=== PATIENT | female | born 1940 | race Caucasian/White ===

== ENCOUNTER 2016-12-10 15:25 | Inpatient (IN) | payer MEDICARE, OTHER ==
[~2016-12-10] VITALS: Ht 167.6 cm; Wt 68.0 kg
[2016-12-10] MEDS: IV NORMAL SALINE 1000ML BAG 1,000 ML IV SCH ×4 (15:40→23:15)
--- NOTE | 2016-12-10 15:48 | PHYS DOC ---
Adult General Chief Complaint Chief Complaint: FEVER HPI HPI Patient is a 76 year old female who presents to the emergency department for evaluation of altered mental status. The patient is currently unable to provide any history. Patient is reported to be alert and fully oriented at baseline. Patient recently had a fall and injured her right shoulder. During her hospital course she had developed aspiration pneumonia which resulted in prolonged intubation. Patient received a tracheostomy and PEG tube during that hospital stay and was discharged to postacute care for a significant period of time. Daughter states that the patient was released to home 2 weeks ago. The patient' s daughter has been caring for the patient at home. She states that suddenly today the patient developed a fever and has had increasing lethargy. The patient responds to painful stimulus at this time. Patient has also had noted abdominal distention and has not had a bowel movement over the past 48 hours. The patient's daughter called EMS and the patient was brought to the emergency department for further evaluation. EMS administered a total of 800 mL of lactated Ringer's and the patient prior to arrival. They noted that the patient was both febrile and hypotensive. Review of Systems Review of Systems Patient profoundly lethargic and unable to provide review of systems Current Medications Current Medications Current Medications Medications (Trade) Dose Ordered Sig/Mercedes Start Time Stop Time Status Last Admin Dose Admin Sodium Chloride 1,000 ml @ 1,120 mls/hr Q54M 12/10/16 16:00 12/10/16 17:00 DC 12/10/16 15:40 1,120 MLS/HR Allergies Allergies Allergies Coded Allergies Type Severity Reaction Last Updated Verified No Known Drug Allergies 12/10/16 No Physical Exam Physical Exam Constitutional: Lethargic, febrile, appears toxic. [] HENT: Normocephalic, atraumatic, bilateral external ears normal, oropharynx dry , no oral exudates, nose normal. [] Eyes: PERRLA, EOMI, conjunctiva normal, no discharge. [] Neck: Normal range of motion, tracheostomy site healing, mild thick secretions present, no tenderness, supple, no stridor. [] Cardiovascular: Tachycardia, regular rhythm, no murmur [] Lungs & Thorax: Bilateral breath sounds clear to auscultation , chest nontender to palpation [] Abdomen: Abdomen is distended, PEG tube in place, active bowel sounds, patient withdraws when abdomen is palpated, no pulsatile masses. [] Skin: Warm, dry, no erythema, no rash. [] Back: No tenderness, no CVA tenderness. [] Extremities: Right upper extremity contracted, no cyanosis, no clubbing, no edema. [] Neurologic: Lethargic, withdraws to painful stimulus, attempts to follow commands. [] Current Patient Data Vital Signs Vital Signs Date Time Temp Pulse Resp B/P (MAP) Pulse Ox O2 Delivery O2 Flow Rate FiO2 12/10/16 16:00 94 21 96/54 (68) 99 Nasal Cannula 6.0 12/10/16 15:25 99.7 99.7 Lab Values Laboratory Tests Test 12/10/16 15:35 12/10/16 15:40 12/10/16 16:00 White Blood Count 29.2 x10^3/uL (4.0-11.0) H Red Blood Count 3.01 x10^6/uL (3.50-5.40) L Hemoglobin 8.8 g/dL (12.0-15.5) L Hematocrit 27.5 % (36.0-47.0) L Mean Corpuscular Volume 91 fL (79-100) Mean Corpuscular Hemoglobin 29 pg (25-35) Mean Corpuscular Hemoglobin Concent 32 g/dL (31-37) Red Cell Distribution Width 16.4 % (11.5-14.5) H Platelet Count 304 x10^3/uL (140-400) Neutrophils (%) (Auto) 93 % (31-73) H Lymphocytes (%) (Auto) 1 % (24-48) L Monocytes (%) (Auto) 6 % (0-9) Eosinophils (%) (Auto) 0 % (0-3) Basophils (%) (Auto) 0 % (0-3) Neutrophils # (Auto) 27.1 x10^3uL (1.8-7.7) H Lymphocytes # (Auto) 0.4 x10^3/uL (1.0-4.8) L Monocytes # (Auto) 1.6 x10^3/uL (0.0-1.1) H Eosinophils # (Auto) 0.0 x10^3/uL (0.0-0.7) Basophils # (Auto) 0.0 x10^3/uL (0.0-0.2) Segmented Neutrophils % 78 % (35-66) H Band Neutrophils % 13 % (0-9) H Lymphocytes % 2 % (24-48) L Monocytes % 5 % (0-10) Metamyelocytes % 2 % (0-0) H Platelet Estimate Adequate (ADEQUATE) Anisocytosis Slight Sodium Level 132 mmol/L (136-145) L Potassium Level 5.6 mmol/L (3.5-5.1) H Chloride Level 99 mmol/L (98-107) Carbon Dioxide Level 29 mmol/L (21-32) Anion Gap 4 (6-14) L Blood Urea Nitrogen 68 mg/dL (7-20) H Creatinine 1.5 mg/dL (0.6-1.0) H Estimated GFR (Cockcroft-Gault) 33.7 BUN/Creatinine Ratio 45 (6-20) H Glucose Level 118 mg/dL (70-99) H Lactic Acid Level 2.7 mmol/L (0.4-2.0) H Calcium Level 8.8 mg/dL (8.5-10.1) Total Bilirubin 0.2 mg/dL (0.2-1.0) Aspartate Amino Transferase (AST) 54 U/L (15-37) H Alanine Aminotransferase (ALT) 52 U/L (14-59) Alkaline Phosphatase 141 U/L (46-116) H Total Protein 7.1 g/dL (6.4-8.2) Albumin 2.1 g/dL (3.4-5.0) L Albumin/Globulin Ratio 0.4 (1.0-1.7) L Urine Collection Type Unknown Urine Color Yellow Urine Clarity Clear Urine pH 7.0 Urine Specific [place] 1.015 Urine Protein Negative mg/dL (NEG-TRACE) Urine Glucose (UA) Negative mg/dL (NEG) Urine Ketones (Stick) Negative mg/dL (NEG) Urine Blood Trace (NEG) Urine Nitrite Negative (NEG) Urine Bilirubin Negative (NEG) Urine Urobilinogen Dipstick 0.2 mg/dL (0.2 mg/dL) Urine Leukocyte Esterase Moderate (NEG) Urine RBC 3-5 /HPF (0-2) Urine WBC 5-10 /HPF (0-4) Urine Bacteria Many /HPF (0-FEW) Urine Hyaline Casts Moderate /HPF Urine Mucus Slight /LPF O2 Saturation 96 % (92-99) Arterial Blood pH 7.50 (7.35-7.45) H Arterial Blood pCO2 at Patient Temp 34 mmHg (35-46) L Arterial Blood pO2 at Patient Temp 92 mmHg (65-108) Arterial Blood HCO3 26 mmol/L (21-28) Arterial Blood Base Excess 3 mmol/L (-3-3) FiO2 5 lpm nc Laboratory Tests 12/10/16 15:35 Laboratory Tests 12/10/16 15:35 EKG EKG Interpreted by me: Heart rate 98, sinus rhythm, left axis deviation, no acute ST /T-wave abnormalities present [] Radiology/Procedures Radiology/Procedures [address] [id number] IMAGING REPORT Signed PATIENT: RHETT BENNETT ACCOUNT: [id number] : 1940 LOCATION: ER AGE: 76 SEX: F EXAM STATUS: PRE ER ORD. PHYSICIAN: ANAND MARSHALL MD REASON: altered mental status, fever, abdominal distention, cough PROCEDURE: ACUTE ABDOMEN SERIES Indication: Fever and shortness of breath as well as abdominal distention. Time of exam 1600 hours. The heart is enlarged. Right hemidiaphragm is mildly elevated. There is some infiltrate or atelectasis in the right base. Minimal atelectasis left base is also seen. No free air is identified. There is moderate nonspecific gaseous distention to the right colon. Small bowel does not appear to be appreciably dilated. No wall thickening or pneumatosis is identified. No pathologic calcifications are seen. There is left convexity lumbar scoliotic curvature. Impression: 1. Bibasilar infiltrates or atelectasis, right greater. 2. Nonspecific moderate gaseous distention to the right colon. No wall thickening or free air is detected. DICTATED and SIGNED BY: ALLIE DAVIS MD DATE: 12/10/16 1605 CC: ANAND MARSHALL MD ~ [id number] [place], [place] [id number] IMAGING REPORT Signed PATIENT: RHETT BENNETT ACCOUNT: [id number] : 1940 LOCATION: ER AGE: 76 SEX: F EXAM STATUS: REG ER ORD. PHYSICIAN: ANAND MARSHALL MD REASON: sepsis, abdominal distention PROCEDURE: CT ABDOMEN PELVIS WO CONTRAST History: Possible sepsis. Pain and distention. Comparison: None. Technique: CT of the abdomen and pelvis was performed without intravenous contrast. Exposure: One or more of the following individualized dose reduction techniques were utilized for this examination: 1. Automated exposure control 2. Adjustment of the mA and/or kV according to patient size 3. Use of iterative reconstruction technique Findings: Evaluation of solid organs of the abdomen and pelvis is limited by lack of intravenous contrast. Motion artifact is seen at multiple levels which could obscure subtle abnormalities. There is significant streak artifact from patient's right total hip arthroplasty limiting evaluation of the pelvis. Groundglass opacity and consolidation can be seen involving right lower lobe and right middle lobe with lesser airspace disease involving the left lower lobe. Liver, spleen, pancreas, and bilateral adrenal glands are unremarkable. Cholelithiasis is suspected. No renal collecting system stones are identified. There is a calcification in the right aspect of the pelvis (axial image 60) which may be phlebolith or 2 mm distal right ureteral stone. L1 vertebral body demonstrates severe compression fracture, age-indeterminate. The T9 vertebral level demonstrates mild compression fracture, age-indeterminate. A few loops of small bowel are dilated up to 3.5 cm, but there is no evidence of bowel obstruction as oral contrast makes it to the rectum. There is evidence of rectal prolapse. Francisco catheter is present in the urinary bladder. Gastrostomy tube is present. Right hemipelvis demonstrates 5.5 cm cystic lesion, presumably ovarian in origin. Sacral decubitus ulcer is seen. Impression: 1. Lung bases demonstrate right greater than left airspace disease. Findings could represent pneumonia. Recommend clinical correlation. 2. Calcification in the right hemipelvis, could be phlebolith versus 2 mm distal right ureteral stone. 3. No evidence of bowel obstruction. 4. Rectal prolapse. 5. 5.5 cm cystic lesion in the right hemipelvis, presumably ovarian in origin. 6. T9 and L1 vertebral fractures, age-indeterminate. 7. Sacral decubitus ulcer. Electronically signed by: Toni Bah MD (12/10/2016 5:25 PM) DICTATED and SIGNED BY: TONI BAH MD DATE: 12/10/16 1717 CC: ANAND MARSHALL MD; DANILO GARCIA MD ~ [] Course & Med Decision Making Course & Med Decision Making Pertinent Labs and Imaging studies reviewed. (See chart for details) The patient was started on IV fluids prior to arrival in the emergency department and was given a total of 800 mL of lactated ringer. Based off of the patient's weight calculation, the patient is to receive 1920 mL of fluid. The patient was thus given 1120 mL to complete her 30 mL per kilo bolus as per sepsis protocol protocol. The patient's blood pressure is improved over 90 systolic with initial treatment. Patient found to have radiographic evidence of both pneumonia as well as intestinal distention. Patient's PEG tube was placed to low intermittent suction. Patient's UA positive for urinary tract infection. The patient was started on IV vancomycin, Levaquin, and Zosyn in the emergency department. This patient is critically ill and has multiple comorbidities. The patient will be appropriately dispositioned to the ICU for further care. I spoke to Dr. Ramírez who accepted care patient. Consults were also placed to Dr. Guadalupe of pulmonology and Dr. Lilly of nephrology to follow with patient in hospital. Critical care time excluding procedures: 50 minutes Dragon Disclaimer Dragon Disclaimer This electronic medical record was generated, in whole or in part, using a voice recognition dictation system. Departure Departure Impression: Primary Impression: Severe sepsis Additional Impressions: Healthcare-associated pneumonia Urinary tract infection Microcytic anemia Acute renal failure Severe protein-calorie malnutrition Disposition: ADMITTED INPATIENT Admitting Physician: Moiz Ramírez Condition: GUARDED Problem Qualifiers Additional Impressions: Urinary tract infection Urinary tract infection type: catheter-associated UTI Indwelling urinary catheter type: indwelling urethral catheter Encounter type: initial encounter Qualified Codes: T83.511A - Infection and inflammatory reaction due to indwelling urethral catheter, initial encounter; N39.0 - Urinary tract infection, site not specified Acute renal failure Acute renal failure type: unspecified Qualified Codes: N17.9 - Acute kidney failure, unspecified ANAND MARSHALL MD Dec 10, 2016 15:48
[2016-12-10 15:56] LABS: BASO % 0 % (0-3); EOS % 0 % (0-3); HEMATOCRIT 27.5 % (36.0-47.0); HEMOGLOBIN 8.8 g/dL (12.0-15.5); LYMPH # 0.4 x10^3/uL (1.0-4.8); LYMPH % 1 % (24-48); MEAN CORPUSCULAR HEMOGLOBIN 29 pg (25-35); MEAN CORPUSCULAR HGB CONC 32 g/dL (31-37); MEAN CORPUSCULAR VOLUME 91 fL (79-100); MONO % 6 % (0-9); NEUT % 93 % (31-73); PLATELET COUNT 304 x10^3/uL (140-400); RED BLOOD COUNT 3.01 x10^6/uL (3.50-5.40); RED CELL DISTRIBUTION WIDTH 16.4 % (11.5-14.5); WHITE BLOOD COUNT 29.2 x10^3/uL (4.0-11.0)
[2016-12-10 15:59] LABS: BILIRUBIN,URINE NEGATIVE (NEG); GLUCOSE,URINE NEGATIVE (NEG); NITRITE,URINE NEGATIVE (NEG); PROTEIN,URINE NEGATIVE (NEG-TRACE); UROBILINOGEN,URINE 0.2 mg/dL (0.2 mg/dL)
--- NOTE | 2016-12-10 16:09 | RAD ---
Indication: Fever and shortness of breath as well as abdominal distention. Time of exam 1600 hours. The heart is enlarged. Right hemidiaphragm is mildly elevated. There is some infiltrate or atelectasis in the right base. Minimal atelectasis left base is also seen. No free air is identified. There is moderate nonspecific gaseous distention to the right colon. Small bowel does not appear to be appreciably dilated. No wall thickening or pneumatosis is identified. No pathologic calcifications are seen. There is left convexity lumbar scoliotic curvature. Impression: 1. Bibasilar infiltrates or atelectasis, right greater. 2. Nonspecific moderate gaseous distention to the right colon. No wall thickening or free air is detected.
[2016-12-10 16:10] LABS: CALCIUM 8.8 mg/dL (8.5-10.1); CREATININE 1.5 mg/dL (0.6-1.0); GFR 33.7; POTASSIUM 5.6 mmol/L (3.5-5.1)
[2016-12-10 16:11] LABS: HCO3 ABG 26 mmol/L (21-28); PCO2 ABG 34 mmHg (35-46); PO2 ABG 92 mmHg (65-108); SAT O2 ABG 96 % (92-99)
[2016-12-10 16:12] LABS: BACTERIA,URINE MANY /HPF (0-FEW)
[2016-12-10] MEDS ORDERED: IV NORMAL SALINE 1000ML BAG 1,000 ML IV ONE ×2 (16:15→19:30)
[2016-12-10] MEDS ORDERED: levOFLOXacin PER PHARMACY. MC PRN (16:15)
[2016-12-10] MEDS ORDERED: PIP/TAZO PER PHARMACY MC PRN (16:15)
[2016-12-10] MEDS ORDERED: VANCOMYCIN 1.5 GM in IV NORMAL SALINE 500ML BAG 500 ML IV ONE (16:15)
[2016-12-10 16:16] LABS: ALBUMIN 2.1 g/dL (3.4-5.0); ALBUMIN/GLOBULIN RATIO 0.4 (1.0-1.7); TOTAL BILIRUBIN 0.2 mg/dL (0.2-1.0); TOTAL PROTEIN 7.1 g/dL (6.4-8.2)
[2016-12-10 16:28] LABS: ANISOCYTOSIS SLIGHT; PLT ESTIMATE ADEQUATE (ADEQUATE)
[2016-12-10] MEDS ORDERED: PIPERACILLIN/TAZOBACTAM 4.5 GM in IV NORMAL SALINE 100ML 100 ML IV ONE (16:30)
[2016-12-10] MEDS ORDERED: ACETAMINOPHEN 325 MG TABLET. PO PRN ×2 (16:45→17:15)
[2016-12-10] MEDS ORDERED: ONDANSETRON PF 4 MG/2 ML VIAL. IV PRN ×2 (16:45→17:15)
--- NOTE | 2016-12-10 17:10 | PDOC1 ---
History and Physical Date of Admission Date of Admission 12/10/16 Identification/Chief Complaint Chief Complaint AMS Problems: Source Source: Caregiver, Chart review History of Present Illness History of Present Illness Patient is a 76 year old female who presents to the emergency department for evaluation of altered mental status today. Pt is lethargic now, all history contributed from her , daughter at bedside and ERP. Pt fell in 01/2016, with right clavical fx, hip fx post sx, then transferred to different hosp and rehab, complicated with PNA, resp failure, aspiration, ended up with a prolonged intubated, trach and PEG. Pt was just dced back home 2 weeks ago, trach was removed. cont PEG feeding. Her baseline mental status was confused sometime, but most of time able to talk ,expresses herself. Daughter noticed pt had cloudy urine and PCP prescribed bactrium 2 days ago. Pt also was noticed to have distended abd with less BM, T 100.8. Today, pt became lethargic, daughter called EMS and the patient was brought to the emergency department for further evaluation. EMS administered a total of 800 mL of lactated Ringer's and the patient prior to arrival. They noted that the patient was both febrile 101 and hypotensive. Past Medical History Past Medical History HTN, PNA, RESP Failure with trach, PAFIB Past Surgical History Past Surgical History: Total hip replacement Family History Family History: Hypertension Social History Smoke: No ALCOHOL: none Drugs: None Current Problem List Problem List Problems Medical Problems: (1) Acute renal failure Status: Acute (2) Healthcare-associated pneumonia Status: Acute (3) Microcytic anemia Status: Acute (4) Severe protein-calorie malnutrition Status: Acute (5) Severe sepsis Status: Acute (6) Urinary tract infection Status: Acute Current Medications Current Medications Current Medications Medications (Trade) Dose Ordered Sig/Mercedes Start Time Stop Time Status Last Admin Dose Admin Acetaminophen (Tylenol) 650 mg PRN Q4HRS PRN 12/10/16 16:45 12/11/16 16:44 Albuterol/ Ipratropium (Duoneb) 3 ml RTQID 12/10/16 20:00 12/11/16 19:59 Levofloxacin/ Dextrose 150 ml @ 150 mls/hr ONCE ONCE 12/10/16 16:15 12/10/16 17:14 12/10/16 16:16 150 MLS/HR Levofloxacin/ Dextrose (Levaquin Per Pharmacy) 1 each PRN DAILY PRN 12/10/16 16:15 UNV Ondansetron HCl (Zofran) 4 mg PRN Q8HRS PRN 12/10/16 16:45 12/11/16 16:44 Piperacillin Sod/ Tazobactam Sod (Zosyn Per Pharmacy) 1 each PRN DAILY PRN 12/10/16 16:15 UNV Piperacillin Sod/ Tazobactam Sod 4.5 gm/Sodium Chloride 100 ml @ 200 mls/hr ONCE ONCE 12/10/16 16:30 12/10/16 16:59 Sodium Chloride 1,000 ml @ 150 mls/hr Q6H40M 12/10/16 16:35 12/11/16 16:34 Vancomycin HCl (Vanco Per Pharmacy) 1 each PRN DAILY PRN 12/10/16 16:15 UNV Vancomycin HCl 1.5 gm/Sodium Chloride 500 ml @ 250 mls/hr 1X ONCE 12/10/16 16:15 12/10/16 18:14 Allergies Allergies Allergies Coded Allergies Type Severity Reaction Last Updated Verified No Known Drug Allergies 12/10/16 No ROS Review of System CONSTITUTIONAL: No fever or chills EYES: No recent changes SKIN: No rash or itching CARDIOVASCULAR: No chest pain, syncope, palpitations, or edema RESPIRATORY: No SOB or cough GASTROINTESTINAL: No nausea, vomiting or abdominal pain NEUROLOGICAL: No headaches or weakness ENDOCRINE: No cold or heat intolerance GENITOURINARY: No urgency or frequency of urination MUSCULOSKELETAL: No back pain or joint pain LYMPHATICS: No enlarged lymph nodes PSYCHIATRIC: No anxiety or depression Physical Exam Physical Exam GEN.: No apparent distress. lethargic, not arousable or answer questions. HEENT: Head is normocephalic, atraumatic NECK: Supple. LUNGS: Clear to auscultation. HEART: RRR, S1, S2 present. Peripheral pulses intact ABDOMEN: Soft, nontender. Positive bowel sounds. distended abd. EXTREMITIES: Without any cyanosis. NEUROLOGIC: Normal speech, normal tone PSYCHIATRIC: Normal affect, normal mood. SKIN: sacral ulcer with wound vac Vitals Vitals Vital Signs Date Time Temp Pulse Resp B/P (MAP) Pulse Ox O2 Delivery O2 Flow Rate FiO2 12/10/16 16:19 99.1 96 20 93/46 (62) 100 Room Air 99.1 12/10/16 16:13 5.0 Labs Labs Laboratory Tests Test 12/10/16 15:35 12/10/16 15:40 12/10/16 16:00 White Blood Count 29.2 x10^3/uL (4.0-11.0) Red Blood Count 3.01 x10^6/uL (3.50-5.40) Hemoglobin 8.8 g/dL (12.0-15.5) Hematocrit 27.5 % (36.0-47.0) Mean Corpuscular Volume 91 fL (79-100) Mean Corpuscular Hemoglobin 29 pg (25-35) Mean Corpuscular Hemoglobin Concent 32 g/dL (31-37) Red Cell Distribution Width 16.4 % (11.5-14.5) Platelet Count 304 x10^3/uL (140-400) Neutrophils (%) (Auto) 93 % (31-73) Lymphocytes (%) (Auto) 1 % (24-48) Monocytes (%) (Auto) 6 % (0-9) Eosinophils (%) (Auto) 0 % (0-3) Basophils (%) (Auto) 0 % (0-3) Neutrophils # (Auto) 27.1 x10^3uL (1.8-7.7) Lymphocytes # (Auto) 0.4 x10^3/uL (1.0-4.8) Monocytes # (Auto) 1.6 x10^3/uL (0.0-1.1) Eosinophils # (Auto) 0.0 x10^3/uL (0.0-0.7) Basophils # (Auto) 0.0 x10^3/uL (0.0-0.2) Segmented Neutrophils % 78 % (35-66) Band Neutrophils % 13 % (0-9) Lymphocytes % 2 % (24-48) Monocytes % 5 % (0-10) Metamyelocytes % 2 % (0-0) Platelet Estimate Adequate (ADEQUATE) Anisocytosis Slight Sodium Level 132 mmol/L (136-145) Potassium Level 5.6 mmol/L (3.5-5.1) Chloride Level 99 mmol/L (98-107) Carbon Dioxide Level 29 mmol/L (21-32) Anion Gap 4 (6-14) Blood Urea Nitrogen 68 mg/dL (7-20) Creatinine 1.5 mg/dL (0.6-1.0) Estimated GFR (Cockcroft-Gault) 33.7 BUN/Creatinine Ratio 45 (6-20) Glucose Level 118 mg/dL (70-99) Lactic Acid Level 2.7 mmol/L (0.4-2.0) Calcium Level 8.8 mg/dL (8.5-10.1) Total Bilirubin 0.2 mg/dL (0.2-1.0) Aspartate Amino Transf (AST/SGOT) 54 U/L (15-37) Alanine Aminotransferase (ALT/SGPT) 52 U/L (14-59) Alkaline Phosphatase 141 U/L (46-116) Total Protein 7.1 g/dL (6.4-8.2) Albumin 2.1 g/dL (3.4-5.0) Albumin/Globulin Ratio 0.4 (1.0-1.7) Urine Collection Type Unknown Urine Color Yellow Urine Clarity Clear Urine pH 7.0 Urine Specific [place] 1.015 Urine Protein Negative mg/dL (NEG-TRACE) Urine Glucose (UA) Negative mg/dL (NEG) Urine Ketones (Stick) Negative mg/dL (NEG) Urine Blood Trace (NEG) Urine Nitrite Negative (NEG) Urine Bilirubin Negative (NEG) Urine Urobilinogen Dipstick 0.2 mg/dL (0.2 mg/dL) Urine Leukocyte Esterase Moderate (NEG) Urine RBC 3-5 /HPF (0-2) Urine WBC 5-10 /HPF (0-4) Urine Bacteria Many /HPF (0-FEW) Urine Hyaline Casts Moderate /HPF Urine Mucus Slight /LPF O2 Saturation 96 % (92-99) Arterial Blood pH 7.50 (7.35-7.45) Arterial Blood pCO2 at Patient Temp 34 mmHg (35-46) Arterial Blood pO2 at Patient Temp 92 mmHg (65-108) Arterial Blood HCO3 26 mmol/L (21-28) Arterial Blood Base Excess 3 mmol/L (-3-3) FiO2 5 lpm nc Laboratory Tests Test 12/10/16 15:35 12/10/16 15:40 12/10/16 16:00 White Blood Count 29.2 x10^3/uL (4.0-11.0) Red Blood Count 3.01 x10^6/uL (3.50-5.40) Hemoglobin 8.8 g/dL (12.0-15.5) Hematocrit 27.5 % (36.0-47.0) Mean Corpuscular Volume 91 fL (79-100) Mean Corpuscular Hemoglobin 29 pg (25-35) Mean Corpuscular Hemoglobin Concent 32 g/dL (31-37) Red Cell Distribution Width 16.4 % (11.5-14.5) Platelet Count 304 x10^3/uL (140-400) Neutrophils (%) (Auto) 93 % (31-73) Lymphocytes (%) (Auto) 1 % (24-48) Monocytes (%) (Auto) 6 % (0-9) Eosinophils (%) (Auto) 0 % (0-3) Basophils (%) (Auto) 0 % (0-3) Neutrophils # (Auto) 27.1 x10^3uL (1.8-7.7) Lymphocytes # (Auto) 0.4 x10^3/uL (1.0-4.8) Monocytes # (Auto) 1.6 x10^3/uL (0.0-1.1) Eosinophils # (Auto) 0.0 x10^3/uL (0.0-0.7) Basophils # (Auto) 0.0 x10^3/uL (0.0-0.2) Segmented Neutrophils % 78 % (35-66) Band Neutrophils % 13 % (0-9) Lymphocytes % 2 % (24-48) Monocytes % 5 % (0-10) Metamyelocytes % 2 % (0-0) Platelet Estimate Adequate (ADEQUATE) Anisocytosis Slight Sodium Level 132 mmol/L (136-145) Potassium Level 5.6 mmol/L (3.5-5.1) Chloride Level 99 mmol/L (98-107) Carbon Dioxide Level 29 mmol/L (21-32) Anion Gap 4 (6-14) Blood Urea Nitrogen 68 mg/dL (7-20) Creatinine 1.5 mg/dL (0.6-1.0) Estimated GFR (Cockcroft-Gault) 33.7 BUN/Creatinine Ratio 45 (6-20) Glucose Level 118 mg/dL (70-99) Lactic Acid Level 2.7 mmol/L (0.4-2.0) Calcium Level 8.8 mg/dL (8.5-10.1) Total Bilirubin 0.2 mg/dL (0.2-1.0) Aspartate Amino Transf (AST/SGOT) 54 U/L (15-37) Alanine Aminotransferase (ALT/SGPT) 52 U/L (14-59) Alkaline Phosphatase 141 U/L (46-116) Total Protein 7.1 g/dL (6.4-8.2) Albumin 2.1 g/dL (3.4-5.0) Albumin/Globulin Ratio 0.4 (1.0-1.7) Urine Collection Type Unknown Urine Color Yellow Urine Clarity Clear Urine pH 7.0 Urine Specific [place] 1.015 Urine Protein Negative mg/dL (NEG-TRACE) Urine Glucose (UA) Negative mg/dL (NEG) Urine Ketones (Stick) Negative mg/dL (NEG) Urine Blood Trace (NEG) Urine Nitrite Negative (NEG) Urine Bilirubin Negative (NEG) Urine Urobilinogen Dipstick 0.2 mg/dL (0.2 mg/dL) Urine Leukocyte Esterase Moderate (NEG) Urine RBC 3-5 /HPF (0-2) Urine WBC 5-10 /HPF (0-4) Urine Bacteria Many /HPF (0-FEW) Urine Hyaline Casts Moderate /HPF Urine Mucus Slight /LPF O2 Saturation 96 % (92-99) Arterial Blood pH 7.50 (7.35-7.45) Arterial Blood pCO2 at Patient Temp 34 mmHg (35-46) Arterial Blood pO2 at Patient Temp 92 mmHg (65-108) Arterial Blood HCO3 26 mmol/L (21-28) Arterial Blood Base Excess 3 mmol/L (-3-3) FiO2 5 lpm nc VTE Prophylaxis Ordered VTE Prophylaxis Devices: Yes VTE Pharmacological Prophylaxi: Yes Assessment/Plan Assessment/Plan AMS, metabolic encephalopathy likely with baseline mild dementia sepsis with asp PNA, HAP, UTI septic shock lili, vasomotor, dehydration lactate acidosis hyperkalemia moderate malnutrition recent acute resp failure with trach, removed dysphagia with PEG Distended abd pafib sacral decubitus ulcer plan: abd CT pending broad spectrum abx icu care, keep map> 65 ivf npo, HOLD PEG till abd CT result is back neuro, pulm, renal consult, ID consult labs daily dvt ppx fu ucx, bcx wound care HANNY Vogt MD Dec 10, 2016 17:10
[2016-12-10] MEDS ORDERED: ALBUTEROL SULFATE 2.5 MG/3 ML NEBU. NEB PRN (17:15)
[2016-12-10] MEDS ORDERED: DOCUSATE SODIUM 100 MG CAPSULE. PO PRN (17:15)
[2016-12-10] MEDS ORDERED: MORPHINE SULFATE 2 MG/ML DISP.SYRIN. IV PRN (17:15)
[2016-12-10] MEDS ORDERED: traMADol 50 MG TABLET PO PRN (17:15)
[2016-12-10] MEDS ORDERED: hydrALAZINE 20 MG/ML VIAL. IVP PRN (17:15)
--- NOTE | 2016-12-10 17:29 | RAD ---
History: Possible sepsis. Pain and distention. Comparison: None. Technique: CT of the abdomen and pelvis was performed without intravenous contrast. Exposure: One or more of the following individualized dose reduction techniques were utilized for this examination: 1. Automated exposure control 2. Adjustment of the mA and/or kV according to patient size 3. Use of iterative reconstruction technique Findings: Evaluation of solid organs of the abdomen and pelvis is limited by lack of intravenous contrast. Motion artifact is seen at multiple levels which could obscure subtle abnormalities. There is significant streak artifact from patient's right total hip arthroplasty limiting evaluation of the pelvis. Groundglass opacity and consolidation can be seen involving right lower lobe and right middle lobe with lesser airspace disease involving the left lower lobe. Liver, spleen, pancreas, and bilateral adrenal glands are unremarkable. Cholelithiasis is suspected. No renal collecting system stones are identified. There is a calcification in the right aspect of the pelvis (axial image 60) which may be phlebolith or 2 mm distal right ureteral stone. L1 vertebral body demonstrates severe compression fracture, age-indeterminate. The T9 vertebral level demonstrates mild compression fracture, age-indeterminate. A few loops of small bowel are dilated up to 3.5 cm, but there is no evidence of bowel obstruction as oral contrast makes it to the rectum. There is evidence of rectal prolapse. Francisco catheter is present in the urinary bladder. Gastrostomy tube is present. Right hemipelvis demonstrates 5.5 cm cystic lesion, presumably ovarian in origin. Sacral decubitus ulcer is seen. Impression: 1. Lung bases demonstrate right greater than left airspace disease. Findings could represent pneumonia. Recommend clinical correlation. 2. Calcification in the right hemipelvis, could be phlebolith versus 2 mm distal right ureteral stone. 3. No evidence of bowel obstruction. 4. Rectal prolapse. 5. 5.5 cm cystic lesion in the right hemipelvis, presumably ovarian in origin. 6. T9 and L1 vertebral fractures, age-indeterminate. 7. Sacral decubitus ulcer. Electronically signed by: Toni Sharma MD (12/10/2016 5:25 PM)
--- NOTE | 2016-12-10 17:34 | ACF ---
Admission Forms Criteria SEVERE SEPSIS Clinical Indications for Admission to Inpatient Care (Place 'X' for any and all applicable criteria): Hospital admission is needed for appropriate care of the patient because of ANY ONE of the following: [X]I. Hemodynamic instability indicated by ANY ONE of the following(1)(2)(3)( 4)(5): []a. Vital sign abnormality not readily corrected by appropriate treatment within 12 to 24 hours indicated by ANY ONE of the following: []i) Tachycardia that persists despite appropriate treatment []ii) Hypotension that persists despite appropriate treatment []iii) Orthostatic vital sign changes that persist despite appropriate treatment [X]b. Vital sign abnormality that is severe indicated by ANY ONE of the following: [X]i. Inadequate perfusion indicated by ANY ONE of the following: [X]1) Lactic acidosis (greater than 2 mmol/L) []2) New abnormal capillary refill (greater than 3 seconds) []3) Reduced urine output []4) New altered mental status []5) Myocardial Ischemia []ii. Mean arterial pressure [A] less than 60 mm Hg []iii. Mean arterial pressure[A] less than 70 mm Hg after 30 minutes of appropriate treatment (eg, fluid resuscitation) []iv. Sustained heart rate greater than 120 beats per minute in adult []v. IV inotropic or vasopressor medication required to maintain adequate blood pressure or perfusion []II. Systemic or infectious condition causing severe symptoms or findings not responsive to emergency or observation care treatment (as appropriate) indicated by ANY ONE of the following: []a. Cardiac arrhythmias of immediate concern(1)(2)(3) []b. Severe endocrine disorder (eg, thyrotoxicosis, adrenal insufficiency)(4)(5) []c. Seizures (eg, new or recurrent)(6) []d. New-onset end organ failure or dysfunction as indicated by ANY ONE of the following: []i. Acute unexplained hypoxemia (eg, not from lung infection or chronic disease)(7)(8)(9) []ii. Acute renal failure as indicated by new onset of ANY ONE of the following(10)(11)(12)(13)(14): []1) 3-fold rise in serum creatinine from baseline []2) Serum creatinine greater than 4 mg/dL (354 micromoles/L) with acute rise greater than 0.5 mg/dL (44.2 micromoles/L) []3) Reduction of more than 75% in estimated glomerular filtration rate from baseline. []4) Estimated glomerular filtration rate less than 35 mL/min/1.73m2 ( 0.59 mL/sec/1.73m2) in child younger than 18 years. []5) Cessation of urine output indicated by ALL of the following: []A. Adequate volume status []B. Inadequate urine output as indicated by ANY ONE of the following: []a. Urine output less than 0.3 mL/kg/hr for 24 hours []b. Anuria (urine output less than 0.1 mL/kg/hr) for 12 hours []iii. Acute mental status changes(15) []iv. Acute hepatic failure (eg, plasma bilirubin greater than 4 mg/ dL (68 micromoles/L), new INR greater than 2.0)(16)(17) []e. Unmanageable nausea and vomiting(18) []f. New-onset or uncontrolled central diabetes insipidus(19)(20) []g. Clinically significant dehydration(18)(21) []h. Hypoglycemia(22) []i. Acidosis (pH less than 7.35) or alkalosis (pH greater than 7.45)( 22)(23) []j. Toxic drug level that indicates need for specific monitoring or treatment(24)(25) []k. Severe electrolyte abnormalities indicated by ALL of the following( 1)(2)(3): []i. Electrolytes and associated findings are not as expected for patient baseline or acceptable treatment effects. []ii. Severe abnormalities indicated by ANY ONE of the following: []1) Sodium less than 130 mEq/L (mmol/L) (new) []2) Sodium less than 135 mEq/L (mmol/L) with ANY ONE of the following: []A. Uncorrectable (to near normal or chronic baseline) after trial of outpatient and emergency treatment []B. Altered mental status []C. Seizures []D. Severe medical etiology requiring inpatient management (eg , heart failure, hypovolemia) []3) Sodium greater than 155 mEq/L (mmol/L) []4) Sodium greater than 150 mEq/L (mmol/L) with ANY ONE of the following: []A. Uncorrectable (to near normal or chronic baseline) with outpatient and emergency treatment []B. Altered mental status []C. Seizures []D. Severe medical etiology (eg, hypovolemia, diabetes insipidus) []5) Potassium less than 2.5 mEq/L (mmol/L) despite outpatient and emergency treatment []6) Potassium less than 3 mEq/L (mmol/L) with ANY ONE of the following : []A. Weakness []B. Cardiac abnormality (eg, arrhythmia, conduction disturbance ) []C. Cardiac ischemia []D. Ileus []E. Ongoing medical cause requiring inpatient management (eg, acute renal wasting or SIADH) []F. Other severe symptoms []7) Potassium greater than 6.5 mEq/L (mmol/L) []8) Potassium greater than 5 mEq/L (mmol/L) with ANY ONE of the following: []A. Uncorrectable (to near normal or chronic baseline) with outpatient and emergency treatment []B. Severe ECG findings[A] []C. Acute worsening of renal failure (creatinine greater than 2.5 mg/dL (221 micromoles/L) or significant elevation for age and size) []D. Severe weakness []E. Severe medical etiology (eg, hemolysis, infection, drug overdose) []9) Calcium less than 7 mg/dL (1.75 mmol/L) despite outpatient and emergency treatment(5) []10) Calcium less than 8 mg/dL (2 mmol/L) with significant symptoms or findings (eg, altered mental status, muscle spasms, seizures, breathing difficulty, cardiac abnormality (eg, arrhythmia or conduction disturbance))(5) []11) Calcium greater than 14 mg/dL (3.5 mmol/L)(5) []12) Calcium greater than 12 mg/dL (3 mmol/L) with ANY ONE of the following(5): []A. Uncorrectable (to near normal or chronic baseline) with outpatient and emergency treatment []B. Significant dehydration or hypovolemia as indicated by ALL of the following(3)(6)(7): []a. Not resolved with initial treatments []b. Clinically significant dehydration as indicated by ANY ONE of the following: [](1) Vomiting refractory to outpatient treatment (ie, precluding oral rehydration) [](2) Inability to drink [](3) Hypernatremia or other electrolyte abnormality unable to be corrected with outpatient and emergency treatment [](4) Failure to remain hydrated with outpatient therapy [](5) Reduced urine output [](6) Hypotension [](7) Serious cause for dehydration requiring acute hospitalization ( eg, bowel obstruction, increased intracranial pressure, infectious cause) [](8) Child with ANY ONE of the following(8): [](i) Severe abdominal tenderness [](ii) Adequate care not available at home [](iii) Severe dehydration (greater than 9% loss of body weight) []C. Significant symptoms or findings (eg, altered mental status , cardiac abnormality (eg, arrhythmia, conduction disturbance), malignant etiology requiring inpatient treatment) []13) Phosphorus less than 1 mg/dL (0.32 mmol/L) []14) Phosphorus less than 1.5 mg/dL (0.48 mmol/L) with ANY ONE of the following: []A. Patient unresponsive to outpatient and emergency treatment []B. Significant symptoms or findings (eg, weakness, altered mental status, breathing difficulty, seizures, rhabdomyolysis) []15) Phosphorus greater than 10 mg/dL (3.2 mmol/L) []16) Phosphorus greater than 4.5 mg/dL (1.45 mmol/L) (new) with ANY ONE of the following: []A. Severe medical etiology (eg, crush injury, acute renal failure) []B. Associated hypocalcemia with significant findings (eg, neurologic symptoms, altered mental status, muscle spasms, seizures, breathing difficulty, cardiac abnormality (eg, arrhythmia, conduction disturbance)) []16) Magnesium less than 1 mg/dL (0.41 mmol/L) []17) Magnesium less than 1.5 mg/dL (0.62 mmol/L) with ANY ONE of the following: []A. Patient unresponsive to outpatient and emergency treatment []B. Associated hypocalcemia with significant findings (eg, altered mental status, muscle spasms, seizures, breathing difficulty, cardiac abnormality (eg, arrhythmia, conduction disturbance)) []C. Associated hypokalemia (potassium less than 3 mEq/L (mmol/L )) with risk of arrhythmia []18) Magnesium greater than 4 mEq/L (2 mmol/L) []19) Magnesium greater than 2.5 mEq/L (1.25 mmol/L) with significant symptoms or findings (eg, weakness, altered mental status, cardiac abnormality (eg, arrhythmia, conduction disturbance), breathing difficulty, severe medical etiology (eg, renal failure, hypovolemia)) []20) Uric acid greater than 20 mg/dL (1190 micromoles/L)(9) []21) Uric acid greater than 8 mg/dL (476 micromoles/L) with significant symptoms or findings of tumor lysis syndrome (eg, creatinine greater than 1.5 times upper limit of normal, cardiac abnormality (eg , arrhythmia, conduction disturbance), seizure)(9) []III. High fever or other high-risk infection situation as indicated by ANY ONE of the following(26)(27)(28): []a. Outpatient and observation care antimicrobial treatment unavailable, not effective, or not appropriate []b. Documented bacteremia []c. Temperature greater than 104.9 degrees F (40.5 degrees C) (oral) []d. Temperature greater than 103.1 degrees F (39.5 degrees C) (oral) or less than 96.8 degrees F (36 degrees C) (rectal) that does not respond to emergency treatment and observation care []IV. High-risk febrile neutropenia[A] as indicated by ANY ONE of the following(29)(30)(31)(32): []a. Profound neutropenia[B] anticipated to extend for more than 7 days []b. Hemodynamic instability []c. Hypoxemia []d. Tachypnea []e. Altered mental status []f. New-onset abdominal pain []g. New-onset vomiting or diarrhea []h. Oral or gastrointestinal mucositis that interferes with swallowing or causes severe diarrhea []i. Focal infection (eg, cellulitis, pneumonia, central line or catheter infection, perirectal abscess) []j. Renal insufficiency (eg, GFR of less than 30 mL/min/1.73m2 (0.5 mL/sec /1.73m2)). []k. Severe liver dysfunction (transaminase levels greater than 5 times normal) []l. Platelet count less than 50,000/mm3 (50 x109/L)(33) []m. Leukemia or lymphoma induction therapy []n. Leukemia not in complete remission or with evidence of disease progression []o. Bone marrow transplant patient []p. Alemtuzumab being used for therapy []q. [employer] Association for Supportive Care in Cancer (MASCC) Risk Index score of less than 21[C](33)(35). []V. Isolation required (eg, tuberculosis that requires isolation, Ebola infection)[D](36)(37)(38)(39)(40) []. Gangrene that requires treatment beyond emergency or observation level care(41)(42) []VII. Antitoxin administration and ongoing observation required (eg, tetanus, botulism)(43)(44) []. Suspected infection with rapid progression or severe symptoms as indicated by ANY ONE of the following(45): []a. Streptococcal or staphylococcal toxic shock(46) []b. Diphtheria(47) []c. Hantavirus(48) []d. Severe acute respiratory syndrome(8)(49) []e. Anthrax(50) []f. Ebola[D](36)(37)(38) []g. Necrotizing soft tissue infection(41)(42) []h. Plague(50) []i. Other suspected infection that requires care beyond emergency or observation level care []VII. Severe adverse drug or systemic toxin reaction as indicated by ANY ONE of the following(24): []a. Serotonin syndrome(51)(52) []b. Neuroleptic malignant syndrome(51)(52) []c. Cholinergic syndrome with severe symptoms (eg, bronchorrhea, weakness , mental status changes, seizures)(53) []d. Anticholinergic syndrome []e. Sympathetic syndrome with severe symptoms (eg, seizures, mental status changes, cardiac dysrhythmias) []f. Other severe adverse drug or systemic toxin reaction that remains after emergency or observation level care (as appropriate) []VIII. Allergic reaction with severe symptoms (not responsive to emergency or observation care treatment as appropriate), including ANY ONE of the following(54): []a. Airway edema (pharyngeal, epiglottic, or laryngeal edema) []b. Stridor []c. Respiratory failure []d. Bronchospasm []e. Hypotension []IX. Environmental emergency (not responsive to emergency or observation care treatment as appropriate) as indicated by ANY ONE of the following(55)(56): []a. Hyperthermia []b. Heat stroke []c. Heat exhaustion []d. Hypothermia (temperature less than 95 degrees F (35 degrees C) rectal) (57) []e. Electrocution(58) []X. Complications of transplanted organ (ie, not covered elsewhere)[E] indicated by ANY ONE of the following(59): []a. Acute graft rejection (or graft vs. host disease)[F] requiring inpatient management (eg, intravenous immunosuppression)(60)(61)(62)( 63) []b. Acute failure of transplanted organ necessitating inpatient care (eg, cannot be managed in other setting) []c. Infection requiring inpatient management (eg, Hemodynamic instability, need for intravenous antimicrobial treatment)(64)(65) []d. Other complication of transplanted organ requiring inpatient management []XI. Systemic or Infectious Condition condition, symptom, or finding for which emergency and observation care have failed or are not considered appropriate. See General Criteria: Observation Care, General Admission Criteria or Pediatric General Admission Criteria guideline as appropriate. (Contents from SEVERE SEPSIS and SYSTEMIC OR INFECTIOUS CONDITION clinical indications for admission to inpatient care have been integrated in this form) The original [facility] content created by [email or web address] has been revised. The portions of the content which have been revised are identified through the use of italic text or in bold and [facility] has neither reviewed nor approved the modified material. All other unmodified content is copyright [facility]. Please see references footnoted in the original [facility] edition 2016 Admission Criteria Met?: Yes SON CH Dec 10, 2016 17:34
[2016-12-10 18:15] VITALS: BP 90/45
[2016-12-10] MEDS: VANCOMYCIN PER PHARMACY MC PRN ×2 (18:43→18:46)
[2016-12-10] MEDS: NOREPINEPHRIN PREMIX 250 ML IV PRN (18:45)
[2016-12-10] MEDS: IV DEXTROSE 5% - 0.9 % NACL 1,000 ML IV SCH (18:45)
[2016-12-10 19:00] VITALS: BP 110/51
[2016-12-10 20:00] VITALS: BP 90/49
[2016-12-10] MEDS ORDERED: IPRATRPIUM/ALBUTEROL 0.5/2.5MG 3 ML NEBU. NEB SCH (20:00)
[2016-12-10] MEDS: IPRATRPIUM/ALBUTEROL 0.5/2.5MG 3 ML NEBU. NEB SCH (20:30)
--- NOTE | 2016-12-10 20:45 | RAD ---
Exam: AP portable chest History: Central line placement. Comparison: August 06, 2010. Findings: Cardiac silhouette appears within normal limits for size. There has been interval placement of left subclavian central venous catheter with tip of the catheter projecting at the atriocaval junction. No pneumothorax or pleural effusion is identified. Infiltrate is seen in the right middle lobe adjacent to the minor fissure. Impression: 1. Left subclavian central venous catheter tip projects at the atriocaval junction. 2. Right middle lobe pneumonia. Electronically signed by: Toni Sharma MD (12/10/2016 8:41 PM)
[2016-12-10 21:00] VITALS: BP 96/56
[2016-12-10 22:00] VITALS: BP 92/40
[2016-12-10] MEDS: HEPARIN PF for SUB-Q USE 5,000 UNIT/0.5 ML VIAL. SQ SCH (22:06)
[2016-12-10 23:00] VITALS: BP 96/40
[2016-12-11] VITALS (26 sets, daily range): BP systolic 70–140; BP diastolic 37–75
[2016-12-11] MEDS: PIPERACILLIN/TAZOBACTAM 3.375 GM in IV NORMAL SALINE 50ML 50 ML IV SCH ×4 (00:29→19:02)
[2016-12-11] MEDS: IV NORMAL SALINE 1000ML BAG 1,000 ML IV SCH (05:55)
[2016-12-11] MEDS: HEPARIN PF for SUB-Q USE 5,000 UNIT/0.5 ML VIAL. SQ SCH ×2 (06:17→14:00)
[2016-12-11 06:36] LABS: BASO % 0 % (0-3); EOS % 0 % (0-3); HEMOGLOBIN 8.5 g/dL (12.0-15.5); LYMPH # 1.3 x10^3/uL (1.0-4.8); LYMPH % 5 % (24-48); MEAN CORPUSCULAR HEMOGLOBIN 29 pg (25-35); MEAN CORPUSCULAR HGB CONC 32 g/dL (31-37); MEAN CORPUSCULAR VOLUME 92 fL (79-100); MONO % 6 % (0-9); NEUT % 89 % (31-73); PLATELET COUNT 250 x10^3/uL (140-400); RED BLOOD COUNT 2.94 x10^6/uL (3.50-5.40); RED CELL DISTRIBUTION WIDTH 16.6 % (11.5-14.5); WHITE BLOOD COUNT 26.1 x10^3/uL (4.0-11.0)
[2016-12-11 06:45] LABS: CREATININE 1.4 mg/dL (0.6-1.0); GFR 36.5; POTASSIUM 4.5 mmol/L (3.5-5.1)
[2016-12-11 06:46] LABS: CALCIUM 7.9 mg/dL (8.5-10.1)
[2016-12-11] MEDS: IPRATRPIUM/ALBUTEROL 0.5/2.5MG 3 ML NEBU. NEB SCH ×4 (07:14→19:24)
--- NOTE | 2016-12-11 08:41 | EKG ---
[facility] [address] [place] [address] Test Date: 2016-12-10 Test Time: 15:29:59 Pat Name: RHETT BENNETT Department: Room: 114 1 Gender: F Mopper: : 1940 Requested By: ANAND MARSHALL Order Number: [id number] Reading MD: Kasey Oscar Measurements Intervals [place] Rate: 98 P: -156 WY: 156 QRS: -45 QRSD: 96 T: 51 QT: 368 QTc: 472 Interpretive Statements SINUS RHYTHM LEFT ANTERIOR FASCICULAR BLOCK INCOMPLETE RIGHT BUNDLE BRANCH BLOCK Electronically Signed On 12-11-2016 14:26:19 CDT by Kasey Oscar
[2016-12-11] MEDS: IV DEXTROSE 5% - 0.9 % NACL 1,000 ML IV SCH ×3 (08:53→23:05)
[2016-12-11] MEDS: NOREPINEPHRIN PREMIX 250 ML IV PRN (08:53)
[2016-12-11] MEDS ORDERED: IV NORMAL SALINE 1000ML BAG 1,000 ML IV ONE ×2 (10:00)
--- NOTE | 2016-12-11 10:03 | PDOC ---
PROGRESS NOTES Chief Complaint Chief Complaint AMS ASSESSMENT AND PLAN: 1. metabolic encephalopathy: 2/2 sepsis. suspect baseline mild dementia as well 2. Septic shock: fever, lactic acidosis and hypotension, latter requiring IVF and pressors. 3. HAP/aspiration PNA: on empiric Zosyn, vanco. recent acute resp failure with trach, removed 4. UTI: on empiric Abx; awaiting cultures 5. JULIETA, prob on CKD: 2/2 dehydration. monitor creat with IVF. 6. Hyperkalemia: resolved 7. Hyponatremia: resolved 8. HT: on lisinopril, lasix at home. hold for now 8. Hypothyroidism: on Synthroid (IV for now) 8. PAfib: rate controlled 9. Dysphagia: PEG in place. restart feeds when mental status and constipation cleared 10. Hypoaalbuminemia: multifactorial, incl inflammation and malnutrition. see 8. 11. Decubitus ulcers: wound care consult 12. Constipation: abd CT w/o other significant findings. MO enema, oral laxatives 13. Schizophrenia: on Zyprexa qHS. continue 13. Prophylaxis: heparin SQ, H2B History of Present Illness History of Present Illness sl confused, echolalia. per family, not quite at baseline mentally yet, but not far off Vitals Vitals Vital Signs Date Time Temp Pulse Resp B/P (MAP) Pulse Ox O2 Delivery O2 Flow Rate FiO2 12/11/16 07:18 96 Room Air 12/11/16 06:00 73 21 94/59 (71) 6.0 12/11/16 04:00 98.1 98.1 Physical Exam General: Cooperative, No acute distress, Other (confused) Heart: Regular rate Lungs: Crackles Abdomen: Normal bowel sounds, Soft, No tenderness Extremities: No clubbing, No edema Skin: No rashes Labs LABS Laboratory Tests Test 12/10/16 15:35 12/10/16 15:40 12/10/16 16:00 12/10/16 19:00 White Blood Count 29.2 x10^3/uL (4.0-11.0) Red Blood Count 3.01 x10^6/uL (3.50-5.40) Hemoglobin 8.8 g/dL (12.0-15.5) Hematocrit 27.5 % (36.0-47.0) Mean Corpuscular Volume 91 fL (79-100) Mean Corpuscular Hemoglobin 29 pg (25-35) Mean Corpuscular Hemoglobin Concent 32 g/dL (31-37) Red Cell Distribution Width 16.4 % (11.5-14.5) Platelet Count 304 x10^3/uL (140-400) Neutrophils (%) (Auto) 93 % (31-73) Lymphocytes (%) (Auto) 1 % (24-48) Monocytes (%) (Auto) 6 % (0-9) Eosinophils (%) (Auto) 0 % (0-3) Basophils (%) (Auto) 0 % (0-3) Neutrophils # (Auto) 27.1 x10^3uL (1.8-7.7) Lymphocytes # (Auto) 0.4 x10^3/uL (1.0-4.8) Monocytes # (Auto) 1.6 x10^3/uL (0.0-1.1) Eosinophils # (Auto) 0.0 x10^3/uL (0.0-0.7) Basophils # (Auto) 0.0 x10^3/uL (0.0-0.2) Segmented Neutrophils % 78 % (35-66) Band Neutrophils % 13 % (0-9) Lymphocytes % 2 % (24-48) Monocytes % 5 % (0-10) Metamyelocytes % 2 % (0-0) Platelet Estimate Adequate (ADEQUATE) Anisocytosis Slight Sodium Level 132 mmol/L (136-145) Potassium Level 5.6 mmol/L (3.5-5.1) Chloride Level 99 mmol/L (98-107) Carbon Dioxide Level 29 mmol/L (21-32) Anion Gap 4 (6-14) Blood Urea Nitrogen 68 mg/dL (7-20) Creatinine 1.5 mg/dL (0.6-1.0) Estimated GFR (Cockcroft-Gault) 33.7 BUN/Creatinine Ratio 45 (6-20) Glucose Level 118 mg/dL (70-99) Lactic Acid Level 2.7 mmol/L (0.4-2.0) 2.4 mmol/L (0.4-2.0) Calcium Level 8.8 mg/dL (8.5-10.1) Total Bilirubin 0.2 mg/dL (0.2-1.0) Aspartate Amino Transf (AST/SGOT) 54 U/L (15-37) Alanine Aminotransferase (ALT/SGPT) 52 U/L (14-59) Alkaline Phosphatase 141 U/L (46-116) Total Protein 7.1 g/dL (6.4-8.2) Albumin 2.1 g/dL (3.4-5.0) Albumin/Globulin Ratio 0.4 (1.0-1.7) Urine Collection Type Unknown Urine Color Yellow Urine Clarity Clear Urine pH 7.0 Urine Specific [place] 1.015 Urine Protein Negative mg/dL (NEG-TRACE) Urine Glucose (UA) Negative mg/dL (NEG) Urine Ketones (Stick) Negative mg/dL (NEG) Urine Blood Trace (NEG) Urine Nitrite Negative (NEG) Urine Bilirubin Negative (NEG) Urine Urobilinogen Dipstick 0.2 mg/dL (0.2 mg/dL) Urine Leukocyte Esterase Moderate (NEG) Urine RBC 3-5 /HPF (0-2) Urine WBC 5-10 /HPF (0-4) Urine Bacteria Many /HPF (0-FEW) Urine Hyaline Casts Moderate /HPF Urine Mucus Slight /LPF O2 Saturation 96 % (92-99) Arterial Blood pH 7.50 (7.35-7.45) Arterial Blood pCO2 at Patient Temp 34 mmHg (35-46) Arterial Blood pO2 at Patient Temp 92 mmHg (65-108) Arterial Blood HCO3 26 mmol/L (21-28) Arterial Blood Base Excess 3 mmol/L (-3-3) FiO2 5 lpm nc Test 12/10/16 21:00 12/11/16 06:20 Lactic Acid Level 1.0 mmol/L (0.4-2.0) White Blood Count 26.1 x10^3/uL (4.0-11.0) Red Blood Count 2.94 x10^6/uL (3.50-5.40) Hemoglobin 8.5 g/dL (12.0-15.5) Hematocrit 27.0 % (36.0-47.0) Mean Corpuscular Volume 92 fL (79-100) Mean Corpuscular Hemoglobin 29 pg (25-35) Mean Corpuscular Hemoglobin Concent 32 g/dL (31-37) Red Cell Distribution Width 16.6 % (11.5-14.5) Platelet Count 250 x10^3/uL (140-400) Neutrophils (%) (Auto) 89 % (31-73) Lymphocytes (%) (Auto) 5 % (24-48) Monocytes (%) (Auto) 6 % (0-9) Eosinophils (%) (Auto) 0 % (0-3) Basophils (%) (Auto) 0 % (0-3) Neutrophils # (Auto) 23.1 x10^3uL (1.8-7.7) Lymphocytes # (Auto) 1.3 x10^3/uL (1.0-4.8) Monocytes # (Auto) 1.6 x10^3/uL (0.0-1.1) Eosinophils # (Auto) 0.0 x10^3/uL (0.0-0.7) Basophils # (Auto) 0.0 x10^3/uL (0.0-0.2) Sodium Level 140 mmol/L (136-145) Potassium Level 4.5 mmol/L (3.5-5.1) Chloride Level 108 mmol/L (98-107) Carbon Dioxide Level 26 mmol/L (21-32) Anion Gap 6 (6-14) Blood Urea Nitrogen 51 mg/dL (7-20) Creatinine 1.4 mg/dL (0.6-1.0) Estimated GFR (Cockcroft-Gault) 36.5 Glucose Level 103 mg/dL (70-99) Calcium Level 7.9 mg/dL (8.5-10.1) JORGE A BOLES MD Dec 11, 2016 10:03
--- NOTE | 2016-12-11 10:06 | PDOC2 ---
CONSULT Date of Consult Date of Consult DATE: 12/11/16 TIME: 09:57 Reason for Consult Reason for Consult: septic shock Referring Physician Referring Physician: Dr Ramírez History of Present Illness Reason for Visit: Patient is a 76 year old female who presents to the emergency department for evaluation of altered mental status .. Pt lethargic on admit, much of history obtained from her , daughter at bedside Pt fell in 01/2016, with right clavical fx, hip fx post sx, then transferred to different hosp and rehab, complicated with PNA, resp failure, aspiration, ended up with a prolonged intubated, trach and PEG. Pt was just dced back home 2 weeks ago, trach was removed. cont PEG feeding. Her baseline mental status was confused sometime, but most of time able to talk ,expresses herself. Daughter noticed pt had cloudy urine and PCP prescribed bactrium 2 days ago. Pt also was noticed to have distended abd with less BM, T 100.8. , pt became lethargic, daughter called EMS and the patient was brought to the emergency department for further evaluation. EMS administered a total of 800 mL of lactated Ringer's and the patient prior to arrival. They noted that the patient was both febrile 101 and hypotensive. on 6 emmanuel of levophed, JULIETA , cxr with RML pneumonia, Has chronic grace Past Medical History Cardiovascular: AFIB Pulmonary: No pertinent hx GI: Constipation Psych: No pertinent hx Musculoskeletal: low back pain Past Surgical History Past Surgical History: Total hip replacement, Other (tracheostomy) Family History Family History: Hypertension Social History No ALCOHOL: none Drugs: None Current Problem List Problem List Problems Medical Problems: (1) Acute renal failure Status: Acute (2) Healthcare-associated pneumonia Status: Acute (3) Microcytic anemia Status: Acute (4) Severe protein-calorie malnutrition Status: Acute (5) Severe sepsis Status: Acute (6) Urinary tract infection Status: Acute Current Medications Current Medications Current Medications Sodium Chloride 1,000 ml @ 1,120 mls/hr Q54M IV Last administered on 16:54; Start 12/10/16 at 16:00; Stop 12/10/16 at 17:00; Status DC Vancomycin HCl (Vanco Per Pharmacy) 1 each PRN DAILY PRN MC SEE COMMENTS Last administered on 12/10/16 18:46; Start 12/10/16 at 16:15 Piperacillin Sod/ Tazobactam Sod (Zosyn Per Pharmacy) 1 each PRN DAILY PRN MC SEE COMMENTS; Start 12/10/16 at 16:15 Levofloxacin/ Dextrose (Levaquin Per Pharmacy) 1 each PRN DAILY PRN MC SEE COMMENTS; Start 12/10/16 at 16:15 Levofloxacin/ Dextrose 150 ml @ 150 mls/hr ONCE ONCE IV Last administered on 12/10/16 16:16; Start 12/10/16 at 16:15; Stop 12/10/16 at 17:14; Status DC Vancomycin HCl 1.5 gm/Sodium Chloride 500 ml @ 250 mls/hr 1X ONCE IV Last administered on 12/10/16 18:38; Start 12/10/16 at 16:15; Stop 12/10/16 at 18:14 ; Status DC Piperacillin Sod/ Tazobactam Sod 4.5 gm/Sodium Chloride 100 ml @ 200 mls/hr ONCE ONCE IV Last administered on 12/10/16 17:37; Start 12/10/16 at 16:30; Stop 12/10/16 at 16:59; Status DC Sodium Chloride 1,000 ml @ 150 mls/hr 1X ONCE IV Last administered on 17:15; Start 12/10/16 at 16:15; Stop 12/10/16 at 22:54; Status DC Ondansetron HCl (Zofran) 4 mg PRN Q8HRS PRN IV NAUSEA/VOMITING; Start 12/10/16 at 16:45; Stop 12/11/16 at 16:44 Sodium Chloride 1,000 ml @ 150 mls/hr Q6H40M IV Last administered on 16:35; Start 12/10/16 at 16:35; Stop 12/11/16 at 16:34 Acetaminophen (Tylenol) 650 mg PRN Q4HRS PRN PO FEVER; Start 12/10/16 at 16:45 ; Stop 12/11/16 at 16:44 Albuterol/ Ipratropium (Duoneb) 3 ml RTQID NEB ; Start 12/10/16 at 20:00; Stop 12/10/16 at 20:00; Status DC Acetaminophen (Tylenol) 650 mg PRN Q6HRS PRN PO FEVER; Start 12/10/16 at 17:15 Ondansetron HCl (Zofran) 4 mg PRN Q6HRS PRN IV NAUSEA/VOMITING; Start 12/10/16 at 17:15 Morphine Sulfate 2 mg PRN Q2HR PRN IV PAIN; Start 12/10/16 at 17:15 Tramadol HCl (Ultram) 50 mg PRN Q6HRS PRN PO PAIN; Start 12/10/16 at 17:15 Hydralazine HCl (Apresoline) 10 mg PRN Q4HRS PRN IVP ELEVATED BP, SEE COMMENTS ; Start 12/10/16 at 17:15 Docusate Sodium (Colace) 100 mg PRN DAILY PRN PO CONSTIPATION; Start 12/10/16 at 17:15 Dextrose/Sodium Chloride 1,000 ml @ 75 mls/hr [id number] IV Last administered on 12/11/16 08:53; Start 12/10/16 at 17:15 Heparin Sodium (Porcine) (Heparin Sq) 5,000 unit Q8HRS SQ Last administered on 12/11/16 06:17; Start 12/10/16 at 22:00 Albuterol/ Ipratropium (Duoneb) 3 ml RTQID NEB Last administered on 12/11/16 07 :14; Start 12/10/16 at 20:00 Albuterol Sulfate (Ventolin Neb Soln) 2.5 mg PRN Q2HR PRN NEB SHORTNESS OF BREATH; Start 12/10/16 at 17:15 Levofloxacin/ Dextrose 150 ml @ 100 mls/hr Q48H IV ; Start 12/11/16 at 16:00 Piperacillin Sod/ Tazobactam Sod 3.375 gm/Sodium Chloride 50 ml @ 100 mls/hr Q6HRS IV Last administered on 12/11/16 06:18; Start 12/11/16 at 00:00 Vancomycin HCl 1 gm/Sodium Chloride 250 ml @ 250 mls/hr Q24H IV ; Start at 18:30 Vancomycin HCl 1 each 1X ONCE MC ; Start 12/12/16 at 18:00; Stop 12/12/16 at 18: 01 Norepinephrine Bitartrate 250 ml @ 0 mls/hr CONT PRN IV SEE I/O RECORD Last administered on 12/11/16 08:53; Start 12/10/16 at 18:45 Sodium Chloride 1,000 ml @ 1,000 mls/hr 1X ONCE IV Last administered on t 20:41; Start 12/10/16 at 19:30; Stop 12/10/16 at 20:29; Status DC Allergies Allergies: Coded Allergies: No Known Drug Allergies (Unverified , 12/10/16) ROS Review of System as discussed in my ho present illness Physical Exam General: Alert, No acute distress Lungs: Other (rhonchi right) Abdomen: No tenderness, Other (distended) Extremities: Other (echymosis) MUSCULOSKELETAL: No joint tenderness Vitals VITALS Vital Signs Date Time Temp Pulse Resp B/P (MAP) Pulse Ox O2 Delivery O2 Flow Rate FiO2 12/11/16 07:18 96 Room Air 12/11/16 06:00 73 21 94/59 (71) 6.0 12/11/16 04:00 98.1 98.1 Labs Labs Laboratory Tests Test 12/10/16 15:35 12/10/16 15:40 12/10/16 16:00 12/10/16 19:00 White Blood Count 29.2 x10^3/uL (4.0-11.0) Red Blood Count 3.01 x10^6/uL (3.50-5.40) Hemoglobin 8.8 g/dL (12.0-15.5) Hematocrit 27.5 % (36.0-47.0) Mean Corpuscular Volume 91 fL (79-100) Mean Corpuscular Hemoglobin 29 pg (25-35) Mean Corpuscular Hemoglobin Concent 32 g/dL (31-37) Red Cell Distribution Width 16.4 % (11.5-14.5) Platelet Count 304 x10^3/uL (140-400) Neutrophils (%) (Auto) 93 % (31-73) Lymphocytes (%) (Auto) 1 % (24-48) Monocytes (%) (Auto) 6 % (0-9) Eosinophils (%) (Auto) 0 % (0-3) Basophils (%) (Auto) 0 % (0-3) Neutrophils # (Auto) 27.1 x10^3uL (1.8-7.7) Lymphocytes # (Auto) 0.4 x10^3/uL (1.0-4.8) Monocytes # (Auto) 1.6 x10^3/uL (0.0-1.1) Eosinophils # (Auto) 0.0 x10^3/uL (0.0-0.7) Basophils # (Auto) 0.0 x10^3/uL (0.0-0.2) Segmented Neutrophils % 78 % (35-66) Band Neutrophils % 13 % (0-9) Lymphocytes % 2 % (24-48) Monocytes % 5 % (0-10) Metamyelocytes % 2 % (0-0) Platelet Estimate Adequate (ADEQUATE) Anisocytosis Slight Sodium Level 132 mmol/L (136-145) Potassium Level 5.6 mmol/L (3.5-5.1) Chloride Level 99 mmol/L (98-107) Carbon Dioxide Level 29 mmol/L (21-32) Anion Gap 4 (6-14) Blood Urea Nitrogen 68 mg/dL (7-20) Creatinine 1.5 mg/dL (0.6-1.0) Estimated GFR (Cockcroft-Gault) 33.7 BUN/Creatinine Ratio 45 (6-20) Glucose Level 118 mg/dL (70-99) Lactic Acid Level 2.7 mmol/L (0.4-2.0) 2.4 mmol/L (0.4-2.0) Calcium Level 8.8 mg/dL (8.5-10.1) Total Bilirubin 0.2 mg/dL (0.2-1.0) Aspartate Amino Transf (AST/SGOT) 54 U/L (15-37) Alanine Aminotransferase (ALT/SGPT) 52 U/L (14-59) Alkaline Phosphatase 141 U/L (46-116) Total Protein 7.1 g/dL (6.4-8.2) Albumin 2.1 g/dL (3.4-5.0) Albumin/Globulin Ratio 0.4 (1.0-1.7) Urine Collection Type Unknown Urine Color Yellow Urine Clarity Clear Urine pH 7.0 Urine Specific Currie 1.015 Urine Protein Negative mg/dL (NEG-TRACE) Urine Glucose (UA) Negative mg/dL (NEG) Urine Ketones (Stick) Negative mg/dL (NEG) Urine Blood Trace (NEG) Urine Nitrite Negative (NEG) Urine Bilirubin Negative (NEG) Urine Urobilinogen Dipstick 0.2 mg/dL (0.2 mg/dL) Urine Leukocyte Esterase Moderate (NEG) Urine RBC 3-5 /HPF (0-2) Urine WBC 5-10 /HPF (0-4) Urine Bacteria Many /HPF (0-FEW) Urine Hyaline Casts Moderate /HPF Urine Mucus Slight /LPF O2 Saturation 96 % (92-99) Arterial Blood pH 7.50 (7.35-7.45) Arterial Blood pCO2 at Patient Temp 34 mmHg (35-46) Arterial Blood pO2 at Patient Temp 92 mmHg (65-108) Arterial Blood HCO3 26 mmol/L (21-28) Arterial Blood Base Excess 3 mmol/L (-3-3) FiO2 5 lpm nc Test 12/10/16 21:00 12/11/16 06:20 Lactic Acid Level 1.0 mmol/L (0.4-2.0) White Blood Count 26.1 x10^3/uL (4.0-11.0) Red Blood Count 2.94 x10^6/uL (3.50-5.40) Hemoglobin 8.5 g/dL (12.0-15.5) Hematocrit 27.0 % (36.0-47.0) Mean Corpuscular Volume 92 fL (79-100) Mean Corpuscular Hemoglobin 29 pg (25-35) Mean Corpuscular Hemoglobin Concent 32 g/dL (31-37) Red Cell Distribution Width 16.6 % (11.5-14.5) Platelet Count 250 x10^3/uL (140-400) Neutrophils (%) (Auto) 89 % (31-73) Lymphocytes (%) (Auto) 5 % (24-48) Monocytes (%) (Auto) 6 % (0-9) Eosinophils (%) (Auto) 0 % (0-3) Basophils (%) (Auto) 0 % (0-3) Neutrophils # (Auto) 23.1 x10^3uL (1.8-7.7) Lymphocytes # (Auto) 1.3 x10^3/uL (1.0-4.8) Monocytes # (Auto) 1.6 x10^3/uL (0.0-1.1) Eosinophils # (Auto) 0.0 x10^3/uL (0.0-0.7) Basophils # (Auto) 0.0 x10^3/uL (0.0-0.2) Sodium Level 140 mmol/L (136-145) Potassium Level 4.5 mmol/L (3.5-5.1) Chloride Level 108 mmol/L (98-107) Carbon Dioxide Level 26 mmol/L (21-32) Anion Gap 6 (6-14) Blood Urea Nitrogen 51 mg/dL (7-20) Creatinine 1.4 mg/dL (0.6-1.0) Estimated GFR (Cockcroft-Gault) 36.5 Glucose Level 103 mg/dL (70-99) Calcium Level 7.9 mg/dL (8.5-10.1) Laboratory Tests Test 12/10/16 15:35 12/10/16 15:40 12/10/16 16:00 12/10/16 19:00 White Blood Count 29.2 x10^3/uL (4.0-11.0) Red Blood Count 3.01 x10^6/uL (3.50-5.40) Hemoglobin 8.8 g/dL (12.0-15.5) Hematocrit 27.5 % (36.0-47.0) Mean Corpuscular Volume 91 fL (79-100) Mean Corpuscular Hemoglobin 29 pg (25-35) Mean Corpuscular Hemoglobin Concent 32 g/dL (31-37) Red Cell Distribution Width 16.4 % (11.5-14.5) Platelet Count 304 x10^3/uL (140-400) Neutrophils (%) (Auto) 93 % (31-73) Lymphocytes (%) (Auto) 1 % (24-48) Monocytes (%) (Auto) 6 % (0-9) Eosinophils (%) (Auto) 0 % (0-3) Basophils (%) (Auto) 0 % (0-3) Neutrophils # (Auto) 27.1 x10^3uL (1.8-7.7) Lymphocytes # (Auto) 0.4 x10^3/uL (1.0-4.8) Monocytes # (Auto) 1.6 x10^3/uL (0.0-1.1) Eosinophils # (Auto) 0.0 x10^3/uL (0.0-0.7) Basophils # (Auto) 0.0 x10^3/uL (0.0-0.2) Segmented Neutrophils % 78 % (35-66) Band Neutrophils % 13 % (0-9) Lymphocytes % 2 % (24-48) Monocytes % 5 % (0-10) Metamyelocytes % 2 % (0-0) Platelet Estimate Adequate (ADEQUATE) Anisocytosis Slight Sodium Level 132 mmol/L (136-145) Potassium Level 5.6 mmol/L (3.5-5.1) Chloride Level 99 mmol/L (98-107) Carbon Dioxide Level 29 mmol/L (21-32) Anion Gap 4 (6-14) Blood Urea Nitrogen 68 mg/dL (7-20) Creatinine 1.5 mg/dL (0.6-1.0) Estimated GFR (Cockcroft-Gault) 33.7 BUN/Creatinine Ratio 45 (6-20) Glucose Level 118 mg/dL (70-99) Lactic Acid Level 2.7 mmol/L (0.4-2.0) 2.4 mmol/L (0.4-2.0) Calcium Level 8.8 mg/dL (8.5-10.1) Total Bilirubin 0.2 mg/dL (0.2-1.0) Aspartate Amino Transf (AST/SGOT) 54 U/L (15-37) Alanine Aminotransferase (ALT/SGPT) 52 U/L (14-59) Alkaline Phosphatase 141 U/L (46-116) Total Protein 7.1 g/dL (6.4-8.2) Albumin 2.1 g/dL (3.4-5.0) Albumin/Globulin Ratio 0.4 (1.0-1.7) Urine Collection Type Unknown Urine Color Yellow Urine Clarity Clear Urine pH 7.0 Urine Specific Currie 1.015 Urine Protein Negative mg/dL (NEG-TRACE) Urine Glucose (UA) Negative mg/dL (NEG) Urine Ketones (Stick) Negative mg/dL (NEG) Urine Blood Trace (NEG) Urine Nitrite Negative (NEG) Urine Bilirubin Negative (NEG) Urine Urobilinogen Dipstick 0.2 mg/dL (0.2 mg/dL) Urine Leukocyte Esterase Moderate (NEG) Urine RBC 3-5 /HPF (0-2) Urine WBC 5-10 /HPF (0-4) Urine Bacteria Many /HPF (0-FEW) Urine Hyaline Casts Moderate /HPF Urine Mucus Slight /LPF O2 Saturation 96 % (92-99) Arterial Blood pH 7.50 (7.35-7.45) Arterial Blood pCO2 at Patient Temp 34 mmHg (35-46) Arterial Blood pO2 at Patient Temp 92 mmHg (65-108) Arterial Blood HCO3 26 mmol/L (21-28) Arterial Blood Base Excess 3 mmol/L (-3-3) FiO2 5 lpm nc Test 12/10/16 21:00 12/11/16 06:20 Lactic Acid Level 1.0 mmol/L (0.4-2.0) White Blood Count 26.1 x10^3/uL (4.0-11.0) Red Blood Count 2.94 x10^6/uL (3.50-5.40) Hemoglobin 8.5 g/dL (12.0-15.5) Hematocrit 27.0 % (36.0-47.0) Mean Corpuscular Volume 92 fL (79-100) Mean Corpuscular Hemoglobin 29 pg (25-35) Mean Corpuscular Hemoglobin Concent 32 g/dL (31-37) Red Cell Distribution Width 16.6 % (11.5-14.5) Platelet Count 250 x10^3/uL (140-400) Neutrophils (%) (Auto) 89 % (31-73) Lymphocytes (%) (Auto) 5 % (24-48) Monocytes (%) (Auto) 6 % (0-9) Eosinophils (%) (Auto) 0 % (0-3) Basophils (%) (Auto) 0 % (0-3) Neutrophils # (Auto) 23.1 x10^3uL (1.8-7.7) Lymphocytes # (Auto) 1.3 x10^3/uL (1.0-4.8) Monocytes # (Auto) 1.6 x10^3/uL (0.0-1.1) Eosinophils # (Auto) 0.0 x10^3/uL (0.0-0.7) Basophils # (Auto) 0.0 x10^3/uL (0.0-0.2) Sodium Level 140 mmol/L (136-145) Potassium Level 4.5 mmol/L (3.5-5.1) Chloride Level 108 mmol/L (98-107) Carbon Dioxide Level 26 mmol/L (21-32) Anion Gap 6 (6-14) Blood Urea Nitrogen 51 mg/dL (7-20) Creatinine 1.4 mg/dL (0.6-1.0) Estimated GFR (Cockcroft-Gault) 36.5 Glucose Level 103 mg/dL (70-99) Calcium Level 7.9 mg/dL (8.5-10.1) Assessment/Plan Assessment/Plan IMPRESSION 1. Septic shock due to suspected UTI and RML pneumonia 2. Acute metabolic encephalopathy 3. Abnormal CXR c/w RML pneumonia 4. Chronic Grace 5. No Tobacco hx 6. JULIETA 7. h/o A-Fib, on Amio 8. Recent decanulation RECOMMENDATIONS 1. Fluid challenge 2. BS antibiotic 3. Follow all cultures 4. wean vasopressor 5. prn oxygen 6. Monitor renal function 7. d/w family. full code 8. d/w RN cct 37 min MARKEL BENDER MD Dec 11, 2016 10:06
[2016-12-11] MEDS ORDERED: MINERAL OIL 133 ML ENEMA. PR ONE (11:00)
[2016-12-11] MEDS ORDERED: SULF1TAB24 PEG (11:04)
[2016-12-11] MEDS ORDERED: DIPH25CA58 PO (11:04)
[2016-12-11] MEDS ORDERED: LORA0.5T PO (11:04)
[2016-12-11] MEDS ORDERED: CHOL100013 PO (11:04)
[2016-12-11] MEDS ORDERED: ASPI-482 PO (11:04)
[2016-12-11] MEDS ORDERED: OLAN15TA3 PO (11:04)
[2016-12-11] MEDS ORDERED: FURO-68 PO (11:04)
[2016-12-11] MEDS ORDERED: ASCO500S2 PEG (11:04)
[2016-12-11] MEDS ORDERED: AMIO400T4 PO (11:04)
[2016-12-11] MEDS ORDERED: LISI10TA2 PO (11:04)
[2016-12-11] MEDS ORDERED: LEVO125T5 PO (11:04)
[2016-12-11] MEDS ORDERED: POTA20TA82 PO (11:04)
[2016-12-11] MEDS ORDERED: ACET160S PO (11:04)
[2016-12-11] MEDS ORDERED: FAMO-63 PO (11:04)
--- NOTE | 2016-12-11 11:36 | PDOC2 ---
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 Ramírez for sepsis HPI: This is a 76 year old female who presented to ER for evaluation of acute change in mental status, fever 101 and hypotension. She is currently awake and answers few questions, says she isn't feeling well. Her is at the bed side. [facility] In 01/2016, she fell and fractured her right clavicle and hip, status post surgery and while recovering at rehab, she developed aspiration, PNA, resp failure with prolonged intubation and subsequent trach and PEG placement. The trach was removed lttle over a week ago. She remains NPO on and on tube feeds. She also was treated for recurrent UTIs. She has a chronic Francisco that had not been changed in some time. After she returned home, her family was concern she was developing another UTI because the urine color was cloudy. In addition they noticed her abdomen was distended and she hadn't had a bowel movement. She was given Meet-a-Lax without relief. PMH: AFIB, constipation PSH: Total hip replacement, tracheostomy placement and removal, PEG placement) FH: Positive for hypertension SH: . ALL: NKDA MEDS: Reviewed on AUG. Include Vanc, Zosyn, Levaquin and Levophed. Home meds include amiodarone ROS: Limited. PE: GENERAL: Frail, weak appearing female, NAD VS: 99.1, 93/46, 96, 20, SpO2 100% on 6L NC HENT: PERRL. Oral cavity/pharynx dry NECK: Dressing over stoma. LUNGS: Clear anteriorly, nonlabored CV: Normal S1 and S2 ABD: Distended, hypoactive BS, soft, nontender ti light palpation : Francisco (POA) EXT: No edema or cyanosis SKIN: Without rash. Sacral wound Left subclavian cath. clean AP portable chest Findings: Cardiac silhouette appears within normal limits for size. There has been interval placement of left subclavian central venous catheter with tip of the catheter projecting at the atriocaval junction. No pneumothorax or pleural effusion is identified. Infiltrate is seen in the right middle lobe adjacent to the minor fissure. Impression: 1. Left subclavian central venous catheter tip projects at the atriocaval junction. 2. Right middle lobe pneumonia. CT abd/pelvis Impression: 1. Lung bases demonstrate right greater than left airspace disease. Findings could represent pneumonia. Recommend clinical correlation. 2. Calcification in the right hemipelvis, could be phlebolith versus 2 mm distal right ureteral stone. 3. No evidence of bowel obstruction. 4. Rectal prolapse. 5. 5.5 cm cystic lesion in the right hemipelvis, presumably ovarian in origin. 6. T9 and L1 vertebral fractures, age-indeterminate. 7. Sacral decubitus ulcer. Abd series Impression: 1. Bibasilar infiltrates or atelectasis, right greater. 2. Nonspecific moderate gaseous distention to the right colon. No wall thickening or free air is detected. LABS: Reviewed. WBC 26.1 from 29.2, segs 78%, bands 13%, Cr 1.4, BUN 54 AST 54 lactic acid 1.0 from 2.7 MRSA screen, blood and urine cultures pending. IMPRESSION Septic shock, POA, 12/10 CAUTI, POA 12/10 Lactic acidosis HCAP A-fib, on amiodarone Debility PLAN: Continue vancomycin and Zosyn for now. Discontinue Levaquin given potential interaction with amiodarone Change Francisco and repeat UA C & S. Monitor WBC count, Cr, and temp. Antibiotics may need to be modified further depending on cultures and clinical response Discussed with and RN Critically ill Thank you RYANN JOSHUA MD 12/11/16 1320: Attending Co-Sign The patient was seen and interviewed as well as examined at the bedside. The chart was reviewed. The case was discussed. Agree with the plan of care. d/w daughter in detail BONNIESAVIJACKIENENA Avial APRN Dec 11, 2016 11:36 RYANN JOSHUA MD Dec 11, 2016 13:20
[2016-12-11] MEDS: POLYETHYLENE GLYCOL 3350 17 GM PACKET. PO SCH (12:30)
--- NOTE | 2016-12-11 13:54 | PDOC2 ---
NEUROLOGY CONSULT Date of Admission Date of Admission DATE: 12/11/16 TIME: 13:48 Reason for Consult Reason for Consult: Altered mental status Referring Physician Referring Physician: Dr. Ramírez Source Source: Caregiver, Chart review, Patient History of Present Illness History of Present Illness The patient is a 76-year-old right-handed female brought in with altered mental status. According the daughter, the patient fractured her clavicle a year ago, and then her hip and had a series of medical complications including pneumonia, respiratory failure, requiring tracheostomy and prolonged rehabilitation stay. She just had a tracheostomy removed last week but still has the stoma. She was at home and had lethargy. In our hospital she has been found to have pneumonia and urinary tract infection. The patient has a history of severe depression requiring electroconvulsive therapy, and usually has memory problems after that. She also developed a seizure disorder after the electroconvulsive therapy. There is no history of stroke or head injury. Past Medical History Cardiovascular: AFIB, HTN Pulmonary: Pneumonia CENTRAL NERVOUS SYSTEM: Seizure Musculoskeletal: Other (clavicle fracture) Past Surgical History Past Surgical History: Total hip replacement Family History Family History: Cancer Social History Social History , no tobacco or alcohol Current Medications Current Medications Current Medications Sodium Chloride 1,000 ml @ 1,120 mls/hr Q54M IV Last administered on 16:54; Start 12/10/16 at 16:00; Stop 12/10/16 at 17:00; Status DC Vancomycin HCl (Vanco Per Pharmacy) 1 each PRN DAILY PRN MC SEE COMMENTS Last administered on 12/10/16 18:46; Start 12/10/16 at 16:15 Piperacillin Sod/ Tazobactam Sod (Zosyn Per Pharmacy) 1 each PRN DAILY PRN MC SEE COMMENTS; Start 12/10/16 at 16:15 Levofloxacin/ Dextrose (Levaquin Per Pharmacy) 1 each PRN DAILY PRN MC SEE COMMENTS; Start 12/10/16 at 16:15; Stop 12/11/16 at 11:34; Status DC Levofloxacin/ Dextrose 150 ml @ 150 mls/hr ONCE ONCE IV Last administered on 12/10/16 16:16; Start 12/10/16 at 16:15; Stop 12/10/16 at 17:14; Status DC Vancomycin HCl 1.5 gm/Sodium Chloride 500 ml @ 250 mls/hr 1X ONCE IV Last administered on 12/10/16 18:38; Start 12/10/16 at 16:15; Stop 12/10/16 at 18:14 ; Status DC Piperacillin Sod/ Tazobactam Sod 4.5 gm/Sodium Chloride 100 ml @ 200 mls/hr ONCE ONCE IV Last administered on 12/10/16 17:37; Start 12/10/16 at 16:30; Stop 12/10/16 at 16:59; Status DC Sodium Chloride 1,000 ml @ 150 mls/hr 1X ONCE IV Last administered on 17:15; Start 12/10/16 at 16:15; Stop 12/10/16 at 22:54; Status DC Ondansetron HCl (Zofran) 4 mg PRN Q8HRS PRN IV NAUSEA/VOMITING; Start 12/10/16 at 16:45; Stop 12/11/16 at 16:44 Sodium Chloride 1,000 ml @ 150 mls/hr Q6H40M IV Last administered on 16:35; Start 12/10/16 at 16:35; Stop 12/11/16 at 16:34 Acetaminophen (Tylenol) 650 mg PRN Q4HRS PRN PO FEVER; Start 12/10/16 at 16:45 ; Stop 12/11/16 at 16:44 Albuterol/ Ipratropium (Duoneb) 3 ml RTQID NEB ; Start 12/10/16 at 20:00; Stop 12/10/16 at 20:00; Status DC Acetaminophen (Tylenol) 650 mg PRN Q6HRS PRN PO FEVER; Start 12/10/16 at 17:15 Ondansetron HCl (Zofran) 4 mg PRN Q6HRS PRN IV NAUSEA/VOMITING; Start 12/10/16 at 17:15 Morphine Sulfate 2 mg PRN Q2HR PRN IV PAIN; Start 12/10/16 at 17:15; Stop at 12:18; Status DC Tramadol HCl (Ultram) 50 mg PRN Q6HRS PRN PO PAIN; Start 12/10/16 at 17:15 Hydralazine HCl (Apresoline) 10 mg PRN Q4HRS PRN IVP ELEVATED BP, SEE COMMENTS ; Start 12/10/16 at 17:15 Docusate Sodium (Colace) 100 mg PRN DAILY PRN PO CONSTIPATION; Start 12/10/16 at 17:15 Dextrose/Sodium Chloride 1,000 ml @ 75 mls/hr [id number] IV Last administered on 12/11/16 08:53; Start 12/10/16 at 17:15 Heparin Sodium (Porcine) (Heparin Sq) 5,000 unit Q8HRS SQ Last administered on 12/11/16 06:17; Start 12/10/16 at 22:00 Albuterol/ Ipratropium (Duoneb) 3 ml RTQID NEB Last administered on 12/11/16 12 :11; Start 12/10/16 at 20:00 Albuterol Sulfate (Ventolin Neb Soln) 2.5 mg PRN Q2HR PRN NEB SHORTNESS OF BREATH; Start 12/10/16 at 17:15 Levofloxacin/ Dextrose 150 ml @ 100 mls/hr Q48H IV ; Start 12/11/16 at 16:00; Stop 12/11/16 at 16:00; Status DC Piperacillin Sod/ Tazobactam Sod 3.375 gm/Sodium Chloride 50 ml @ 100 mls/hr Q6HRS IV Last administered on 12/11/16 12:05; Start 12/11/16 at 00:00 Vancomycin HCl 1 gm/Sodium Chloride 250 ml @ 250 mls/hr Q24H IV ; Start at 18:30 Vancomycin HCl 1 each 1X ONCE MC ; Start 12/12/16 at 18:00; Stop 12/12/16 at 18: 01 Norepinephrine Bitartrate 250 ml @ 0 mls/hr CONT PRN IV SEE I/O RECORD Last administered on 12/11/16 08:53; Start 12/10/16 at 18:45 Sodium Chloride 1,000 ml @ 1,000 mls/hr 1X ONCE IV Last administered on 20:41; Start 12/10/16 at 19:30; Stop 12/10/16 at 20:29; Status DC Sodium Chloride 1,000 ml @ 999 mls/hr 1X ONCE IV Last administered on 12:04; Start 12/11/16 at 10:00; Stop 12/11/16 at 11:00; Status DC Sodium Chloride 1,000 ml @ 999 mls/hr 1X ONCE IV Last administered on t 12:03; Start 12/11/16 at 10:00; Stop 12/11/16 at 11:00; Status DC Mineral Oil (Fleet Mineral Oil) 133 ml 1X ONCE OK Last administered on t 11:00; Start 12/11/16 at 11:00; Stop 12/11/16 at 11:02; Status DC Acetaminophen (Tylenol) 650 mg PRN Q6HRS PRN PEG MILD PAIN / TEMP; Start at 12:45 Olanzapine (ZyPREXA) 15 mg QHS PO ; Start 12/11/16 at 21:00 Polyethylene Glycol (miraLAX PACKET) 17 gm DAILY PO ; Start 12/11/16 at 12:30 Levothyroxine Sodium 100 mcg/ Sodium Chloride 5 ml @ 125 mls/hr DAILY IVP ; Start 12/12/16 at 09:00; Status UNV Famotidine (Pepcid) 20 mg QHS IVP ; Start 12/11/16 at 21:00 Active Scripts Active Reported Bactrim Ds Tablet (Sulfamethoxazole/Trimethoprim) 1 Each Tablet 1 Each PEG BID Vitamin C (Ascorbic Acid) 500 Mg/5 Ml Syrup 500 Mg PEG DAILY Vitamin D (Cholecalciferol (Vitamin D3)) 1,000 Unit Capsule 1 Cap PO DAILY Benadryl (Diphenhydramine Hcl) 25 Mg Capsule 25 Mg PO HS Lorazepam 0.5 Mg Tablet 0.5 Mg PO HS Acetaminophen 160 Mg/5 Ml Solution 5 Ml PO Q4HRS Aspir 81 (Aspirin) 81 Mg Tablet.dr 1 Tab PO DAILY Potassium Chloride 20 Meq Tablet.er 20 Meq PO DAILY Amiodarone Hcl 400 Mg Tablet 400 Mg PO BID Lasix (Furosemide) 40 Mg Tablet 40 Mg PO BID Pepcid (Famotidine) 20 Mg Tablet 20 Mg PO BID Levothyroxine Sodium 125 Mcg Tablet 1 Tab PO DAILY Zyprexa (Olanzapine) 15 Mg Tablet 1 Tab PO QHS Lisinopril 10 Mg Tablet 1 Tab PO DAILY Allergies Allergies: Coded Allergies: No Known Drug Allergies (Unverified , 12/10/16) ROS Review of System Patient denies fevers, chills, weight loss, dyspnea, angina, abdominal pain, change in bowels, or dysuria. 14 point review of systems is negative. Physical Exam Physical Examination PHYSICAL EXAMINATION: Vital signs: see above. General appearance is normal and in no acute distress. HEENT: Normocephalic and nontraumatic. Eyes, nose, ears, and throat are unremarkable. Neck is supple. No lymphadenopathy. No bruits are heard over the carotid artery. No crepitus. NEUROLOGICAL EXAMINATION: Mental Status Examination: Alert. Oriented only to person. Answers questions and follows commends. Pupils are equal round and reactive to light and accommodation. Extraocular movements are intact. Visual field exam shows no defect on the direct confrontation. No motor or sensory deficits on the facial exam. Uvula in the midline and the soft palate elevated symmetrically. No deviation of the tongue to any direction. Gross hearing is normal. Shoulder shrug normal. Muscle tone is normal. Muscle strength is 3/5. Deep tendon reflexes are 0+ all around. Plantar reflex is with flexion response bilaterally. [id number] test performance is accurate. Alternative movements are accurate. Gait not tested. Sensory exam shows no deficits. No cerebellar signs are elicited. Vitals VITALS Vital Signs Date Time Temp Pulse Resp B/P (MAP) Pulse Ox O2 Delivery O2 Flow Rate FiO2 12/11/16 12:17 Room Air 12/11/16 09:00 78 20 83/40 (54) 99 6.0 12/11/16 08:00 97.6 97.6 Labs Labs Laboratory Tests Test 12/10/16 15:35 12/10/16 15:40 12/10/16 16:00 12/10/16 19:00 White Blood Count 29.2 x10^3/uL (4.0-11.0) Red Blood Count 3.01 x10^6/uL (3.50-5.40) Hemoglobin 8.8 g/dL (12.0-15.5) Hematocrit 27.5 % (36.0-47.0) Mean Corpuscular Volume 91 fL (79-100) Mean Corpuscular Hemoglobin 29 pg (25-35) Mean Corpuscular Hemoglobin Concent 32 g/dL (31-37) Red Cell Distribution Width 16.4 % (11.5-14.5) Platelet Count 304 x10^3/uL (140-400) Neutrophils (%) (Auto) 93 % (31-73) Lymphocytes (%) (Auto) 1 % (24-48) Monocytes (%) (Auto) 6 % (0-9) Eosinophils (%) (Auto) 0 % (0-3) Basophils (%) (Auto) 0 % (0-3) Neutrophils # (Auto) 27.1 x10^3uL (1.8-7.7) Lymphocytes # (Auto) 0.4 x10^3/uL (1.0-4.8) Monocytes # (Auto) 1.6 x10^3/uL (0.0-1.1) Eosinophils # (Auto) 0.0 x10^3/uL (0.0-0.7) Basophils # (Auto) 0.0 x10^3/uL (0.0-0.2) Segmented Neutrophils % 78 % (35-66) Band Neutrophils % 13 % (0-9) Lymphocytes % 2 % (24-48) Monocytes % 5 % (0-10) Metamyelocytes % 2 % (0-0) Platelet Estimate Adequate (ADEQUATE) Anisocytosis Slight Sodium Level 132 mmol/L (136-145) Potassium Level 5.6 mmol/L (3.5-5.1) Chloride Level 99 mmol/L (98-107) Carbon Dioxide Level 29 mmol/L (21-32) Anion Gap 4 (6-14) Blood Urea Nitrogen 68 mg/dL (7-20) Creatinine 1.5 mg/dL (0.6-1.0) Estimated GFR (Cockcroft-Gault) 33.7 BUN/Creatinine Ratio 45 (6-20) Glucose Level 118 mg/dL (70-99) Lactic Acid Level 2.7 mmol/L (0.4-2.0) 2.4 mmol/L (0.4-2.0) Calcium Level 8.8 mg/dL (8.5-10.1) Total Bilirubin 0.2 mg/dL (0.2-1.0) Aspartate Amino Transf (AST/SGOT) 54 U/L (15-37) Alanine Aminotransferase (ALT/SGPT) 52 U/L (14-59) Alkaline Phosphatase 141 U/L (46-116) Total Protein 7.1 g/dL (6.4-8.2) Albumin 2.1 g/dL (3.4-5.0) Albumin/Globulin Ratio 0.4 (1.0-1.7) Urine Collection Type Unknown Urine Color Yellow Urine Clarity Clear Urine pH 7.0 Urine Specific [place] 1.015 Urine Protein Negative mg/dL (NEG-TRACE) Urine Glucose (UA) Negative mg/dL (NEG) Urine Ketones (Stick) Negative mg/dL (NEG) Urine Blood Trace (NEG) Urine Nitrite Negative (NEG) Urine Bilirubin Negative (NEG) Urine Urobilinogen Dipstick 0.2 mg/dL (0.2 mg/dL) Urine Leukocyte Esterase Moderate (NEG) Urine RBC 3-5 /HPF (0-2) Urine WBC 5-10 /HPF (0-4) Urine Bacteria Many /HPF (0-FEW) Urine Hyaline Casts Moderate /HPF Urine Mucus Slight /LPF O2 Saturation 96 % (92-99) Arterial Blood pH 7.50 (7.35-7.45) Arterial Blood pCO2 at Patient Temp 34 mmHg (35-46) Arterial Blood pO2 at Patient Temp 92 mmHg (65-108) Arterial Blood HCO3 26 mmol/L (21-28) Arterial Blood Base Excess 3 mmol/L (-3-3) FiO2 5 lpm nc Test 12/10/16 21:00 12/11/16 06:20 Lactic Acid Level 1.0 mmol/L (0.4-2.0) White Blood Count 26.1 x10^3/uL (4.0-11.0) Red Blood Count 2.94 x10^6/uL (3.50-5.40) Hemoglobin 8.5 g/dL (12.0-15.5) Hematocrit 27.0 % (36.0-47.0) Mean Corpuscular Volume 92 fL (79-100) Mean Corpuscular Hemoglobin 29 pg (25-35) Mean Corpuscular Hemoglobin Concent 32 g/dL (31-37) Red Cell Distribution Width 16.6 % (11.5-14.5) Platelet Count 250 x10^3/uL (140-400) Neutrophils (%) (Auto) 89 % (31-73) Lymphocytes (%) (Auto) 5 % (24-48) Monocytes (%) (Auto) 6 % (0-9) Eosinophils (%) (Auto) 0 % (0-3) Basophils (%) (Auto) 0 % (0-3) Neutrophils # (Auto) 23.1 x10^3uL (1.8-7.7) Lymphocytes # (Auto) 1.3 x10^3/uL (1.0-4.8) Monocytes # (Auto) 1.6 x10^3/uL (0.0-1.1) Eosinophils # (Auto) 0.0 x10^3/uL (0.0-0.7) Basophils # (Auto) 0.0 x10^3/uL (0.0-0.2) Sodium Level 140 mmol/L (136-145) Potassium Level 4.5 mmol/L (3.5-5.1) Chloride Level 108 mmol/L (98-107) Carbon Dioxide Level 26 mmol/L (21-32) Anion Gap 6 (6-14) Blood Urea Nitrogen 51 mg/dL (7-20) Creatinine 1.4 mg/dL (0.6-1.0) Estimated GFR (Cockcroft-Gault) 36.5 Glucose Level 103 mg/dL (70-99) Calcium Level 7.9 mg/dL (8.5-10.1) Laboratory Tests Test 12/10/16 15:35 12/10/16 15:40 12/10/16 16:00 12/10/16 19:00 White Blood Count 29.2 x10^3/uL (4.0-11.0) Red Blood Count 3.01 x10^6/uL (3.50-5.40) Hemoglobin 8.8 g/dL (12.0-15.5) Hematocrit 27.5 % (36.0-47.0) Mean Corpuscular Volume 91 fL (79-100) Mean Corpuscular Hemoglobin 29 pg (25-35) Mean Corpuscular Hemoglobin Concent 32 g/dL (31-37) Red Cell Distribution Width 16.4 % (11.5-14.5) Platelet Count 304 x10^3/uL (140-400) Neutrophils (%) (Auto) 93 % (31-73) Lymphocytes (%) (Auto) 1 % (24-48) Monocytes (%) (Auto) 6 % (0-9) Eosinophils (%) (Auto) 0 % (0-3) Basophils (%) (Auto) 0 % (0-3) Neutrophils # (Auto) 27.1 x10^3uL (1.8-7.7) Lymphocytes # (Auto) 0.4 x10^3/uL (1.0-4.8) Monocytes # (Auto) 1.6 x10^3/uL (0.0-1.1) Eosinophils # (Auto) 0.0 x10^3/uL (0.0-0.7) Basophils # (Auto) 0.0 x10^3/uL (0.0-0.2) Segmented Neutrophils % 78 % (35-66) Band Neutrophils % 13 % (0-9) Lymphocytes % 2 % (24-48) Monocytes % 5 % (0-10) Metamyelocytes % 2 % (0-0) Platelet Estimate Adequate (ADEQUATE) Anisocytosis Slight Sodium Level 132 mmol/L (136-145) Potassium Level 5.6 mmol/L (3.5-5.1) Chloride Level 99 mmol/L (98-107) Carbon Dioxide Level 29 mmol/L (21-32) Anion Gap 4 (6-14) Blood Urea Nitrogen 68 mg/dL (7-20) Creatinine 1.5 mg/dL (0.6-1.0) Estimated GFR (Cockcroft-Gault) 33.7 BUN/Creatinine Ratio 45 (6-20) Glucose Level 118 mg/dL (70-99) Lactic Acid Level 2.7 mmol/L (0.4-2.0) 2.4 mmol/L (0.4-2.0) Calcium Level 8.8 mg/dL (8.5-10.1) Total Bilirubin 0.2 mg/dL (0.2-1.0) Aspartate Amino Transf (AST/SGOT) 54 U/L (15-37) Alanine Aminotransferase (ALT/SGPT) 52 U/L (14-59) Alkaline Phosphatase 141 U/L (46-116) Total Protein 7.1 g/dL (6.4-8.2) Albumin 2.1 g/dL (3.4-5.0) Albumin/Globulin Ratio 0.4 (1.0-1.7) Urine Collection Type Unknown Urine Color Yellow Urine Clarity Clear Urine pH 7.0 Urine Specific [place] 1.015 Urine Protein Negative mg/dL (NEG-TRACE) Urine Glucose (UA) Negative mg/dL (NEG) Urine Ketones (Stick) Negative mg/dL (NEG) Urine Blood Trace (NEG) Urine Nitrite Negative (NEG) Urine Bilirubin Negative (NEG) Urine Urobilinogen Dipstick 0.2 mg/dL (0.2 mg/dL) Urine Leukocyte Esterase Moderate (NEG) Urine RBC 3-5 /HPF (0-2) Urine WBC 5-10 /HPF (0-4) Urine Bacteria Many /HPF (0-FEW) Urine Hyaline Casts Moderate /HPF Urine Mucus Slight /LPF O2 Saturation 96 % (92-99) Arterial Blood pH 7.50 (7.35-7.45) Arterial Blood pCO2 at Patient Temp 34 mmHg (35-46) Arterial Blood pO2 at Patient Temp 92 mmHg (65-108) Arterial Blood HCO3 26 mmol/L (21-28) Arterial Blood Base Excess 3 mmol/L (-3-3) FiO2 5 lpm nc Test 12/10/16 21:00 12/11/16 06:20 Lactic Acid Level 1.0 mmol/L (0.4-2.0) White Blood Count 26.1 x10^3/uL (4.0-11.0) Red Blood Count 2.94 x10^6/uL (3.50-5.40) Hemoglobin 8.5 g/dL (12.0-15.5) Hematocrit 27.0 % (36.0-47.0) Mean Corpuscular Volume 92 fL (79-100) Mean Corpuscular Hemoglobin 29 pg (25-35) Mean Corpuscular Hemoglobin Concent 32 g/dL (31-37) Red Cell Distribution Width 16.6 % (11.5-14.5) Platelet Count 250 x10^3/uL (140-400) Neutrophils (%) (Auto) 89 % (31-73) Lymphocytes (%) (Auto) 5 % (24-48) Monocytes (%) (Auto) 6 % (0-9) Eosinophils (%) (Auto) 0 % (0-3) Basophils (%) (Auto) 0 % (0-3) Neutrophils # (Auto) 23.1 x10^3uL (1.8-7.7) Lymphocytes # (Auto) 1.3 x10^3/uL (1.0-4.8) Monocytes # (Auto) 1.6 x10^3/uL (0.0-1.1) Eosinophils # (Auto) 0.0 x10^3/uL (0.0-0.7) Basophils # (Auto) 0.0 x10^3/uL (0.0-0.2) Sodium Level 140 mmol/L (136-145) Potassium Level 4.5 mmol/L (3.5-5.1) Chloride Level 108 mmol/L (98-107) Carbon Dioxide Level 26 mmol/L (21-32) Anion Gap 6 (6-14) Blood Urea Nitrogen 51 mg/dL (7-20) Creatinine 1.4 mg/dL (0.6-1.0) Estimated GFR (Cockcroft-Gault) 36.5 Glucose Level 103 mg/dL (70-99) Calcium Level 7.9 mg/dL (8.5-10.1) Assessment/Plan Assessment/Plan Impression: Metabolic encephalopathy due to sepsis, pneumonia, urinary tract infection, renal failure. Baseline general debility and apparently some cognitive impairment following electroconvulsive therapy treatment Recommendations: As the patient is doing much better according to the daughter, I will hold off on imaging of the brain which apparently was not considered upon admission to the emergency department for "altered mental status." No need for other neurological studies such as EEG or lumbar puncture Discussed my findings with the patient's daughter. Thank you for letting me help with the patient's care. JESUS CAMARENA MD Dec 11, 2016 13:54
[2016-12-11 17:24] LABS: BILIRUBIN,URINE NEGATIVE (NEG); GLUCOSE,URINE NEGATIVE (NEG); NITRITE,URINE NEGATIVE (NEG); PROTEIN,URINE 30 mg/dL (NEG-TRACE); UROBILINOGEN,URINE 0.2 mg/dL (0.2 mg/dL)
[2016-12-11 17:33] LABS: RBC,URINE >40 /HPF (0-2)
[2016-12-11 17:34] LABS: BACTERIA,URINE 0 /HPF (0-FEW)
[2016-12-11] MEDS: VANCOMYCIN 1 GM in IV NORMAL SALINE 250ML 250 ML IV SCH (19:01)
[2016-12-11] MEDS: FAMOTIDINE 20 MG/2 ML VIAL IVP SCH (21:09)
[2016-12-11] MEDS: OLANZapine 5 MG TABLET PO SCH (21:33)
[2016-12-12] VITALS (24 sets, daily range): BP systolic 100–140; BP diastolic 3–71
[2016-12-12] MEDS: PIPERACILLIN/TAZOBACTAM 3.375 GM in IV NORMAL SALINE 50ML 50 ML IV SCH ×4 (00:03→17:30)
[2016-12-12 06:19] LABS: BASO % 0 % (0-3); EOS % 1 % (0-3); HEMATOCRIT 23.8 % (36.0-47.0); HEMOGLOBIN 7.8 g/dL (12.0-15.5); LYMPH % 11 % (24-48); MEAN CORPUSCULAR HEMOGLOBIN 30 pg (25-35); MEAN CORPUSCULAR HGB CONC 33 g/dL (31-37); MEAN CORPUSCULAR VOLUME 92 fL (79-100); MONO % 8 % (0-9); NEUT % 79 % (31-73); PLATELET COUNT 211 x10^3/uL (140-400); RED CELL DISTRIBUTION WIDTH 16.5 % (11.5-14.5); WHITE BLOOD COUNT 9.3 x10^3/uL (4.0-11.0)
[2016-12-12 06:47] LABS: ALBUMIN 1.7 g/dL (3.4-5.0); ALBUMIN/GLOBULIN RATIO 0.4 (1.0-1.7); CALCIUM 7.5 mg/dL (8.5-10.1); CREATININE 1.1 mg/dL (0.6-1.0); GFR 48.2; TOTAL BILIRUBIN 0.3 mg/dL (0.2-1.0); TOTAL PROTEIN 5.9 g/dL (6.4-8.2)
[2016-12-12] MEDS: IPRATRPIUM/ALBUTEROL 0.5/2.5MG 3 ML NEBU. NEB SCH ×4 (08:22→20:19)
--- NOTE | 2016-12-12 08:22 | PDOC ---
PROGRESS NOTES Chief Complaint Chief Complaint AMS ASSESSMENT AND PLAN: 1. metabolic encephalopathy: 2/2 sepsis. suspect baseline mild dementia as well 2. Septic shock: fever, lactic acidosis and hypotension, latter requiring IVF and pressors. now improving 3. HAP/aspiration PNA: on empiric Zosyn, vanco. recent acute resp failure with trach, removed 4. UTI: on empiric Abx; culture with mult tract bacteria, i.e. "dirty" collection 5. JULIETA, prob on CKD: 2/2 dehydration. monitor creat with IVF. 6. Hyperkalemia: resolved 7. Hyponatremia: resolved 8. HT: on lisinopril, lasix at home. hold for now 8. Hypothyroidism: on Synthroid (IV for now) 8. PAfib: rate controlled 9. Dysphagia: PEG in place. restarted feeds; appreciate nutrition consult. increase free water with feeds 10. Hypoaalbuminemia: multifactorial, incl inflammation and malnutrition. see 9. 11. Decubitus ulcers: wound care consult 12. Constipation: abd CT w/o other significant findings. resolved with laxatives 13. Schizophrenia: on Zyprexa qHS. continue 13. Prophylaxis: heparin SQ, H2B History of Present Illness History of Present Illness sleeping currently, but per family at bedside, she is more verbal, looking the best in the past 2 weeks Vitals Vitals Vital Signs Date Time Temp Pulse Resp B/P (MAP) Pulse Ox O2 Delivery O2 Flow Rate FiO2 12/12/16 06:00 76 15 119/68 (85) 97 Room Air 12/12/16 04:00 97.6 97.6 12/11/16 14:00 Physical Exam General: No acute distress, Other (confused) Heart: Regular rate Lungs: Clear Abdomen: Normal bowel sounds, Soft, No tenderness Extremities: No clubbing, No edema Skin: No rashes Labs LABS Laboratory Tests Test 12/11/16 17:20 12/12/16 05:45 Urine Collection Type U cath Urine Color Yellow Urine Clarity Cloudy Urine pH 8.0 Urine Specific [place] 1.015 Urine Protein 30 mg/dL (NEG-TRACE) Urine Glucose (UA) Negative mg/dL (NEG) Urine Ketones (Stick) Negative mg/dL (NEG) Urine Blood Large (NEG) Urine Nitrite Negative (NEG) Urine Bilirubin Negative (NEG) Urine Urobilinogen Dipstick 0.2 mg/dL (0.2 mg/dL) Urine Leukocyte Esterase Small (NEG) Urine RBC >40 /HPF (0-2) Urine WBC 1-4 /HPF (0-4) Urine Renal Epithelial Cells Occ /LPF Urine Bacteria 0 /HPF (0-FEW) Urine Hyaline Casts Few /HPF Urine Mucus Marked /LPF White Blood Count 9.3 x10^3/uL (4.0-11.0) Red Blood Count 2.60 x10^6/uL (3.50-5.40) Hemoglobin 7.8 g/dL (12.0-15.5) Hematocrit 23.8 % (36.0-47.0) Mean Corpuscular Volume 92 fL (79-100) Mean Corpuscular Hemoglobin 30 pg (25-35) Mean Corpuscular Hemoglobin Concent 33 g/dL (31-37) Red Cell Distribution Width 16.5 % (11.5-14.5) Platelet Count 211 x10^3/uL (140-400) Neutrophils (%) (Auto) 79 % (31-73) Lymphocytes (%) (Auto) 11 % (24-48) Monocytes (%) (Auto) 8 % (0-9) Eosinophils (%) (Auto) 1 % (0-3) Basophils (%) (Auto) 0 % (0-3) Neutrophils # (Auto) 7.3 x10^3uL (1.8-7.7) Lymphocytes # (Auto) 1.0 x10^3/uL (1.0-4.8) Monocytes # (Auto) 0.8 x10^3/uL (0.0-1.1) Eosinophils # (Auto) 0.1 x10^3/uL (0.0-0.7) Basophils # (Auto) 0.0 x10^3/uL (0.0-0.2) Sodium Level 146 mmol/L (136-145) Potassium Level 4.0 mmol/L (3.5-5.1) Chloride Level 116 mmol/L (98-107) Carbon Dioxide Level 22 mmol/L (21-32) Anion Gap 8 (6-14) Blood Urea Nitrogen 27 mg/dL (7-20) Creatinine 1.1 mg/dL (0.6-1.0) Estimated GFR (Cockcroft-Gault) 48.2 BUN/Creatinine Ratio 25 (6-20) Glucose Level 82 mg/dL (70-99) Calcium Level 7.5 mg/dL (8.5-10.1) Total Bilirubin 0.3 mg/dL (0.2-1.0) Aspartate Amino Transf (AST/SGOT) 46 U/L (15-37) Alanine Aminotransferase (ALT/SGPT) 42 U/L (14-59) Alkaline Phosphatase 97 U/L (46-116) Total Protein 5.9 g/dL (6.4-8.2) Albumin 1.7 g/dL (3.4-5.0) Albumin/Globulin Ratio 0.4 (1.0-1.7) JORGE A BOLES MD Dec 12, 2016 08:22
[2016-12-12] MEDS: POLYETHYLENE GLYCOL 3350 17 GM PACKET. PO SCH (08:56)
[2016-12-12] MEDS: LEVOTHYROXINE SODIUM 100 MCG in IV NORMAL SALINE 50ML 5 ML IVP SCH (08:56)
--- NOTE | 2016-12-12 09:04 | PDOC ---
Infectious Disease Note Subjective Subjective Feeling better + BM after enema Productive cough Denies SOA or CP Denies N/V No fever last 24 hours Vital Sign Vital Signs Vital Signs Date Time Temp Pulse Resp B/P (MAP) Pulse Ox O2 Delivery O2 Flow Rate FiO2 12/12/16 08:23 96 Room Air 12/12/16 06:00 76 15 119/68 (85) 12/12/16 04:00 97.6 97.6 12/11/16 14:00 Physical Exam PHYSICAL EXAM GENERAL: More alert, NAD NECK: Dressing over stoma. LUNGS: Diminished aeration bases, nonlabored CV: Normal S1 and S2 ABD: Distended, hypoactive BS, soft, nontender, PEG : Francisco (chg 12/11) EXT: No edema or cyanosis SKIN: Without rash. Sacral wound Left subclavian cath. clean Labs Lab Laboratory Tests Test 12/11/16 17:20 12/12/16 05:45 Urine Collection Type U cath Urine Color Yellow Urine Clarity Cloudy Urine pH 8.0 Urine Specific [place] 1.015 Urine Protein 30 mg/dL (NEG-TRACE) Urine Glucose (UA) Negative mg/dL (NEG) Urine Ketones (Stick) Negative mg/dL (NEG) Urine Blood Large (NEG) Urine Nitrite Negative (NEG) Urine Bilirubin Negative (NEG) Urine Urobilinogen Dipstick 0.2 mg/dL (0.2 mg/dL) Urine Leukocyte Esterase Small (NEG) Urine RBC >40 /HPF (0-2) Urine WBC 1-4 /HPF (0-4) Urine Renal Epithelial Cells Occ /LPF Urine Bacteria 0 /HPF (0-FEW) Urine Hyaline Casts Few /HPF Urine Mucus Marked /LPF White Blood Count 9.3 x10^3/uL (4.0-11.0) Red Blood Count 2.60 x10^6/uL (3.50-5.40) Hemoglobin 7.8 g/dL (12.0-15.5) Hematocrit 23.8 % (36.0-47.0) Mean Corpuscular Volume 92 fL (79-100) Mean Corpuscular Hemoglobin 30 pg (25-35) Mean Corpuscular Hemoglobin Concent 33 g/dL (31-37) Red Cell Distribution Width 16.5 % (11.5-14.5) Platelet Count 211 x10^3/uL (140-400) Neutrophils (%) (Auto) 79 % (31-73) Lymphocytes (%) (Auto) 11 % (24-48) Monocytes (%) (Auto) 8 % (0-9) Eosinophils (%) (Auto) 1 % (0-3) Basophils (%) (Auto) 0 % (0-3) Neutrophils # (Auto) 7.3 x10^3uL (1.8-7.7) Lymphocytes # (Auto) 1.0 x10^3/uL (1.0-4.8) Monocytes # (Auto) 0.8 x10^3/uL (0.0-1.1) Eosinophils # (Auto) 0.1 x10^3/uL (0.0-0.7) Basophils # (Auto) 0.0 x10^3/uL (0.0-0.2) Sodium Level 146 mmol/L (136-145) Potassium Level 4.0 mmol/L (3.5-5.1) Chloride Level 116 mmol/L (98-107) Carbon Dioxide Level 22 mmol/L (21-32) Anion Gap 8 (6-14) Blood Urea Nitrogen 27 mg/dL (7-20) Creatinine 1.1 mg/dL (0.6-1.0) Estimated GFR (Cockcroft-Gault) 48.2 BUN/Creatinine Ratio 25 (6-20) Glucose Level 82 mg/dL (70-99) Calcium Level 7.5 mg/dL (8.5-10.1) Total Bilirubin 0.3 mg/dL (0.2-1.0) Aspartate Amino Transf (AST/SGOT) 46 U/L (15-37) Alanine Aminotransferase (ALT/SGPT) 42 U/L (14-59) Alkaline Phosphatase 97 U/L (46-116) Total Protein 5.9 g/dL (6.4-8.2) Albumin 1.7 g/dL (3.4-5.0) Albumin/Globulin Ratio 0.4 (1.0-1.7) Micro 12/10 BLOOD CULTURE Preliminary NO GROWTH AFTER 1 DAY 12/10 URINE CULTURE RES 1 Preliminary Comment Greater than 2 organisms recovered, none predominant. Objective Assessment Septic shock, POA, 12/10 off pressors. Reportedly GPC in 1 of 4 bottles, called to [facility], POA 12/10. 2 nondominant org. Repeat UC pending. - per daughter, had been on Bactrim for UTI couple days prior to admit. ? Acinetobacter Lactic acidosis HCAP A-fib, amiodarone, currently off Debility MRSA, nares positive Sacral pressure wound, POA Plan Plan of Care Continue vanc and Zosyn Monitor lab values f/u cultures Supportive care Discussed with daughter, plans to get copy of micro report from PCP Attending Co-Sign The patient was seen and interviewed as well as examined at the bedside. The chart was reviewed. The case was discussed. Agree with the plan of care. JACKIE NICOLE APRN Dec 12, 2016 09:04 RYANN JOSHUA MD Dec 12, 2016 13:07
[2016-12-12] MEDS: VANCOMYCIN PER PHARMACY MC PRN ×2 (09:58→21:51)
--- NOTE | 2016-12-12 10:45 | PDOC ---
PULMONARY PROGRESS NOTES Subjective off pressor Vitals Vital Signs Date Time Temp Pulse Resp B/P (MAP) Pulse Ox O2 Delivery O2 Flow Rate FiO2 12/12/16 09:00 78 23 111/66 (81) 96 Room Air 12/12/16 08:00 97.8 97.8 12/11/16 14:00 General: Alert Lungs: Clear Cardiovascular: S1 Abdomen: Soft Neuro Exam: Alert Extremities: Other (trace edema) Labs Laboratory Tests Test 12/10/16 15:35 12/10/16 15:40 12/10/16 16:00 12/10/16 19:00 White Blood Count 29.2 x10^3/uL (4.0-11.0) Red Blood Count 3.01 x10^6/uL (3.50-5.40) Hemoglobin 8.8 g/dL (12.0-15.5) Hematocrit 27.5 % (36.0-47.0) Mean Corpuscular Volume 91 fL (79-100) Mean Corpuscular Hemoglobin 29 pg (25-35) Mean Corpuscular Hemoglobin Concent 32 g/dL (31-37) Red Cell Distribution Width 16.4 % (11.5-14.5) Platelet Count 304 x10^3/uL (140-400) Neutrophils (%) (Auto) 93 % (31-73) Lymphocytes (%) (Auto) 1 % (24-48) Monocytes (%) (Auto) 6 % (0-9) Eosinophils (%) (Auto) 0 % (0-3) Basophils (%) (Auto) 0 % (0-3) Neutrophils # (Auto) 27.1 x10^3uL (1.8-7.7) Lymphocytes # (Auto) 0.4 x10^3/uL (1.0-4.8) Monocytes # (Auto) 1.6 x10^3/uL (0.0-1.1) Eosinophils # (Auto) 0.0 x10^3/uL (0.0-0.7) Basophils # (Auto) 0.0 x10^3/uL (0.0-0.2) Segmented Neutrophils % 78 % (35-66) Band Neutrophils % 13 % (0-9) Lymphocytes % 2 % (24-48) Monocytes % 5 % (0-10) Metamyelocytes % 2 % (0-0) Platelet Estimate Adequate (ADEQUATE) Anisocytosis Slight Sodium Level 132 mmol/L (136-145) Potassium Level 5.6 mmol/L (3.5-5.1) Chloride Level 99 mmol/L (98-107) Carbon Dioxide Level 29 mmol/L (21-32) Anion Gap 4 (6-14) Blood Urea Nitrogen 68 mg/dL (7-20) Creatinine 1.5 mg/dL (0.6-1.0) Estimated GFR (Cockcroft-Gault) 33.7 BUN/Creatinine Ratio 45 (6-20) Glucose Level 118 mg/dL (70-99) Lactic Acid Level 2.7 mmol/L (0.4-2.0) 2.4 mmol/L (0.4-2.0) Calcium Level 8.8 mg/dL (8.5-10.1) Total Bilirubin 0.2 mg/dL (0.2-1.0) Aspartate Amino Transf (AST/SGOT) 54 U/L (15-37) Alanine Aminotransferase (ALT/SGPT) 52 U/L (14-59) Alkaline Phosphatase 141 U/L (46-116) Total Protein 7.1 g/dL (6.4-8.2) Albumin 2.1 g/dL (3.4-5.0) Albumin/Globulin Ratio 0.4 (1.0-1.7) Urine Collection Type Unknown Urine Color Yellow Urine Clarity Clear Urine pH 7.0 Urine Specific [place] 1.015 Urine Protein Negative mg/dL (NEG-TRACE) Urine Glucose (UA) Negative mg/dL (NEG) Urine Ketones (Stick) Negative mg/dL (NEG) Urine Blood Trace (NEG) Urine Nitrite Negative (NEG) Urine Bilirubin Negative (NEG) Urine Urobilinogen Dipstick 0.2 mg/dL (0.2 mg/dL) Urine Leukocyte Esterase Moderate (NEG) Urine RBC 3-5 /HPF (0-2) Urine WBC 5-10 /HPF (0-4) Urine Bacteria Many /HPF (0-FEW) Urine Hyaline Casts Moderate /HPF Urine Mucus Slight /LPF O2 Saturation 96 % (92-99) Arterial Blood pH 7.50 (7.35-7.45) Arterial Blood pCO2 at Patient Temp 34 mmHg (35-46) Arterial Blood pO2 at Patient Temp 92 mmHg (65-108) Arterial Blood HCO3 26 mmol/L (21-28) Arterial Blood Base Excess 3 mmol/L (-3-3) FiO2 5 lpm nc Test 12/10/16 20:15 12/10/16 21:00 12/11/16 06:20 12/11/16 17:20 Nasal Screen MRSA (PCR) Positive (Negative) Lactic Acid Level 1.0 mmol/L (0.4-2.0) White Blood Count 26.1 x10^3/uL (4.0-11.0) Red Blood Count 2.94 x10^6/uL (3.50-5.40) Hemoglobin 8.5 g/dL (12.0-15.5) Hematocrit 27.0 % (36.0-47.0) Mean Corpuscular Volume 92 fL (79-100) Mean Corpuscular Hemoglobin 29 pg (25-35) Mean Corpuscular Hemoglobin Concent 32 g/dL (31-37) Red Cell Distribution Width 16.6 % (11.5-14.5) Platelet Count 250 x10^3/uL (140-400) Neutrophils (%) (Auto) 89 % (31-73) Lymphocytes (%) (Auto) 5 % (24-48) Monocytes (%) (Auto) 6 % (0-9) Eosinophils (%) (Auto) 0 % (0-3) Basophils (%) (Auto) 0 % (0-3) Neutrophils # (Auto) 23.1 x10^3uL (1.8-7.7) Lymphocytes # (Auto) 1.3 x10^3/uL (1.0-4.8) Monocytes # (Auto) 1.6 x10^3/uL (0.0-1.1) Eosinophils # (Auto) 0.0 x10^3/uL (0.0-0.7) Basophils # (Auto) 0.0 x10^3/uL (0.0-0.2) Sodium Level 140 mmol/L (136-145) Potassium Level 4.5 mmol/L (3.5-5.1) Chloride Level 108 mmol/L (98-107) Carbon Dioxide Level 26 mmol/L (21-32) Anion Gap 6 (6-14) Blood Urea Nitrogen 51 mg/dL (7-20) Creatinine 1.4 mg/dL (0.6-1.0) Estimated GFR (Cockcroft-Gault) 36.5 Glucose Level 103 mg/dL (70-99) Calcium Level 7.9 mg/dL (8.5-10.1) Urine Collection Type U cath Urine Color Yellow Urine Clarity Cloudy Urine pH 8.0 Urine Specific [place] 1.015 Urine Protein 30 mg/dL (NEG-TRACE) Urine Glucose (UA) Negative mg/dL (NEG) Urine Ketones (Stick) Negative mg/dL (NEG) Urine Blood Large (NEG) Urine Nitrite Negative (NEG) Urine Bilirubin Negative (NEG) Urine Urobilinogen Dipstick 0.2 mg/dL (0.2 mg/dL) Urine Leukocyte Esterase Small (NEG) Urine RBC >40 /HPF (0-2) Urine WBC 1-4 /HPF (0-4) Urine Renal Epithelial Cells Occ /LPF Urine Bacteria 0 /HPF (0-FEW) Urine Hyaline Casts Few /HPF Urine Mucus Marked /LPF Test 12/12/16 05:45 White Blood Count 9.3 x10^3/uL (4.0-11.0) Red Blood Count 2.60 x10^6/uL (3.50-5.40) Hemoglobin 7.8 g/dL (12.0-15.5) Hematocrit 23.8 % (36.0-47.0) Mean Corpuscular Volume 92 fL (79-100) Mean Corpuscular Hemoglobin 30 pg (25-35) Mean Corpuscular Hemoglobin Concent 33 g/dL (31-37) Red Cell Distribution Width 16.5 % (11.5-14.5) Platelet Count 211 x10^3/uL (140-400) Neutrophils (%) (Auto) 79 % (31-73) Lymphocytes (%) (Auto) 11 % (24-48) Monocytes (%) (Auto) 8 % (0-9) Eosinophils (%) (Auto) 1 % (0-3) Basophils (%) (Auto) 0 % (0-3) Neutrophils # (Auto) 7.3 x10^3uL (1.8-7.7) Lymphocytes # (Auto) 1.0 x10^3/uL (1.0-4.8) Monocytes # (Auto) 0.8 x10^3/uL (0.0-1.1) Eosinophils # (Auto) 0.1 x10^3/uL (0.0-0.7) Basophils # (Auto) 0.0 x10^3/uL (0.0-0.2) Sodium Level 146 mmol/L (136-145) Potassium Level 4.0 mmol/L (3.5-5.1) Chloride Level 116 mmol/L (98-107) Carbon Dioxide Level 22 mmol/L (21-32) Anion Gap 8 (6-14) Blood Urea Nitrogen 27 mg/dL (7-20) Creatinine 1.1 mg/dL (0.6-1.0) Estimated GFR (Cockcroft-Gault) 48.2 BUN/Creatinine Ratio 25 (6-20) Glucose Level 82 mg/dL (70-99) Calcium Level 7.5 mg/dL (8.5-10.1) Total Bilirubin 0.3 mg/dL (0.2-1.0) Aspartate Amino Transf (AST/SGOT) 46 U/L (15-37) Alanine Aminotransferase (ALT/SGPT) 42 U/L (14-59) Alkaline Phosphatase 97 U/L (46-116) Total Protein 5.9 g/dL (6.4-8.2) Albumin 1.7 g/dL (3.4-5.0) Albumin/Globulin Ratio 0.4 (1.0-1.7) Laboratory Tests Test 12/11/16 17:20 12/12/16 05:45 Urine Collection Type U cath Urine Color Yellow Urine Clarity Cloudy Urine pH 8.0 Urine Specific [place] 1.015 Urine Protein 30 mg/dL (NEG-TRACE) Urine Glucose (UA) Negative mg/dL (NEG) Urine Ketones (Stick) Negative mg/dL (NEG) Urine Blood Large (NEG) Urine Nitrite Negative (NEG) Urine Bilirubin Negative (NEG) Urine Urobilinogen Dipstick 0.2 mg/dL (0.2 mg/dL) Urine Leukocyte Esterase Small (NEG) Urine RBC >40 /HPF (0-2) Urine WBC 1-4 /HPF (0-4) Urine Renal Epithelial Cells Occ /LPF Urine Bacteria 0 /HPF (0-FEW) Urine Hyaline Casts Few /HPF Urine Mucus Marked /LPF White Blood Count 9.3 x10^3/uL (4.0-11.0) Red Blood Count 2.60 x10^6/uL (3.50-5.40) Hemoglobin 7.8 g/dL (12.0-15.5) Hematocrit 23.8 % (36.0-47.0) Mean Corpuscular Volume 92 fL (79-100) Mean Corpuscular Hemoglobin 30 pg (25-35) Mean Corpuscular Hemoglobin Concent 33 g/dL (31-37) Red Cell Distribution Width 16.5 % (11.5-14.5) Platelet Count 211 x10^3/uL (140-400) Neutrophils (%) (Auto) 79 % (31-73) Lymphocytes (%) (Auto) 11 % (24-48) Monocytes (%) (Auto) 8 % (0-9) Eosinophils (%) (Auto) 1 % (0-3) Basophils (%) (Auto) 0 % (0-3) Neutrophils # (Auto) 7.3 x10^3uL (1.8-7.7) Lymphocytes # (Auto) 1.0 x10^3/uL (1.0-4.8) Monocytes # (Auto) 0.8 x10^3/uL (0.0-1.1) Eosinophils # (Auto) 0.1 x10^3/uL (0.0-0.7) Basophils # (Auto) 0.0 x10^3/uL (0.0-0.2) Sodium Level 146 mmol/L (136-145) Potassium Level 4.0 mmol/L (3.5-5.1) Chloride Level 116 mmol/L (98-107) Carbon Dioxide Level 22 mmol/L (21-32) Anion Gap 8 (6-14) Blood Urea Nitrogen 27 mg/dL (7-20) Creatinine 1.1 mg/dL (0.6-1.0) Estimated GFR (Cockcroft-Gault) 48.2 BUN/Creatinine Ratio 25 (6-20) Glucose Level 82 mg/dL (70-99) Calcium Level 7.5 mg/dL (8.5-10.1) Total Bilirubin 0.3 mg/dL (0.2-1.0) Aspartate Amino Transf (AST/SGOT) 46 U/L (15-37) Alanine Aminotransferase (ALT/SGPT) 42 U/L (14-59) Alkaline Phosphatase 97 U/L (46-116) Total Protein 5.9 g/dL (6.4-8.2) Albumin 1.7 g/dL (3.4-5.0) Albumin/Globulin Ratio 0.4 (1.0-1.7) Medications Active Scripts Medications Dose Route/Sig Max Daily Dose Days Date Category Bactrim Ds Tablet (Sulfamethoxazole/Trimethoprim) 1 Each Tablet 1 Each PEG BID 12/11/16 Reported Vitamin C (Ascorbic Acid) 500 Mg/5 Ml Syrup 500 Mg PEG DAILY 12/11/16 Reported Vitamin D (Cholecalciferol (Vitamin D3)) 1,000 Unit Capsule 1 Cap PO DAILY 12/11/16 Reported Benadryl (Diphenhydramine Hcl) 25 Mg Capsule 25 Mg PO HS 12/11/16 Reported Lorazepam 0.5 Mg Tablet 0.5 Mg PO HS 12/11/16 Reported Acetaminophen 160 Mg/5 Ml Solution 5 Ml PO Q4HRS 12/11/16 Reported Aspir 81 (Aspirin) 81 Mg Tablet.dr 1 Tab PO DAILY 12/11/16 Reported Potassium Chloride 20 Meq Tablet.er 20 Meq PO DAILY 12/11/16 Reported Amiodarone Hcl 400 Mg Tablet 400 Mg PO BID 12/11/16 Reported Lasix (Furosemide) 40 Mg Tablet 40 Mg PO BID 12/11/16 Reported Pepcid (Famotidine) 20 Mg Tablet 20 Mg PO BID 12/11/16 Reported Levothyroxine Sodium 125 Mcg Tablet 1 Tab PO DAILY 12/11/16 Reported Zyprexa (Olanzapine) 15 Mg Tablet 1 Tab PO QHS 12/11/16 Reported Lisinopril 10 Mg Tablet 1 Tab PO DAILY 12/11/16 Reported Impression . 1. Septic shock due to suspected UTI and RML pneumonia 2. Acute metabolic encephalopathy, improving 3. Abnormal CXR c/w RML pneumonia 4. Chronic [place] 5. No Tobacco hx 6. JULIETA 7. h/o A-Fib, on Amio 8. Recent de-cannulation 9. Gram positive bacteremia Plan . 1. Fluid challenge prn 2. BS antibiotic 3. Follow all cultures, follow CXR 4. off vasopressor 5. prn oxygen 6. Monitor renal function 7. d/w family. full code 8. d/w RN 9. clinically improving MARKEL BENDER MD Dec 12, 2016 10:45
[2016-12-12] MEDS: NYSTATIN 100,000 UNIT/GM TOPICAL OINTMENT 15GM TUBE. TP SCH ×2 (11:31→21:42)
--- NOTE | 2016-12-12 13:43 | PDOC ---
PROGRESS NOTES Assessment Problems Medical Problems: (1) Acute renal failure Status: Acute (2) Healthcare-associated pneumonia Status: Acute (3) Microcytic anemia Status: Acute (4) Severe protein-calorie malnutrition Status: Acute (5) Severe sepsis Status: Acute (6) Urinary tract infection Status: Acute Metabolic encephalopathy due to sepsis, pneumonia, urinary tract infection, renal failure. Baseline general debility and apparently some cognitive impairment following electroconvulsive therapy treatment Plan Holding off on further neurology studies Discussed my findings with the patient's daughter and . Subjective Daughter reports patient is much more lucid Objective Vital Signs Date Time Temp Pulse Resp B/P (MAP) Pulse Ox O2 Delivery O2 Flow Rate FiO2 12/12/16 12:00 Room Air 12/12/16 11:30 97 12/12/16 11:00 76 21 118/51 (73) 12/12/16 08:00 97.8 97.8 12/11/16 14:00 Intake and Output 12/12/16 07:00 Intake Total 2846 ml Output Total 1798 ml Balance 1048 ml Intake Oral 0 ml IV Total 2631 ml Other 215 ml Output Urine Total 1785 ml Stool Total 13 ml # Bowel Movements 3 PHYSICAL EXAM Asleep PERRL. EOMI. CN: no focal findings. Muscle tone: normal. Muscle strength: moves spontaneously DTR: 0+ Plantar reflex: flexor Gait: not examined in bed. Sensory exam: not tested Cerebellar: not tested. Review of Relevant I have reviewed the following items adam (where applicable) has been applied. Labs Laboratory Tests Test 12/10/16 15:35 12/10/16 15:40 12/10/16 16:00 12/10/16 19:00 White Blood Count 29.2 x10^3/uL (4.0-11.0) Red Blood Count 3.01 x10^6/uL (3.50-5.40) Hemoglobin 8.8 g/dL (12.0-15.5) Hematocrit 27.5 % (36.0-47.0) Mean Corpuscular Volume 91 fL (79-100) Mean Corpuscular Hemoglobin 29 pg (25-35) Mean Corpuscular Hemoglobin Concent 32 g/dL (31-37) Red Cell Distribution Width 16.4 % (11.5-14.5) Platelet Count 304 x10^3/uL (140-400) Neutrophils (%) (Auto) 93 % (31-73) Lymphocytes (%) (Auto) 1 % (24-48) Monocytes (%) (Auto) 6 % (0-9) Eosinophils (%) (Auto) 0 % (0-3) Basophils (%) (Auto) 0 % (0-3) Neutrophils # (Auto) 27.1 x10^3uL (1.8-7.7) Lymphocytes # (Auto) 0.4 x10^3/uL (1.0-4.8) Monocytes # (Auto) 1.6 x10^3/uL (0.0-1.1) Eosinophils # (Auto) 0.0 x10^3/uL (0.0-0.7) Basophils # (Auto) 0.0 x10^3/uL (0.0-0.2) Segmented Neutrophils % 78 % (35-66) Band Neutrophils % 13 % (0-9) Lymphocytes % 2 % (24-48) Monocytes % 5 % (0-10) Metamyelocytes % 2 % (0-0) Platelet Estimate Adequate (ADEQUATE) Anisocytosis Slight Sodium Level 132 mmol/L (136-145) Potassium Level 5.6 mmol/L (3.5-5.1) Chloride Level 99 mmol/L (98-107) Carbon Dioxide Level 29 mmol/L (21-32) Anion Gap 4 (6-14) Blood Urea Nitrogen 68 mg/dL (7-20) Creatinine 1.5 mg/dL (0.6-1.0) Estimated GFR (Cockcroft-Gault) 33.7 BUN/Creatinine Ratio 45 (6-20) Glucose Level 118 mg/dL (70-99) Lactic Acid Level 2.7 mmol/L (0.4-2.0) 2.4 mmol/L (0.4-2.0) Calcium Level 8.8 mg/dL (8.5-10.1) Total Bilirubin 0.2 mg/dL (0.2-1.0) Aspartate Amino Transf (AST/SGOT) 54 U/L (15-37) Alanine Aminotransferase (ALT/SGPT) 52 U/L (14-59) Alkaline Phosphatase 141 U/L (46-116) Total Protein 7.1 g/dL (6.4-8.2) Albumin 2.1 g/dL (3.4-5.0) Albumin/Globulin Ratio 0.4 (1.0-1.7) Urine Collection Type Unknown Urine Color Yellow Urine Clarity Clear Urine pH 7.0 Urine Specific [place] 1.015 Urine Protein Negative mg/dL (NEG-TRACE) Urine Glucose (UA) Negative mg/dL (NEG) Urine Ketones (Stick) Negative mg/dL (NEG) Urine Blood Trace (NEG) Urine Nitrite Negative (NEG) Urine Bilirubin Negative (NEG) Urine Urobilinogen Dipstick 0.2 mg/dL (0.2 mg/dL) Urine Leukocyte Esterase Moderate (NEG) Urine RBC 3-5 /HPF (0-2) Urine WBC 5-10 /HPF (0-4) Urine Bacteria Many /HPF (0-FEW) Urine Hyaline Casts Moderate /HPF Urine Mucus Slight /LPF O2 Saturation 96 % (92-99) Arterial Blood pH 7.50 (7.35-7.45) Arterial Blood pCO2 at Patient Temp 34 mmHg (35-46) Arterial Blood pO2 at Patient Temp 92 mmHg (65-108) Arterial Blood HCO3 26 mmol/L (21-28) Arterial Blood Base Excess 3 mmol/L (-3-3) FiO2 5 lpm nc Test 12/10/16 20:15 12/10/16 21:00 12/11/16 06:20 12/11/16 17:20 Nasal Screen MRSA (PCR) Positive (Negative) Lactic Acid Level 1.0 mmol/L (0.4-2.0) White Blood Count 26.1 x10^3/uL (4.0-11.0) Red Blood Count 2.94 x10^6/uL (3.50-5.40) Hemoglobin 8.5 g/dL (12.0-15.5) Hematocrit 27.0 % (36.0-47.0) Mean Corpuscular Volume 92 fL (79-100) Mean Corpuscular Hemoglobin 29 pg (25-35) Mean Corpuscular Hemoglobin Concent 32 g/dL (31-37) Red Cell Distribution Width 16.6 % (11.5-14.5) Platelet Count 250 x10^3/uL (140-400) Neutrophils (%) (Auto) 89 % (31-73) Lymphocytes (%) (Auto) 5 % (24-48) Monocytes (%) (Auto) 6 % (0-9) Eosinophils (%) (Auto) 0 % (0-3) Basophils (%) (Auto) 0 % (0-3) Neutrophils # (Auto) 23.1 x10^3uL (1.8-7.7) Lymphocytes # (Auto) 1.3 x10^3/uL (1.0-4.8) Monocytes # (Auto) 1.6 x10^3/uL (0.0-1.1) Eosinophils # (Auto) 0.0 x10^3/uL (0.0-0.7) Basophils # (Auto) 0.0 x10^3/uL (0.0-0.2) Sodium Level 140 mmol/L (136-145) Potassium Level 4.5 mmol/L (3.5-5.1) Chloride Level 108 mmol/L (98-107) Carbon Dioxide Level 26 mmol/L (21-32) Anion Gap 6 (6-14) Blood Urea Nitrogen 51 mg/dL (7-20) Creatinine 1.4 mg/dL (0.6-1.0) Estimated GFR (Cockcroft-Gault) 36.5 Glucose Level 103 mg/dL (70-99) Calcium Level 7.9 mg/dL (8.5-10.1) Urine Collection Type U cath Urine Color Yellow Urine Clarity Cloudy Urine pH 8.0 Urine Specific [place] 1.015 Urine Protein 30 mg/dL (NEG-TRACE) Urine Glucose (UA) Negative mg/dL (NEG) Urine Ketones (Stick) Negative mg/dL (NEG) Urine Blood Large (NEG) Urine Nitrite Negative (NEG) Urine Bilirubin Negative (NEG) Urine Urobilinogen Dipstick 0.2 mg/dL (0.2 mg/dL) Urine Leukocyte Esterase Small (NEG) Urine RBC >40 /HPF (0-2) Urine WBC 1-4 /HPF (0-4) Urine Renal Epithelial Cells Occ /LPF Urine Bacteria 0 /HPF (0-FEW) Urine Hyaline Casts Few /HPF Urine Mucus Marked /LPF Test 12/12/16 05:45 White Blood Count 9.3 x10^3/uL (4.0-11.0) Red Blood Count 2.60 x10^6/uL (3.50-5.40) Hemoglobin 7.8 g/dL (12.0-15.5) Hematocrit 23.8 % (36.0-47.0) Mean Corpuscular Volume 92 fL (79-100) Mean Corpuscular Hemoglobin 30 pg (25-35) Mean Corpuscular Hemoglobin Concent 33 g/dL (31-37) Red Cell Distribution Width 16.5 % (11.5-14.5) Platelet Count 211 x10^3/uL (140-400) Neutrophils (%) (Auto) 79 % (31-73) Lymphocytes (%) (Auto) 11 % (24-48) Monocytes (%) (Auto) 8 % (0-9) Eosinophils (%) (Auto) 1 % (0-3) Basophils (%) (Auto) 0 % (0-3) Neutrophils # (Auto) 7.3 x10^3uL (1.8-7.7) Lymphocytes # (Auto) 1.0 x10^3/uL (1.0-4.8) Monocytes # (Auto) 0.8 x10^3/uL (0.0-1.1) Eosinophils # (Auto) 0.1 x10^3/uL (0.0-0.7) Basophils # (Auto) 0.0 x10^3/uL (0.0-0.2) Sodium Level 146 mmol/L (136-145) Potassium Level 4.0 mmol/L (3.5-5.1) Chloride Level 116 mmol/L (98-107) Carbon Dioxide Level 22 mmol/L (21-32) Anion Gap 8 (6-14) Blood Urea Nitrogen 27 mg/dL (7-20) Creatinine 1.1 mg/dL (0.6-1.0) Estimated GFR (Cockcroft-Gault) 48.2 BUN/Creatinine Ratio 25 (6-20) Glucose Level 82 mg/dL (70-99) Calcium Level 7.5 mg/dL (8.5-10.1) Total Bilirubin 0.3 mg/dL (0.2-1.0) Aspartate Amino Transf (AST/SGOT) 46 U/L (15-37) Alanine Aminotransferase (ALT/SGPT) 42 U/L (14-59) Alkaline Phosphatase 97 U/L (46-116) Total Protein 5.9 g/dL (6.4-8.2) Albumin 1.7 g/dL (3.4-5.0) Albumin/Globulin Ratio 0.4 (1.0-1.7) Laboratory Tests Test 12/11/16 17:20 12/12/16 05:45 Urine Collection Type U cath Urine Color Yellow Urine Clarity Cloudy Urine pH 8.0 Urine Specific [place] 1.015 Urine Protein 30 mg/dL (NEG-TRACE) Urine Glucose (UA) Negative mg/dL (NEG) Urine Ketones (Stick) Negative mg/dL (NEG) Urine Blood Large (NEG) Urine Nitrite Negative (NEG) Urine Bilirubin Negative (NEG) Urine Urobilinogen Dipstick 0.2 mg/dL (0.2 mg/dL) Urine Leukocyte Esterase Small (NEG) Urine RBC >40 /HPF (0-2) Urine WBC 1-4 /HPF (0-4) Urine Renal Epithelial Cells Occ /LPF Urine Bacteria 0 /HPF (0-FEW) Urine Hyaline Casts Few /HPF Urine Mucus Marked /LPF White Blood Count 9.3 x10^3/uL (4.0-11.0) Red Blood Count 2.60 x10^6/uL (3.50-5.40) Hemoglobin 7.8 g/dL (12.0-15.5) Hematocrit 23.8 % (36.0-47.0) Mean Corpuscular Volume 92 fL (79-100) Mean Corpuscular Hemoglobin 30 pg (25-35) Mean Corpuscular Hemoglobin Concent 33 g/dL (31-37) Red Cell Distribution Width 16.5 % (11.5-14.5) Platelet Count 211 x10^3/uL (140-400) Neutrophils (%) (Auto) 79 % (31-73) Lymphocytes (%) (Auto) 11 % (24-48) Monocytes (%) (Auto) 8 % (0-9) Eosinophils (%) (Auto) 1 % (0-3) Basophils (%) (Auto) 0 % (0-3) Neutrophils # (Auto) 7.3 x10^3uL (1.8-7.7) Lymphocytes # (Auto) 1.0 x10^3/uL (1.0-4.8) Monocytes # (Auto) 0.8 x10^3/uL (0.0-1.1) Eosinophils # (Auto) 0.1 x10^3/uL (0.0-0.7) Basophils # (Auto) 0.0 x10^3/uL (0.0-0.2) Sodium Level 146 mmol/L (136-145) Potassium Level 4.0 mmol/L (3.5-5.1) Chloride Level 116 mmol/L (98-107) Carbon Dioxide Level 22 mmol/L (21-32) Anion Gap 8 (6-14) Blood Urea Nitrogen 27 mg/dL (7-20) Creatinine 1.1 mg/dL (0.6-1.0) Estimated GFR (Cockcroft-Gault) 48.2 BUN/Creatinine Ratio 25 (6-20) Glucose Level 82 mg/dL (70-99) Calcium Level 7.5 mg/dL (8.5-10.1) Total Bilirubin 0.3 mg/dL (0.2-1.0) Aspartate Amino Transf (AST/SGOT) 46 U/L (15-37) Alanine Aminotransferase (ALT/SGPT) 42 U/L (14-59) Alkaline Phosphatase 97 U/L (46-116) Total Protein 5.9 g/dL (6.4-8.2) Albumin 1.7 g/dL (3.4-5.0) Albumin/Globulin Ratio 0.4 (1.0-1.7) Microbiology 12/10/16 Blood Culture - Preliminary, Resulted NO GROWTH AFTER 1 DAY 12/10/16 Urine Culture - Preliminary, Resulted 12/10/16 Urine Culture Result 1 (MISA) - Preliminary, Resulted Medications Current Medications Sodium Chloride 1,000 ml @ 1,120 mls/hr Q54M IV Last administered on 16:54; Start 12/10/16 at 16:00; Stop 12/10/16 at 17:00; Status DC Vancomycin HCl (Vanco Per Pharmacy) 1 each PRN DAILY PRN MC SEE COMMENTS Last administered on 12/12/16 09:58; Start 12/10/16 at 16:15 Piperacillin Sod/ Tazobactam Sod (Zosyn Per Pharmacy) 1 each PRN DAILY PRN MC SEE COMMENTS; Start 12/10/16 at 16:15 Levofloxacin/ Dextrose (Levaquin Per Pharmacy) 1 each PRN DAILY PRN MC SEE COMMENTS; Start 12/10/16 at 16:15; Stop 12/11/16 at 11:34; Status DC Levofloxacin/ Dextrose 150 ml @ 150 mls/hr ONCE ONCE IV Last administered on 12/10/16 16:16; Start 12/10/16 at 16:15; Stop 12/10/16 at 17:14; Status DC Vancomycin HCl 1.5 gm/Sodium Chloride 500 ml @ 250 mls/hr 1X ONCE IV Last administered on 12/10/16 18:38; Start 12/10/16 at 16:15; Stop 12/10/16 at 18:14 ; Status DC Piperacillin Sod/ Tazobactam Sod 4.5 gm/Sodium Chloride 100 ml @ 200 mls/hr ONCE ONCE IV Last administered on 12/10/16 17:37; Start 12/10/16 at 16:30; Stop 12/10/16 at 16:59; Status DC Sodium Chloride 1,000 ml @ 150 mls/hr 1X ONCE IV Last administered on 17:15; Start 12/10/16 at 16:15; Stop 12/10/16 at 22:54; Status DC Ondansetron HCl (Zofran) 4 mg PRN Q8HRS PRN IV NAUSEA/VOMITING; Start 12/10/16 at 16:45; Stop 12/11/16 at 16:44; Status DC Sodium Chloride 1,000 ml @ 150 mls/hr Q6H40M IV Last administered on 16:35; Start 12/10/16 at 16:35; Stop 12/11/16 at 16:34; Status DC Acetaminophen (Tylenol) 650 mg PRN Q4HRS PRN PO FEVER; Start 12/10/16 at 16:45 ; Stop 12/11/16 at 16:44; Status DC Albuterol/ Ipratropium (Duoneb) 3 ml RTQID NEB ; Start 12/10/16 at 20:00; Stop 12/10/16 at 20:00; Status DC Acetaminophen (Tylenol) 650 mg PRN Q6HRS PRN PO FEVER; Start 12/10/16 at 17:15 Ondansetron HCl (Zofran) 4 mg PRN Q6HRS PRN IV NAUSEA/VOMITING; Start 12/10/16 at 17:15 Morphine Sulfate 2 mg PRN Q2HR PRN IV PAIN; Start 12/10/16 at 17:15; Stop at 12:18; Status DC Tramadol HCl (Ultram) 50 mg PRN Q6HRS PRN PO PAIN; Start 12/10/16 at 17:15 Hydralazine HCl (Apresoline) 10 mg PRN Q4HRS PRN IVP ELEVATED BP, SEE COMMENTS ; Start 12/10/16 at 17:15 Docusate Sodium (Colace) 100 mg PRN DAILY PRN PO CONSTIPATION; Start 12/10/16 at 17:15 Dextrose/Sodium Chloride 1,000 ml @ 75 mls/hr [id number] IV Last administered on 12/11/16 23:05; Start 12/10/16 at 17:15 Heparin Sodium (Porcine) (Heparin Sq) 5,000 unit Q8HRS SQ Last administered on 12/11/16 06:17; Start 12/10/16 at 22:00; Stop 12/11/16 at 17:53; Status DC Albuterol/ Ipratropium (Duoneb) 3 ml RTQID NEB Last administered on 12/12/16 11 :28; Start 12/10/16 at 20:00 Albuterol Sulfate (Ventolin Neb Soln) 2.5 mg PRN Q2HR PRN NEB SHORTNESS OF BREATH; Start 12/10/16 at 17:15 Levofloxacin/ Dextrose 150 ml @ 100 mls/hr Q48H IV ; Start 12/11/16 at 16:00; Stop 12/11/16 at 16:00; Status DC Piperacillin Sod/ Tazobactam Sod 3.375 gm/Sodium Chloride 50 ml @ 100 mls/hr Q6HRS IV Last administered on 12/12/16 11:31; Start 12/11/16 at 00:00 Vancomycin HCl 1 gm/Sodium Chloride 250 ml @ 250 mls/hr Q24H IV Last administered on 12/11/16 19:01; Start 12/11/16 at 18:30 Vancomycin HCl 1 each 1X ONCE MC ; Start 12/12/16 at 18:00; Stop 12/12/16 at 18: 01 Norepinephrine Bitartrate 250 ml @ 0 mls/hr CONT PRN IV SEE I/O RECORD Last administered on 12/11/16 08:53; Start 12/10/16 at 18:45 Sodium Chloride 1,000 ml @ 1,000 mls/hr 1X ONCE IV Last administered on 20:41; Start 12/10/16 at 19:30; Stop 12/10/16 at 20:29; Status DC Sodium Chloride 1,000 ml @ 999 mls/hr 1X ONCE IV Last administered on 12:04; Start 12/11/16 at 10:00; Stop 12/11/16 at 11:00; Status DC Sodium Chloride 1,000 ml @ 999 mls/hr 1X ONCE IV Last administered on 12:03; Start 12/11/16 at 10:00; Stop 12/11/16 at 11:00; Status DC Mineral Oil (Fleet Mineral Oil) 133 ml 1X ONCE [place] Last administered on 11:00; Start 12/11/16 at 11:00; Stop 12/11/16 at 11:02; Status DC Acetaminophen (Tylenol) 650 mg PRN Q6HRS PRN PEG MILD PAIN / TEMP; Start at 12:45 Olanzapine (ZyPREXA) 15 mg QHS PO Last administered on 12/11/16 21:33; Start at 21:00 Polyethylene Glycol (miraLAX PACKET) 17 gm DAILY PO Last administered on 08:56; Start 12/11/16 at 12:30 Levothyroxine Sodium 100 mcg/ Sodium Chloride 5 ml @ 125 mls/hr DAILY IVP Last administered on 12/12/16 08:56; Start 12/12/16 at 09:00 Famotidine (Pepcid) 20 mg QHS IVP Last administered on 12/11/16 21:09; Start at 21:00 Nystatin (Mycostatin) 1 nhi BID TP Last administered on 12/12/16 11:31; Start 12/12/16 at 10:00 Active Scripts Active Reported Bactrim Ds Tablet (Sulfamethoxazole/Trimethoprim) 1 Each Tablet 1 Each PEG BID Vitamin C (Ascorbic Acid) 500 Mg/5 Ml Syrup 500 Mg PEG DAILY Vitamin D (Cholecalciferol (Vitamin D3)) 1,000 Unit Capsule 1 Cap PO DAILY Benadryl (Diphenhydramine Hcl) 25 Mg Capsule 25 Mg PO HS Lorazepam 0.5 Mg Tablet 0.5 Mg PO HS Acetaminophen 160 Mg/5 Ml Solution 5 Ml PO Q4HRS Aspir 81 (Aspirin) 81 Mg Tablet.dr 1 Tab PO DAILY Potassium Chloride 20 Meq Tablet.er 20 Meq PO DAILY Amiodarone Hcl 400 Mg Tablet 400 Mg PO BID Lasix (Furosemide) 40 Mg Tablet 40 Mg PO BID Pepcid (Famotidine) 20 Mg Tablet 20 Mg PO BID Levothyroxine Sodium 125 Mcg Tablet 1 Tab PO DAILY Zyprexa (Olanzapine) 15 Mg Tablet 1 Tab PO QHS Lisinopril 10 Mg Tablet 1 Tab PO DAILY Vitals/I & O Vital Sign - Last 24 Hours 12/11/16 12/11/16 12/11/16 12/11/16 14:00 15:00 15:48 16:00 Pulse 78 77 Resp 15 15 B/P (MAP) 104/41 (62) 112/55 (74) Pulse Ox 97 97 O2 Delivery Room Air Room Air Room Air Room Air O2 Flow Rate 12/11/16 12/11/16 12/11/16 12/11/16 16:00 17:00 18:00 19:00 Temp 97.6 97.6 Pulse 77 80 72 72 Resp 13 18 20 21 B/P (MAP) 118/62 (80) 108/48 (68) 100/61 (74) 100/61 (74) Pulse Ox 99 98 97 97 O2 Delivery Room Air Room Air Room Air Room Air 12/11/16 12/11/16 12/11/16 12/11/16 19:25 20:00 20:00 21:00 Temp 97.1 97.1 Pulse 81 75 Resp 19 10 B/P (MAP) 89/63 (72) 96/58 (71) Pulse Ox 98 97 100 O2 Delivery Room Air Room Air Room Air Room Air 12/11/16 12/11/16 12/12/16 12/12/16 22:00 23:00 00:00 00:00 Temp 97.3 97.3 Pulse 82 75 84 Resp 19 14 16 B/P (MAP) 122/49 (73) 121/52 (75) 113/61 (78) Pulse Ox 99 100 100 O2 Delivery Room Air Room Air Room Air Room Air 712/12/16 12/12/16 12/12/16 01:00 02:00 03:00 04:00 Pulse 82 74 84 Resp 22 22 22 B/P (MAP) 110/54 (72) 107/65 (79) 121/62 (81) Pulse Ox 98 98 97 O2 Delivery Room Air Room Air Room Air Room Air 12/12/16 12/12/16 12/12/16 12/12/16 04:00 05:00 06:00 07:00 Temp 97.6 97.6 Pulse 84 75 76 76 Resp 22 19 15 24 B/P (MAP) 121/62 (81) 125/54 (77) 119/68 (85) 120/53 (75) Pulse Ox 97 97 97 96 O2 Delivery Room Air Room Air Room Air Room Air 12/12/16 12/12/16 12/12/16 12/12/16 08:00 08:00 08:23 09:00 Temp 97.8 97.8 Pulse 74 78 Resp 20 23 B/P (MAP) 126/65 (85) 111/66 (81) Pulse Ox 98 96 96 O2 Delivery Room Air Room Air Room Air Room Air 12/12/16 12/12/16 12/12/16 12/12/16 10:00 11:00 11:30 12:00 Pulse 78 76 Resp 20 21 B/P (MAP) 100/41 (60) 118/51 (73) Pulse Ox 96 96 97 O2 Delivery Room Air Room Air Room Air Room Air Intake and Output 12/11/16 12/11/16 12/12/16 15:00 23:00 07:00 Intake Total 50 ml 1584 ml 1212 ml Output Total 606 ml 722 ml 470 ml Balance -556 ml 862 ml 742 ml JESUS CAMARENA MD Dec 12, 2016 13:43
[2016-12-12] MEDS: VANCOMYCIN 1 GM in IV NORMAL SALINE 250ML 250 ML IV SCH (19:32)
[2016-12-12] MEDS: FAMOTIDINE 20 MG/2 ML VIAL IVP SCH (21:42)
[2016-12-12] MEDS: LORazepam 0.5 MG TABLET PEG PRN (21:43)
[2016-12-12] MEDS: OLANZapine 5 MG TABLET PO SCH (23:01)
--- NOTE | 2016-12-12 23:52 | PDOC ---
Provider Note Provider Note RENAL F/U : JEAN S : More alert. No active CP, SOA or new c/o O : VSS BP better/stable Alert. Neck : Supple Lings : Decreased bases. Non labored. CVS : RRR Abd : Portly. No masses. No edema/trace. Neuro ; Alert. Labs reviewed. A/P : ARF/ATN HTN w CKD HYPOTENSION MENTAL STATUS CHANGES. Overall improved. Supportive care. Wean off pressors. Labs. Linda Pena M.D. LINDA PENA MD Dec 12, 2016 23:52
[2016-12-13] VITALS (14 sets, daily range): BP systolic 110–149; BP diastolic 49–71
[2016-12-13] MEDS: PIPERACILLIN/TAZOBACTAM 3.375 GM in IV NORMAL SALINE 50ML 50 ML IV SCH ×6 (06:02→23:35)
[2016-12-13 06:53] LABS: BASO % 1 % (0-3); EOS % 0 % (0-3); HEMATOCRIT 22.9 % (36.0-47.0); HEMOGLOBIN 7.3 g/dL (12.0-15.5); LYMPH % 17 % (24-48); MEAN CORPUSCULAR HEMOGLOBIN 30 pg (25-35); MEAN CORPUSCULAR HGB CONC 32 g/dL (31-37); MEAN CORPUSCULAR VOLUME 94 fL (79-100); MONO % 11 % (0-9); NEUT % 72 % (31-73); PLATELET COUNT 181 x10^3/uL (140-400); RED BLOOD COUNT 2.45 x10^6/uL (3.50-5.40); RED CELL DISTRIBUTION WIDTH 16.4 % (11.5-14.5); WHITE BLOOD COUNT 6.1 x10^3/uL (4.0-11.0)
[2016-12-13 07:17] LABS: ALBUMIN 1.7 g/dL (3.4-5.0); ALBUMIN/GLOBULIN RATIO 0.4 (1.0-1.7); CALCIUM 7.7 mg/dL (8.5-10.1); CREATININE 0.9 mg/dL (0.6-1.0); GFR 60.7; POTASSIUM 3.8 mmol/L (3.5-5.1); TOTAL BILIRUBIN 0.3 mg/dL (0.2-1.0); TOTAL PROTEIN 5.7 g/dL (6.4-8.2)
[2016-12-13] MEDS: POLYETHYLENE GLYCOL 3350 17 GM PACKET. PO SCH (07:28)
[2016-12-13] MEDS: IPRATRPIUM/ALBUTEROL 0.5/2.5MG 3 ML NEBU. NEB SCH ×4 (07:40→19:59)
[2016-12-13] MEDS: LEVOTHYROXINE SODIUM 100 MCG in IV NORMAL SALINE 50ML 5 ML IVP SCH (08:08)
--- NOTE | 2016-12-13 08:08 | PDOC ---
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 CHEMICAL: sleepy, SKIN: No rash,, large sacral decub, no bone exposed IV: ok Labs Lab Laboratory Tests Test 12/12/16 18:00 12/13/16 06:40 Vancomycin Level Trough 16.5 mcg/mL (10.0-20.0) Vancomycin Last Dose Date Vancomycin Last Dose Time White Blood Count 6.1 x10^3/uL (4.0-11.0) Red Blood Count 2.45 x10^6/uL (3.50-5.40) Hemoglobin 7.3 g/dL (12.0-15.5) Hematocrit 22.9 % (36.0-47.0) Mean Corpuscular Volume 94 fL (79-100) Mean Corpuscular Hemoglobin 30 pg (25-35) Mean Corpuscular Hemoglobin Concent 32 g/dL (31-37) Red Cell Distribution Width 16.4 % (11.5-14.5) Platelet Count 181 x10^3/uL (140-400) Neutrophils (%) (Auto) 72 % (31-73) Lymphocytes (%) (Auto) 17 % (24-48) Monocytes (%) (Auto) 11 % (0-9) Eosinophils (%) (Auto) 0 % (0-3) Basophils (%) (Auto) 1 % (0-3) Neutrophils # (Auto) 4.3 x10^3uL (1.8-7.7) Lymphocytes # (Auto) 1.0 x10^3/uL (1.0-4.8) Monocytes # (Auto) 0.7 x10^3/uL (0.0-1.1) Eosinophils # (Auto) 0.0 x10^3/uL (0.0-0.7) Basophils # (Auto) 0.0 x10^3/uL (0.0-0.2) Sodium Level 145 mmol/L (136-145) Potassium Level 3.8 mmol/L (3.5-5.1) Chloride Level 115 mmol/L (98-107) Carbon Dioxide Level 22 mmol/L (21-32) Anion Gap 8 (6-14) Blood Urea Nitrogen 21 mg/dL (7-20) Creatinine 0.9 mg/dL (0.6-1.0) Estimated GFR (Cockcroft-Gault) 60.7 BUN/Creatinine Ratio 23 (6-20) Glucose Level 79 mg/dL (70-99) Calcium Level 7.7 mg/dL (8.5-10.1) Total Bilirubin 0.3 mg/dL (0.2-1.0) Aspartate Amino Transf (AST/SGOT) 38 U/L (15-37) Alanine Aminotransferase (ALT/SGPT) 43 U/L (14-59) Alkaline Phosphatase 115 U/L (46-116) Total Protein 5.7 g/dL (6.4-8.2) Albumin 1.7 g/dL (3.4-5.0) Albumin/Globulin Ratio 0.4 (1.0-1.7) Objective Assessment Septic shock, POA, 12/10 off pressors. Reportedly GPC in 1 of 4 bottles, id pending CAUTI, POA 12/10. 2 nondominant org. Repeat UC pending. - per daughter, had been on Bactrim for UTI couple days prior to admit. ? Acinetobacter Lactic acidosis HCAP A-fib, amiodarone, currently off Debility MRSA, nares positive Sacral pressure wound, POA Plan Plan of Care Continue vanc and Zosyn Monitor lab values f/u cultures Supportive care RYANN JOSHUA MD Dec 13, 2016 08:08
[2016-12-13] MEDS: MULTIVITAMINS,THERAPEUTIC 5 ML ORAL LIQUID. PEG SCH (10:41)
[2016-12-13] MEDS: ASCORBIC ACID 500 MG TABLET PEG SCH (10:41)
[2016-12-13] MEDS: NYSTATIN 100,000 UNIT/GM TOPICAL OINTMENT 15GM TUBE. TP SCH ×2 (10:41→21:00)
[2016-12-13] MEDS: LORazepam 0.5 MG TABLET PEG PRN (10:56)
--- NOTE | 2016-12-13 12:08 | PDOC ---
PULMONARY PROGRESS NOTES Subjective pt with no increase soa Vitals Vital Signs Date Time Temp Pulse Resp B/P (MAP) Pulse Ox O2 Delivery O2 Flow Rate FiO2 12/13/16 11:27 Room Air 12/13/16 09:00 92 21 124/55 (78) 97 12/13/16 08:00 98.4 98.4 ROS: No Nausea, No Chest Pain, No Abdominal Pain, No Increase Cough General: Alert Lungs: Clear Cardiovascular: S1 Abdomen: Soft Neuro Exam: Alert Extremities: Other (trace edema) Labs Laboratory Tests Test 12/11/16 17:20 12/12/16 05:45 12/12/16 18:00 12/13/16 06:40 Urine Collection Type U cath Urine Color Yellow Urine Clarity Cloudy Urine pH 8.0 Urine Specific [place] 1.015 Urine Protein 30 mg/dL (NEG-TRACE) Urine Glucose (UA) Negative mg/dL (NEG) Urine Ketones (Stick) Negative mg/dL (NEG) Urine Blood Large (NEG) Urine Nitrite Negative (NEG) Urine Bilirubin Negative (NEG) Urine Urobilinogen Dipstick 0.2 mg/dL (0.2 mg/dL) Urine Leukocyte Esterase Small (NEG) Urine RBC >40 /HPF (0-2) Urine WBC 1-4 /HPF (0-4) Urine Renal Epithelial Cells Occ /LPF Urine Bacteria 0 /HPF (0-FEW) Urine Hyaline Casts Few /HPF Urine Mucus Marked /LPF White Blood Count 9.3 x10^3/uL (4.0-11.0) 6.1 x10^3/uL (4.0-11.0) Red Blood Count 2.60 x10^6/uL (3.50-5.40) 2.45 x10^6/uL (3.50-5.40) Hemoglobin 7.8 g/dL (12.0-15.5) 7.3 g/dL (12.0-15.5) Hematocrit 23.8 % (36.0-47.0) 22.9 % (36.0-47.0) Mean Corpuscular Volume 92 fL (79-100) 94 fL (79-100) Mean Corpuscular Hemoglobin 30 pg (25-35) 30 pg (25-35) Mean Corpuscular Hemoglobin Concent 33 g/dL (31-37) 32 g/dL (31-37) Red Cell Distribution Width 16.5 % (11.5-14.5) 16.4 % (11.5-14.5) Platelet Count 211 x10^3/uL (140-400) 181 x10^3/uL (140-400) Neutrophils (%) (Auto) 79 % (31-73) 72 % (31-73) Lymphocytes (%) (Auto) 11 % (24-48) 17 % (24-48) Monocytes (%) (Auto) 8 % (0-9) 11 % (0-9) Eosinophils (%) (Auto) 1 % (0-3) 0 % (0-3) Basophils (%) (Auto) 0 % (0-3) 1 % (0-3) Neutrophils # (Auto) 7.3 x10^3uL (1.8-7.7) 4.3 x10^3uL (1.8-7.7) Lymphocytes # (Auto) 1.0 x10^3/uL (1.0-4.8) 1.0 x10^3/uL (1.0-4.8) Monocytes # (Auto) 0.8 x10^3/uL (0.0-1.1) 0.7 x10^3/uL (0.0-1.1) Eosinophils # (Auto) 0.1 x10^3/uL (0.0-0.7) 0.0 x10^3/uL (0.0-0.7) Basophils # (Auto) 0.0 x10^3/uL (0.0-0.2) 0.0 x10^3/uL (0.0-0.2) Sodium Level 146 mmol/L (136-145) 145 mmol/L (136-145) Potassium Level 4.0 mmol/L (3.5-5.1) 3.8 mmol/L (3.5-5.1) Chloride Level 116 mmol/L (98-107) 115 mmol/L (98-107) Carbon Dioxide Level 22 mmol/L (21-32) 22 mmol/L (21-32) Anion Gap 8 (6-14) 8 (6-14) Blood Urea Nitrogen 27 mg/dL (7-20) 21 mg/dL (7-20) Creatinine 1.1 mg/dL (0.6-1.0) 0.9 mg/dL (0.6-1.0) Estimated GFR (Cockcroft-Gault) 48.2 60.7 BUN/Creatinine Ratio 25 (6-20) 23 (6-20) Glucose Level 82 mg/dL (70-99) 79 mg/dL (70-99) Calcium Level 7.5 mg/dL (8.5-10.1) 7.7 mg/dL (8.5-10.1) Total Bilirubin 0.3 mg/dL (0.2-1.0) 0.3 mg/dL (0.2-1.0) Aspartate Amino Transf (AST/SGOT) 46 U/L (15-37) 38 U/L (15-37) Alanine Aminotransferase (ALT/SGPT) 42 U/L (14-59) 43 U/L (14-59) Alkaline Phosphatase 97 U/L (46-116) 115 U/L (46-116) Total Protein 5.9 g/dL (6.4-8.2) 5.7 g/dL (6.4-8.2) Albumin 1.7 g/dL (3.4-5.0) 1.7 g/dL (3.4-5.0) Albumin/Globulin Ratio 0.4 (1.0-1.7) 0.4 (1.0-1.7) Vancomycin Level Trough 16.5 mcg/mL (10.0-20.0) Vancomycin Last Dose Date Vancomycin Last Dose Time Laboratory Tests Test 12/12/16 18:00 12/13/16 06:40 Vancomycin Level Trough 16.5 mcg/mL (10.0-20.0) Vancomycin Last Dose Date Vancomycin Last Dose Time White Blood Count 6.1 x10^3/uL (4.0-11.0) Red Blood Count 2.45 x10^6/uL (3.50-5.40) Hemoglobin 7.3 g/dL (12.0-15.5) Hematocrit 22.9 % (36.0-47.0) Mean Corpuscular Volume 94 fL (79-100) Mean Corpuscular Hemoglobin 30 pg (25-35) Mean Corpuscular Hemoglobin Concent 32 g/dL (31-37) Red Cell Distribution Width 16.4 % (11.5-14.5) Platelet Count 181 x10^3/uL (140-400) Neutrophils (%) (Auto) 72 % (31-73) Lymphocytes (%) (Auto) 17 % (24-48) Monocytes (%) (Auto) 11 % (0-9) Eosinophils (%) (Auto) 0 % (0-3) Basophils (%) (Auto) 1 % (0-3) Neutrophils # (Auto) 4.3 x10^3uL (1.8-7.7) Lymphocytes # (Auto) 1.0 x10^3/uL (1.0-4.8) Monocytes # (Auto) 0.7 x10^3/uL (0.0-1.1) Eosinophils # (Auto) 0.0 x10^3/uL (0.0-0.7) Basophils # (Auto) 0.0 x10^3/uL (0.0-0.2) Sodium Level 145 mmol/L (136-145) Potassium Level 3.8 mmol/L (3.5-5.1) Chloride Level 115 mmol/L (98-107) Carbon Dioxide Level 22 mmol/L (21-32) Anion Gap 8 (6-14) Blood Urea Nitrogen 21 mg/dL (7-20) Creatinine 0.9 mg/dL (0.6-1.0) Estimated GFR (Cockcroft-Gault) 60.7 BUN/Creatinine Ratio 23 (6-20) Glucose Level 79 mg/dL (70-99) Calcium Level 7.7 mg/dL (8.5-10.1) Total Bilirubin 0.3 mg/dL (0.2-1.0) Aspartate Amino Transf (AST/SGOT) 38 U/L (15-37) Alanine Aminotransferase (ALT/SGPT) 43 U/L (14-59) Alkaline Phosphatase 115 U/L (46-116) Total Protein 5.7 g/dL (6.4-8.2) Albumin 1.7 g/dL (3.4-5.0) Albumin/Globulin Ratio 0.4 (1.0-1.7) Medications Active Scripts Medications Dose Route/Sig Max Daily Dose Days Date Category Bactrim Ds Tablet (Sulfamethoxazole/Trimethoprim) 1 Each Tablet 1 Each PEG BID 12/11/16 Reported Vitamin C (Ascorbic Acid) 500 Mg/5 Ml Syrup 500 Mg PEG DAILY 12/11/16 Reported Vitamin D (Cholecalciferol (Vitamin D3)) 1,000 Unit Capsule 1 Cap PO DAILY 12/11/16 Reported Benadryl (Diphenhydramine Hcl) 25 Mg Capsule 25 Mg PO HS 12/11/16 Reported Lorazepam 0.5 Mg Tablet 0.5 Mg PO HS 12/11/16 Reported Acetaminophen 160 Mg/5 Ml Solution 5 Ml PO Q4HRS 12/11/16 Reported Aspir 81 (Aspirin) 81 Mg Tablet.dr 1 Tab PO DAILY 12/11/16 Reported Potassium Chloride 20 Meq Tablet.er 20 Meq PO DAILY 12/11/16 Reported Amiodarone Hcl 400 Mg Tablet 400 Mg PO BID 12/11/16 Reported Lasix (Furosemide) 40 Mg Tablet 40 Mg PO BID 12/11/16 Reported Pepcid (Famotidine) 20 Mg Tablet 20 Mg PO BID 12/11/16 Reported Levothyroxine Sodium 125 Mcg Tablet 1 Tab PO DAILY 12/11/16 Reported Zyprexa (Olanzapine) 15 Mg Tablet 1 Tab PO QHS 12/11/16 Reported Lisinopril 10 Mg Tablet 1 Tab PO DAILY 12/11/16 Reported Impression . 1. Septic shock due to suspected UTI and RML pneumonia 2. Acute metabolic encephalopathy, improving 3. Abnormal CXR c/w RML pneumonia 4. Chronic Francisco 5. No Tobacco hx 6. JULIETA 7. h/o A-Fib, on Amio 8. Recent de-cannulation 9. Gram positive bacteremia Plan . Pt transferred from ICU better now still weak and needs PT/OT 02 antibx per ID SANDOR KHANNA MD Dec 13, 2016 12:08
--- NOTE | 2016-12-13 14:15 | PDOC ---
PROGRESS NOTES Assessment Problems Medical Problems: (1) Acute renal failure Status: Acute (2) Healthcare-associated pneumonia Status: Acute (3) Microcytic anemia Status: Acute (4) Severe protein-calorie malnutrition Status: Acute (5) Severe sepsis Status: Acute (6) Urinary tract infection Status: Acute Metabolic encephalopathy due to sepsis, pneumonia, urinary tract infection, renal failure. 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 Daughter is an ICU nurse Objective Vital Signs Date Time Temp Pulse Resp B/P (MAP) Pulse Ox O2 Delivery O2 Flow Rate FiO2 12/13/16 12:00 82 20 134/67 (89) 96 Room Air 12/13/16 08:00 98.4 98.4 Intake and Output 12/13/16 06:59 Intake Total 2577 ml Output Total 1610 ml Balance 967 ml IV Total 1480 ml Tube Feeding 544 ml Other 553 ml Output Urine Total 1610 ml # Bowel Movements 4 PHYSICAL EXAM Asleep, arouses easily PERRL. EOMI. CN: no focal findings. Muscle tone: normal. Muscle strength: moves spontaneously DTR: 0+ Plantar reflex: flexor Gait: not examined in bed. Sensory exam: not tested Cerebellar: not tested. Review of Relevant I have reviewed the following items adam (where applicable) has been applied. Labs Laboratory Tests Test 12/11/16 17:20 12/12/16 05:45 12/12/16 18:00 12/13/16 06:40 Urine Collection Type U cath Urine Color Yellow Urine Clarity Cloudy Urine pH 8.0 Urine Specific [place] 1.015 Urine Protein 30 mg/dL (NEG-TRACE) Urine Glucose (UA) Negative mg/dL (NEG) Urine Ketones (Stick) Negative mg/dL (NEG) Urine Blood Large (NEG) Urine Nitrite Negative (NEG) Urine Bilirubin Negative (NEG) Urine Urobilinogen Dipstick 0.2 mg/dL (0.2 mg/dL) Urine Leukocyte Esterase Small (NEG) Urine RBC >40 /HPF (0-2) Urine WBC 1-4 /HPF (0-4) Urine Renal Epithelial Cells Occ /LPF Urine Bacteria 0 /HPF (0-FEW) Urine Hyaline Casts Few /HPF Urine Mucus Marked /LPF White Blood Count 9.3 x10^3/uL (4.0-11.0) 6.1 x10^3/uL (4.0-11.0) Red Blood Count 2.60 x10^6/uL (3.50-5.40) 2.45 x10^6/uL (3.50-5.40) Hemoglobin 7.8 g/dL (12.0-15.5) 7.3 g/dL (12.0-15.5) Hematocrit 23.8 % (36.0-47.0) 22.9 % (36.0-47.0) Mean Corpuscular Volume 92 fL (79-100) 94 fL (79-100) Mean Corpuscular Hemoglobin 30 pg (25-35) 30 pg (25-35) Mean Corpuscular Hemoglobin Concent 33 g/dL (31-37) 32 g/dL (31-37) Red Cell Distribution Width 16.5 % (11.5-14.5) 16.4 % (11.5-14.5) Platelet Count 211 x10^3/uL (140-400) 181 x10^3/uL (140-400) Neutrophils (%) (Auto) 79 % (31-73) 72 % (31-73) Lymphocytes (%) (Auto) 11 % (24-48) 17 % (24-48) Monocytes (%) (Auto) 8 % (0-9) 11 % (0-9) Eosinophils (%) (Auto) 1 % (0-3) 0 % (0-3) Basophils (%) (Auto) 0 % (0-3) 1 % (0-3) Neutrophils # (Auto) 7.3 x10^3uL (1.8-7.7) 4.3 x10^3uL (1.8-7.7) Lymphocytes # (Auto) 1.0 x10^3/uL (1.0-4.8) 1.0 x10^3/uL (1.0-4.8) Monocytes # (Auto) 0.8 x10^3/uL (0.0-1.1) 0.7 x10^3/uL (0.0-1.1) Eosinophils # (Auto) 0.1 x10^3/uL (0.0-0.7) 0.0 x10^3/uL (0.0-0.7) Basophils # (Auto) 0.0 x10^3/uL (0.0-0.2) 0.0 x10^3/uL (0.0-0.2) Sodium Level 146 mmol/L (136-145) 145 mmol/L (136-145) Potassium Level 4.0 mmol/L (3.5-5.1) 3.8 mmol/L (3.5-5.1) Chloride Level 116 mmol/L (98-107) 115 mmol/L (98-107) Carbon Dioxide Level 22 mmol/L (21-32) 22 mmol/L (21-32) Anion Gap 8 (6-14) 8 (6-14) Blood Urea Nitrogen 27 mg/dL (7-20) 21 mg/dL (7-20) Creatinine 1.1 mg/dL (0.6-1.0) 0.9 mg/dL (0.6-1.0) Estimated GFR (Cockcroft-Gault) 48.2 60.7 BUN/Creatinine Ratio 25 (6-20) 23 (6-20) Glucose Level 82 mg/dL (70-99) 79 mg/dL (70-99) Calcium Level 7.5 mg/dL (8.5-10.1) 7.7 mg/dL (8.5-10.1) Total Bilirubin 0.3 mg/dL (0.2-1.0) 0.3 mg/dL (0.2-1.0) Aspartate Amino Transf (AST/SGOT) 46 U/L (15-37) 38 U/L (15-37) Alanine Aminotransferase (ALT/SGPT) 42 U/L (14-59) 43 U/L (14-59) Alkaline Phosphatase 97 U/L (46-116) 115 U/L (46-116) Total Protein 5.9 g/dL (6.4-8.2) 5.7 g/dL (6.4-8.2) Albumin 1.7 g/dL (3.4-5.0) 1.7 g/dL (3.4-5.0) Albumin/Globulin Ratio 0.4 (1.0-1.7) 0.4 (1.0-1.7) Vancomycin Level Trough 16.5 mcg/mL (10.0-20.0) Vancomycin Last Dose Date Vancomycin Last Dose Time Laboratory Tests Test 12/12/16 18:00 12/13/16 06:40 Vancomycin Level Trough 16.5 mcg/mL (10.0-20.0) Vancomycin Last Dose Date Vancomycin Last Dose Time White Blood Count 6.1 x10^3/uL (4.0-11.0) Red Blood Count 2.45 x10^6/uL (3.50-5.40) Hemoglobin 7.3 g/dL (12.0-15.5) Hematocrit 22.9 % (36.0-47.0) Mean Corpuscular Volume 94 fL (79-100) Mean Corpuscular Hemoglobin 30 pg (25-35) Mean Corpuscular Hemoglobin Concent 32 g/dL (31-37) Red Cell Distribution Width 16.4 % (11.5-14.5) Platelet Count 181 x10^3/uL (140-400) Neutrophils (%) (Auto) 72 % (31-73) Lymphocytes (%) (Auto) 17 % (24-48) Monocytes (%) (Auto) 11 % (0-9) Eosinophils (%) (Auto) 0 % (0-3) Basophils (%) (Auto) 1 % (0-3) Neutrophils # (Auto) 4.3 x10^3uL (1.8-7.7) Lymphocytes # (Auto) 1.0 x10^3/uL (1.0-4.8) Monocytes # (Auto) 0.7 x10^3/uL (0.0-1.1) Eosinophils # (Auto) 0.0 x10^3/uL (0.0-0.7) Basophils # (Auto) 0.0 x10^3/uL (0.0-0.2) Sodium Level 145 mmol/L (136-145) Potassium Level 3.8 mmol/L (3.5-5.1) Chloride Level 115 mmol/L (98-107) Carbon Dioxide Level 22 mmol/L (21-32) Anion Gap 8 (6-14) Blood Urea Nitrogen 21 mg/dL (7-20) Creatinine 0.9 mg/dL (0.6-1.0) Estimated GFR (Cockcroft-Gault) 60.7 BUN/Creatinine Ratio 23 (6-20) Glucose Level 79 mg/dL (70-99) Calcium Level 7.7 mg/dL (8.5-10.1) Total Bilirubin 0.3 mg/dL (0.2-1.0) Aspartate Amino Transf (AST/SGOT) 38 U/L (15-37) Alanine Aminotransferase (ALT/SGPT) 43 U/L (14-59) Alkaline Phosphatase 115 U/L (46-116) Total Protein 5.7 g/dL (6.4-8.2) Albumin 1.7 g/dL (3.4-5.0) Albumin/Globulin Ratio 0.4 (1.0-1.7) Microbiology 12/10/16 Blood Culture - Preliminary, Resulted NO GROWTH AFTER 2 DAYS 12/11/16 Urine Culture - Preliminary, Resulted 12/11/16 Urine Culture Result 1 (MISA) - Preliminary, Resulted Medications Current Medications Sodium Chloride 1,000 ml @ 1,120 mls/hr Q54M IV Last administered on 16:54; Start 12/10/16 at 16:00; Stop 12/10/16 at 17:00; Status DC Vancomycin HCl (Vanco Per Pharmacy) 1 each PRN DAILY PRN MC SEE COMMENTS Last administered on 12/12/16 21:51; Start 12/10/16 at 16:15 Piperacillin Sod/ Tazobactam Sod (Zosyn Per Pharmacy) 1 each PRN DAILY PRN MC SEE COMMENTS; Start 12/10/16 at 16:15 Levofloxacin/ Dextrose (Levaquin Per Pharmacy) 1 each PRN DAILY PRN MC SEE COMMENTS; Start 12/10/16 at 16:15; Stop 12/11/16 at 11:34; Status DC Levofloxacin/ Dextrose 150 ml @ 150 mls/hr ONCE ONCE IV Last administered on 12/10/16 16:16; Start 12/10/16 at 16:15; Stop 12/10/16 at 17:14; Status DC Vancomycin HCl 1.5 gm/Sodium Chloride 500 ml @ 250 mls/hr 1X ONCE IV Last administered on 12/10/16 18:38; Start 12/10/16 at 16:15; Stop 12/10/16 at 18:14 ; Status DC Piperacillin Sod/ Tazobactam Sod 4.5 gm/Sodium Chloride 100 ml @ 200 mls/hr ONCE ONCE IV Last administered on 12/10/16 17:37; Start 12/10/16 at 16:30; Stop 12/10/16 at 16:59; Status DC Sodium Chloride 1,000 ml @ 150 mls/hr 1X ONCE IV Last administered on 17:15; Start 12/10/16 at 16:15; Stop 12/10/16 at 22:54; Status DC Ondansetron HCl (Zofran) 4 mg PRN Q8HRS PRN IV NAUSEA/VOMITING; Start 12/10/16 at 16:45; Stop 12/11/16 at 16:44; Status DC Sodium Chloride 1,000 ml @ 150 mls/hr Q6H40M IV Last administered on 16:35; Start 12/10/16 at 16:35; Stop 12/11/16 at 16:34; Status DC Acetaminophen (Tylenol) 650 mg PRN Q4HRS PRN PO FEVER; Start 12/10/16 at 16:45 ; Stop 12/11/16 at 16:44; Status DC Albuterol/ Ipratropium (Duoneb) 3 ml RTQID NEB ; Start 12/10/16 at 20:00; Stop 12/10/16 at 20:00; Status DC Acetaminophen (Tylenol) 650 mg PRN Q6HRS PRN PO FEVER; Start 12/10/16 at 17:15 Ondansetron HCl (Zofran) 4 mg PRN Q6HRS PRN IV NAUSEA/VOMITING; Start 12/10/16 at 17:15 Morphine Sulfate 2 mg PRN Q2HR PRN IV PAIN; Start 12/10/16 at 17:15; Stop at 12:18; Status DC Tramadol HCl (Ultram) 50 mg PRN Q6HRS PRN PO PAIN; Start 12/10/16 at 17:15 Hydralazine HCl (Apresoline) 10 mg PRN Q4HRS PRN IVP ELEVATED BP, SEE COMMENTS ; Start 12/10/16 at 17:15 Docusate Sodium (Colace) 100 mg PRN DAILY PRN PO CONSTIPATION; Start 12/10/16 at 17:15 Dextrose/Sodium Chloride 1,000 ml @ 75 mls/hr [id number] IV Last administered on 12/11/16 23:05; Start 12/10/16 at 17:15; Stop 12/12/16 at 13:46; Status DC Heparin Sodium (Porcine) (Heparin Sq) 5,000 unit Q8HRS SQ Last administered on 12/11/16 06:17; Start 12/10/16 at 22:00; Stop 12/11/16 at 17:53; Status DC Albuterol/ Ipratropium (Duoneb) 3 ml RTQID NEB Last administered on 12/13/16 11 :27; Start 12/10/16 at 20:00 Albuterol Sulfate (Ventolin Neb Soln) 2.5 mg PRN Q2HR PRN NEB SHORTNESS OF BREATH; Start 12/10/16 at 17:15 Levofloxacin/ Dextrose 150 ml @ 100 mls/hr Q48H IV ; Start 12/11/16 at 16:00; Stop 12/11/16 at 16:00; Status DC Piperacillin Sod/ Tazobactam Sod 3.375 gm/Sodium Chloride 50 ml @ 100 mls/hr Q6HRS IV Last administered on 12/13/16 13:15; Start 12/11/16 at 00:00 Vancomycin HCl 1 gm/Sodium Chloride 250 ml @ 250 mls/hr Q24H IV Last administered on 12/12/16 19:32; Start 12/11/16 at 18:30 Vancomycin HCl 1 each 1X ONCE MC Last administered on 12/12/16 18:00; Start at 18:00; Stop 12/12/16 at 18:01; Status DC Norepinephrine Bitartrate 250 ml @ 0 mls/hr CONT PRN IV SEE I/O RECORD Last administered on 12/11/16 08:53; Start 12/10/16 at 18:45 Sodium Chloride 1,000 ml @ 1,000 mls/hr 1X ONCE IV Last administered on 20:41; Start 12/10/16 at 19:30; Stop 12/10/16 at 20:29; Status DC Sodium Chloride 1,000 ml @ 999 mls/hr 1X ONCE IV Last administered on 12:04; Start 12/11/16 at 10:00; Stop 12/11/16 at 11:00; Status DC Sodium Chloride 1,000 ml @ 999 mls/hr 1X ONCE IV Last administered on 12:03; Start 12/11/16 at 10:00; Stop 12/11/16 at 11:00; Status DC Mineral Oil (Fleet Mineral Oil) 133 ml 1X ONCE IA Last administered on 11:00; Start 12/11/16 at 11:00; Stop 12/11/16 at 11:02; Status DC Acetaminophen (Tylenol) 650 mg PRN Q6HRS PRN PEG MILD PAIN / TEMP; Start at 12:45 Olanzapine (ZyPREXA) 15 mg QHS PO Last administered on 12/12/16 23:01; Start at 21:00 Polyethylene Glycol (miraLAX PACKET) 17 gm DAILY PO Last administered on 08:56; Start 12/11/16 at 12:30 Levothyroxine Sodium 100 mcg/ Sodium Chloride 5 ml @ 125 mls/hr DAILY IVP Last administered on 12/13/16 08:08; Start 12/12/16 at 09:00 Famotidine (Pepcid) 20 mg QHS IVP Last administered on 12/12/16 21:42; Start at 21:00 Nystatin (Mycostatin) 1 nhi BID TP Last administered on 12/13/16 10:41; Start 12/12/16 at 10:00 Lorazepam (Ativan) 0.5 mg PRN Q8HRS PRN PEG ANXIETY / AGITATION Last administered on 12/13/16 10:56; Start 12/12/16 at 13:45 Diphenhydramine HCl (Benadryl Oral Elixir) 25 mg PRN QHS PRN PO sleep; Start at 13:45 Multivitamins (Thera-Plus) 5 ml DAILY PEG Last administered on 12/13/16 10:41; Start 12/13/16 at 09:00 Ascorbic Acid (Vitamin C) 500 mg DAILY PEG Last administered on 12/13/16 10:41 ; Start 12/13/16 at 09:00 Active Scripts Active Reported Bactrim Ds Tablet (Sulfamethoxazole/Trimethoprim) 1 Each Tablet 1 Each PEG BID Vitamin C (Ascorbic Acid) 500 Mg/5 Ml Syrup 500 Mg PEG DAILY Vitamin D (Cholecalciferol (Vitamin D3)) 1,000 Unit Capsule 1 Cap PO DAILY Benadryl (Diphenhydramine Hcl) 25 Mg Capsule 25 Mg PO HS Lorazepam 0.5 Mg Tablet 0.5 Mg PO HS Acetaminophen 160 Mg/5 Ml Solution 5 Ml PO Q4HRS Aspir 81 (Aspirin) 81 Mg Tablet.dr 1 Tab PO DAILY Potassium Chloride 20 Meq Tablet.er 20 Meq PO DAILY Amiodarone Hcl 400 Mg Tablet 400 Mg PO BID Lasix (Furosemide) 40 Mg Tablet 40 Mg PO BID Pepcid (Famotidine) 20 Mg Tablet 20 Mg PO BID Levothyroxine Sodium 125 Mcg Tablet 1 Tab PO DAILY Zyprexa (Olanzapine) 15 Mg Tablet 1 Tab PO QHS Lisinopril 10 Mg Tablet 1 Tab PO DAILY Vitals/I & O Vital Sign - Last 24 Hours 12/12/16 12/12/16 12/12/16 12/12/16 15:00 16:00 16:00 16:21 Temp 97.7 97.7 Pulse 74 68 Resp 24 23 B/P (MAP) 121/60 (80) 124/58 (80) Pulse Ox 98 99 O2 Delivery Room Air Room Air Room Air Room Air 12/12/16 12/12/16 12/12/16 12/12/16 17:00 18:00 19:00 20:00 Temp 96.4 96.4 Pulse 86 79 82 76 Resp 14 16 18 19 B/P (MAP) 110/50 (70) 110/61 (77) 109/59 (76) 132/58 (82) Pulse Ox 98 96 99 99 O2 Delivery Room Air Room Air Room Air Room Air 12/12/16 12/12/16 12/12/16 12/12/16 20:00 20:21 21:00 22:00 Pulse 84 89 Resp 21 26 B/P (MAP) 118/64 (82) 139/63 (88) Pulse Ox 98 97 95 O2 Delivery Room Air Room Air Room Air Room Air 12/12/16 12/12/16 12/13/16 12/13/16 23:00 23:59 00:00 01:00 Temp 98.6 98.2 98.6 98.2 Pulse 81 84 81 Resp 26 25 18 B/P (MAP) 140/71 (94) 149/71 (97) 137/68 (91) Pulse Ox 97 96 96 O2 Delivery Room Air Room Air Room Air Room Air 12/13/16 12/13/16 12/13/16 12/13/16 02:05 03:06 04:13 04:23 Temp 97.9 97.6 97.5 97.9 97.6 97.5 Pulse 87 84 93 Resp 18 18 16 B/P (MAP) 135/67 (89) 110/61 (77) 131/69 (89) Pulse Ox 97 97 96 O2 Delivery Room Air Room Air Room Air Room Air 12/13/16 12/13/16 12/13/16 12/13/16 05:08 06:07 07:00 07:40 Temp 97.6 97.8 97.6 97.8 Pulse 77 66 75 Resp 16 18 18 B/P (MAP) 115/55 (75) 128/61 (83) 120/67 (84) Pulse Ox 97 96 95 96 O2 Delivery Room Air Room Air Room Air Room Air 12/13/16 12/13/16 12/13/16 12/13/16 08:00 08:00 09:00 11:27 Temp 98.4 98.4 Pulse 80 92 Resp 26 21 B/P (MAP) 125/63 (83) 124/55 (78) Pulse Ox 97 97 O2 Delivery Room Air Room Air Room Air Room Air 12/13/16 12:00 Pulse 82 Resp 20 B/P (MAP) 134/67 (89) Pulse Ox 96 O2 Delivery Room Air Intake and Output 12/12/16 12/12/16 12/13/16 14:59 22:59 06:59 Intake Total 1180 ml 200 ml 1197 ml Output Total 510 ml 370 ml 730 ml Balance 670 ml -170 ml 467 ml JESUS CAMARENA MD Dec 13, 2016 14:15
--- NOTE | 2016-12-13 14:34 | PDOC ---
PROGRESS NOTES Chief Complaint Chief Complaint AMS Metabolic encephalopathy Septic shock HAP/aspiration PNA UTI JULIETA, prob on CKD Hyperkalemia Hyponatremia HTN Hypothyroidism PAfib Dysphagia Hypoaalbuminemia Decubitus ulcers Constipation Schizophrenia History of Present Illness History of Present Illness Patient is currently sleeping comfortably and does not appear to be in acute distress. Discussed plan with nursing staff. Vitals Vitals Vital Signs Date Time Temp Pulse Resp B/P (MAP) Pulse Ox O2 Delivery O2 Flow Rate FiO2 12/13/16 12:00 82 20 134/67 (89) 96 Room Air 12/13/16 08:00 98.4 98.4 Physical Exam General: No acute distress, Other (confused) Heart: Regular rate Lungs: Clear Abdomen: Normal bowel sounds, Soft, No tenderness Extremities: No clubbing, No edema Skin: No rashes Labs LABS Laboratory Tests Test 12/12/16 18:00 12/13/16 06:40 Vancomycin Level Trough 16.5 mcg/mL (10.0-20.0) Vancomycin Last Dose Date Vancomycin Last Dose Time White Blood Count 6.1 x10^3/uL (4.0-11.0) Red Blood Count 2.45 x10^6/uL (3.50-5.40) Hemoglobin 7.3 g/dL (12.0-15.5) Hematocrit 22.9 % (36.0-47.0) Mean Corpuscular Volume 94 fL (79-100) Mean Corpuscular Hemoglobin 30 pg (25-35) Mean Corpuscular Hemoglobin Concent 32 g/dL (31-37) Red Cell Distribution Width 16.4 % (11.5-14.5) Platelet Count 181 x10^3/uL (140-400) Neutrophils (%) (Auto) 72 % (31-73) Lymphocytes (%) (Auto) 17 % (24-48) Monocytes (%) (Auto) 11 % (0-9) Eosinophils (%) (Auto) 0 % (0-3) Basophils (%) (Auto) 1 % (0-3) Neutrophils # (Auto) 4.3 x10^3uL (1.8-7.7) Lymphocytes # (Auto) 1.0 x10^3/uL (1.0-4.8) Monocytes # (Auto) 0.7 x10^3/uL (0.0-1.1) Eosinophils # (Auto) 0.0 x10^3/uL (0.0-0.7) Basophils # (Auto) 0.0 x10^3/uL (0.0-0.2) Sodium Level 145 mmol/L (136-145) Potassium Level 3.8 mmol/L (3.5-5.1) Chloride Level 115 mmol/L (98-107) Carbon Dioxide Level 22 mmol/L (21-32) Anion Gap 8 (6-14) Blood Urea Nitrogen 21 mg/dL (7-20) Creatinine 0.9 mg/dL (0.6-1.0) Estimated GFR (Cockcroft-Gault) 60.7 BUN/Creatinine Ratio 23 (6-20) Glucose Level 79 mg/dL (70-99) Calcium Level 7.7 mg/dL (8.5-10.1) Total Bilirubin 0.3 mg/dL (0.2-1.0) Aspartate Amino Transf (AST/SGOT) 38 U/L (15-37) Alanine Aminotransferase (ALT/SGPT) 43 U/L (14-59) Alkaline Phosphatase 115 U/L (46-116) Total Protein 5.7 g/dL (6.4-8.2) Albumin 1.7 g/dL (3.4-5.0) Albumin/Globulin Ratio 0.4 (1.0-1.7) Review of Systems Review of Systems Generally comfortable, no signs of nausea, vomiting or acute distress. Assessment and Plan Assessmemt and Plan 1 AMS 2 Metabolic encephalopathy 3 Septic shock 4 HAP/aspiration PNA 5 UTI 6 JULIETA, prob on CKD 7 Hyperkalemia 8 Hyponatremia 9 HTN 10 Hypothyroidism 11 PAfib 12 Dysphagia 13 Hypoaalbuminemia 14 Decubitus ulcers 15 Constipation 16 Schizophrenia Plan: 1. Cont to monitor for changes in creatinine/BUN; cont IVF 2. HTN and on lisinopril, lasix at home. hold for now 3. Hypothyroidism and on Synthroid (IV for now) 4. Dysphagia: PEG in place. restarted feeds; appreciate nutrition consult. increase free water with feeds 5. Decubitus ulcers: wound care consulted 6. Schizophrenia: on Zyprexa qHS. continue 7. Prophylaxis: heparin SQ, H2B Problems: Comment Review of Relevant I have reviewed the following items adam (where applicable) has been applied. Labs Laboratory Tests Test 12/11/16 17:20 12/12/16 05:45 12/12/16 18:00 12/13/16 06:40 Urine Collection Type U cath Urine Color Yellow Urine Clarity Cloudy Urine pH 8.0 Urine Specific Monon 1.015 Urine Protein 30 mg/dL (NEG-TRACE) Urine Glucose (UA) Negative mg/dL (NEG) Urine Ketones (Stick) Negative mg/dL (NEG) Urine Blood Large (NEG) Urine Nitrite Negative (NEG) Urine Bilirubin Negative (NEG) Urine Urobilinogen Dipstick 0.2 mg/dL (0.2 mg/dL) Urine Leukocyte Esterase Small (NEG) Urine RBC >40 /HPF (0-2) Urine WBC 1-4 /HPF (0-4) Urine Renal Epithelial Cells Occ /LPF Urine Bacteria 0 /HPF (0-FEW) Urine Hyaline Casts Few /HPF Urine Mucus Marked /LPF White Blood Count 9.3 x10^3/uL (4.0-11.0) 6.1 x10^3/uL (4.0-11.0) Red Blood Count 2.60 x10^6/uL (3.50-5.40) 2.45 x10^6/uL (3.50-5.40) Hemoglobin 7.8 g/dL (12.0-15.5) 7.3 g/dL (12.0-15.5) Hematocrit 23.8 % (36.0-47.0) 22.9 % (36.0-47.0) Mean Corpuscular Volume 92 fL (79-100) 94 fL (79-100) Mean Corpuscular Hemoglobin 30 pg (25-35) 30 pg (25-35) Mean Corpuscular Hemoglobin Concent 33 g/dL (31-37) 32 g/dL (31-37) Red Cell Distribution Width 16.5 % (11.5-14.5) 16.4 % (11.5-14.5) Platelet Count 211 x10^3/uL (140-400) 181 x10^3/uL (140-400) Neutrophils (%) (Auto) 79 % (31-73) 72 % (31-73) Lymphocytes (%) (Auto) 11 % (24-48) 17 % (24-48) Monocytes (%) (Auto) 8 % (0-9) 11 % (0-9) Eosinophils (%) (Auto) 1 % (0-3) 0 % (0-3) Basophils (%) (Auto) 0 % (0-3) 1 % (0-3) Neutrophils # (Auto) 7.3 x10^3uL (1.8-7.7) 4.3 x10^3uL (1.8-7.7) Lymphocytes # (Auto) 1.0 x10^3/uL (1.0-4.8) 1.0 x10^3/uL (1.0-4.8) Monocytes # (Auto) 0.8 x10^3/uL (0.0-1.1) 0.7 x10^3/uL (0.0-1.1) Eosinophils # (Auto) 0.1 x10^3/uL (0.0-0.7) 0.0 x10^3/uL (0.0-0.7) Basophils # (Auto) 0.0 x10^3/uL (0.0-0.2) 0.0 x10^3/uL (0.0-0.2) Sodium Level 146 mmol/L (136-145) 145 mmol/L (136-145) Potassium Level 4.0 mmol/L (3.5-5.1) 3.8 mmol/L (3.5-5.1) Chloride Level 116 mmol/L (98-107) 115 mmol/L (98-107) Carbon Dioxide Level 22 mmol/L (21-32) 22 mmol/L (21-32) Anion Gap 8 (6-14) 8 (6-14) Blood Urea Nitrogen 27 mg/dL (7-20) 21 mg/dL (7-20) Creatinine 1.1 mg/dL (0.6-1.0) 0.9 mg/dL (0.6-1.0) Estimated GFR (Cockcroft-Gault) 48.2 60.7 BUN/Creatinine Ratio 25 (6-20) 23 (6-20) Glucose Level 82 mg/dL (70-99) 79 mg/dL (70-99) Calcium Level 7.5 mg/dL (8.5-10.1) 7.7 mg/dL (8.5-10.1) Total Bilirubin 0.3 mg/dL (0.2-1.0) 0.3 mg/dL (0.2-1.0) Aspartate Amino Transf (AST/SGOT) 46 U/L (15-37) 38 U/L (15-37) Alanine Aminotransferase (ALT/SGPT) 42 U/L (14-59) 43 U/L (14-59) Alkaline Phosphatase 97 U/L (46-116) 115 U/L (46-116) Total Protein 5.9 g/dL (6.4-8.2) 5.7 g/dL (6.4-8.2) Albumin 1.7 g/dL (3.4-5.0) 1.7 g/dL (3.4-5.0) Albumin/Globulin Ratio 0.4 (1.0-1.7) 0.4 (1.0-1.7) Vancomycin Level Trough 16.5 mcg/mL (10.0-20.0) Vancomycin Last Dose Date Vancomycin Last Dose Time Laboratory Tests Test 12/12/16 18:00 12/13/16 06:40 Vancomycin Level Trough 16.5 mcg/mL (10.0-20.0) Vancomycin Last Dose Date Vancomycin Last Dose Time White Blood Count 6.1 x10^3/uL (4.0-11.0) Red Blood Count 2.45 x10^6/uL (3.50-5.40) Hemoglobin 7.3 g/dL (12.0-15.5) Hematocrit 22.9 % (36.0-47.0) Mean Corpuscular Volume 94 fL (79-100) Mean Corpuscular Hemoglobin 30 pg (25-35) Mean Corpuscular Hemoglobin Concent 32 g/dL (31-37) Red Cell Distribution Width 16.4 % (11.5-14.5) Platelet Count 181 x10^3/uL (140-400) Neutrophils (%) (Auto) 72 % (31-73) Lymphocytes (%) (Auto) 17 % (24-48) Monocytes (%) (Auto) 11 % (0-9) Eosinophils (%) (Auto) 0 % (0-3) Basophils (%) (Auto) 1 % (0-3) Neutrophils # (Auto) 4.3 x10^3uL (1.8-7.7) Lymphocytes # (Auto) 1.0 x10^3/uL (1.0-4.8) Monocytes # (Auto) 0.7 x10^3/uL (0.0-1.1) Eosinophils # (Auto) 0.0 x10^3/uL (0.0-0.7) Basophils # (Auto) 0.0 x10^3/uL (0.0-0.2) Sodium Level 145 mmol/L (136-145) Potassium Level 3.8 mmol/L (3.5-5.1) Chloride Level 115 mmol/L (98-107) Carbon Dioxide Level 22 mmol/L (21-32) Anion Gap 8 (6-14) Blood Urea Nitrogen 21 mg/dL (7-20) Creatinine 0.9 mg/dL (0.6-1.0) Estimated GFR (Cockcroft-Gault) 60.7 BUN/Creatinine Ratio 23 (6-20) Glucose Level 79 mg/dL (70-99) Calcium Level 7.7 mg/dL (8.5-10.1) Total Bilirubin 0.3 mg/dL (0.2-1.0) Aspartate Amino Transf (AST/SGOT) 38 U/L (15-37) Alanine Aminotransferase (ALT/SGPT) 43 U/L (14-59) Alkaline Phosphatase 115 U/L (46-116) Total Protein 5.7 g/dL (6.4-8.2) Albumin 1.7 g/dL (3.4-5.0) Albumin/Globulin Ratio 0.4 (1.0-1.7) Microbiology 12/10/16 Blood Culture - Preliminary, Resulted NO GROWTH AFTER 2 DAYS 12/11/16 Urine Culture - Final, Complete 12/11/16 Urine Culture Result 1 (MISA) - Final, Complete Medications Current Medications Sodium Chloride 1,000 ml @ 1,120 mls/hr Q54M IV Last administered on 16:54; Start 12/10/16 at 16:00; Stop 12/10/16 at 17:00; Status DC Vancomycin HCl (Vanco Per Pharmacy) 1 each PRN DAILY PRN MC SEE COMMENTS Last administered on 12/12/16 21:51; Start 12/10/16 at 16:15 Piperacillin Sod/ Tazobactam Sod (Zosyn Per Pharmacy) 1 each PRN DAILY PRN MC SEE COMMENTS; Start 12/10/16 at 16:15 Levofloxacin/ Dextrose (Levaquin Per Pharmacy) 1 each PRN DAILY PRN MC SEE COMMENTS; Start 12/10/16 at 16:15; Stop 12/11/16 at 11:34; Status DC Levofloxacin/ Dextrose 150 ml @ 150 mls/hr ONCE ONCE IV Last administered on 12/10/16 16:16; Start 12/10/16 at 16:15; Stop 12/10/16 at 17:14; Status DC Vancomycin HCl 1.5 gm/Sodium Chloride 500 ml @ 250 mls/hr 1X ONCE IV Last administered on 12/10/16 18:38; Start 12/10/16 at 16:15; Stop 12/10/16 at 18:14 ; Status DC Piperacillin Sod/ Tazobactam Sod 4.5 gm/Sodium Chloride 100 ml @ 200 mls/hr ONCE ONCE IV Last administered on 12/10/16 17:37; Start 12/10/16 at 16:30; Stop 12/10/16 at 16:59; Status DC Sodium Chloride 1,000 ml @ 150 mls/hr 1X ONCE IV Last administered on 17:15; Start 12/10/16 at 16:15; Stop 12/10/16 at 22:54; Status DC Ondansetron HCl (Zofran) 4 mg PRN Q8HRS PRN IV NAUSEA/VOMITING; Start 12/10/16 at 16:45; Stop 12/11/16 at 16:44; Status DC Sodium Chloride 1,000 ml @ 150 mls/hr Q6H40M IV Last administered on 16:35; Start 12/10/16 at 16:35; Stop 12/11/16 at 16:34; Status DC Acetaminophen (Tylenol) 650 mg PRN Q4HRS PRN PO FEVER; Start 12/10/16 at 16:45 ; Stop 12/11/16 at 16:44; Status DC Albuterol/ Ipratropium (Duoneb) 3 ml RTQID NEB ; Start 12/10/16 at 20:00; Stop 12/10/16 at 20:00; Status DC Acetaminophen (Tylenol) 650 mg PRN Q6HRS PRN PO FEVER; Start 12/10/16 at 17:15 Ondansetron HCl (Zofran) 4 mg PRN Q6HRS PRN IV NAUSEA/VOMITING; Start 12/10/16 at 17:15 Morphine Sulfate 2 mg PRN Q2HR PRN IV PAIN; Start 12/10/16 at 17:15; Stop at 12:18; Status DC Tramadol HCl (Ultram) 50 mg PRN Q6HRS PRN PO PAIN; Start 12/10/16 at 17:15 Hydralazine HCl (Apresoline) 10 mg PRN Q4HRS PRN IVP ELEVATED BP, SEE COMMENTS ; Start 12/10/16 at 17:15 Docusate Sodium (Colace) 100 mg PRN DAILY PRN PO CONSTIPATION; Start 12/10/16 at 17:15 Dextrose/Sodium Chloride 1,000 ml @ 75 mls/hr [id number] IV Last administered on 12/11/16 23:05; Start 12/10/16 at 17:15; Stop 12/12/16 at 13:46; Status DC Heparin Sodium (Porcine) (Heparin Sq) 5,000 unit Q8HRS SQ Last administered on 12/11/16 06:17; Start 12/10/16 at 22:00; Stop 12/11/16 at 17:53; Status DC Albuterol/ Ipratropium (Duoneb) 3 ml RTQID NEB Last administered on 12/13/16 11 :27; Start 12/10/16 at 20:00 Albuterol Sulfate (Ventolin Neb Soln) 2.5 mg PRN Q2HR PRN NEB SHORTNESS OF BREATH; Start 12/10/16 at 17:15 Levofloxacin/ Dextrose 150 ml @ 100 mls/hr Q48H IV ; Start 12/11/16 at 16:00; Stop 12/11/16 at 16:00; Status DC Piperacillin Sod/ Tazobactam Sod 3.375 gm/Sodium Chloride 50 ml @ 100 mls/hr Q6HRS IV Last administered on 12/13/16 13:15; Start 12/11/16 at 00:00 Vancomycin HCl 1 gm/Sodium Chloride 250 ml @ 250 mls/hr Q24H IV Last administered on 12/12/16 19:32; Start 12/11/16 at 18:30 Vancomycin HCl 1 each 1X ONCE MC Last administered on 12/12/16 18:00; Start at 18:00; Stop 12/12/16 at 18:01; Status DC Norepinephrine Bitartrate 250 ml @ 0 mls/hr CONT PRN IV SEE I/O RECORD Last administered on 12/11/16 08:53; Start 12/10/16 at 18:45 Sodium Chloride 1,000 ml @ 1,000 mls/hr 1X ONCE IV Last administered on 20:41; Start 12/10/16 at 19:30; Stop 12/10/16 at 20:29; Status DC Sodium Chloride 1,000 ml @ 999 mls/hr 1X ONCE IV Last administered on 12:04; Start 12/11/16 at 10:00; Stop 12/11/16 at 11:00; Status DC Sodium Chloride 1,000 ml @ 999 mls/hr 1X ONCE IV Last administered on 12:03; Start 12/11/16 at 10:00; Stop 12/11/16 at 11:00; Status DC Mineral Oil (Fleet Mineral Oil) 133 ml 1X ONCE SC Last administered on 11:00; Start 12/11/16 at 11:00; Stop 12/11/16 at 11:02; Status DC Acetaminophen (Tylenol) 650 mg PRN Q6HRS PRN PEG MILD PAIN / TEMP; Start at 12:45 Olanzapine (ZyPREXA) 15 mg QHS PO Last administered on 12/12/16 23:01; Start at 21:00 Polyethylene Glycol (miraLAX PACKET) 17 gm DAILY PO Last administered on 08:56; Start 12/11/16 at 12:30 Levothyroxine Sodium 100 mcg/ Sodium Chloride 5 ml @ 125 mls/hr DAILY IVP Last administered on 12/13/16 08:08; Start 12/12/16 at 09:00 Famotidine (Pepcid) 20 mg QHS IVP Last administered on 12/12/16 21:42; Start at 21:00 Nystatin (Mycostatin) 1 nhi BID TP Last administered on 12/13/16 10:41; Start 12/12/16 at 10:00 Lorazepam (Ativan) 0.5 mg PRN Q8HRS PRN PEG ANXIETY / AGITATION Last administered on 12/13/16 10:56; Start 12/12/16 at 13:45 Diphenhydramine HCl (Benadryl Oral Elixir) 25 mg PRN QHS PRN PO sleep; Start at 13:45 Multivitamins (Thera-Plus) 5 ml DAILY PEG Last administered on 12/13/16 10:41; Start 12/13/16 at 09:00 Ascorbic Acid (Vitamin C) 500 mg DAILY PEG Last administered on 12/13/16 10:41 ; Start 12/13/16 at 09:00 Active Scripts Active Reported Bactrim Ds Tablet (Sulfamethoxazole/Trimethoprim) 1 Each Tablet 1 Each PEG BID Vitamin C (Ascorbic Acid) 500 Mg/5 Ml Syrup 500 Mg PEG DAILY Vitamin D (Cholecalciferol (Vitamin D3)) 1,000 Unit Capsule 1 Cap PO DAILY Benadryl (Diphenhydramine Hcl) 25 Mg Capsule 25 Mg PO HS Lorazepam 0.5 Mg Tablet 0.5 Mg PO HS Acetaminophen 160 Mg/5 Ml Solution 5 Ml PO Q4HRS Aspir 81 (Aspirin) 81 Mg Tablet.dr 1 Tab PO DAILY Potassium Chloride 20 Meq Tablet.er 20 Meq PO DAILY Amiodarone Hcl 400 Mg Tablet 400 Mg PO BID Lasix (Furosemide) 40 Mg Tablet 40 Mg PO BID Pepcid (Famotidine) 20 Mg Tablet 20 Mg PO BID Levothyroxine Sodium 125 Mcg Tablet 1 Tab PO DAILY Zyprexa (Olanzapine) 15 Mg Tablet 1 Tab PO QHS Lisinopril 10 Mg Tablet 1 Tab PO DAILY Vitals/I & O Vital Sign - Last 24 Hours 12/12/16 12/12/16 12/12/16 12/12/16 15:00 16:00 16:00 16:21 Temp 97.7 97.7 Pulse 74 68 Resp 24 23 B/P (MAP) 121/60 (80) 124/58 (80) Pulse Ox 98 99 O2 Delivery Room Air Room Air Room Air Room Air 12/12/16 12/12/16 12/12/16 12/12/16 17:00 18:00 19:00 20:00 Temp 96.4 96.4 Pulse 86 79 82 76 Resp 14 16 18 19 B/P (MAP) 110/50 (70) 110/61 (77) 109/59 (76) 132/58 (82) Pulse Ox 98 96 99 99 O2 Delivery Room Air Room Air Room Air Room Air 12/12/16 12/12/16 12/12/16 12/12/16 20:00 20:21 21:00 22:00 Pulse 84 89 Resp 26 B/P (MAP) 118/64 (82) 139/63 (88) Pulse Ox 98 97 95 O2 Delivery Room Air Room Air Room Air Room Air 12/12/16 12/12/16 12/13/16 12/13/16 23:00 23:59 00:00 01:00 Temp 98.6 98.2 98.6 98.2 Pulse 81 84 81 Resp 25 18 B/P (MAP) 140/71 (94) 149/71 (97) 137/68 (91) Pulse Ox 97 96 96 O2 Delivery Room Air Room Air Room Air Room Air 12/13/16 12/13/16 12/13/16 12/13/16 02:05 03:06 04:13 04:23 Temp 97.9 97.6 97.5 97.9 97.6 97.5 Pulse 87 84 93 Resp 18 18 16 B/P (MAP) 135/67 (89) 110/61 (77) 131/69 (89) Pulse Ox 97 97 96 O2 Delivery Room Air Room Air Room Air Room Air 12/13/16 12/13/16 12/13/16 12/13/16 05:08 06:07 07:00 07:40 Temp 97.6 97.8 97.6 97.8 Pulse 77 66 75 Resp 16 18 18 B/P (MAP) 115/55 (75) 128/61 (83) 120/67 (84) Pulse Ox 97 96 95 96 O2 Delivery Room Air Room Air Room Air Room Air 12/13/16 12/13/16 12/13/16 12/13/16 08:00 08:00 09:00 11:27 Temp 98.4 98.4 Pulse 80 92 Resp 21 B/P (MAP) 125/63 (83) 124/55 (78) Pulse Ox 97 97 O2 Delivery Room Air Room Air Room Air Room Air 12/13/16 12:00 Pulse 82 Resp 20 B/P (MAP) 134/67 (89) Pulse Ox 96 O2 Delivery Room Air Intake and Output 12/12/16 12/12/16 12/13/16 15:00 23:00 07:00 Intake Total 1130 ml 200 ml 1197 ml Output Total 510 ml 370 ml 730 ml Balance 620 ml -170 ml 467 ml Nutrition Consultation Dietary Evaluation: Recommendations by RD: Increase Calorie Intake, Protein supplementation Comments: Rec. 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
[2016-12-13] MEDS: ACETAMINOPHEN 650 MG/20.3 ML SOLUTION. PEG PRN (17:19)
[2016-12-13] MEDS: VANCOMYCIN 1 GM in IV NORMAL SALINE 250ML 250 ML IV SCH (20:06)
[2016-12-13] MEDS: OLANZapine 5 MG TABLET PO SCH (21:16)
[2016-12-13] MEDS: FAMOTIDINE 20 MG/2 ML VIAL IVP SCH (21:16)
[2016-12-14] MEDS: diphenhydrAMINE ORAL ELIXIR 12.5 MG/5 ML ML PO PRN ×2 (02:48→21:26)
[2016-12-14] MEDS: LORazepam 0.5 MG TABLET PEG PRN (02:48)
[2016-12-14 03:00] VITALS: BP 155/89
[2016-12-14 04:51] LABS: ALBUMIN 1.8 g/dL (3.4-5.0); ALBUMIN/GLOBULIN RATIO 0.5 (1.0-1.7); BASO % 0 % (0-3); CALCIUM 7.4 mg/dL (8.5-10.1); CREATININE 0.8 mg/dL (0.6-1.0); EOS % 1 % (0-3); GFR 69.6; HEMATOCRIT 23.2 % (36.0-47.0); HEMOGLOBIN 7.4 g/dL (12.0-15.5); LYMPH # 1.1 x10^3/uL (1.0-4.8); LYMPH % 19 % (24-48); MEAN CORPUSCULAR HEMOGLOBIN 30 pg (25-35); MEAN CORPUSCULAR HGB CONC 32 g/dL (31-37); MEAN CORPUSCULAR VOLUME 93 fL (79-100); MONO % 10 % (0-9); NEUT % 70 % (31-73); PLATELET COUNT 166 x10^3/uL (140-400); POTASSIUM 4.1 mmol/L (3.5-5.1); RED CELL DISTRIBUTION WIDTH 15.9 % (11.5-14.5); TOTAL BILIRUBIN 0.2 mg/dL (0.2-1.0); TOTAL PROTEIN 5.7 g/dL (6.4-8.2); WHITE BLOOD COUNT 5.7 x10^3/uL (4.0-11.0)
[2016-12-14] MEDS: PIPERACILLIN/TAZOBACTAM 3.375 GM in IV NORMAL SALINE 50ML 50 ML IV SCH ×4 (06:20→23:59)
[2016-12-14 06:55] VITALS: BP 131/59
[2016-12-14] MEDS: IPRATRPIUM/ALBUTEROL 0.5/2.5MG 3 ML NEBU. NEB SCH ×4 (08:05→19:17)
--- NOTE | 2016-12-14 08:45 | PDOC ---
Infectious Disease Note Subjective Subjective awake, moans ROS ROS unable to do Vital Sign Vital Signs Vital Signs Date Time Temp Pulse Resp B/P (MAP) Pulse Ox O2 Delivery O2 Flow Rate FiO2 12/14/16 08:06 95 Room Air 12/14/16 06:55 98.4 87 22 131/59 (83) 98.4 Physical Exam PHYSICAL EXAM GENERAL: NAD, Awake HEENT: PERRL, OC/OP NECK: Supple, no JVD, no LN LUNGS: Clear HEART: S1S2, no gallop, no murmur ABD: Soft, NT, no organomegaly, no rebound EXT: No edema, no cyanosis [employer] PRACTITIONER: Awake, moans SKIN: No rash,, large sacral decub IV: ok Labs Lab Laboratory Tests Test 12/14/16 03:35 White Blood Count 5.7 x10^3/uL (4.0-11.0) Red Blood Count 2.50 x10^6/uL (3.50-5.40) Hemoglobin 7.4 g/dL (12.0-15.5) Hematocrit 23.2 % (36.0-47.0) Mean Corpuscular Volume 93 fL (79-100) Mean Corpuscular Hemoglobin 30 pg (25-35) Mean Corpuscular Hemoglobin Concent 32 g/dL (31-37) Red Cell Distribution Width 15.9 % (11.5-14.5) Platelet Count 166 x10^3/uL (140-400) Neutrophils (%) (Auto) 70 % (31-73) Lymphocytes (%) (Auto) 19 % (24-48) Monocytes (%) (Auto) 10 % (0-9) Eosinophils (%) (Auto) 1 % (0-3) Basophils (%) (Auto) 0 % (0-3) Neutrophils # (Auto) 4.0 x10^3uL (1.8-7.7) Lymphocytes # (Auto) 1.1 x10^3/uL (1.0-4.8) Monocytes # (Auto) 0.5 x10^3/uL (0.0-1.1) Eosinophils # (Auto) 0.0 x10^3/uL (0.0-0.7) Basophils # (Auto) 0.0 x10^3/uL (0.0-0.2) Sodium Level 146 mmol/L (136-145) Potassium Level 4.1 mmol/L (3.5-5.1) Chloride Level 116 mmol/L (98-107) Carbon Dioxide Level 22 mmol/L (21-32) Anion Gap 8 (6-14) Blood Urea Nitrogen 19 mg/dL (7-20) Creatinine 0.8 mg/dL (0.6-1.0) Estimated GFR (Cockcroft-Gault) 69.6 BUN/Creatinine Ratio 24 (6-20) Glucose Level 88 mg/dL (70-99) Calcium Level 7.4 mg/dL (8.5-10.1) Total Bilirubin 0.2 mg/dL (0.2-1.0) Aspartate Amino Transf (AST/SGOT) 30 U/L (15-37) Alanine Aminotransferase (ALT/SGPT) 38 U/L (14-59) Alkaline Phosphatase 127 U/L (46-116) Total Protein 5.7 g/dL (6.4-8.2) Albumin 1.8 g/dL (3.4-5.0) Albumin/Globulin Ratio 0.5 (1.0-1.7) Objective Assessment Septic shock, POA, 12/10 off pressors. Reportedly GPC in 1 of 4 bottles, id pending,,, strep viridans , contaminant CAUTI, POA 12/10. 2 nondominant org. Repeat UC pending. - per daughter, had been on Bactrim for UTI couple days prior to admit. ? Acinetobacter Lactic acidosis HCAP A-fib, amiodarone, currently off Debility MRSA, nares positive Sacral pressure wound, POA Plan Plan of Care d/c vanc, zosyn to change to po augmentin soon Monitor lab values f/u cultures Supportive care d/c to home or NH soon d/w RYANN JOSHUA MD Dec 14, 2016 08:45
[2016-12-14] MEDS: POLYETHYLENE GLYCOL 3350 17 GM PACKET. PO SCH (09:00)
[2016-12-14] MEDS: NYSTATIN 100,000 UNIT/GM TOPICAL OINTMENT 15GM TUBE. TP SCH ×2 (09:00→21:30)
[2016-12-14] MEDS: MULTIVITAMINS,THERAPEUTIC 5 ML ORAL LIQUID. PEG SCH (09:20)
[2016-12-14] MEDS: ASCORBIC ACID 500 MG TABLET PEG SCH (09:20)
[2016-12-14] MEDS: LEVOTHYROXINE SODIUM 100 MCG in IV NORMAL SALINE 50ML 5 ML IVP SCH (09:20)
[2016-12-14 10:41] VITALS: BP 128/58
--- NOTE | 2016-12-14 13:22 | PDOC ---
PROGRESS NOTES Chief Complaint Chief Complaint AMS with Metabolic encephalopathy with sepsis Septic shock HAP/aspiration PNA UTI JULIETA, prob on CKD, vasomotor Hyperkalemia Hyponatremia HTN Hypothyroidism PAfib Dysphagia with PEG Hypoaalbuminemia, severe Decubitus ulcers Constipation Schizophrenia plan: fu with neuro, id, on zosyn now cont PEG feeding cont supportive care dvt, gi ppx bedbound waiting for mental status improve. check Mag slightly high today History of Present Illness History of Present Illness Patient is currently sleeping comfortably and does not appear to be in acute distress. however, not arousable or follow commands to me at all 5 beats of vtach on tele today as per , in the past few days, she woke up sometime, not her baseline yet which is interact sometime with some dementia tho Vitals Vitals Vital Signs Date Time Temp Pulse Resp B/P (MAP) Pulse Ox O2 Delivery O2 Flow Rate FiO2 12/14/16 12:08 Room Air 12/14/16 11:38 96 12/14/16 10:41 97.9 67 22 128/58 (81) 97.9 Physical Exam Physical Exam not arousable or follow commands General: No acute distress, Other ( ) Heart: Regular rate Lungs: Other (bl coarse bs) Abdomen: Normal bowel sounds, Soft, No tenderness Extremities: No clubbing, No edema Skin: No rashes Labs LABS Laboratory Tests Test 12/14/16 03:35 White Blood Count 5.7 x10^3/uL (4.0-11.0) Red Blood Count 2.50 x10^6/uL (3.50-5.40) Hemoglobin 7.4 g/dL (12.0-15.5) Hematocrit 23.2 % (36.0-47.0) Mean Corpuscular Volume 93 fL (79-100) Mean Corpuscular Hemoglobin 30 pg (25-35) Mean Corpuscular Hemoglobin Concent 32 g/dL (31-37) Red Cell Distribution Width 15.9 % (11.5-14.5) Platelet Count 166 x10^3/uL (140-400) Neutrophils (%) (Auto) 70 % (31-73) Lymphocytes (%) (Auto) 19 % (24-48) Monocytes (%) (Auto) 10 % (0-9) Eosinophils (%) (Auto) 1 % (0-3) Basophils (%) (Auto) 0 % (0-3) Neutrophils # (Auto) 4.0 x10^3uL (1.8-7.7) Lymphocytes # (Auto) 1.1 x10^3/uL (1.0-4.8) Monocytes # (Auto) 0.5 x10^3/uL (0.0-1.1) Eosinophils # (Auto) 0.0 x10^3/uL (0.0-0.7) Basophils # (Auto) 0.0 x10^3/uL (0.0-0.2) Sodium Level 146 mmol/L (136-145) Potassium Level 4.1 mmol/L (3.5-5.1) Chloride Level 116 mmol/L (98-107) Carbon Dioxide Level 22 mmol/L (21-32) Anion Gap 8 (6-14) Blood Urea Nitrogen 19 mg/dL (7-20) Creatinine 0.8 mg/dL (0.6-1.0) Estimated GFR (Cockcroft-Gault) 69.6 BUN/Creatinine Ratio 24 (6-20) Glucose Level 88 mg/dL (70-99) Calcium Level 7.4 mg/dL (8.5-10.1) Magnesium Level 2.8 mg/dL (1.8-2.4) Total Bilirubin 0.2 mg/dL (0.2-1.0) Aspartate Amino Transf (AST/SGOT) 30 U/L (15-37) Alanine Aminotransferase (ALT/SGPT) 38 U/L (14-59) Alkaline Phosphatase 127 U/L (46-116) Total Protein 5.7 g/dL (6.4-8.2) Albumin 1.8 g/dL (3.4-5.0) Albumin/Globulin Ratio 0.5 (1.0-1.7) Review of Systems Review of Systems no fever, chills, sob or chest pain Assessment and Plan Assessmemt and Plan Problems Medical Problems: (1) Acute renal failure Status: Acute (2) Healthcare-associated pneumonia Status: Acute (3) Microcytic anemia Status: Acute (4) Severe protein-calorie malnutrition Status: Acute (5) Severe sepsis Status: Acute (6) Urinary tract infection Status: Acute Problems: Comment Review of Relevant I have reviewed the following items adam (where applicable) has been applied. Labs Laboratory Tests Test 12/12/16 18:00 12/13/16 06:40 12/14/16 03:35 Vancomycin Level Trough 16.5 mcg/mL (10.0-20.0) Vancomycin Last Dose Date Vancomycin Last Dose Time White Blood Count 6.1 x10^3/uL (4.0-11.0) 5.7 x10^3/uL (4.0-11.0) Red Blood Count 2.45 x10^6/uL (3.50-5.40) 2.50 x10^6/uL (3.50-5.40) Hemoglobin 7.3 g/dL (12.0-15.5) 7.4 g/dL (12.0-15.5) Hematocrit 22.9 % (36.0-47.0) 23.2 % (36.0-47.0) Mean Corpuscular Volume 94 fL (79-100) 93 fL (79-100) Mean Corpuscular Hemoglobin 30 pg (25-35) 30 pg (25-35) Mean Corpuscular Hemoglobin Concent 32 g/dL (31-37) 32 g/dL (31-37) Red Cell Distribution Width 16.4 % (11.5-14.5) 15.9 % (11.5-14.5) Platelet Count 181 x10^3/uL (140-400) 166 x10^3/uL (140-400) Neutrophils (%) (Auto) 72 % (31-73) 70 % (31-73) Lymphocytes (%) (Auto) 17 % (24-48) 19 % (24-48) Monocytes (%) (Auto) 11 % (0-9) 10 % (0-9) Eosinophils (%) (Auto) 0 % (0-3) 1 % (0-3) Basophils (%) (Auto) 1 % (0-3) 0 % (0-3) Neutrophils # (Auto) 4.3 x10^3uL (1.8-7.7) 4.0 x10^3uL (1.8-7.7) Lymphocytes # (Auto) 1.0 x10^3/uL (1.0-4.8) 1.1 x10^3/uL (1.0-4.8) Monocytes # (Auto) 0.7 x10^3/uL (0.0-1.1) 0.5 x10^3/uL (0.0-1.1) Eosinophils # (Auto) 0.0 x10^3/uL (0.0-0.7) 0.0 x10^3/uL (0.0-0.7) Basophils # (Auto) 0.0 x10^3/uL (0.0-0.2) 0.0 x10^3/uL (0.0-0.2) Sodium Level 145 mmol/L (136-145) 146 mmol/L (136-145) Potassium Level 3.8 mmol/L (3.5-5.1) 4.1 mmol/L (3.5-5.1) Chloride Level 115 mmol/L (98-107) 116 mmol/L (98-107) Carbon Dioxide Level 22 mmol/L (21-32) 22 mmol/L (21-32) Anion Gap 8 (6-14) 8 (6-14) Blood Urea Nitrogen 21 mg/dL (7-20) 19 mg/dL (7-20) Creatinine 0.9 mg/dL (0.6-1.0) 0.8 mg/dL (0.6-1.0) Estimated GFR (Cockcroft-Gault) 60.7 69.6 BUN/Creatinine Ratio 23 (6-20) 24 (6-20) Glucose Level 79 mg/dL (70-99) 88 mg/dL (70-99) Calcium Level 7.7 mg/dL (8.5-10.1) 7.4 mg/dL (8.5-10.1) Total Bilirubin 0.3 mg/dL (0.2-1.0) 0.2 mg/dL (0.2-1.0) Aspartate Amino Transf (AST/SGOT) 38 U/L (15-37) 30 U/L (15-37) Alanine Aminotransferase (ALT/SGPT) 43 U/L (14-59) 38 U/L (14-59) Alkaline Phosphatase 115 U/L (46-116) 127 U/L (46-116) Total Protein 5.7 g/dL (6.4-8.2) 5.7 g/dL (6.4-8.2) Albumin 1.7 g/dL (3.4-5.0) 1.8 g/dL (3.4-5.0) Albumin/Globulin Ratio 0.4 (1.0-1.7) 0.5 (1.0-1.7) Magnesium Level 2.8 mg/dL (1.8-2.4) Laboratory Tests Test 12/14/16 03:35 White Blood Count 5.7 x10^3/uL (4.0-11.0) Red Blood Count 2.50 x10^6/uL (3.50-5.40) Hemoglobin 7.4 g/dL (12.0-15.5) Hematocrit 23.2 % (36.0-47.0) Mean Corpuscular Volume 93 fL (79-100) Mean Corpuscular Hemoglobin 30 pg (25-35) Mean Corpuscular Hemoglobin Concent 32 g/dL (31-37) Red Cell Distribution Width 15.9 % (11.5-14.5) Platelet Count 166 x10^3/uL (140-400) Neutrophils (%) (Auto) 70 % (31-73) Lymphocytes (%) (Auto) 19 % (24-48) Monocytes (%) (Auto) 10 % (0-9) Eosinophils (%) (Auto) 1 % (0-3) Basophils (%) (Auto) 0 % (0-3) Neutrophils # (Auto) 4.0 x10^3uL (1.8-7.7) Lymphocytes # (Auto) 1.1 x10^3/uL (1.0-4.8) Monocytes # (Auto) 0.5 x10^3/uL (0.0-1.1) Eosinophils # (Auto) 0.0 x10^3/uL (0.0-0.7) Basophils # (Auto) 0.0 x10^3/uL (0.0-0.2) Sodium Level 146 mmol/L (136-145) Potassium Level 4.1 mmol/L (3.5-5.1) Chloride Level 116 mmol/L (98-107) Carbon Dioxide Level 22 mmol/L (21-32) Anion Gap 8 (6-14) Blood Urea Nitrogen 19 mg/dL (7-20) Creatinine 0.8 mg/dL (0.6-1.0) Estimated GFR (Cockcroft-Gault) 69.6 BUN/Creatinine Ratio 24 (6-20) Glucose Level 88 mg/dL (70-99) Calcium Level 7.4 mg/dL (8.5-10.1) Magnesium Level 2.8 mg/dL (1.8-2.4) Total Bilirubin 0.2 mg/dL (0.2-1.0) Aspartate Amino Transf (AST/SGOT) 30 U/L (15-37) Alanine Aminotransferase (ALT/SGPT) 38 U/L (14-59) Alkaline Phosphatase 127 U/L (46-116) Total Protein 5.7 g/dL (6.4-8.2) Albumin 1.8 g/dL (3.4-5.0) Albumin/Globulin Ratio 0.5 (1.0-1.7) Microbiology 12/10/16 Blood Culture - Preliminary, Resulted NO GROWTH AFTER 3 DAYS 12/11/16 Urine Culture - Final, Complete 12/11/16 Urine Culture Result 1 (MISA) - Final, Complete Medications Current Medications Sodium Chloride 1,000 ml @ 1,120 mls/hr Q54M IV Last administered on 16:54; Start 12/10/16 at 16:00; Stop 12/10/16 at 17:00; Status DC Vancomycin HCl (Vanco Per Pharmacy) 1 each PRN DAILY PRN MC SEE COMMENTS Last administered on 12/12/16 21:51; Start 12/10/16 at 16:15; Stop 12/14/16 at 09:10; Status DC Piperacillin Sod/ Tazobactam Sod (Zosyn Per Pharmacy) 1 each PRN DAILY PRN MC SEE COMMENTS; Start 12/10/16 at 16:15 Levofloxacin/ Dextrose (Levaquin Per Pharmacy) 1 each PRN DAILY PRN MC SEE COMMENTS; Start 12/10/16 at 16:15; Stop 12/11/16 at 11:34; Status DC Levofloxacin/ Dextrose 150 ml @ 150 mls/hr ONCE ONCE IV Last administered on 12/10/16 16:16; Start 12/10/16 at 16:15; Stop 12/10/16 at 17:14; Status DC Vancomycin HCl 1.5 gm/Sodium Chloride 500 ml @ 250 mls/hr 1X ONCE IV Last administered on 12/10/16 18:38; Start 12/10/16 at 16:15; Stop 12/10/16 at 18:14 ; Status DC Piperacillin Sod/ Tazobactam Sod 4.5 gm/Sodium Chloride 100 ml @ 200 mls/hr ONCE ONCE IV Last administered on 12/10/16 17:37; Start 12/10/16 at 16:30; Stop 12/10/16 at 16:59; Status DC Sodium Chloride 1,000 ml @ 150 mls/hr 1X ONCE IV Last administered on 17:15; Start 12/10/16 at 16:15; Stop 12/10/16 at 22:54; Status DC Ondansetron HCl (Zofran) 4 mg PRN Q8HRS PRN IV NAUSEA/VOMITING; Start 12/10/16 at 16:45; Stop 12/11/16 at 16:44; Status DC Sodium Chloride 1,000 ml @ 150 mls/hr Q6H40M IV Last administered on 16:35; Start 12/10/16 at 16:35; Stop 12/11/16 at 16:34; Status DC Acetaminophen (Tylenol) 650 mg PRN Q4HRS PRN PO FEVER; Start 12/10/16 at 16:45 ; Stop 12/11/16 at 16:44; Status DC Albuterol/ Ipratropium (Duoneb) 3 ml RTQID NEB ; Start 12/10/16 at 20:00; Stop 12/10/16 at 20:00; Status DC Acetaminophen (Tylenol) 650 mg PRN Q6HRS PRN PO FEVER; Start 12/10/16 at 17:15 Ondansetron HCl (Zofran) 4 mg PRN Q6HRS PRN IV NAUSEA/VOMITING; Start 12/10/16 at 17:15 Morphine Sulfate 2 mg PRN Q2HR PRN IV PAIN; Start 12/10/16 at 17:15; Stop at 12:18; Status DC Tramadol HCl (Ultram) 50 mg PRN Q6HRS PRN PO PAIN; Start 12/10/16 at 17:15 Hydralazine HCl (Apresoline) 10 mg PRN Q4HRS PRN IVP ELEVATED BP, SEE COMMENTS ; Start 12/10/16 at 17:15 Docusate Sodium (Colace) 100 mg PRN DAILY PRN PO CONSTIPATION; Start 12/10/16 at 17:15 Dextrose/Sodium Chloride 1,000 ml @ 75 mls/hr [id number] IV Last administered on 12/11/16 23:05; Start 12/10/16 at 17:15; Stop 12/12/16 at 13:46; Status DC Heparin Sodium (Porcine) (Heparin Sq) 5,000 unit Q8HRS SQ Last administered on 12/11/16 06:17; Start 12/10/16 at 22:00; Stop 12/11/16 at 17:53; Status DC Albuterol/ Ipratropium (Duoneb) 3 ml RTQID NEB Last administered on 12/14/16 11 :37; Start 12/10/16 at 20:00 Albuterol Sulfate (Ventolin Neb Soln) 2.5 mg PRN Q2HR PRN NEB SHORTNESS OF BREATH; Start 12/10/16 at 17:15 Levofloxacin/ Dextrose 150 ml @ 100 mls/hr Q48H IV ; Start 12/11/16 at 16:00; Stop 12/11/16 at 16:00; Status DC Piperacillin Sod/ Tazobactam Sod 3.375 gm/Sodium Chloride 50 ml @ 100 mls/hr Q6HRS IV Last administered on 12/14/16 13:02; Start 12/11/16 at 00:00 Vancomycin HCl 1 gm/Sodium Chloride 250 ml @ 250 mls/hr Q24H IV Last administered on 12/13/16 20:06; Start 12/11/16 at 18:30; Stop 12/14/16 at 09:06; Status DC Vancomycin HCl 1 each 1X ONCE MC Last administered on 12/12/16 18:00; Start at 18:00; Stop 12/12/16 at 18:01; Status DC Norepinephrine Bitartrate 250 ml @ 0 mls/hr CONT PRN IV SEE I/O RECORD Last administered on 12/11/16 08:53; Start 12/10/16 at 18:45 Sodium Chloride 1,000 ml @ 1,000 mls/hr 1X ONCE IV Last administered on 20:41; Start 12/10/16 at 19:30; Stop 12/10/16 at 20:29; Status DC Sodium Chloride 1,000 ml @ 999 mls/hr 1X ONCE IV Last administered on 12:04; Start 12/11/16 at 10:00; Stop 12/11/16 at 11:00; Status DC Sodium Chloride 1,000 ml @ 999 mls/hr 1X ONCE IV Last administered on 12:03; Start 12/11/16 at 10:00; Stop 12/11/16 at 11:00; Status DC Mineral Oil (Fleet Mineral Oil) 133 ml 1X ONCE PA Last administered on 11:00; Start 12/11/16 at 11:00; Stop 12/11/16 at 11:02; Status DC Acetaminophen (Tylenol) 650 mg PRN Q6HRS PRN PEG MILD PAIN / TEMP Last administered on 12/13/16 17:19; Start 12/11/16 at 12:45 Olanzapine (ZyPREXA) 15 mg QHS PO Last administered on 12/13/16 21:16; Start at 21:00 Polyethylene Glycol (miraLAX PACKET) 17 gm DAILY PO Last administered on 08:56; Start 12/11/16 at 12:30 Levothyroxine Sodium 100 mcg/ Sodium Chloride 5 ml @ 125 mls/hr DAILY IVP Last administered on 12/14/16 09:20; Start 12/12/16 at 09:00 Famotidine (Pepcid) 20 mg QHS IVP Last administered on 12/13/16 21:16; Start at 21:00 Nystatin (Mycostatin) 1 nhi BID TP Last administered on 12/13/16 21:00; Start 12/12/16 at 10:00 Lorazepam (Ativan) 0.5 mg PRN Q8HRS PRN PEG ANXIETY / AGITATION Last administered on 12/14/16 02:48; Start 12/12/16 at 13:45 Diphenhydramine HCl (Benadryl Oral Elixir) 25 mg PRN QHS PRN PO sleep; Start at 13:45 Multivitamins (Thera-Plus) 5 ml DAILY PEG Last administered on 12/14/16 09:20; Start 12/13/16 at 09:00 Ascorbic Acid (Vitamin C) 500 mg DAILY PEG Last administered on 12/14/16 09:20 ; Start 12/13/16 at 09:00 Active Scripts Active Reported Bactrim Ds Tablet (Sulfamethoxazole/Trimethoprim) 1 Each Tablet 1 Each PEG BID Vitamin C (Ascorbic Acid) 500 Mg/5 Ml Syrup 500 Mg PEG DAILY Vitamin D (Cholecalciferol (Vitamin D3)) 1,000 Unit Capsule 1 Cap PO DAILY Benadryl (Diphenhydramine Hcl) 25 Mg Capsule 25 Mg PO HS Lorazepam 0.5 Mg Tablet 0.5 Mg PO HS Acetaminophen 160 Mg/5 Ml Solution 5 Ml PO Q4HRS Aspir 81 (Aspirin) 81 Mg Tablet.dr 1 Tab PO DAILY Potassium Chloride 20 Meq Tablet.er 20 Meq PO DAILY Amiodarone Hcl 400 Mg Tablet 400 Mg PO BID Lasix (Furosemide) 40 Mg Tablet 40 Mg PO BID Pepcid (Famotidine) 20 Mg Tablet 20 Mg PO BID Levothyroxine Sodium 125 Mcg Tablet 1 Tab PO DAILY Zyprexa (Olanzapine) 15 Mg Tablet 1 Tab PO QHS Lisinopril 10 Mg Tablet 1 Tab PO DAILY Vitals/I & O Vital Sign - Last 24 Hours 12/13/16 12/13/16 12/13/16 12/13/16 15:55 16:00 19:00 20:00 Temp 99.2 97.7 99.2 97.7 Pulse 83 84 Resp 20 20 B/P (MAP) 112/49 (70) 140/68 (92) Pulse Ox 94 97 O2 Delivery Room Air Room Air Room Air Room Air 12/13/16 12/13/16 12/14/16 12/14/16 20:02 23:00 03:00 06:55 Temp 98.6 97.9 98.4 98.6 97.9 98.4 Pulse 80 83 87 Resp 20 20 22 B/P (MAP) 142/64 (90) 155/89 (111) 131/59 (83) Pulse Ox 96 97 99 93 O2 Delivery Room Air Tracheal Collar Room Air Room Air 12/14/16 12/14/16 12/14/16 12/14/16 07:51 08:06 10:41 11:38 Temp 97.9 97.9 Pulse 67 Resp 22 B/P (MAP) 128/58 (81) Pulse Ox 95 94 96 O2 Delivery Room Air Room Air Room Air Room Air 12/14/16 12:08 O2 Delivery Room Air Intake and Output 12/13/16 12/13/16 12/14/16 15:00 23:00 07:00 Intake Total 0 ml 1550 ml Output Total 350 ml 450 ml Balance -350 ml 0 ml 1100 ml Nutrition Consultation Dietary Evaluation: Recommendations by RD: Increase Calorie Intake, Protein supplementation Comments: Rec. TF's with Fibersource HN, goal rate 75 ml/hr start at 25 ml/hr, increase by 25 ml/hr q8h to goal flushes 150 cc q6h 2 packets of arginaid per day Expected Outcomes/Goals: TF initiation tolerate the TF's at goal rate Interpretation of weight loss: >10% in 6 months Malnutrition Findings: Body Fat Depletion (Non Severe: Mild Depletion Reduced Information Technology Analyst Strength: N/A Malnutrition related to morbid: No Weight Status: Appropriate Fluid Accumulation (N/A): N/A HANNY JEFFRIES MD Dec 14, 2016 13:22
--- NOTE | 2016-12-14 14:10 | PDOC ---
PROGRESS NOTES Assessment Problems Medical Problems: (1) Acute renal failure Status: Acute (2) Healthcare-associated pneumonia Status: Acute (3) Microcytic anemia Status: Acute (4) Severe protein-calorie malnutrition Status: Acute (5) Severe sepsis Status: Acute (6) Urinary tract infection Status: Acute Metabolic encephalopathy due to sepsis, pneumonia, urinary tract infection, renal failure. Baseline general debility and apparently some cognitive impairment following electroconvulsive therapy treatment Family wants to transfer her to [facility], wants repeat lutz-cultures, suctioning, and chest x-ray Plan Holding off on further neurology studies Defer above issues to pulmonary, ID, and internal medicine Discussed my findings with the patient's daughter and Subjective none Objective Vital Signs Date Time Temp Pulse Resp B/P (MAP) Pulse Ox O2 Delivery O2 Flow Rate FiO2 12/14/16 12:08 Room Air 12/14/16 11:38 96 12/14/16 10:41 97.9 67 22 128/58 (81) 97.9 Intake and Output 12/14/16 07:00 Intake Total 1550 ml Output Total 800 ml Balance 750 ml Intake Oral 0 ml IV Total 50 ml Tube Feeding 900 ml Other 600 ml Output Urine Total 800 ml # Bowel Movements 3 PHYSICAL EXAM Asleep, arouses minimally PERRL. EOMI. CN: no focal findings. Muscle tone: normal. Muscle strength: moves spontaneously DTR: 0+ Plantar reflex: flexor Gait: not examined in bed. Sensory exam: not tested Cerebellar: not tested. Review of Relevant I have reviewed the following items adam (where applicable) has been applied. Labs Laboratory Tests Test 12/12/16 18:00 12/13/16 06:40 12/14/16 03:35 Vancomycin Level Trough 16.5 mcg/mL (10.0-20.0) Vancomycin Last Dose Date Vancomycin Last Dose Time White Blood Count 6.1 x10^3/uL (4.0-11.0) 5.7 x10^3/uL (4.0-11.0) Red Blood Count 2.45 x10^6/uL (3.50-5.40) 2.50 x10^6/uL (3.50-5.40) Hemoglobin 7.3 g/dL (12.0-15.5) 7.4 g/dL (12.0-15.5) Hematocrit 22.9 % (36.0-47.0) 23.2 % (36.0-47.0) Mean Corpuscular Volume 94 fL (79-100) 93 fL (79-100) Mean Corpuscular Hemoglobin 30 pg (25-35) 30 pg (25-35) Mean Corpuscular Hemoglobin Concent 32 g/dL (31-37) 32 g/dL (31-37) Red Cell Distribution Width 16.4 % (11.5-14.5) 15.9 % (11.5-14.5) Platelet Count 181 x10^3/uL (140-400) 166 x10^3/uL (140-400) Neutrophils (%) (Auto) 72 % (31-73) 70 % (31-73) Lymphocytes (%) (Auto) 17 % (24-48) 19 % (24-48) Monocytes (%) (Auto) 11 % (0-9) 10 % (0-9) Eosinophils (%) (Auto) 0 % (0-3) 1 % (0-3) Basophils (%) (Auto) 1 % (0-3) 0 % (0-3) Neutrophils # (Auto) 4.3 x10^3uL (1.8-7.7) 4.0 x10^3uL (1.8-7.7) Lymphocytes # (Auto) 1.0 x10^3/uL (1.0-4.8) 1.1 x10^3/uL (1.0-4.8) Monocytes # (Auto) 0.7 x10^3/uL (0.0-1.1) 0.5 x10^3/uL (0.0-1.1) Eosinophils # (Auto) 0.0 x10^3/uL (0.0-0.7) 0.0 x10^3/uL (0.0-0.7) Basophils # (Auto) 0.0 x10^3/uL (0.0-0.2) 0.0 x10^3/uL (0.0-0.2) Sodium Level 145 mmol/L (136-145) 146 mmol/L (136-145) Potassium Level 3.8 mmol/L (3.5-5.1) 4.1 mmol/L (3.5-5.1) Chloride Level 115 mmol/L (98-107) 116 mmol/L (98-107) Carbon Dioxide Level 22 mmol/L (21-32) 22 mmol/L (21-32) Anion Gap 8 (6-14) 8 (6-14) Blood Urea Nitrogen 21 mg/dL (7-20) 19 mg/dL (7-20) Creatinine 0.9 mg/dL (0.6-1.0) 0.8 mg/dL (0.6-1.0) Estimated GFR (Cockcroft-Gault) 60.7 69.6 BUN/Creatinine Ratio 23 (6-20) 24 (6-20) Glucose Level 79 mg/dL (70-99) 88 mg/dL (70-99) Calcium Level 7.7 mg/dL (8.5-10.1) 7.4 mg/dL (8.5-10.1) Total Bilirubin 0.3 mg/dL (0.2-1.0) 0.2 mg/dL (0.2-1.0) Aspartate Amino Transf (AST/SGOT) 38 U/L (15-37) 30 U/L (15-37) Alanine Aminotransferase (ALT/SGPT) 43 U/L (14-59) 38 U/L (14-59) Alkaline Phosphatase 115 U/L (46-116) 127 U/L (46-116) Total Protein 5.7 g/dL (6.4-8.2) 5.7 g/dL (6.4-8.2) Albumin 1.7 g/dL (3.4-5.0) 1.8 g/dL (3.4-5.0) Albumin/Globulin Ratio 0.4 (1.0-1.7) 0.5 (1.0-1.7) Magnesium Level 2.8 mg/dL (1.8-2.4) Laboratory Tests Test 12/14/16 03:35 White Blood Count 5.7 x10^3/uL (4.0-11.0) Red Blood Count 2.50 x10^6/uL (3.50-5.40) Hemoglobin 7.4 g/dL (12.0-15.5) Hematocrit 23.2 % (36.0-47.0) Mean Corpuscular Volume 93 fL (79-100) Mean Corpuscular Hemoglobin 30 pg (25-35) Mean Corpuscular Hemoglobin Concent 32 g/dL (31-37) Red Cell Distribution Width 15.9 % (11.5-14.5) Platelet Count 166 x10^3/uL (140-400) Neutrophils (%) (Auto) 70 % (31-73) Lymphocytes (%) (Auto) 19 % (24-48) Monocytes (%) (Auto) 10 % (0-9) Eosinophils (%) (Auto) 1 % (0-3) Basophils (%) (Auto) 0 % (0-3) Neutrophils # (Auto) 4.0 x10^3uL (1.8-7.7) Lymphocytes # (Auto) 1.1 x10^3/uL (1.0-4.8) Monocytes # (Auto) 0.5 x10^3/uL (0.0-1.1) Eosinophils # (Auto) 0.0 x10^3/uL (0.0-0.7) Basophils # (Auto) 0.0 x10^3/uL (0.0-0.2) Sodium Level 146 mmol/L (136-145) Potassium Level 4.1 mmol/L (3.5-5.1) Chloride Level 116 mmol/L (98-107) Carbon Dioxide Level 22 mmol/L (21-32) Anion Gap 8 (6-14) Blood Urea Nitrogen 19 mg/dL (7-20) Creatinine 0.8 mg/dL (0.6-1.0) Estimated GFR (Cockcroft-Gault) 69.6 BUN/Creatinine Ratio 24 (6-20) Glucose Level 88 mg/dL (70-99) Calcium Level 7.4 mg/dL (8.5-10.1) Magnesium Level 2.8 mg/dL (1.8-2.4) Total Bilirubin 0.2 mg/dL (0.2-1.0) Aspartate Amino Transf (AST/SGOT) 30 U/L (15-37) Alanine Aminotransferase (ALT/SGPT) 38 U/L (14-59) Alkaline Phosphatase 127 U/L (46-116) Total Protein 5.7 g/dL (6.4-8.2) Albumin 1.8 g/dL (3.4-5.0) Albumin/Globulin Ratio 0.5 (1.0-1.7) Microbiology 12/10/16 Blood Culture - Preliminary, Resulted NO GROWTH AFTER 3 DAYS 12/11/16 Urine Culture - Final, Complete 12/11/16 Urine Culture Result 1 (MISA) - Final, Complete Medications Current Medications Sodium Chloride 1,000 ml @ 1,120 mls/hr Q54M IV Last administered on 16:54; Start 12/10/16 at 16:00; Stop 12/10/16 at 17:00; Status DC Vancomycin HCl (Vanco Per Pharmacy) 1 each PRN DAILY PRN MC SEE COMMENTS Last administered on 12/12/16 21:51; Start 12/10/16 at 16:15; Stop 12/14/16 at 09:10; Status DC Piperacillin Sod/ Tazobactam Sod (Zosyn Per Pharmacy) 1 each PRN DAILY PRN MC SEE COMMENTS; Start 12/10/16 at 16:15 Levofloxacin/ Dextrose (Levaquin Per Pharmacy) 1 each PRN DAILY PRN MC SEE COMMENTS; Start 12/10/16 at 16:15; Stop 12/11/16 at 11:34; Status DC Levofloxacin/ Dextrose 150 ml @ 150 mls/hr ONCE ONCE IV Last administered on 12/10/16 16:16; Start 12/10/16 at 16:15; Stop 12/10/16 at 17:14; Status DC Vancomycin HCl 1.5 gm/Sodium Chloride 500 ml @ 250 mls/hr 1X ONCE IV Last administered on 12/10/16 18:38; Start 12/10/16 at 16:15; Stop 12/10/16 at 18:14 ; Status DC Piperacillin Sod/ Tazobactam Sod 4.5 gm/Sodium Chloride 100 ml @ 200 mls/hr ONCE ONCE IV Last administered on 12/10/16 17:37; Start 12/10/16 at 16:30; Stop 12/10/16 at 16:59; Status DC Sodium Chloride 1,000 ml @ 150 mls/hr 1X ONCE IV Last administered on 17:15; Start 12/10/16 at 16:15; Stop 12/10/16 at 22:54; Status DC Ondansetron HCl (Zofran) 4 mg PRN Q8HRS PRN IV NAUSEA/VOMITING; Start 12/10/16 at 16:45; Stop 12/11/16 at 16:44; Status DC Sodium Chloride 1,000 ml @ 150 mls/hr Q6H40M IV Last administered on 16:35; Start 12/10/16 at 16:35; Stop 12/11/16 at 16:34; Status DC Acetaminophen (Tylenol) 650 mg PRN Q4HRS PRN PO FEVER; Start 12/10/16 at 16:45 ; Stop 12/11/16 at 16:44; Status DC Albuterol/ Ipratropium (Duoneb) 3 ml RTQID NEB ; Start 12/10/16 at 20:00; Stop 12/10/16 at 20:00; Status DC Acetaminophen (Tylenol) 650 mg PRN Q6HRS PRN PO FEVER; Start 12/10/16 at 17:15 Ondansetron HCl (Zofran) 4 mg PRN Q6HRS PRN IV NAUSEA/VOMITING; Start 12/10/16 at 17:15 Morphine Sulfate 2 mg PRN Q2HR PRN IV PAIN; Start 12/10/16 at 17:15; Stop at 12:18; Status DC Tramadol HCl (Ultram) 50 mg PRN Q6HRS PRN PO PAIN; Start 12/10/16 at 17:15 Hydralazine HCl (Apresoline) 10 mg PRN Q4HRS PRN IVP ELEVATED BP, SEE COMMENTS ; Start 12/10/16 at 17:15 Docusate Sodium (Colace) 100 mg PRN DAILY PRN PO CONSTIPATION; Start 12/10/16 at 17:15 Dextrose/Sodium Chloride 1,000 ml @ 75 mls/hr [id number] IV Last administered on 12/11/16 23:05; Start 12/10/16 at 17:15; Stop 12/12/16 at 13:46; Status DC Heparin Sodium (Porcine) (Heparin Sq) 5,000 unit Q8HRS SQ Last administered on 12/11/16 06:17; Start 12/10/16 at 22:00; Stop 12/11/16 at 17:53; Status DC Albuterol/ Ipratropium (Duoneb) 3 ml RTQID NEB Last administered on 12/14/16 11 :37; Start 12/10/16 at 20:00 Albuterol Sulfate (Ventolin Neb Soln) 2.5 mg PRN Q2HR PRN NEB SHORTNESS OF BREATH; Start 12/10/16 at 17:15 Levofloxacin/ Dextrose 150 ml @ 100 mls/hr Q48H IV ; Start 12/11/16 at 16:00; Stop 12/11/16 at 16:00; Status DC Piperacillin Sod/ Tazobactam Sod 3.375 gm/Sodium Chloride 50 ml @ 100 mls/hr Q6HRS IV Last administered on 12/14/16 13:02; Start 12/11/16 at 00:00 Vancomycin HCl 1 gm/Sodium Chloride 250 ml @ 250 mls/hr Q24H IV Last administered on 12/13/16 20:06; Start 12/11/16 at 18:30; Stop 12/14/16 at 09:06; Status DC Vancomycin HCl 1 each 1X ONCE MC Last administered on 12/12/16 18:00; Start at 18:00; Stop 12/12/16 at 18:01; Status DC Norepinephrine Bitartrate 250 ml @ 0 mls/hr CONT PRN IV SEE I/O RECORD Last administered on 12/11/16 08:53; Start 12/10/16 at 18:45; Stop 12/14/16 at 13:18; Status DC Sodium Chloride 1,000 ml @ 1,000 mls/hr 1X ONCE IV Last administered on 20:41; Start 12/10/16 at 19:30; Stop 12/10/16 at 20:29; Status DC Sodium Chloride 1,000 ml @ 999 mls/hr 1X ONCE IV Last administered on 12:04; Start 12/11/16 at 10:00; Stop 12/11/16 at 11:00; Status DC Sodium Chloride 1,000 ml @ 999 mls/hr 1X ONCE IV Last administered on 12:03; Start 12/11/16 at 10:00; Stop 12/11/16 at 11:00; Status DC Mineral Oil (Fleet Mineral Oil) 133 ml 1X ONCE MO Last administered on 11:00; Start 12/11/16 at 11:00; Stop 12/11/16 at 11:02; Status DC Acetaminophen (Tylenol) 650 mg PRN Q6HRS PRN PEG MILD PAIN / TEMP Last administered on 12/13/16 17:19; Start 12/11/16 at 12:45 Olanzapine (ZyPREXA) 15 mg QHS PO Last administered on 12/13/16 21:16; Start at 21:00 Polyethylene Glycol (miraLAX PACKET) 17 gm DAILY PO Last administered on 08:56; Start 12/11/16 at 12:30 Levothyroxine Sodium 100 mcg/ Sodium Chloride 5 ml @ 125 mls/hr DAILY IVP Last administered on 12/14/16 09:20; Start 12/12/16 at 09:00 Famotidine (Pepcid) 20 mg QHS IVP Last administered on 12/13/16 21:16; Start at 21:00 Nystatin (Mycostatin) 1 nhi BID TP Last administered on 12/13/16 21:00; Start 12/12/16 at 10:00 Lorazepam (Ativan) 0.5 mg PRN Q8HRS PRN PEG ANXIETY / AGITATION Last administered on 12/14/16 02:48; Start 12/12/16 at 13:45 Diphenhydramine HCl (Benadryl Oral Elixir) 25 mg PRN QHS PRN PO sleep; Start at 13:45 Multivitamins (Thera-Plus) 5 ml DAILY PEG Last administered on 12/14/16 09:20; Start 12/13/16 at 09:00 Ascorbic Acid (Vitamin C) 500 mg DAILY PEG Last administered on 12/14/16 09:20 ; Start 12/13/16 at 09:00 Active Scripts Active Reported Bactrim Ds Tablet (Sulfamethoxazole/Trimethoprim) 1 Each Tablet 1 Each PEG BID Vitamin C (Ascorbic Acid) 500 Mg/5 Ml Syrup 500 Mg PEG DAILY Vitamin D (Cholecalciferol (Vitamin D3)) 1,000 Unit Capsule 1 Cap PO DAILY Benadryl (Diphenhydramine Hcl) 25 Mg Capsule 25 Mg PO HS Lorazepam 0.5 Mg Tablet 0.5 Mg PO HS Acetaminophen 160 Mg/5 Ml Solution 5 Ml PO Q4HRS Aspir 81 (Aspirin) 81 Mg Tablet.dr 1 Tab PO DAILY Potassium Chloride 20 Meq Tablet.er 20 Meq PO DAILY Amiodarone Hcl 400 Mg Tablet 400 Mg PO BID Lasix (Furosemide) 40 Mg Tablet 40 Mg PO BID Pepcid (Famotidine) 20 Mg Tablet 20 Mg PO BID Levothyroxine Sodium 125 Mcg Tablet 1 Tab PO DAILY Zyprexa (Olanzapine) 15 Mg Tablet 1 Tab PO QHS Lisinopril 10 Mg Tablet 1 Tab PO DAILY Vitals/I & O Vital Sign - Last 24 Hours 12/13/16 12/13/16 12/13/16 12/13/16 15:55 16:00 19:00 20:00 Temp 99.2 97.7 99.2 97.7 Pulse 83 84 Resp 20 20 B/P (MAP) 112/49 (70) 140/68 (92) Pulse Ox 94 97 O2 Delivery Room Air Room Air Room Air Room Air 12/13/16 12/13/16 12/14/16 12/14/16 20:02 23:00 03:00 06:55 Temp 98.6 97.9 98.4 98.6 97.9 98.4 Pulse 80 83 87 Resp 20 20 22 B/P (MAP) 142/64 (90) 155/89 (111) 131/59 (83) Pulse Ox 96 97 99 93 O2 Delivery Room Air Tracheal Collar Room Air Room Air 12/14/16 12/14/16 12/14/16 12/14/16 07:51 08:06 10:41 11:38 Temp 97.9 97.9 Pulse 67 Resp 22 B/P (MAP) 128/58 (81) Pulse Ox 95 94 96 O2 Delivery Room Air Room Air Room Air Room Air 12/14/16 12:08 O2 Delivery Room Air Intake and Output 12/13/16 12/13/16 12/14/16 15:00 23:00 07:00 Intake Total 0 ml 1550 ml Output Total 350 ml 450 ml Balance -350 ml 0 ml 1100 ml JESUS CAMARENA MD Dec 14, 2016 14:10
[2016-12-14 15:46] VITALS: BP 136/68
--- NOTE | 2016-12-14 18:55 | PDOC ---
PULMONARY PROGRESS NOTES Subjective FAMILY CONCERN ABOUT INCREASE MUCUS THIS AM AND POSSIBLE NEW PNEUMONIA Vitals Vital Signs Date Time Temp Pulse Resp B/P (MAP) Pulse Ox O2 Delivery O2 Flow Rate FiO2 12/14/16 15:46 98.5 78 20 136/68 (90) 97 Room Air 98.5 ROS: No Nausea, No Chest Pain, No Abdominal Pain General: Alert Lungs: Other (bl coarse bs) Cardiovascular: S1 Abdomen: Soft Neuro Exam: Alert Extremities: Other (trace edema) Labs Laboratory Tests Test 12/13/16 06:40 12/14/16 03:35 White Blood Count 6.1 x10^3/uL (4.0-11.0) 5.7 x10^3/uL (4.0-11.0) Red Blood Count 2.45 x10^6/uL (3.50-5.40) 2.50 x10^6/uL (3.50-5.40) Hemoglobin 7.3 g/dL (12.0-15.5) 7.4 g/dL (12.0-15.5) Hematocrit 22.9 % (36.0-47.0) 23.2 % (36.0-47.0) Mean Corpuscular Volume 94 fL (79-100) 93 fL (79-100) Mean Corpuscular Hemoglobin 30 pg (25-35) 30 pg (25-35) Mean Corpuscular Hemoglobin Concent 32 g/dL (31-37) 32 g/dL (31-37) Red Cell Distribution Width 16.4 % (11.5-14.5) 15.9 % (11.5-14.5) Platelet Count 181 x10^3/uL (140-400) 166 x10^3/uL (140-400) Neutrophils (%) (Auto) 72 % (31-73) 70 % (31-73) Lymphocytes (%) (Auto) 17 % (24-48) 19 % (24-48) Monocytes (%) (Auto) 11 % (0-9) 10 % (0-9) Eosinophils (%) (Auto) 0 % (0-3) 1 % (0-3) Basophils (%) (Auto) 1 % (0-3) 0 % (0-3) Neutrophils # (Auto) 4.3 x10^3uL (1.8-7.7) 4.0 x10^3uL (1.8-7.7) Lymphocytes # (Auto) 1.0 x10^3/uL (1.0-4.8) 1.1 x10^3/uL (1.0-4.8) Monocytes # (Auto) 0.7 x10^3/uL (0.0-1.1) 0.5 x10^3/uL (0.0-1.1) Eosinophils # (Auto) 0.0 x10^3/uL (0.0-0.7) 0.0 x10^3/uL (0.0-0.7) Basophils # (Auto) 0.0 x10^3/uL (0.0-0.2) 0.0 x10^3/uL (0.0-0.2) Sodium Level 145 mmol/L (136-145) 146 mmol/L (136-145) Potassium Level 3.8 mmol/L (3.5-5.1) 4.1 mmol/L (3.5-5.1) Chloride Level 115 mmol/L (98-107) 116 mmol/L (98-107) Carbon Dioxide Level 22 mmol/L (21-32) 22 mmol/L (21-32) Anion Gap 8 (6-14) 8 (6-14) Blood Urea Nitrogen 21 mg/dL (7-20) 19 mg/dL (7-20) Creatinine 0.9 mg/dL (0.6-1.0) 0.8 mg/dL (0.6-1.0) Estimated GFR (Cockcroft-Gault) 60.7 69.6 BUN/Creatinine Ratio 23 (6-20) 24 (6-20) Glucose Level 79 mg/dL (70-99) 88 mg/dL (70-99) Calcium Level 7.7 mg/dL (8.5-10.1) 7.4 mg/dL (8.5-10.1) Total Bilirubin 0.3 mg/dL (0.2-1.0) 0.2 mg/dL (0.2-1.0) Aspartate Amino Transf (AST/SGOT) 38 U/L (15-37) 30 U/L (15-37) Alanine Aminotransferase (ALT/SGPT) 43 U/L (14-59) 38 U/L (14-59) Alkaline Phosphatase 115 U/L (46-116) 127 U/L (46-116) Total Protein 5.7 g/dL (6.4-8.2) 5.7 g/dL (6.4-8.2) Albumin 1.7 g/dL (3.4-5.0) 1.8 g/dL (3.4-5.0) Albumin/Globulin Ratio 0.4 (1.0-1.7) 0.5 (1.0-1.7) Magnesium Level 2.8 mg/dL (1.8-2.4) Laboratory Tests Test 12/14/16 03:35 White Blood Count 5.7 x10^3/uL (4.0-11.0) Red Blood Count 2.50 x10^6/uL (3.50-5.40) Hemoglobin 7.4 g/dL (12.0-15.5) Hematocrit 23.2 % (36.0-47.0) Mean Corpuscular Volume 93 fL (79-100) Mean Corpuscular Hemoglobin 30 pg (25-35) Mean Corpuscular Hemoglobin Concent 32 g/dL (31-37) Red Cell Distribution Width 15.9 % (11.5-14.5) Platelet Count 166 x10^3/uL (140-400) Neutrophils (%) (Auto) 70 % (31-73) Lymphocytes (%) (Auto) 19 % (24-48) Monocytes (%) (Auto) 10 % (0-9) Eosinophils (%) (Auto) 1 % (0-3) Basophils (%) (Auto) 0 % (0-3) Neutrophils # (Auto) 4.0 x10^3uL (1.8-7.7) Lymphocytes # (Auto) 1.1 x10^3/uL (1.0-4.8) Monocytes # (Auto) 0.5 x10^3/uL (0.0-1.1) Eosinophils # (Auto) 0.0 x10^3/uL (0.0-0.7) Basophils # (Auto) 0.0 x10^3/uL (0.0-0.2) Sodium Level 146 mmol/L (136-145) Potassium Level 4.1 mmol/L (3.5-5.1) Chloride Level 116 mmol/L (98-107) Carbon Dioxide Level 22 mmol/L (21-32) Anion Gap 8 (6-14) Blood Urea Nitrogen 19 mg/dL (7-20) Creatinine 0.8 mg/dL (0.6-1.0) Estimated GFR (Cockcroft-Gault) 69.6 BUN/Creatinine Ratio 24 (6-20) Glucose Level 88 mg/dL (70-99) Calcium Level 7.4 mg/dL (8.5-10.1) Magnesium Level 2.8 mg/dL (1.8-2.4) Total Bilirubin 0.2 mg/dL (0.2-1.0) Aspartate Amino Transf (AST/SGOT) 30 U/L (15-37) Alanine Aminotransferase (ALT/SGPT) 38 U/L (14-59) Alkaline Phosphatase 127 U/L (46-116) Total Protein 5.7 g/dL (6.4-8.2) Albumin 1.8 g/dL (3.4-5.0) Albumin/Globulin Ratio 0.5 (1.0-1.7) Medications Active Scripts Medications Dose Route/Sig Max Daily Dose Days Date Category Bactrim Ds Tablet (Sulfamethoxazole/Trimethoprim) 1 Each Tablet 1 Each PEG BID 12/11/16 Reported Vitamin C (Ascorbic Acid) 500 Mg/5 Ml Syrup 500 Mg PEG DAILY 12/11/16 Reported Vitamin D (Cholecalciferol (Vitamin D3)) 1,000 Unit Capsule 1 Cap PO DAILY 12/11/16 Reported Benadryl (Diphenhydramine Hcl) 25 Mg Capsule 25 Mg PO HS 12/11/16 Reported Lorazepam 0.5 Mg Tablet 0.5 Mg PO HS 12/11/16 Reported Acetaminophen 160 Mg/5 Ml Solution 5 Ml PO Q4HRS 12/11/16 Reported Aspir 81 (Aspirin) 81 Mg Tablet.dr 1 Tab PO DAILY 12/11/16 Reported Potassium Chloride 20 Meq Tablet.er 20 Meq PO DAILY 12/11/16 Reported Amiodarone Hcl 400 Mg Tablet 400 Mg PO BID 12/11/16 Reported Lasix (Furosemide) 40 Mg Tablet 40 Mg PO BID 12/11/16 Reported Pepcid (Famotidine) 20 Mg Tablet 20 Mg PO BID 12/11/16 Reported Levothyroxine Sodium 125 Mcg Tablet 1 Tab PO DAILY 12/11/16 Reported Zyprexa (Olanzapine) 15 Mg Tablet 1 Tab PO QHS 12/11/16 Reported Lisinopril 10 Mg Tablet 1 Tab PO DAILY 12/11/16 Reported Impression . 1. Septic shock due to suspected UTI and RML pneumonia 2. Acute metabolic encephalopathy, improving 3. Abnormal CXR c/w RML pneumonia 4. Chronic [place] 5. No Tobacco hx 6. JULIETA 7. h/o A-Fib, on Amio 8. Recent de-cannulation 9. Gram positive bacteremia,, per ID contamination 10. cxr today 12/14 improved no new infiltrates 11. acute/chronic bronchitis 12. nonhealing stoma Plan . prn suction thru stoma anitbx per id spoke with very malnutrition and weak doubt pt will do well in long run SANDOR KHANNA MD Dec 14, 2016 18:55
[2016-12-14 19:55] VITALS: BP 132/60
[2016-12-14] MEDS: FAMOTIDINE 20 MG TABLET. PEG SCH (21:26)
[2016-12-14] MEDS: OLANZapine 5 MG TABLET PO SCH (21:26)
[2016-12-14 23:55] VITALS: BP 135/65
--- NOTE | 2016-12-14 23:58 | PDOC2 ---
CONSULT Date of Consult Date of Consult DATE: 12/11/16 TIME: 13:00 Reason for Consult Reason for Consult: ARF History of Present Illness Reason for Visit: Patient is a 76 year old female who presents to the emergency department for evaluation of altered mental status .. Pt lethargic on admit, much of history obtained from her , daughter at bedside Pt fell in 01/2016, with right clavical fx, hip fx post sx, then transferred to different hosp and rehab, complicated with PNA, resp failure, aspiration, ended up with a prolonged intubated, trach and PEG. Pt was just dced back home 2 weeks ago, trach was removed. cont PEG feeding. Her baseline mental status was confused sometime, but most of time able to talk ,expresses herself. Daughter noticed pt had cloudy urine and PCP prescribed bactrium 2 days ago. Pt also was noticed to have distended abd with less BM, T 100.8. , pt became lethargic, daughter called EMS and the patient was brought to the emergency department for further evaluation. EMS administered a total of 800 mL of lactated Ringer's and the patient prior to arrival. They noted that the patient was both febrile 101 and hypotensive. on 6 emmanuel of levophed, JULIETA , cxr with RML pneumonia, Has chronic grace Past Medical History Cardiovascular: AFIB, HTN Pulmonary: Pneumonia CENTRAL NERVOUS SYSTEM: Seizure GI: Constipation Psych: No pertinent hx Musculoskeletal: Other (clavicle fracture) Past Surgical History Past Surgical History: Total hip replacement Family History Family History: Hypertension Social History No ALCOHOL: none Drugs: None Current Problem List Problem List Problems Medical Problems: (1) Acute renal failure Status: Acute (2) Healthcare-associated pneumonia Status: Acute (3) Microcytic anemia Status: Acute (4) Severe protein-calorie malnutrition Status: Acute (5) Severe sepsis Status: Acute (6) Urinary tract infection Status: Acute Current Medications Current Medications Current Medications Sodium Chloride 1,000 ml @ 1,120 mls/hr Q54M IV Last administered on 16:54; Start 12/10/16 at 16:00; Stop 12/10/16 at 17:00; Status DC Vancomycin HCl (Vanco Per Pharmacy) 1 each PRN DAILY PRN MC SEE COMMENTS Last administered on 12/12/16 21:51; Start 12/10/16 at 16:15; Stop 12/14/16 at 09:10; Status DC Piperacillin Sod/ Tazobactam Sod (Zosyn Per Pharmacy) 1 each PRN DAILY PRN MC SEE COMMENTS; Start 12/10/16 at 16:15 Levofloxacin/ Dextrose (Levaquin Per Pharmacy) 1 each PRN DAILY PRN MC SEE COMMENTS; Start 12/10/16 at 16:15; Stop 12/11/16 at 11:34; Status DC Levofloxacin/ Dextrose 150 ml @ 150 mls/hr ONCE ONCE IV Last administered on 12/10/16 16:16; Start 12/10/16 at 16:15; Stop 12/10/16 at 17:14; Status DC Vancomycin HCl 1.5 gm/Sodium Chloride 500 ml @ 250 mls/hr 1X ONCE IV Last administered on 12/10/16 18:38; Start 12/10/16 at 16:15; Stop 12/10/16 at 18:14 ; Status DC Piperacillin Sod/ Tazobactam Sod 4.5 gm/Sodium Chloride 100 ml @ 200 mls/hr ONCE ONCE IV Last administered on 12/10/16 17:37; Start 12/10/16 at 16:30; Stop 12/10/16 at 16:59; Status DC Sodium Chloride 1,000 ml @ 150 mls/hr 1X ONCE IV Last administered on 17:15; Start 12/10/16 at 16:15; Stop 12/10/16 at 22:54; Status DC Ondansetron HCl (Zofran) 4 mg PRN Q8HRS PRN IV NAUSEA/VOMITING; Start 12/10/16 at 16:45; Stop 12/11/16 at 16:44; Status DC Sodium Chloride 1,000 ml @ 150 mls/hr Q6H40M IV Last administered on 16:35; Start 12/10/16 at 16:35; Stop 12/11/16 at 16:34; Status DC Acetaminophen (Tylenol) 650 mg PRN Q4HRS PRN PO FEVER; Start 12/10/16 at 16:45 ; Stop 12/11/16 at 16:44; Status DC Albuterol/ Ipratropium (Duoneb) 3 ml RTQID NEB ; Start 12/10/16 at 20:00; Stop 12/10/16 at 20:00; Status DC Acetaminophen (Tylenol) 650 mg PRN Q6HRS PRN PO FEVER; Start 12/10/16 at 17:15 Ondansetron HCl (Zofran) 4 mg PRN Q6HRS PRN IV NAUSEA/VOMITING; Start 12/10/16 at 17:15 Morphine Sulfate 2 mg PRN Q2HR PRN IV PAIN; Start 12/10/16 at 17:15; Stop at 12:18; Status DC Tramadol HCl (Ultram) 50 mg PRN Q6HRS PRN PO PAIN; Start 12/10/16 at 17:15 Hydralazine HCl (Apresoline) 10 mg PRN Q4HRS PRN IVP ELEVATED BP, SEE COMMENTS ; Start 12/10/16 at 17:15 Docusate Sodium (Colace) 100 mg PRN DAILY PRN PO CONSTIPATION; Start 12/10/16 at 17:15 Dextrose/Sodium Chloride 1,000 ml @ 75 mls/hr [id number] IV Last administered on 12/11/16 23:05; Start 12/10/16 at 17:15; Stop 12/12/16 at 13:46; Status DC Heparin Sodium (Porcine) (Heparin Sq) 5,000 unit Q8HRS SQ Last administered on 12/11/16 06:17; Start 12/10/16 at 22:00; Stop 12/11/16 at 17:53; Status DC Albuterol/ Ipratropium (Duoneb) 3 ml RTQID NEB Last administered on 12/14/16 19 :17; Start 12/10/16 at 20:00 Albuterol Sulfate (Ventolin Neb Soln) 2.5 mg PRN Q2HR PRN NEB SHORTNESS OF BREATH; Start 12/10/16 at 17:15 Levofloxacin/ Dextrose 150 ml @ 100 mls/hr Q48H IV ; Start 12/11/16 at 16:00; Stop 12/11/16 at 16:00; Status DC Piperacillin Sod/ Tazobactam Sod 3.375 gm/Sodium Chloride 50 ml @ 100 mls/hr Q6HRS IV Last administered on 12/14/16 18:16; Start 12/11/16 at 00:00 Vancomycin HCl 1 gm/Sodium Chloride 250 ml @ 250 mls/hr Q24H IV Last administered on 12/13/16 20:06; Start 12/11/16 at 18:30; Stop 12/14/16 at 09:06; Status DC Vancomycin HCl 1 each 1X ONCE MC Last administered on 12/12/16 18:00; Start at 18:00; Stop 12/12/16 at 18:01; Status DC Norepinephrine Bitartrate 250 ml @ 0 mls/hr CONT PRN IV SEE I/O RECORD Last administered on 12/11/16 08:53; Start 12/10/16 at 18:45; Stop 12/14/16 at 13:18; Status DC Sodium Chloride 1,000 ml @ 1,000 mls/hr 1X ONCE IV Last administered on 20:41; Start 12/10/16 at 19:30; Stop 12/10/16 at 20:29; Status DC Sodium Chloride 1,000 ml @ 999 mls/hr 1X ONCE IV Last administered on 12:04; Start 12/11/16 at 10:00; Stop 12/11/16 at 11:00; Status DC Sodium Chloride 1,000 ml @ 999 mls/hr 1X ONCE IV Last administered on 12:03; Start 12/11/16 at 10:00; Stop 12/11/16 at 11:00; Status DC Mineral Oil (Fleet Mineral Oil) 133 ml 1X ONCE SD Last administered on 11:00; Start 12/11/16 at 11:00; Stop 12/11/16 at 11:02; Status DC Acetaminophen (Tylenol) 650 mg PRN Q6HRS PRN PEG MILD PAIN / TEMP Last administered on 12/13/16 17:19; Start 12/11/16 at 12:45 Olanzapine (ZyPREXA) 15 mg QHS PO Last administered on 12/14/16 21:26; Start at 21:00 Polyethylene Glycol (miraLAX PACKET) 17 gm DAILY PO Last administered on 08:56; Start 12/11/16 at 12:30 Levothyroxine Sodium 100 mcg/ Sodium Chloride 5 ml @ 125 mls/hr DAILY IVP Last administered on 12/14/16 09:20; Start 12/12/16 at 09:00; Stop 12/14/16 at 14:11; Status DC Famotidine (Pepcid) 20 mg QHS IVP Last administered on 12/13/16 21:16; Start at 21:00; Stop 12/14/16 at 14:11; Status DC Nystatin (Mycostatin) 1 nhi BID TP Last administered on 12/14/16 21:30; Start 12/12/16 at 10:00 Lorazepam (Ativan) 0.5 mg PRN Q8HRS PRN PEG ANXIETY / AGITATION Last administered on 12/14/16 02:48; Start 12/12/16 at 13:45 Diphenhydramine HCl (Benadryl Oral Elixir) 25 mg PRN QHS PRN PO sleep Last administered on 12/14/16 21:26; Start 12/12/16 at 13:45 Multivitamins (Thera-Plus) 5 ml DAILY PEG Last administered on 12/14/16 09:20; Start 12/13/16 at 09:00 Ascorbic Acid (Vitamin C) 500 mg DAILY PEG Last administered on 12/14/16 09:20 ; Start 12/13/16 at 09:00 Levothyroxine Sodium (Synthroid) 125 mcg DAILY07 PEG ; Start 12/15/16 at 07:00 Famotidine (Pepcid) 20 mg QHS PEG Last administered on 12/14/16 21:26; Start at 21:00 Active Scripts Active Reported Bactrim Ds Tablet (Sulfamethoxazole/Trimethoprim) 1 Each Tablet 1 Each PEG BID Vitamin C (Ascorbic Acid) 500 Mg/5 Ml Syrup 500 Mg PEG DAILY Vitamin D (Cholecalciferol (Vitamin D3)) 1,000 Unit Capsule 1 Cap PO DAILY Benadryl (Diphenhydramine Hcl) 25 Mg Capsule 25 Mg PO HS Lorazepam 0.5 Mg Tablet 0.5 Mg PO HS Acetaminophen 160 Mg/5 Ml Solution 5 Ml PO Q4HRS Aspir 81 (Aspirin) 81 Mg Tablet.dr 1 Tab PO DAILY Potassium Chloride 20 Meq Tablet.er 20 Meq PO DAILY Amiodarone Hcl 400 Mg Tablet 400 Mg PO BID Lasix (Furosemide) 40 Mg Tablet 40 Mg PO BID Pepcid (Famotidine) 20 Mg Tablet 20 Mg PO BID Levothyroxine Sodium 125 Mcg Tablet 1 Tab PO DAILY Zyprexa (Olanzapine) 15 Mg Tablet 1 Tab PO QHS Lisinopril 10 Mg Tablet 1 Tab PO DAILY Allergies Allergies: Coded Allergies: No Known Drug Allergies (Unverified , 12/10/16) Vitals VITALS Reviewed Labs Labs Reviewed. Assessment/Plan Assessment/Plan ARF/ATN ELEC IMBALANCE MALNUTRITION HYPOTENSION PNEUMONIA HYPERNATREMIA IVF Labs Supportive care Labs d/w daughter. LINDA PENA MD Dec 14, 2016 23:58
--- NOTE | 2016-12-14 23:59 | PDOC ---
Provider Note Provider Note RENAL F/U : JEAN S : Somnolent. No active CP, SOA or new c/o O : VSS BP better/stable Alert. Neck : Supple Lings : Decreased bases. Non labored. CVS : RRR Abd : Portly. No masses. No edema/trace. Neuro ; Alert. Labs reviewed. A/P : ARF/ATN HTN w CKD HYPOTENSION MENTAL STATUS CHANGES. Overall improved. Supportive care. Labs. LINDA PENA MD Dec 14, 2016 23:59
[2016-12-15] MEDS: AMINO AC 3%/ELECTROLYTE/GLYCER 1,000 ML IV SCH ×2 (01:12→16:40)
[2016-12-15 03:30] VITALS: BP 155/75
[2016-12-15] MEDS: PIPERACILLIN/TAZOBACTAM 3.375 GM in IV NORMAL SALINE 50ML 50 ML IV SCH (05:56)
[2016-12-15 06:52] LABS: BASO % 0 % (0-3); EOS % 1 % (0-3); HEMATOCRIT 23.6 % (36.0-47.0); HEMOGLOBIN 7.7 g/dL (12.0-15.5); LYMPH # 1.1 x10^3/uL (1.0-4.8); LYMPH % 14 % (24-48); MEAN CORPUSCULAR HEMOGLOBIN 30 pg (25-35); MEAN CORPUSCULAR HGB CONC 33 g/dL (31-37); MEAN CORPUSCULAR VOLUME 91 fL (79-100); MONO % 8 % (0-9); NEUT % 77 % (31-73); PLATELET COUNT 167 x10^3/uL (140-400); RED BLOOD COUNT 2.58 x10^6/uL (3.50-5.40); RED CELL DISTRIBUTION WIDTH 16.4 % (11.5-14.5); WHITE BLOOD COUNT 7.6 x10^3/uL (4.0-11.0)
[2016-12-15 07:15] LABS: ALBUMIN 1.7 g/dL (3.4-5.0); ALBUMIN/GLOBULIN RATIO 0.4 (1.0-1.7); CALCIUM 7.9 mg/dL (8.5-10.1); CREATININE 0.6 mg/dL (0.6-1.0); GFR 96.9; POTASSIUM 4.1 mmol/L (3.5-5.1); TOTAL BILIRUBIN 0.2 mg/dL (0.2-1.0); TOTAL PROTEIN 5.7 g/dL (6.4-8.2)
--- NOTE | 2016-12-15 07:28 | PDOC ---
PROGRESS NOTES Chief Complaint Chief Complaint AMS with Metabolic encephalopathy with sepsis Septic shock HAP/aspiration PNA UTI JULIETA, prob on CKD, vasomotor Hyperkalemia Hyponatremia HTN Hypothyroidism PAfib Dysphagia with PEG Hypoalbuminemia, severe Decubitus ulcers Constipation Plan On tube feeds, with ProcalAmine continue current abx, d/w ID Wound care labs reviewed, hemoglobin stable at 7.7 need daily PT/OT Neurology following. continue supplemental oxygen History of Present Illness History of Present Illness She is drowsy alert, at bedside no fever no chills breathing better after suctioning. Vitals Vitals Vital Signs Date Time Temp Pulse Resp B/P (MAP) Pulse Ox O2 Delivery O2 Flow Rate FiO2 12/15/16 03:30 97.9 75 20 155/75 (101) 97 Room Air 97.9 Physical Exam Physical Exam alert, arousable General: Alert, No acute distress, Other ( ) Heart: Regular rate, Normal S1, Normal S2 Lungs: Clear, Other (bl coarse bs) Abdomen: Normal bowel sounds, Soft, No tenderness Extremities: No clubbing, No edema Skin: No rashes Labs LABS Laboratory Tests Test 12/15/16 06:05 White Blood Count 7.6 x10^3/uL (4.0-11.0) Red Blood Count 2.58 x10^6/uL (3.50-5.40) Hemoglobin 7.7 g/dL (12.0-15.5) Hematocrit 23.6 % (36.0-47.0) Mean Corpuscular Volume 91 fL (79-100) Mean Corpuscular Hemoglobin 30 pg (25-35) Mean Corpuscular Hemoglobin Concent 33 g/dL (31-37) Red Cell Distribution Width 16.4 % (11.5-14.5) Platelet Count 167 x10^3/uL (140-400) Neutrophils (%) (Auto) 77 % (31-73) Lymphocytes (%) (Auto) 14 % (24-48) Monocytes (%) (Auto) 8 % (0-9) Eosinophils (%) (Auto) 1 % (0-3) Basophils (%) (Auto) 0 % (0-3) Neutrophils # (Auto) 5.9 x10^3uL (1.8-7.7) Lymphocytes # (Auto) 1.1 x10^3/uL (1.0-4.8) Monocytes # (Auto) 0.6 x10^3/uL (0.0-1.1) Eosinophils # (Auto) 0.1 x10^3/uL (0.0-0.7) Basophils # (Auto) 0.0 x10^3/uL (0.0-0.2) Sodium Level 140 mmol/L (136-145) Potassium Level 4.1 mmol/L (3.5-5.1) Chloride Level 112 mmol/L (98-107) Carbon Dioxide Level 21 mmol/L (21-32) Anion Gap 7 (6-14) Blood Urea Nitrogen 14 mg/dL (7-20) Creatinine 0.6 mg/dL (0.6-1.0) Estimated GFR (Cockcroft-Gault) 96.9 BUN/Creatinine Ratio 23 (6-20) Glucose Level 82 mg/dL (70-99) Calcium Level 7.9 mg/dL (8.5-10.1) Total Bilirubin 0.2 mg/dL (0.2-1.0) Aspartate Amino Transf (AST/SGOT) 25 U/L (15-37) Alanine Aminotransferase (ALT/SGPT) 31 U/L (14-59) Alkaline Phosphatase 114 U/L (46-116) Total Protein 5.7 g/dL (6.4-8.2) Albumin 1.7 g/dL (3.4-5.0) Albumin/Globulin Ratio 0.4 (1.0-1.7) Assessment and Plan Assessmemt and Plan Problems Medical Problems: (1) Acute renal failure Status: Acute (2) Healthcare-associated pneumonia Status: Acute (3) Microcytic anemia Status: Acute (4) Severe protein-calorie malnutrition Status: Acute (5) Severe sepsis Status: Acute (6) Urinary tract infection Status: Acute Problems: Comment Review of Relevant I have reviewed the following items adam (where applicable) has been applied. Labs Laboratory Tests Test 12/14/16 03:35 12/15/16 06:05 White Blood Count 5.7 x10^3/uL (4.0-11.0) 7.6 x10^3/uL (4.0-11.0) Red Blood Count 2.50 x10^6/uL (3.50-5.40) 2.58 x10^6/uL (3.50-5.40) Hemoglobin 7.4 g/dL (12.0-15.5) 7.7 g/dL (12.0-15.5) Hematocrit 23.2 % (36.0-47.0) 23.6 % (36.0-47.0) Mean Corpuscular Volume 93 fL (79-100) 91 fL (79-100) Mean Corpuscular Hemoglobin 30 pg (25-35) 30 pg (25-35) Mean Corpuscular Hemoglobin Concent 32 g/dL (31-37) 33 g/dL (31-37) Red Cell Distribution Width 15.9 % (11.5-14.5) 16.4 % (11.5-14.5) Platelet Count 166 x10^3/uL (140-400) 167 x10^3/uL (140-400) Neutrophils (%) (Auto) 70 % (31-73) 77 % (31-73) Lymphocytes (%) (Auto) 19 % (24-48) 14 % (24-48) Monocytes (%) (Auto) 10 % (0-9) 8 % (0-9) Eosinophils (%) (Auto) 1 % (0-3) 1 % (0-3) Basophils (%) (Auto) 0 % (0-3) 0 % (0-3) Neutrophils # (Auto) 4.0 x10^3uL (1.8-7.7) 5.9 x10^3uL (1.8-7.7) Lymphocytes # (Auto) 1.1 x10^3/uL (1.0-4.8) 1.1 x10^3/uL (1.0-4.8) Monocytes # (Auto) 0.5 x10^3/uL (0.0-1.1) 0.6 x10^3/uL (0.0-1.1) Eosinophils # (Auto) 0.0 x10^3/uL (0.0-0.7) 0.1 x10^3/uL (0.0-0.7) Basophils # (Auto) 0.0 x10^3/uL (0.0-0.2) 0.0 x10^3/uL (0.0-0.2) Sodium Level 146 mmol/L (136-145) 140 mmol/L (136-145) Potassium Level 4.1 mmol/L (3.5-5.1) 4.1 mmol/L (3.5-5.1) Chloride Level 116 mmol/L (98-107) 112 mmol/L (98-107) Carbon Dioxide Level 22 mmol/L (21-32) 21 mmol/L (21-32) Anion Gap 8 (6-14) 7 (6-14) Blood Urea Nitrogen 19 mg/dL (7-20) 14 mg/dL (7-20) Creatinine 0.8 mg/dL (0.6-1.0) 0.6 mg/dL (0.6-1.0) Estimated GFR (Cockcroft-Gault) 69.6 96.9 BUN/Creatinine Ratio 24 (6-20) 23 (6-20) Glucose Level 88 mg/dL (70-99) 82 mg/dL (70-99) Calcium Level 7.4 mg/dL (8.5-10.1) 7.9 mg/dL (8.5-10.1) Magnesium Level 2.8 mg/dL (1.8-2.4) Total Bilirubin 0.2 mg/dL (0.2-1.0) 0.2 mg/dL (0.2-1.0) Aspartate Amino Transf (AST/SGOT) 30 U/L (15-37) 25 U/L (15-37) Alanine Aminotransferase (ALT/SGPT) 38 U/L (14-59) 31 U/L (14-59) Alkaline Phosphatase 127 U/L (46-116) 114 U/L (46-116) Total Protein 5.7 g/dL (6.4-8.2) 5.7 g/dL (6.4-8.2) Albumin 1.8 g/dL (3.4-5.0) 1.7 g/dL (3.4-5.0) Albumin/Globulin Ratio 0.5 (1.0-1.7) 0.4 (1.0-1.7) Laboratory Tests Test 12/15/16 06:05 White Blood Count 7.6 x10^3/uL (4.0-11.0) Red Blood Count 2.58 x10^6/uL (3.50-5.40) Hemoglobin 7.7 g/dL (12.0-15.5) Hematocrit 23.6 % (36.0-47.0) Mean Corpuscular Volume 91 fL (79-100) Mean Corpuscular Hemoglobin 30 pg (25-35) Mean Corpuscular Hemoglobin Concent 33 g/dL (31-37) Red Cell Distribution Width 16.4 % (11.5-14.5) Platelet Count 167 x10^3/uL (140-400) Neutrophils (%) (Auto) 77 % (31-73) Lymphocytes (%) (Auto) 14 % (24-48) Monocytes (%) (Auto) 8 % (0-9) Eosinophils (%) (Auto) 1 % (0-3) Basophils (%) (Auto) 0 % (0-3) Neutrophils # (Auto) 5.9 x10^3uL (1.8-7.7) Lymphocytes # (Auto) 1.1 x10^3/uL (1.0-4.8) Monocytes # (Auto) 0.6 x10^3/uL (0.0-1.1) Eosinophils # (Auto) 0.1 x10^3/uL (0.0-0.7) Basophils # (Auto) 0.0 x10^3/uL (0.0-0.2) Sodium Level 140 mmol/L (136-145) Potassium Level 4.1 mmol/L (3.5-5.1) Chloride Level 112 mmol/L (98-107) Carbon Dioxide Level 21 mmol/L (21-32) Anion Gap 7 (6-14) Blood Urea Nitrogen 14 mg/dL (7-20) Creatinine 0.6 mg/dL (0.6-1.0) Estimated GFR (Cockcroft-Gault) 96.9 BUN/Creatinine Ratio 23 (6-20) Glucose Level 82 mg/dL (70-99) Calcium Level 7.9 mg/dL (8.5-10.1) Total Bilirubin 0.2 mg/dL (0.2-1.0) Aspartate Amino Transf (AST/SGOT) 25 U/L (15-37) Alanine Aminotransferase (ALT/SGPT) 31 U/L (14-59) Alkaline Phosphatase 114 U/L (46-116) Total Protein 5.7 g/dL (6.4-8.2) Albumin 1.7 g/dL (3.4-5.0) Albumin/Globulin Ratio 0.4 (1.0-1.7) Microbiology 12/10/16 Blood Culture - Preliminary, Resulted NO GROWTH AFTER 4 DAYS 12/11/16 Urine Culture - Final, Complete 12/11/16 Urine Culture Result 1 (MISA) - Final, Complete Medications Current Medications Sodium Chloride 1,000 ml @ 1,120 mls/hr Q54M IV Last administered on 16:54; Start 12/10/16 at 16:00; Stop 12/10/16 at 17:00; Status DC Vancomycin HCl (Vanco Per Pharmacy) 1 each PRN DAILY PRN MC SEE COMMENTS Last administered on 12/12/16 21:51; Start 12/10/16 at 16:15; Stop 12/14/16 at 09:10; Status DC Piperacillin Sod/ Tazobactam Sod (Zosyn Per Pharmacy) 1 each PRN DAILY PRN MC SEE COMMENTS; Start 12/10/16 at 16:15 Levofloxacin/ Dextrose (Levaquin Per Pharmacy) 1 each PRN DAILY PRN MC SEE COMMENTS; Start 12/10/16 at 16:15; Stop 12/11/16 at 11:34; Status DC Levofloxacin/ Dextrose 150 ml @ 150 mls/hr ONCE ONCE IV Last administered on 12/10/16 16:16; Start 12/10/16 at 16:15; Stop 12/10/16 at 17:14; Status DC Vancomycin HCl 1.5 gm/Sodium Chloride 500 ml @ 250 mls/hr 1X ONCE IV Last administered on 12/10/16 18:38; Start 12/10/16 at 16:15; Stop 12/10/16 at 18:14 ; Status DC Piperacillin Sod/ Tazobactam Sod 4.5 gm/Sodium Chloride 100 ml @ 200 mls/hr ONCE ONCE IV Last administered on 12/10/16 17:37; Start 12/10/16 at 16:30; Stop 12/10/16 at 16:59; Status DC Sodium Chloride 1,000 ml @ 150 mls/hr 1X ONCE IV Last administered on 17:15; Start 12/10/16 at 16:15; Stop 12/10/16 at 22:54; Status DC Ondansetron HCl (Zofran) 4 mg PRN Q8HRS PRN IV NAUSEA/VOMITING; Start 12/10/16 at 16:45; Stop 12/11/16 at 16:44; Status DC Sodium Chloride 1,000 ml @ 150 mls/hr Q6H40M IV Last administered on 16:35; Start 12/10/16 at 16:35; Stop 12/11/16 at 16:34; Status DC Acetaminophen (Tylenol) 650 mg PRN Q4HRS PRN PO FEVER; Start 12/10/16 at 16:45 ; Stop 12/11/16 at 16:44; Status DC Albuterol/ Ipratropium (Duoneb) 3 ml RTQID NEB ; Start 12/10/16 at 20:00; Stop 12/10/16 at 20:00; Status DC Acetaminophen (Tylenol) 650 mg PRN Q6HRS PRN PO FEVER; Start 12/10/16 at 17:15 Ondansetron HCl (Zofran) 4 mg PRN Q6HRS PRN IV NAUSEA/VOMITING; Start 12/10/16 at 17:15 Morphine Sulfate 2 mg PRN Q2HR PRN IV PAIN; Start 12/10/16 at 17:15; Stop at 12:18; Status DC Tramadol HCl (Ultram) 50 mg PRN Q6HRS PRN PO PAIN; Start 12/10/16 at 17:15 Hydralazine HCl (Apresoline) 10 mg PRN Q4HRS PRN IVP ELEVATED BP, SEE COMMENTS ; Start 12/10/16 at 17:15 Docusate Sodium (Colace) 100 mg PRN DAILY PRN PO CONSTIPATION; Start 12/10/16 at 17:15 Dextrose/Sodium Chloride 1,000 ml @ 75 mls/hr [id number] IV Last administered on 12/11/16 23:05; Start 12/10/16 at 17:15; Stop 12/12/16 at 13:46; Status DC Heparin Sodium (Porcine) (Heparin Sq) 5,000 unit Q8HRS SQ Last administered on 12/11/16 06:17; Start 12/10/16 at 22:00; Stop 12/11/16 at 17:53; Status DC Albuterol/ Ipratropium (Duoneb) 3 ml RTQID NEB Last administered on 12/14/16 19 :17; Start 12/10/16 at 20:00 Albuterol Sulfate (Ventolin Neb Soln) 2.5 mg PRN Q2HR PRN NEB SHORTNESS OF BREATH; Start 12/10/16 at 17:15 Levofloxacin/ Dextrose 150 ml @ 100 mls/hr Q48H IV ; Start 12/11/16 at 16:00; Stop 12/11/16 at 16:00; Status DC Piperacillin Sod/ Tazobactam Sod 3.375 gm/Sodium Chloride 50 ml @ 100 mls/hr Q6HRS IV Last administered on 12/15/16 05:56; Start 12/11/16 at 00:00 Vancomycin HCl 1 gm/Sodium Chloride 250 ml @ 250 mls/hr Q24H IV Last administered on 12/13/16 20:06; Start 12/11/16 at 18:30; Stop 12/14/16 at 09:06; Status DC Vancomycin HCl 1 each 1X ONCE MC Last administered on 12/12/16 18:00; Start at 18:00; Stop 12/12/16 at 18:01; Status DC Norepinephrine Bitartrate 250 ml @ 0 mls/hr CONT PRN IV SEE I/O RECORD Last administered on 12/11/16 08:53; Start 12/10/16 at 18:45; Stop 12/14/16 at 13:18; Status DC Sodium Chloride 1,000 ml @ 1,000 mls/hr 1X ONCE IV Last administered on 20:41; Start 12/10/16 at 19:30; Stop 12/10/16 at 20:29; Status DC Sodium Chloride 1,000 ml @ 999 mls/hr 1X ONCE IV Last administered on 12:04; Start 12/11/16 at 10:00; Stop 12/11/16 at 11:00; Status DC Sodium Chloride 1,000 ml @ 999 mls/hr 1X ONCE IV Last administered on 12:03; Start 12/11/16 at 10:00; Stop 12/11/16 at 11:00; Status DC Mineral Oil (Fleet Mineral Oil) 133 ml 1X ONCE AR Last administered on 11:00; Start 12/11/16 at 11:00; Stop 12/11/16 at 11:02; Status DC Acetaminophen (Tylenol) 650 mg PRN Q6HRS PRN PEG MILD PAIN / TEMP Last administered on 12/13/16 17:19; Start 12/11/16 at 12:45 Olanzapine (ZyPREXA) 15 mg QHS PO Last administered on 12/14/16 21:26; Start at 21:00 Polyethylene Glycol (miraLAX PACKET) 17 gm DAILY PO Last administered on 08:56; Start 12/11/16 at 12:30 Levothyroxine Sodium 100 mcg/ Sodium Chloride 5 ml @ 125 mls/hr DAILY IVP Last administered on 12/14/16 09:20; Start 12/12/16 at 09:00; Stop 12/14/16 at 14:11; Status DC Famotidine (Pepcid) 20 mg QHS IVP Last administered on 12/13/16 21:16; Start at 21:00; Stop 12/14/16 at 14:11; Status DC Nystatin (Mycostatin) 1 nhi BID TP Last administered on 12/14/16 21:30; Start 12/12/16 at 10:00 Lorazepam (Ativan) 0.5 mg PRN Q8HRS PRN PEG ANXIETY / AGITATION Last administered on 12/14/16 02:48; Start 12/12/16 at 13:45 Diphenhydramine HCl (Benadryl Oral Elixir) 25 mg PRN QHS PRN PO sleep Last administered on 12/14/16 21:26; Start 12/12/16 at 13:45 Multivitamins (Thera-Plus) 5 ml DAILY PEG Last administered on 12/14/16 09:20; Start 12/13/16 at 09:00 Ascorbic Acid (Vitamin C) 500 mg DAILY PEG Last administered on 12/14/16 09:20 ; Start 12/13/16 at 09:00 Levothyroxine Sodium (Synthroid) 125 mcg DAILY07 PEG ; Start 12/15/16 at 07:00 Famotidine (Pepcid) 20 mg QHS PEG Last administered on 12/14/16 21:26; Start at 21:00 Amino Acids/ Glycerin/ Electrolytes 1,000 ml @ 60 mls/hr [id number] IV Last administered on 12/15/16 01:12; Start 12/15/16 at 00:00 Active Scripts Active Reported Bactrim Ds Tablet (Sulfamethoxazole/Trimethoprim) 1 Each Tablet 1 Each PEG BID Vitamin C (Ascorbic Acid) 500 Mg/5 Ml Syrup 500 Mg PEG DAILY Vitamin D (Cholecalciferol (Vitamin D3)) 1,000 Unit Capsule 1 Cap PO DAILY Benadryl (Diphenhydramine Hcl) 25 Mg Capsule 25 Mg PO HS Lorazepam 0.5 Mg Tablet 0.5 Mg PO HS Acetaminophen 160 Mg/5 Ml Solution 5 Ml PO Q4HRS Aspir 81 (Aspirin) 81 Mg Tablet.dr 1 Tab PO DAILY Potassium Chloride 20 Meq Tablet.er 20 Meq PO DAILY Amiodarone Hcl 400 Mg Tablet 400 Mg PO BID Lasix (Furosemide) 40 Mg Tablet 40 Mg PO BID Pepcid (Famotidine) 20 Mg Tablet 20 Mg PO BID Levothyroxine Sodium 125 Mcg Tablet 1 Tab PO DAILY Zyprexa (Olanzapine) 15 Mg Tablet 1 Tab PO QHS Lisinopril 10 Mg Tablet 1 Tab PO DAILY Vitals/I & O Vital Sign - Last 24 Hours 12/14/16 12/14/16 12/14/16 12/14/16 07:51 08:06 10:41 11:38 Temp 97.9 97.9 Pulse 67 Resp 22 B/P (MAP) 128/58 (81) Pulse Ox 95 94 96 O2 Delivery Room Air Room Air Room Air Room Air 12/14/16 12/14/16 12/14/16 12/14/16 12:08 15:01 15:46 19:18 Temp 98.5 98.5 Pulse 78 Resp 20 B/P (MAP) 136/68 (90) Pulse Ox 97 97 O2 Delivery Room Air Room Air Room Air Room Air 12/14/16 12/14/16 12/14/16 12/15/16 19:55 20:00 23:55 03:30 Temp 97.9 98.8 97.9 97.9 98.8 97.9 Pulse 68 68 75 Resp 20 20 20 B/P (MAP) 132/60 (84) 135/65 (88) 155/75 (101) Pulse Ox 96 94 97 O2 Delivery Room Air Room Air Room Air Room Air Intake and Output 12/14/16 12/14/16 12/15/16 15:00 23:00 07:00 Intake Total 200 ml 0 ml Output Total 950 ml 950 ml Balance -750 ml -950 ml Nutrition Consultation Dietary Evaluation: Recommendations by RD: Increase Calorie Intake, Protein supplementation Comments: Rec. continue with Fibersource HN, goal rate 75 ml/hr start at 25 ml/hr, increase by 25 ml/hr q8h to goal flushes 150 cc q6h Expected Outcomes/Goals: tolerate the TF's at goal rate- met, goal ongoing Interpretation of weight loss: >10% in 6 months Malnutrition Findings: Body Fat Depletion (Non Severe: Mild Depletion Reduced Manager Card Strength: N/A Malnutrition related to morbid: No Weight Status: Appropriate Fluid Accumulation (N/A): N/A JOSIAH CARDENAS MD Dec 15, 2016 07:28
[2016-12-15 08:00] VITALS: BP 141/77
[2016-12-15] MEDS: IPRATRPIUM/ALBUTEROL 0.5/2.5MG 3 ML NEBU. NEB SCH ×4 (08:14→20:02)
--- NOTE | 2016-12-15 08:14 | RAD ---
Portable chest, 12/14/2016: History: Follow-up pneumonia, low-grade fever Comparison is made to a study from 12/10/2016. A left subclavian central venous catheter remains in place extending into the superior aspect of the right atrium. The heart size is unchanged. The pulmonary vascularity is prominent. There are mild patchy infiltrates in both lungs. Some of these opacities are new. The right middle lobe infiltrate has partially cleared. There is now blunting of the right lateral costophrenic angle compatible with a small amount of pleural fluid. IMPRESSION: 1. Right middle lobe consolidation has improved slightly. 2. There are other new mild patchy pulmonary infiltrates suggesting pneumonia or pulmonary edema. 3. Small right pleural effusion.
[2016-12-15] MEDS: MULTIVITAMINS,THERAPEUTIC 5 ML ORAL LIQUID. PEG SCH (08:35)
[2016-12-15] MEDS: LEVOTHYROXINE 125 MCG TABLET PEG SCH (08:35)
[2016-12-15] MEDS: POLYETHYLENE GLYCOL 3350 17 GM PACKET. PO SCH (08:36)
[2016-12-15] MEDS: ASCORBIC ACID 500 MG TABLET PEG SCH (08:36)
[2016-12-15] MEDS: NYSTATIN 100,000 UNIT/GM TOPICAL OINTMENT 15GM TUBE. TP SCH ×2 (09:00→20:56)
--- NOTE | 2016-12-15 10:29 | PDOC ---
PROGRESS NOTES Assessment Problems Medical Problems: (1) Acute renal failure Status: Acute (2) Healthcare-associated pneumonia Status: Acute (3) Microcytic anemia Status: Acute (4) Severe protein-calorie malnutrition Status: Acute (5) Severe sepsis Status: Acute (6) Urinary tract infection Status: Acute Metabolic encephalopathy due to sepsis, pneumonia, urinary tract infection, renal failure. Better today Baseline general debility and apparently some cognitive impairment following electroconvulsive therapy treatment Plan Holding off on further neurology studies; she never did have brain imaging studies at admission Objective Vital Signs Date Time Temp Pulse Resp B/P (MAP) Pulse Ox O2 Delivery O2 Flow Rate FiO2 12/15/16 08:17 95 Room Air 12/15/16 08:00 99.0 75 16 141/77 (98) 99.0 Intake and Output 12/15/16 07:00 Intake Total 200 ml Output Total 1900 ml Balance -1700 ml Intake Oral 0 ml Tube Feeding 200 ml Output Urine Total 1900 ml Gastric Drainage Total 0 ml # Bowel Movements 1 PHYSICAL EXAM Alert, follows commands, answers questions, does not know date or location. PERRL. EOMI. CN: no focal findings. Muscle tone: normal. Muscle strength: 3/5 DTR: 0+ Plantar reflex: flexor Gait: not examined in bed. Sensory exam: normal Cerebellar: no dysmetria. Review of Relevant I have reviewed the following items adam (where applicable) has been applied. Labs Laboratory Tests Test 12/14/16 03:35 12/15/16 06:05 White Blood Count 5.7 x10^3/uL (4.0-11.0) 7.6 x10^3/uL (4.0-11.0) Red Blood Count 2.50 x10^6/uL (3.50-5.40) 2.58 x10^6/uL (3.50-5.40) Hemoglobin 7.4 g/dL (12.0-15.5) 7.7 g/dL (12.0-15.5) Hematocrit 23.2 % (36.0-47.0) 23.6 % (36.0-47.0) Mean Corpuscular Volume 93 fL (79-100) 91 fL (79-100) Mean Corpuscular Hemoglobin 30 pg (25-35) 30 pg (25-35) Mean Corpuscular Hemoglobin Concent 32 g/dL (31-37) 33 g/dL (31-37) Red Cell Distribution Width 15.9 % (11.5-14.5) 16.4 % (11.5-14.5) Platelet Count 166 x10^3/uL (140-400) 167 x10^3/uL (140-400) Neutrophils (%) (Auto) 70 % (31-73) 77 % (31-73) Lymphocytes (%) (Auto) 19 % (24-48) 14 % (24-48) Monocytes (%) (Auto) 10 % (0-9) 8 % (0-9) Eosinophils (%) (Auto) 1 % (0-3) 1 % (0-3) Basophils (%) (Auto) 0 % (0-3) 0 % (0-3) Neutrophils # (Auto) 4.0 x10^3uL (1.8-7.7) 5.9 x10^3uL (1.8-7.7) Lymphocytes # (Auto) 1.1 x10^3/uL (1.0-4.8) 1.1 x10^3/uL (1.0-4.8) Monocytes # (Auto) 0.5 x10^3/uL (0.0-1.1) 0.6 x10^3/uL (0.0-1.1) Eosinophils # (Auto) 0.0 x10^3/uL (0.0-0.7) 0.1 x10^3/uL (0.0-0.7) Basophils # (Auto) 0.0 x10^3/uL (0.0-0.2) 0.0 x10^3/uL (0.0-0.2) Sodium Level 146 mmol/L (136-145) 140 mmol/L (136-145) Potassium Level 4.1 mmol/L (3.5-5.1) 4.1 mmol/L (3.5-5.1) Chloride Level 116 mmol/L (98-107) 112 mmol/L (98-107) Carbon Dioxide Level 22 mmol/L (21-32) 21 mmol/L (21-32) Anion Gap 8 (6-14) 7 (6-14) Blood Urea Nitrogen 19 mg/dL (7-20) 14 mg/dL (7-20) Creatinine 0.8 mg/dL (0.6-1.0) 0.6 mg/dL (0.6-1.0) Estimated GFR (Cockcroft-Gault) 69.6 96.9 BUN/Creatinine Ratio 24 (6-20) 23 (6-20) Glucose Level 88 mg/dL (70-99) 82 mg/dL (70-99) Calcium Level 7.4 mg/dL (8.5-10.1) 7.9 mg/dL (8.5-10.1) Magnesium Level 2.8 mg/dL (1.8-2.4) Total Bilirubin 0.2 mg/dL (0.2-1.0) 0.2 mg/dL (0.2-1.0) Aspartate Amino Transf (AST/SGOT) 30 U/L (15-37) 25 U/L (15-37) Alanine Aminotransferase (ALT/SGPT) 38 U/L (14-59) 31 U/L (14-59) Alkaline Phosphatase 127 U/L (46-116) 114 U/L (46-116) Total Protein 5.7 g/dL (6.4-8.2) 5.7 g/dL (6.4-8.2) Albumin 1.8 g/dL (3.4-5.0) 1.7 g/dL (3.4-5.0) Albumin/Globulin Ratio 0.5 (1.0-1.7) 0.4 (1.0-1.7) Laboratory Tests Test 12/15/16 06:05 White Blood Count 7.6 x10^3/uL (4.0-11.0) Red Blood Count 2.58 x10^6/uL (3.50-5.40) Hemoglobin 7.7 g/dL (12.0-15.5) Hematocrit 23.6 % (36.0-47.0) Mean Corpuscular Volume 91 fL (79-100) Mean Corpuscular Hemoglobin 30 pg (25-35) Mean Corpuscular Hemoglobin Concent 33 g/dL (31-37) Red Cell Distribution Width 16.4 % (11.5-14.5) Platelet Count 167 x10^3/uL (140-400) Neutrophils (%) (Auto) 77 % (31-73) Lymphocytes (%) (Auto) 14 % (24-48) Monocytes (%) (Auto) 8 % (0-9) Eosinophils (%) (Auto) 1 % (0-3) Basophils (%) (Auto) 0 % (0-3) Neutrophils # (Auto) 5.9 x10^3uL (1.8-7.7) Lymphocytes # (Auto) 1.1 x10^3/uL (1.0-4.8) Monocytes # (Auto) 0.6 x10^3/uL (0.0-1.1) Eosinophils # (Auto) 0.1 x10^3/uL (0.0-0.7) Basophils # (Auto) 0.0 x10^3/uL (0.0-0.2) Sodium Level 140 mmol/L (136-145) Potassium Level 4.1 mmol/L (3.5-5.1) Chloride Level 112 mmol/L (98-107) Carbon Dioxide Level 21 mmol/L (21-32) Anion Gap 7 (6-14) Blood Urea Nitrogen 14 mg/dL (7-20) Creatinine 0.6 mg/dL (0.6-1.0) Estimated GFR (Cockcroft-Gault) 96.9 BUN/Creatinine Ratio 23 (6-20) Glucose Level 82 mg/dL (70-99) Calcium Level 7.9 mg/dL (8.5-10.1) Total Bilirubin 0.2 mg/dL (0.2-1.0) Aspartate Amino Transf (AST/SGOT) 25 U/L (15-37) Alanine Aminotransferase (ALT/SGPT) 31 U/L (14-59) Alkaline Phosphatase 114 U/L (46-116) Total Protein 5.7 g/dL (6.4-8.2) Albumin 1.7 g/dL (3.4-5.0) Albumin/Globulin Ratio 0.4 (1.0-1.7) Microbiology 12/10/16 Blood Culture - Preliminary, Resulted NO GROWTH AFTER 4 DAYS 12/11/16 Urine Culture - Final, Complete 12/11/16 Urine Culture Result 1 (MISA) - Final, Complete Medications Current Medications Sodium Chloride 1,000 ml @ 1,120 mls/hr Q54M IV Last administered on 16:54; Start 12/10/16 at 16:00; Stop 12/10/16 at 17:00; Status DC Vancomycin HCl (Vanco Per Pharmacy) 1 each PRN DAILY PRN MC SEE COMMENTS Last administered on 12/12/16 21:51; Start 12/10/16 at 16:15; Stop 12/14/16 at 09:10; Status DC Piperacillin Sod/ Tazobactam Sod (Zosyn Per Pharmacy) 1 each PRN DAILY PRN MC SEE COMMENTS; Start 12/10/16 at 16:15 Levofloxacin/ Dextrose (Levaquin Per Pharmacy) 1 each PRN DAILY PRN MC SEE COMMENTS; Start 12/10/16 at 16:15; Stop 12/11/16 at 11:34; Status DC Levofloxacin/ Dextrose 150 ml @ 150 mls/hr ONCE ONCE IV Last administered on 12/10/16 16:16; Start 12/10/16 at 16:15; Stop 12/10/16 at 17:14; Status DC Vancomycin HCl 1.5 gm/Sodium Chloride 500 ml @ 250 mls/hr 1X ONCE IV Last administered on 12/10/16 18:38; Start 12/10/16 at 16:15; Stop 12/10/16 at 18:14 ; Status DC Piperacillin Sod/ Tazobactam Sod 4.5 gm/Sodium Chloride 100 ml @ 200 mls/hr ONCE ONCE IV Last administered on 12/10/16 17:37; Start 12/10/16 at 16:30; Stop 12/10/16 at 16:59; Status DC Sodium Chloride 1,000 ml @ 150 mls/hr 1X ONCE IV Last administered on 17:15; Start 12/10/16 at 16:15; Stop 12/10/16 at 22:54; Status DC Ondansetron HCl (Zofran) 4 mg PRN Q8HRS PRN IV NAUSEA/VOMITING; Start 12/10/16 at 16:45; Stop 12/11/16 at 16:44; Status DC Sodium Chloride 1,000 ml @ 150 mls/hr Q6H40M IV Last administered on 16:35; Start 12/10/16 at 16:35; Stop 12/11/16 at 16:34; Status DC Acetaminophen (Tylenol) 650 mg PRN Q4HRS PRN PO FEVER; Start 12/10/16 at 16:45 ; Stop 12/11/16 at 16:44; Status DC Albuterol/ Ipratropium (Duoneb) 3 ml RTQID NEB ; Start 12/10/16 at 20:00; Stop 12/10/16 at 20:00; Status DC Acetaminophen (Tylenol) 650 mg PRN Q6HRS PRN PO FEVER; Start 12/10/16 at 17:15 Ondansetron HCl (Zofran) 4 mg PRN Q6HRS PRN IV NAUSEA/VOMITING; Start 12/10/16 at 17:15 Morphine Sulfate 2 mg PRN Q2HR PRN IV PAIN; Start 12/10/16 at 17:15; Stop at 12:18; Status DC Tramadol HCl (Ultram) 50 mg PRN Q6HRS PRN PO PAIN; Start 12/10/16 at 17:15 Hydralazine HCl (Apresoline) 10 mg PRN Q4HRS PRN IVP ELEVATED BP, SEE COMMENTS ; Start 12/10/16 at 17:15 Docusate Sodium (Colace) 100 mg PRN DAILY PRN PO CONSTIPATION; Start 12/10/16 at 17:15 Dextrose/Sodium Chloride 1,000 ml @ 75 mls/hr [id number] IV Last administered on 12/11/16 23:05; Start 12/10/16 at 17:15; Stop 12/12/16 at 13:46; Status DC Heparin Sodium (Porcine) (Heparin Sq) 5,000 unit Q8HRS SQ Last administered on 12/11/16 06:17; Start 12/10/16 at 22:00; Stop 12/11/16 at 17:53; Status DC Albuterol/ Ipratropium (Duoneb) 3 ml RTQID NEB Last administered on 12/15/16 08 :14; Start 12/10/16 at 20:00 Albuterol Sulfate (Ventolin Neb Soln) 2.5 mg PRN Q2HR PRN NEB SHORTNESS OF BREATH; Start 12/10/16 at 17:15 Levofloxacin/ Dextrose 150 ml @ 100 mls/hr Q48H IV ; Start 12/11/16 at 16:00; Stop 12/11/16 at 16:00; Status DC Piperacillin Sod/ Tazobactam Sod 3.375 gm/Sodium Chloride 50 ml @ 100 mls/hr Q6HRS IV Last administered on 12/15/16 05:56; Start 12/11/16 at 00:00 Vancomycin HCl 1 gm/Sodium Chloride 250 ml @ 250 mls/hr Q24H IV Last administered on 12/13/16 20:06; Start 12/11/16 at 18:30; Stop 12/14/16 at 09:06; Status DC Vancomycin HCl 1 each 1X ONCE MC Last administered on 12/12/16 18:00; Start at 18:00; Stop 12/12/16 at 18:01; Status DC Norepinephrine Bitartrate 250 ml @ 0 mls/hr CONT PRN IV SEE I/O RECORD Last administered on 12/11/16 08:53; Start 12/10/16 at 18:45; Stop 12/14/16 at 13:18; Status DC Sodium Chloride 1,000 ml @ 1,000 mls/hr 1X ONCE IV Last administered on 20:41; Start 12/10/16 at 19:30; Stop 12/10/16 at 20:29; Status DC Sodium Chloride 1,000 ml @ 999 mls/hr 1X ONCE IV Last administered on 12:04; Start 12/11/16 at 10:00; Stop 12/11/16 at 11:00; Status DC Sodium Chloride 1,000 ml @ 999 mls/hr 1X ONCE IV Last administered on 12:03; Start 12/11/16 at 10:00; Stop 12/11/16 at 11:00; Status DC Mineral Oil (Fleet Mineral Oil) 133 ml 1X ONCE LA Last administered on 11:00; Start 12/11/16 at 11:00; Stop 12/11/16 at 11:02; Status DC Acetaminophen (Tylenol) 650 mg PRN Q6HRS PRN PEG MILD PAIN / TEMP Last administered on 12/13/16 17:19; Start 12/11/16 at 12:45 Olanzapine (ZyPREXA) 15 mg QHS PO Last administered on 12/14/16 21:26; Start at 21:00 Polyethylene Glycol (miraLAX PACKET) 17 gm DAILY PO Last administered on 08:36; Start 12/11/16 at 12:30 Levothyroxine Sodium 100 mcg/ Sodium Chloride 5 ml @ 125 mls/hr DAILY IVP Last administered on 12/14/16 09:20; Start 12/12/16 at 09:00; Stop 12/14/16 at 14:11; Status DC Famotidine (Pepcid) 20 mg QHS IVP Last administered on 12/13/16 21:16; Start at 21:00; Stop 12/14/16 at 14:11; Status DC Nystatin (Mycostatin) 1 nhi BID TP Last administered on 12/14/16 21:30; Start 12/12/16 at 10:00 Lorazepam (Ativan) 0.5 mg PRN Q8HRS PRN PEG ANXIETY / AGITATION Last administered on 12/14/16 02:48; Start 12/12/16 at 13:45 Diphenhydramine HCl (Benadryl Oral Elixir) 25 mg PRN QHS PRN PO sleep Last administered on 12/14/16 21:26; Start 12/12/16 at 13:45 Multivitamins (Thera-Plus) 5 ml DAILY PEG Last administered on 12/15/16 08:35; Start 12/13/16 at 09:00 Ascorbic Acid (Vitamin C) 500 mg DAILY PEG Last administered on 12/15/16 08:36 ; Start 12/13/16 at 09:00 Levothyroxine Sodium (Synthroid) 125 mcg DAILY07 PEG Last administered on 08:35; Start 12/15/16 at 07:00 Famotidine (Pepcid) 20 mg QHS PEG Last administered on 12/14/16 21:26; Start at 21:00 Amino Acids/ Glycerin/ Electrolytes 1,000 ml @ 60 mls/hr [id number] IV Last administered on 12/15/16 01:12; Start 12/15/16 at 00:00 Active Scripts Active Reported Bactrim Ds Tablet (Sulfamethoxazole/Trimethoprim) 1 Each Tablet 1 Each PEG BID Vitamin C (Ascorbic Acid) 500 Mg/5 Ml Syrup 500 Mg PEG DAILY Vitamin D (Cholecalciferol (Vitamin D3)) 1,000 Unit Capsule 1 Cap PO DAILY Benadryl (Diphenhydramine Hcl) 25 Mg Capsule 25 Mg PO HS Lorazepam 0.5 Mg Tablet 0.5 Mg PO HS Acetaminophen 160 Mg/5 Ml Solution 5 Ml PO Q4HRS Aspir 81 (Aspirin) 81 Mg Tablet.dr 1 Tab PO DAILY Potassium Chloride 20 Meq Tablet.er 20 Meq PO DAILY Amiodarone Hcl 400 Mg Tablet 400 Mg PO BID Lasix (Furosemide) 40 Mg Tablet 40 Mg PO BID Pepcid (Famotidine) 20 Mg Tablet 20 Mg PO BID Levothyroxine Sodium 125 Mcg Tablet 1 Tab PO DAILY Zyprexa (Olanzapine) 15 Mg Tablet 1 Tab PO QHS Lisinopril 10 Mg Tablet 1 Tab PO DAILY Vitals/I & O Vital Sign - Last 24 Hours 12/14/16 12/14/16 12/14/16 12/14/16 10:41 11:38 12:08 15:01 Temp 97.9 97.9 Pulse 67 Resp 22 B/P (MAP) 128/58 (81) Pulse Ox 94 96 97 O2 Delivery Room Air Room Air Room Air Room Air 12/14/16 12/14/16 12/14/16 12/14/16 15:46 19:18 19:55 20:00 Temp 98.5 97.9 98.5 97.9 Pulse 78 68 Resp 20 20 B/P (MAP) 136/68 (90) 132/60 (84) Pulse Ox 97 96 O2 Delivery Room Air Room Air Room Air Room Air 12/14/16 12/15/16 12/15/16 12/15/16 23:55 03:30 08:00 08:17 Temp 98.8 97.9 99.0 98.8 97.9 99.0 Pulse 68 75 75 Resp 20 20 16 B/P (MAP) 135/65 (88) 155/75 (101) 141/77 (98) Pulse Ox 94 97 99 95 O2 Delivery Room Air Room Air Room Air Room Air Intake and Output 12/14/16 12/14/16 12/15/16 15:00 23:00 07:00 Intake Total 200 ml 0 ml Output Total 950 ml 950 ml Balance -750 ml -950 ml JESUS CAMARENA MD Dec 15, 2016 10:29
--- NOTE | 2016-12-15 10:53 | PDOC ---
Infectious Disease Note Subjective Subjective awake, says better, ROS ROS no n/v/d/pain Vital Sign Vital Signs Vital Signs Date Time Temp Pulse Resp B/P (MAP) Pulse Ox O2 Delivery O2 Flow Rate FiO2 12/15/16 08:17 95 Room Air 12/15/16 08:00 99.0 75 16 141/77 (98) 99.0 Physical Exam PHYSICAL EXAM GENERAL: NAD, Alert HEENT: PERRL, OC/OP NECK: Supple, no JVD, no LN LUNGS: Clear HEART: S1S2, no gallop, no murmur ABD: Soft, NT, no organomegaly, no rebound EXT: No edema, no cyanosis [employer]: Alert, unable to sit or walk SKIN: No rash,, sacral decub IV: ok Labs Lab Laboratory Tests Test 12/15/16 06:05 White Blood Count 7.6 x10^3/uL (4.0-11.0) Red Blood Count 2.58 x10^6/uL (3.50-5.40) Hemoglobin 7.7 g/dL (12.0-15.5) Hematocrit 23.6 % (36.0-47.0) Mean Corpuscular Volume 91 fL (79-100) Mean Corpuscular Hemoglobin 30 pg (25-35) Mean Corpuscular Hemoglobin Concent 33 g/dL (31-37) Red Cell Distribution Width 16.4 % (11.5-14.5) Platelet Count 167 x10^3/uL (140-400) Neutrophils (%) (Auto) 77 % (31-73) Lymphocytes (%) (Auto) 14 % (24-48) Monocytes (%) (Auto) 8 % (0-9) Eosinophils (%) (Auto) 1 % (0-3) Basophils (%) (Auto) 0 % (0-3) Neutrophils # (Auto) 5.9 x10^3uL (1.8-7.7) Lymphocytes # (Auto) 1.1 x10^3/uL (1.0-4.8) Monocytes # (Auto) 0.6 x10^3/uL (0.0-1.1) Eosinophils # (Auto) 0.1 x10^3/uL (0.0-0.7) Basophils # (Auto) 0.0 x10^3/uL (0.0-0.2) Sodium Level 140 mmol/L (136-145) Potassium Level 4.1 mmol/L (3.5-5.1) Chloride Level 112 mmol/L (98-107) Carbon Dioxide Level 21 mmol/L (21-32) Anion Gap 7 (6-14) Blood Urea Nitrogen 14 mg/dL (7-20) Creatinine 0.6 mg/dL (0.6-1.0) Estimated GFR (Cockcroft-Gault) 96.9 BUN/Creatinine Ratio 23 (6-20) Glucose Level 82 mg/dL (70-99) Calcium Level 7.9 mg/dL (8.5-10.1) Total Bilirubin 0.2 mg/dL (0.2-1.0) Aspartate Amino Transf (AST/SGOT) 25 U/L (15-37) Alanine Aminotransferase (ALT/SGPT) 31 U/L (14-59) Alkaline Phosphatase 114 U/L (46-116) Total Protein 5.7 g/dL (6.4-8.2) Albumin 1.7 g/dL (3.4-5.0) Albumin/Globulin Ratio 0.4 (1.0-1.7) Objective Assessment Septic shock, POA, 12/10 off pressors. Reportedly GPC in 1 of 4 bottles, id pending,,, strep viridans , contaminant CAUTI, POA 12/10. 2 nondominant org. Repeat UC pending. - per daughter, had been on Bactrim for UTI couple days prior to admit. ? Acinetobacter Lactic acidosis HCAP A-fib, amiodarone, currently off Debility MRSA, nares positive Sacral pressure wound, POA Plan Plan of Care po augmentin Monitor lab values f/u cultures Supportive care d/c to home or NH soon d/w RYANN JOSHUA MD Dec 15, 2016 10:53
[2016-12-15 11:00] VITALS: BP 139/67
--- NOTE | 2016-12-15 11:35 | PDOC ---
SUBJECTIVE ROS F/up JULIETA and e-lytes OBJECTIVE Vital Signs Vital Signs Date Time Temp Pulse Resp B/P (MAP) Pulse Ox O2 Delivery O2 Flow Rate FiO2 12/15/16 11:16 94 Room Air 12/15/16 11:00 100.8 77 20 139/67 (91) 100.8 I & 0 Intake and Output 12/15/16 06:59 Intake Total 200 ml Output Total 1900 ml Balance -1700 ml Intake Oral 0 ml Tube Feeding 200 ml Output Urine Total 1900 ml Gastric Drainage Total 0 ml # Bowel Movements 1 PHYSICAL EXAM Physical Exam General Appearance: barely Awake: Alert Oriented x 0 Neck: No JVD or JVP Chest: CTA Rocky - coarse upper resp tract Rhonchi Heart: S1 S2 Abdomen - Soft NTND Extremities - No Edema DIAGNOSIS/ASSESSMENT Assessment & Plan JULIETA -resolved ^Na - Resolved, ct PPN for this liter and then watch on TF + Free water as ordered Will be available prn Problems: COMMENT/RELEVANT DATA Meds Current Medications Medications (Trade) Dose Ordered Sig/Mercedes Start Time Stop Time Status Last Admin Dose Admin Acetaminophen (Tylenol) 650 mg PRN Q6HRS PRN 12/11/16 12:45 12/13/16 17:19 650 MG Albuterol Sulfate (Ventolin Neb Soln) 2.5 mg PRN Q2HR PRN 12/10/16 17:15 Albuterol/ Ipratropium (Duoneb) 3 ml RTQID 12/10/16 20:00 12/15/16 11:12 3 ML Amino Acids/ Glycerin/ Electrolytes 1,000 ml @ 60 mls/hr [id number] 12/15/16 00:00 12/15/16 01:12 60 MLS/HR Ascorbic Acid (Vitamin C) 500 mg DAILY 12/13/16 09:00 12/15/16 08:36 500 MG Dextrose/Sodium Chloride 1,000 ml @ 75 mls/hr [id number] 12/10/16 17:15 12/12/16 13:46 DC 12/11/16 23:05 75 MLS/HR Diphenhydramine HCl (Benadryl Oral Elixir) 25 mg PRN QHS PRN 12/12/16 13:45 12/14/16 21:26 25 MG Docusate Sodium (Colace) 100 mg PRN DAILY PRN 12/10/16 17:15 Famotidine (Pepcid) 20 mg QHS 12/14/16 21:00 12/14/16 21:26 20 MG Heparin Sodium (Porcine) (Heparin Sq) 5,000 unit Q8HRS 12/10/16 22:00 12/11/16 17:53 DC 12/11/16 06:17 5,000 UNIT Hydralazine HCl (Apresoline) 10 mg PRN Q4HRS PRN 12/10/16 17:15 Levofloxacin/ Dextrose 150 ml @ 100 mls/hr Q48H 12/11/16 16:00 12/11/16 16:00 DC Levofloxacin/ Dextrose (Levaquin Per Pharmacy) 1 each PRN DAILY PRN 12/10/16 16:15 12/11/16 11:34 DC Levothyroxine Sodium (Synthroid) 125 mcg DAILY07 12/15/16 07:00 12/15/16 08:35 125 MCG Levothyroxine Sodium 100 mcg/ Sodium Chloride 5 ml @ 125 mls/hr DAILY 12/12/16 09:00 12/14/16 14:11 DC 12/14/16 09:20 125 MLS/HR Lorazepam (Ativan) 0.5 mg PRN Q8HRS PRN 12/12/16 13:45 12/14/16 02:48 0.5 MG Mineral Oil (Fleet Mineral Oil) 133 ml 1X ONCE 12/11/16 11:00 12/11/16 11:02 DC 12/11/16 11:00 133 ML Morphine Sulfate 2 mg PRN Q2HR PRN 12/10/16 17:15 12/11/16 12:18 DC Multivitamins (Thera-Plus) 5 ml DAILY 12/13/16 09:00 12/15/16 08:35 5 ML Norepinephrine Bitartrate 250 ml @ 0 mls/hr CONT PRN 12/10/16 18:45 12/14/16 13:18 DC 12/11/16 08:53 9.375 MLS/HR Nystatin (Mycostatin) 1 nhi BID 12/12/16 10:00 12/14/16 21:30 1 NHI Olanzapine (ZyPREXA) 15 mg QHS 12/11/16 21:00 12/14/16 21:26 15 MG Ondansetron HCl (Zofran) 4 mg PRN Q6HRS PRN 12/10/16 17:15 Piperacillin Sod/ Tazobactam Sod (Zosyn Per Pharmacy) 1 each PRN DAILY PRN 12/10/16 16:15 Piperacillin Sod/ Tazobactam Sod 3.375 gm/Sodium Chloride 50 ml @ 100 mls/hr Q6HRS 12/11/16 00:00 12/15/16 10:54 DC 12/15/16 05:56 100 MLS/HR Piperacillin Sod/ Tazobactam Sod 4.5 gm/Sodium Chloride 100 ml @ 200 mls/hr ONCE ONCE 12/10/16 16:30 12/10/16 16:59 DC 12/10/16 17:37 200 MLS/HR Polyethylene Glycol (miraLAX PACKET) 17 gm DAILY 12/11/16 12:30 12/15/16 08:36 17 GM Sodium Chloride 1,000 ml @ 999 mls/hr 1X ONCE 12/11/16 10:00 12/11/16 11:00 DC 12/11/16 12:03 999 MLS/HR Tramadol HCl (Ultram) 50 mg PRN Q6HRS PRN 12/10/16 17:15 Vancomycin HCl 1 each 1X ONCE 12/12/16 18:00 12/12/16 18:01 DC 12/12/16 18:00 1 EACH Vancomycin HCl (Vanco Per Pharmacy) 1 each PRN DAILY PRN 12/10/16 16:15 12/14/16 09:10 DC 12/12/16 21:51 1 EACH Vancomycin HCl 1.5 gm/Sodium Chloride 500 ml @ 250 mls/hr 1X ONCE 12/10/16 16:15 12/10/16 18:14 DC 12/10/16 18:38 250 MLS/HR Vancomycin HCl 1 gm/Sodium Chloride 250 ml @ 250 mls/hr Q24H 12/11/16 18:30 12/14/16 09:06 DC 12/13/16 20:06 250 MLS/HR Lab Laboratory Tests Test 12/15/16 06:05 White Blood Count 7.6 x10^3/uL (4.0-11.0) Red Blood Count 2.58 x10^6/uL (3.50-5.40) Hemoglobin 7.7 g/dL (12.0-15.5) Hematocrit 23.6 % (36.0-47.0) Mean Corpuscular Volume 91 fL (79-100) Mean Corpuscular Hemoglobin 30 pg (25-35) Mean Corpuscular Hemoglobin Concent 33 g/dL (31-37) Red Cell Distribution Width 16.4 % (11.5-14.5) Platelet Count 167 x10^3/uL (140-400) Neutrophils (%) (Auto) 77 % (31-73) Lymphocytes (%) (Auto) 14 % (24-48) Monocytes (%) (Auto) 8 % (0-9) Eosinophils (%) (Auto) 1 % (0-3) Basophils (%) (Auto) 0 % (0-3) Neutrophils # (Auto) 5.9 x10^3uL (1.8-7.7) Lymphocytes # (Auto) 1.1 x10^3/uL (1.0-4.8) Monocytes # (Auto) 0.6 x10^3/uL (0.0-1.1) Eosinophils # (Auto) 0.1 x10^3/uL (0.0-0.7) Basophils # (Auto) 0.0 x10^3/uL (0.0-0.2) Sodium Level 140 mmol/L (136-145) Potassium Level 4.1 mmol/L (3.5-5.1) Chloride Level 112 mmol/L (98-107) Carbon Dioxide Level 21 mmol/L (21-32) Anion Gap 7 (6-14) Blood Urea Nitrogen 14 mg/dL (7-20) Creatinine 0.6 mg/dL (0.6-1.0) Estimated GFR (Cockcroft-Gault) 96.9 BUN/Creatinine Ratio 23 (6-20) Glucose Level 82 mg/dL (70-99) Calcium Level 7.9 mg/dL (8.5-10.1) Total Bilirubin 0.2 mg/dL (0.2-1.0) Aspartate Amino Transf (AST/SGOT) 25 U/L (15-37) Alanine Aminotransferase (ALT/SGPT) 31 U/L (14-59) Alkaline Phosphatase 114 U/L (46-116) Total Protein 5.7 g/dL (6.4-8.2) Albumin 1.7 g/dL (3.4-5.0) Albumin/Globulin Ratio 0.4 (1.0-1.7) CLARISA JOSHUA MD Dec 15, 2016 11:35
[2016-12-15 16:00] VITALS: BP 180/74
--- NOTE | 2016-12-15 18:01 | PDOC ---
PULMONARY PROGRESS NOTES Subjective STATES SUCTIONING HAS HELPED Vitals Vital Signs Date Time Temp Pulse Resp B/P (MAP) Pulse Ox O2 Delivery O2 Flow Rate FiO2 12/15/16 16:00 98.6 80 16 180/74 (109) 99 Room Air 98.6 ROS: No Nausea, No Chest Pain, No Abdominal Pain General: Alert Lungs: Clear, Other (bl coarse bs) Cardiovascular: S1 Abdomen: Soft Neuro Exam: Alert Extremities: Other (trace edema) Labs Laboratory Tests Test 12/14/16 03:35 12/15/16 06:05 White Blood Count 5.7 x10^3/uL (4.0-11.0) 7.6 x10^3/uL (4.0-11.0) Red Blood Count 2.50 x10^6/uL (3.50-5.40) 2.58 x10^6/uL (3.50-5.40) Hemoglobin 7.4 g/dL (12.0-15.5) 7.7 g/dL (12.0-15.5) Hematocrit 23.2 % (36.0-47.0) 23.6 % (36.0-47.0) Mean Corpuscular Volume 93 fL (79-100) 91 fL (79-100) Mean Corpuscular Hemoglobin 30 pg (25-35) 30 pg (25-35) Mean Corpuscular Hemoglobin Concent 32 g/dL (31-37) 33 g/dL (31-37) Red Cell Distribution Width 15.9 % (11.5-14.5) 16.4 % (11.5-14.5) Platelet Count 166 x10^3/uL (140-400) 167 x10^3/uL (140-400) Neutrophils (%) (Auto) 70 % (31-73) 77 % (31-73) Lymphocytes (%) (Auto) 19 % (24-48) 14 % (24-48) Monocytes (%) (Auto) 10 % (0-9) 8 % (0-9) Eosinophils (%) (Auto) 1 % (0-3) 1 % (0-3) Basophils (%) (Auto) 0 % (0-3) 0 % (0-3) Neutrophils # (Auto) 4.0 x10^3uL (1.8-7.7) 5.9 x10^3uL (1.8-7.7) Lymphocytes # (Auto) 1.1 x10^3/uL (1.0-4.8) 1.1 x10^3/uL (1.0-4.8) Monocytes # (Auto) 0.5 x10^3/uL (0.0-1.1) 0.6 x10^3/uL (0.0-1.1) Eosinophils # (Auto) 0.0 x10^3/uL (0.0-0.7) 0.1 x10^3/uL (0.0-0.7) Basophils # (Auto) 0.0 x10^3/uL (0.0-0.2) 0.0 x10^3/uL (0.0-0.2) Sodium Level 146 mmol/L (136-145) 140 mmol/L (136-145) Potassium Level 4.1 mmol/L (3.5-5.1) 4.1 mmol/L (3.5-5.1) Chloride Level 116 mmol/L (98-107) 112 mmol/L (98-107) Carbon Dioxide Level 22 mmol/L (21-32) 21 mmol/L (21-32) Anion Gap 8 (6-14) 7 (6-14) Blood Urea Nitrogen 19 mg/dL (7-20) 14 mg/dL (7-20) Creatinine 0.8 mg/dL (0.6-1.0) 0.6 mg/dL (0.6-1.0) Estimated GFR (Cockcroft-Gault) 69.6 96.9 BUN/Creatinine Ratio 24 (6-20) 23 (6-20) Glucose Level 88 mg/dL (70-99) 82 mg/dL (70-99) Calcium Level 7.4 mg/dL (8.5-10.1) 7.9 mg/dL (8.5-10.1) Magnesium Level 2.8 mg/dL (1.8-2.4) Total Bilirubin 0.2 mg/dL (0.2-1.0) 0.2 mg/dL (0.2-1.0) Aspartate Amino Transf (AST/SGOT) 30 U/L (15-37) 25 U/L (15-37) Alanine Aminotransferase (ALT/SGPT) 38 U/L (14-59) 31 U/L (14-59) Alkaline Phosphatase 127 U/L (46-116) 114 U/L (46-116) Total Protein 5.7 g/dL (6.4-8.2) 5.7 g/dL (6.4-8.2) Albumin 1.8 g/dL (3.4-5.0) 1.7 g/dL (3.4-5.0) Albumin/Globulin Ratio 0.5 (1.0-1.7) 0.4 (1.0-1.7) Laboratory Tests Test 12/15/16 06:05 White Blood Count 7.6 x10^3/uL (4.0-11.0) Red Blood Count 2.58 x10^6/uL (3.50-5.40) Hemoglobin 7.7 g/dL (12.0-15.5) Hematocrit 23.6 % (36.0-47.0) Mean Corpuscular Volume 91 fL (79-100) Mean Corpuscular Hemoglobin 30 pg (25-35) Mean Corpuscular Hemoglobin Concent 33 g/dL (31-37) Red Cell Distribution Width 16.4 % (11.5-14.5) Platelet Count 167 x10^3/uL (140-400) Neutrophils (%) (Auto) 77 % (31-73) Lymphocytes (%) (Auto) 14 % (24-48) Monocytes (%) (Auto) 8 % (0-9) Eosinophils (%) (Auto) 1 % (0-3) Basophils (%) (Auto) 0 % (0-3) Neutrophils # (Auto) 5.9 x10^3uL (1.8-7.7) Lymphocytes # (Auto) 1.1 x10^3/uL (1.0-4.8) Monocytes # (Auto) 0.6 x10^3/uL (0.0-1.1) Eosinophils # (Auto) 0.1 x10^3/uL (0.0-0.7) Basophils # (Auto) 0.0 x10^3/uL (0.0-0.2) Sodium Level 140 mmol/L (136-145) Potassium Level 4.1 mmol/L (3.5-5.1) Chloride Level 112 mmol/L (98-107) Carbon Dioxide Level 21 mmol/L (21-32) Anion Gap 7 (6-14) Blood Urea Nitrogen 14 mg/dL (7-20) Creatinine 0.6 mg/dL (0.6-1.0) Estimated GFR (Cockcroft-Gault) 96.9 BUN/Creatinine Ratio 23 (6-20) Glucose Level 82 mg/dL (70-99) Calcium Level 7.9 mg/dL (8.5-10.1) Total Bilirubin 0.2 mg/dL (0.2-1.0) Aspartate Amino Transf (AST/SGOT) 25 U/L (15-37) Alanine Aminotransferase (ALT/SGPT) 31 U/L (14-59) Alkaline Phosphatase 114 U/L (46-116) Total Protein 5.7 g/dL (6.4-8.2) Albumin 1.7 g/dL (3.4-5.0) Albumin/Globulin Ratio 0.4 (1.0-1.7) Medications Active Scripts Medications Dose Route/Sig Max Daily Dose Days Date Category Bactrim Ds Tablet (Sulfamethoxazole/Trimethoprim) 1 Each Tablet 1 Each PEG BID 12/11/16 Reported Vitamin C (Ascorbic Acid) 500 Mg/5 Ml Syrup 500 Mg PEG DAILY 12/11/16 Reported Vitamin D (Cholecalciferol (Vitamin D3)) 1,000 Unit Capsule 1 Cap PO DAILY 12/11/16 Reported Benadryl (Diphenhydramine Hcl) 25 Mg Capsule 25 Mg PO HS 12/11/16 Reported Lorazepam 0.5 Mg Tablet 0.5 Mg PO HS 12/11/16 Reported Acetaminophen 160 Mg/5 Ml Solution 5 Ml PO Q4HRS 12/11/16 Reported Aspir 81 (Aspirin) 81 Mg Tablet.dr 1 Tab PO DAILY 12/11/16 Reported Potassium Chloride 20 Meq Tablet.er 20 Meq PO DAILY 12/11/16 Reported Amiodarone Hcl 400 Mg Tablet 400 Mg PO BID 12/11/16 Reported Lasix (Furosemide) 40 Mg Tablet 40 Mg PO BID 12/11/16 Reported Pepcid (Famotidine) 20 Mg Tablet 20 Mg PO BID 12/11/16 Reported Levothyroxine Sodium 125 Mcg Tablet 1 Tab PO DAILY 12/11/16 Reported Zyprexa (Olanzapine) 15 Mg Tablet 1 Tab PO QHS 12/11/16 Reported Lisinopril 10 Mg Tablet 1 Tab PO DAILY 12/11/16 Reported Impression . 1. Septic shock due to suspected UTI and RML pneumonia 2. Acute metabolic encephalopathy, improving 3. Abnormal CXR c/w RML pneumonia 4. Chronic Francisco 5. No Tobacco hx 6. JULIETA 7. h/o A-Fib, on Amio 8. Recent de-cannulation 9. Gram positive bacteremia,, per ID contamination 10. cxr today 12/14 improved no new infiltrates 11. acute/chronic bronchitis 12. nonhealing stoma Plan . Pt get tearful at times, will continue the same prn suction thru stoma anitbx per id spoke with very malnutrition and weak doubt pt will do well in long run SANDOR KHANNA MD Dec 15, 2016 18:01
[2016-12-15 19:59] VITALS: BP 166/76
[2016-12-15] MEDS: AMOXICILLIN/K CLAV 875/125MG TABLET. PO SCH (20:54)
[2016-12-15] MEDS: FAMOTIDINE 20 MG TABLET. PEG SCH (20:54)
[2016-12-15] MEDS: diphenhydrAMINE ORAL ELIXIR 12.5 MG/5 ML ML PO PRN (20:55)
[2016-12-15] MEDS: OLANZapine 5 MG TABLET PO SCH (20:55)
[2016-12-15 23:58] VITALS: BP 140/66
[2016-12-16] MEDS: LEVOTHYROXINE 125 MCG TABLET PEG SCH (06:10)
[2016-12-16] MEDS: IPRATRPIUM/ALBUTEROL 0.5/2.5MG 3 ML NEBU. NEB SCH ×4 (07:25→20:34)
[2016-12-16 07:52] VITALS: BP 128/48
[2016-12-16] MEDS: NYSTATIN 100,000 UNIT/GM TOPICAL OINTMENT 15GM TUBE. TP SCH ×2 (09:00→21:00)
[2016-12-16] MEDS: AMINO AC 3%/ELECTROLYTE/GLYCER 1,000 ML IV SCH (09:20)
[2016-12-16] MEDS: ASCORBIC ACID 500 MG TABLET PEG SCH (09:55)
[2016-12-16] MEDS: MULTIVITAMINS,THERAPEUTIC 5 ML ORAL LIQUID. PEG SCH (09:55)
[2016-12-16] MEDS: POLYETHYLENE GLYCOL 3350 17 GM PACKET. PO SCH (09:56)
[2016-12-16] MEDS: AMOXICILLIN/K CLAV 875/125MG TABLET. PO SCH ×2 (09:56→22:32)
--- NOTE | 2016-12-16 09:56 | PDOC ---
Infectious Disease Note Subjective Subjective sleepy ROS ROS unable to do Vital Sign Vital Signs Vital Signs Date Time Temp Pulse Resp B/P (MAP) Pulse Ox O2 Delivery O2 Flow Rate FiO2 12/16/16 07:52 98.5 89 20 128/48 (74) 95 Room Air 98.5 Physical Exam PHYSICAL EXAM GENERAL: NAD, somnolent HEENT: PERRL, OC/OP NECK: Supple, no JVD, no LN LUNGS: Clear HEART: S1S2, no gallop, no murmur ABD: Soft, NT, no organomegaly, no rebound EXT: No edema, no cyanosis BED MANAGER: somnolent SKIN: No rash, large decub IV: ok Objective Assessment Septic shock, POA, 12/10 off pressors. Reportedly GPC in 1 of 4 , strep viridans , contaminant CAUTI, POA 12/10. 2 nondominant org. Repeat UC neg - per daughter, had been on Bactrim for UTI couple days prior to admit. Lactic acidosis HCAP A-fib, amiodarone, currently off Debility MRSA, nares positive Sacral pressure wound, POA Plan Plan of Care po augmentin for 7 days Supportive care d/c to home or NH soon d/w overall prognosis poor RYANN JOSHUA MD Dec 16, 2016 09:56
--- NOTE | 2016-12-16 10:46 | PDOC ---
PROGRESS NOTES Chief Complaint Chief Complaint AMS with Metabolic encephalopathy with sepsis Septic shock HAP/aspiration PNA UTI JULIETA, prob on CKD, vasomotor Hyperkalemia Hyponatremia HTN Hypothyroidism PAfib Dysphagia with PEG Hypoalbuminemia, severe Decubitus ulcers Constipation Plan On tube feeds, continue current abx, d/w ID Wound care labs reviewed, hemoglobin stable at 7.7 need daily PT/OT Neurology following. 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 History of Present Illness History of Present Illness alert daughter at bedside no fever no chills. feeling better. Vitals Vitals Vital Signs Date Time Temp Pulse Resp B/P (MAP) Pulse Ox O2 Delivery O2 Flow Rate FiO2 12/16/16 07:52 98.5 89 20 128/48 (74) 95 Room Air 98.5 Physical Exam Physical Exam alert, arousable General: Alert, No acute distress, Other ( ) Heart: Regular rate, Normal S1, Normal S2 Lungs: Clear, Other (bl coarse bs) Abdomen: Normal bowel sounds, Soft, No tenderness Extremities: No clubbing, No edema Skin: No rashes Assessment and Plan Assessmemt and Plan Problems Medical Problems: (1) Acute renal failure Status: Acute (2) Healthcare-associated pneumonia Status: Acute (3) Microcytic anemia Status: Acute (4) Severe protein-calorie malnutrition Status: Acute (5) Severe sepsis Status: Acute (6) Urinary tract infection Status: Acute Problems: Comment Review of Relevant I have reviewed the following items adam (where applicable) has been applied. Labs Laboratory Tests Test 12/15/16 06:05 White Blood Count 7.6 x10^3/uL (4.0-11.0) Red Blood Count 2.58 x10^6/uL (3.50-5.40) Hemoglobin 7.7 g/dL (12.0-15.5) Hematocrit 23.6 % (36.0-47.0) Mean Corpuscular Volume 91 fL (79-100) Mean Corpuscular Hemoglobin 30 pg (25-35) Mean Corpuscular Hemoglobin Concent 33 g/dL (31-37) Red Cell Distribution Width 16.4 % (11.5-14.5) Platelet Count 167 x10^3/uL (140-400) Neutrophils (%) (Auto) 77 % (31-73) Lymphocytes (%) (Auto) 14 % (24-48) Monocytes (%) (Auto) 8 % (0-9) Eosinophils (%) (Auto) 1 % (0-3) Basophils (%) (Auto) 0 % (0-3) Neutrophils # (Auto) 5.9 x10^3uL (1.8-7.7) Lymphocytes # (Auto) 1.1 x10^3/uL (1.0-4.8) Monocytes # (Auto) 0.6 x10^3/uL (0.0-1.1) Eosinophils # (Auto) 0.1 x10^3/uL (0.0-0.7) Basophils # (Auto) 0.0 x10^3/uL (0.0-0.2) Sodium Level 140 mmol/L (136-145) Potassium Level 4.1 mmol/L (3.5-5.1) Chloride Level 112 mmol/L (98-107) Carbon Dioxide Level 21 mmol/L (21-32) Anion Gap 7 (6-14) Blood Urea Nitrogen 14 mg/dL (7-20) Creatinine 0.6 mg/dL (0.6-1.0) Estimated GFR (Cockcroft-Gault) 96.9 BUN/Creatinine Ratio 23 (6-20) Glucose Level 82 mg/dL (70-99) Calcium Level 7.9 mg/dL (8.5-10.1) Total Bilirubin 0.2 mg/dL (0.2-1.0) Aspartate Amino Transf (AST/SGOT) 25 U/L (15-37) Alanine Aminotransferase (ALT/SGPT) 31 U/L (14-59) Alkaline Phosphatase 114 U/L (46-116) Total Protein 5.7 g/dL (6.4-8.2) Albumin 1.7 g/dL (3.4-5.0) Albumin/Globulin Ratio 0.4 (1.0-1.7) Microbiology 12/10/16 Blood Culture - Final, Complete NO GROWTH AFTER 5 DAYS 12/11/16 Urine Culture - Final, Complete 12/11/16 Urine Culture Result 1 (MISA) - Final, Complete Medications Current Medications Sodium Chloride 1,000 ml @ 1,120 mls/hr Q54M IV Last administered on t 16:54; Start 12/10/16 at 16:00; Stop 12/10/16 at 17:00; Status DC Vancomycin HCl (Vanco Per Pharmacy) 1 each PRN DAILY PRN MC SEE COMMENTS Last administered on 12/12/16 21:51; Start 12/10/16 at 16:15; Stop 12/14/16 at 09:10; Status DC Piperacillin Sod/ Tazobactam Sod (Zosyn Per Pharmacy) 1 each PRN DAILY PRN MC SEE COMMENTS; Start 12/10/16 at 16:15; Status Cancel Levofloxacin/ Dextrose (Levaquin Per Pharmacy) 1 each PRN DAILY PRN MC SEE COMMENTS; Start 12/10/16 at 16:15; Stop 12/11/16 at 11:34; Status DC Levofloxacin/ Dextrose 150 ml @ 150 mls/hr ONCE ONCE IV Last administered on 12/10/16 16:16; Start 12/10/16 at 16:15; Stop 12/10/16 at 17:14; Status DC Vancomycin HCl 1.5 gm/Sodium Chloride 500 ml @ 250 mls/hr 1X ONCE IV Last administered on 12/10/16 18:38; Start 12/10/16 at 16:15; Stop 12/10/16 at 18:14 ; Status DC Piperacillin Sod/ Tazobactam Sod 4.5 gm/Sodium Chloride 100 ml @ 200 mls/hr ONCE ONCE IV Last administered on 12/10/16 17:37; Start 12/10/16 at 16:30; Stop 12/10/16 at 16:59; Status DC Sodium Chloride 1,000 ml @ 150 mls/hr 1X ONCE IV Last administered on 17:15; Start 12/10/16 at 16:15; Stop 12/10/16 at 22:54; Status DC Ondansetron HCl (Zofran) 4 mg PRN Q8HRS PRN IV NAUSEA/VOMITING; Start 12/10/16 at 16:45; Stop 12/11/16 at 16:44; Status DC Sodium Chloride 1,000 ml @ 150 mls/hr Q6H40M IV Last administered on 16:35; Start 12/10/16 at 16:35; Stop 12/11/16 at 16:34; Status DC Acetaminophen (Tylenol) 650 mg PRN Q4HRS PRN PO FEVER; Start 12/10/16 at 16:45 ; Stop 12/11/16 at 16:44; Status DC Albuterol/ Ipratropium (Duoneb) 3 ml RTQID NEB ; Start 12/10/16 at 20:00; Stop 12/10/16 at 20:00; Status DC Acetaminophen (Tylenol) 650 mg PRN Q6HRS PRN PO FEVER; Start 12/10/16 at 17:15 Ondansetron HCl (Zofran) 4 mg PRN Q6HRS PRN IV NAUSEA/VOMITING; Start 12/10/16 at 17:15 Morphine Sulfate 2 mg PRN Q2HR PRN IV PAIN; Start 12/10/16 at 17:15; Stop at 12:18; Status DC Tramadol HCl (Ultram) 50 mg PRN Q6HRS PRN PO PAIN; Start 12/10/16 at 17:15 Hydralazine HCl (Apresoline) 10 mg PRN Q4HRS PRN IVP ELEVATED BP, SEE COMMENTS ; Start 12/10/16 at 17:15 Docusate Sodium (Colace) 100 mg PRN DAILY PRN PO CONSTIPATION; Start 12/10/16 at 17:15 Dextrose/Sodium Chloride 1,000 ml @ 75 mls/hr [id number] IV Last administered on 12/11/16 23:05; Start 12/10/16 at 17:15; Stop 12/12/16 at 13:46; Status DC Heparin Sodium (Porcine) (Heparin Sq) 5,000 unit Q8HRS SQ Last administered on 12/11/16 06:17; Start 12/10/16 at 22:00; Stop 12/11/16 at 17:53; Status DC Albuterol/ Ipratropium (Duoneb) 3 ml RTQID NEB Last administered on 12/16/16 07 :25; Start 12/10/16 at 20:00 Albuterol Sulfate (Ventolin Neb Soln) 2.5 mg PRN Q2HR PRN NEB SHORTNESS OF BREATH; Start 12/10/16 at 17:15 Levofloxacin/ Dextrose 150 ml @ 100 mls/hr Q48H IV ; Start 12/11/16 at 16:00; Stop 12/11/16 at 16:00; Status DC Piperacillin Sod/ Tazobactam Sod 3.375 gm/Sodium Chloride 50 ml @ 100 mls/hr Q6HRS IV Last administered on 12/15/16 05:56; Start 12/11/16 at 00:00; Stop 12/15 at 14:48; Status DC Vancomycin HCl 1 gm/Sodium Chloride 250 ml @ 250 mls/hr Q24H IV Last administered on 12/13/16 20:06; Start 12/11/16 at 18:30; Stop 12/14/16 at 09:06; Status DC Vancomycin HCl 1 each 1X ONCE MC Last administered on 12/12/16 18:00; Start at 18:00; Stop 12/12/16 at 18:01; Status DC Norepinephrine Bitartrate 250 ml @ 0 mls/hr CONT PRN IV SEE I/O RECORD Last administered on 12/11/16 08:53; Start 12/10/16 at 18:45; Stop 12/14/16 at 13:18; Status DC Sodium Chloride 1,000 ml @ 1,000 mls/hr 1X ONCE IV Last administered on 20:41; Start 12/10/16 at 19:30; Stop 12/10/16 at 20:29; Status DC Sodium Chloride 1,000 ml @ 999 mls/hr 1X ONCE IV Last administered on 12:04; Start 12/11/16 at 10:00; Stop 12/11/16 at 11:00; Status DC Sodium Chloride 1,000 ml @ 999 mls/hr 1X ONCE IV Last administered on 12:03; Start 12/11/16 at 10:00; Stop 12/11/16 at 11:00; Status DC Mineral Oil (Fleet Mineral Oil) 133 ml 1X ONCE HI Last administered on 11:00; Start 12/11/16 at 11:00; Stop 12/11/16 at 11:02; Status DC Acetaminophen (Tylenol) 650 mg PRN Q6HRS PRN PEG MILD PAIN / TEMP Last administered on 12/13/16 17:19; Start 12/11/16 at 12:45 Olanzapine (ZyPREXA) 15 mg QHS PO Last administered on 12/15/16 20:55; Start at 21:00 Polyethylene Glycol (miraLAX PACKET) 17 gm DAILY PO Last administered on 09:56; Start 12/11/16 at 12:30 Levothyroxine Sodium 100 mcg/ Sodium Chloride 5 ml @ 125 mls/hr DAILY IVP Last administered on 12/14/16 09:20; Start 12/12/16 at 09:00; Stop 12/14/16 at 14:11; Status DC Famotidine (Pepcid) 20 mg QHS IVP Last administered on 12/13/16 21:16; Start at 21:00; Stop 12/14/16 at 14:11; Status DC Nystatin (Mycostatin) 1 nhi BID TP Last administered on 12/15/16 20:56; Start 12/12/16 at 10:00 Lorazepam (Ativan) 0.5 mg PRN Q8HRS PRN PEG ANXIETY / AGITATION Last administered on 12/14/16 02:48; Start 12/12/16 at 13:45 Diphenhydramine HCl (Benadryl Oral Elixir) 25 mg PRN QHS PRN PO sleep Last administered on 12/15/16 20:55; Start 12/12/16 at 13:45 Multivitamins (Thera-Plus) 5 ml DAILY PEG Last administered on 12/16/16 09:55; Start 12/13/16 at 09:00 Ascorbic Acid (Vitamin C) 500 mg DAILY PEG Last administered on 12/16/16 09:55 ; Start 12/13/16 at 09:00 Levothyroxine Sodium (Synthroid) 125 mcg DAILY07 PEG Last administered on 06:10; Start 12/15/16 at 07:00 Famotidine (Pepcid) 20 mg QHS PEG Last administered on 12/15/16 20:54; Start at 21:00 Amino Acids/ Glycerin/ Electrolytes 1,000 ml @ 60 mls/hr [id number] IV Last administered on 12/15/16 01:12; Start 12/15/16 at 00:00 Amoxicillin/ Clavulanate Potassium (Augmentin 875/ 125mg) 1 tab BID PO Last administered on 7/6/17at 09:56; Start 12/15/16 at 21:00 Active Scripts Active Reported Bactrim Ds Tablet (Sulfamethoxazole/Trimethoprim) 1 Each Tablet 1 Each PEG BID Vitamin C (Ascorbic Acid) 500 Mg/5 Ml Syrup 500 Mg PEG DAILY Vitamin D (Cholecalciferol (Vitamin D3)) 1,000 Unit Capsule 1 Cap PO DAILY Benadryl (Diphenhydramine Hcl) 25 Mg Capsule 25 Mg PO HS Lorazepam 0.5 Mg Tablet 0.5 Mg PO HS Acetaminophen 160 Mg/5 Ml Solution 5 Ml PO Q4HRS Aspir 81 (Aspirin) 81 Mg Tablet.dr 1 Tab PO DAILY Potassium Chloride 20 Meq Tablet.er 20 Meq PO DAILY Amiodarone Hcl 400 Mg Tablet 400 Mg PO BID Lasix (Furosemide) 40 Mg Tablet 40 Mg PO BID Pepcid (Famotidine) 20 Mg Tablet 20 Mg PO BID Levothyroxine Sodium 125 Mcg Tablet 1 Tab PO DAILY Zyprexa (Olanzapine) 15 Mg Tablet 1 Tab PO QHS Lisinopril 10 Mg Tablet 1 Tab PO DAILY Vitals/I & O Vital Sign - Last 24 Hours 12/15/16 12/15/16 12/15/16 12/15/16 11:00 11:16 15:52 16:00 Temp 100.8 98.6 100.8 98.6 Pulse 77 80 Resp 20 16 B/P (MAP) 139/67 (91) 180/74 (109) Pulse Ox 96 94 94 99 O2 Delivery Room Air Room Air Room Air Room Air 12/15/16 12/15/16 12/15/16 12/15/16 19:59 20:00 20:28 23:58 Temp 98.1 96.1 98.1 96.1 Pulse 83 76 Resp 20 20 B/P (MAP) 166/76 (106) 140/66 (90) Pulse Ox 96 97 96 O2 Delivery Room Air Room Air Room Air Room Air 12/16/16 12/16/16 07:25 07:52 Temp 98.5 98.5 Pulse 89 Resp 20 B/P (MAP) 128/48 (74) Pulse Ox 96 95 O2 Delivery Room Air Room Air Intake and Output 12/15/16 12/15/16 12/16/16 14:59 22:59 06:59 Intake Total 400 ml 400 ml 900 ml Output Total 0 ml 800 ml 950 ml Balance 400 ml -400 ml -50 ml Nutrition Consultation Dietary Evaluation: Recommendations by RD: Increase Calorie Intake, Protein supplementation Comments: Rec. 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
[2016-12-16 11:23] VITALS: BP 119/56
[2016-12-16 14:56] VITALS: BP 143/74
--- NOTE | 2016-12-16 15:27 | PDOC ---
PROGRESS NOTES Assessment Assessment IMPRESSION: Metabolic encephalopathy. Pneumonia Pulmonary effusion. Sepsis. UTI Hypoalbuminemia. Dysphagia. HTN Hypothyroidism confusion events. Decubitus ulcer. Right hip fracture. RECOMMENDATIONS/PLAN: HCT w/o contrast. Lab: see orders. Treat medical diseases. OT/PT. Discussed with her daughter at bedside. SUBJECTIVE: Sleepiness. OBJECTIVE: Confusion. Past Surgical History Total hip replacement Family History Cancer Social History , no tobacco or alcohol ALLERGY: Reviewed. MEDICATIONS: Refer to [facility] REVIEW OF SYSTEMS: Constitutional: Cognitive decline. Head: No traumatic brain or head injury. Skin: No edema, or rash. Ear: No infection, tinnitus. Eyes: No vision loss, or diplopia. Nose: No bleeding or purulent discharges. Hearing: Hearing loss. Neck: No injury. Cardiac: HTN Pulmonary: No CPOD. GI: No GI Ulcer, GI bleeding Urinary/genital: UTI. Endocrine: No cousin face, craniofacial dysmorphism, polydactyly. Skeletomuscular: generalized weakness. Neurological: see HP. Psychiatric: Denies drug use/abuse. Otherwise, not [id number] review of systems. PHYSICAL EXAMINATION: General appearance in subacute distress. HEENT: Normocephalic and nontraumatic. Eyes, nose, ears, and throat are unremarkable. Hearing decrease. Neck is supple. No lymphadenopathy. No Crepitus. Cardiovascular: S1, S2, regular rate and rhythm. Pulmonary: Clear to auscultation bilaterally. Abdomen: Bowel sounds are positive. Extremities: No rash, lesions, or edema. No restriction of range of motion NEUROLOGICAL EXAMINATION: Sleepiness. Not fully oriented to time, place bt knows her family. PERRL. EOMI. CN: no focal findings. Muscle tone: increased in right UE maybe due to guard for pain in right shoulder. Muscle strength: 4- DTR: 1-2 Plantar reflex: Neutral response bilaterally Gait: Unable to walk. Sensory exam: no abnormal findings. No acute cerebellar signs elicited. F-T-N test not examed due to not follow commands. Objective Objective Vital Signs Date Time Temp Pulse Resp B/P (MAP) Pulse Ox O2 Delivery O2 Flow Rate FiO2 12/16/16 14:56 99.1 80 20 143/74 (97) 98 Room Air 99.1 Intake and Output 12/16/16 07:00 Intake Total 1700 ml Output Total 1750 ml Balance -50 ml Intake Oral 0 ml Tube Feeding 1700 ml Output Urine Total 1750 ml Gastric Drainage Total 0 ml Vitals Signs Vitals VS - Last 72 Hours, by Label Date Time Temp Pulse Resp B/P (MAP) Pulse Ox O2 Delivery O2 Flow Rate FiO2 12/16/16 14:56 99.1 80 20 143/74 (97) 98 Room Air 99.1 12/16/16 11:23 99.9 83 20 119/56 (77) 95 Room Air 99.9 12/16/16 11:14 100 Room Air 12/16/16 07:52 98.5 89 20 128/48 (74) 95 Room Air 98.5 12/16/16 07:25 96 Room Air 12/15/16 23:58 96.1 76 20 140/66 (90) 96 Room Air 96.1 12/15/16 20:28 97 Room Air 12/15/16 20:00 Room Air 12/15/16 19:59 98.1 83 20 166/76 (106) 96 Room Air 98.1 12/15/16 16:00 98.6 80 16 180/74 (109) 99 Room Air 98.6 12/15/16 15:52 94 Room Air 12/15/16 11:16 94 Room Air 12/15/16 11:00 100.8 77 20 139/67 (91) 96 Room Air 100.8 12/15/16 08:30 Room Air 12/15/16 08:17 95 Room Air 12/15/16 08:00 99.0 75 16 141/77 (98) 99 Room Air 99.0 Laboratory Laboratory Microbiology 12/10/16 Blood Culture - Final, Complete NO GROWTH AFTER 5 DAYS 12/16/16 Gram Stain - Final, Complete 12/11/16 Urine Culture - Final, Complete 12/11/16 Urine Culture Result 1 (MISA) - Final, Complete Medication Medications Current Medications Amoxicillin/ Clavulanate Potassium (Augmentin 875/ 125mg) 1 tab BID PO Last administered on 12/16/16t 09:56; Start 12/15/16 at 21:00 Comment Review of Relevant I have reviewed the following items adam (where applicable) has been applied. DANYELL GANT MD Dec 16, 2016 15:27
--- NOTE | 2016-12-16 16:05 | RAD ---
Indication change in mental status. Noncontrast images of the head were obtained. Note is made of a previous examination 08/06/2010. The calvarium appears unremarkable. There is no subdural or epidural hematoma. There is some underlying atrophy. There is increased lucency in the deep white matter compatible with microvascular disease. No mass or midline shift is seen. There is no hemorrhage. No acute finding is seen. IMPRESSION: Chronic changes. No acute finding seen PQRS Compliance Statement: One or more of the following individualized dose reduction techniques were utilized for this examination: 1. Automated exposure control 2. Adjustment of the mA and/or kV according to patient size 3. Use of iterative reconstruction technique
[2016-12-16] MEDS: ASPIRIN CHEWABLE 81 MG TABLET. PEG SCH (16:37)
[2016-12-16 19:05] VITALS: BP 111/54
[2016-12-16] MEDS: diphenhydrAMINE ORAL ELIXIR 12.5 MG/5 ML ML PO PRN (22:31)
[2016-12-16] MEDS: OLANZapine 5 MG TABLET PO SCH (22:32)
[2016-12-16] MEDS: FAMOTIDINE 20 MG TABLET. PEG SCH (22:32)
[2016-12-16 23:05] VITALS: BP 137/69
[2016-12-17] MEDS: AMINO AC 3%/ELECTROLYTE/GLYCER 1,000 ML IV SCH (02:00)
[2016-12-17 03:05] VITALS: BP 119/48
[2016-12-17 07:20] VITALS: BP 125/55
[2016-12-17] MEDS: IPRATRPIUM/ALBUTEROL 0.5/2.5MG 3 ML NEBU. NEB SCH ×4 (07:47→19:33)
--- NOTE | 2016-12-17 08:22 | PDOC ---
Infectious Disease Note Subjective Subjective pt is awake, moans off and on ROS ROS unable to do Vital Sign Vital Signs Vital Signs Date Time Temp Pulse Resp B/P (MAP) Pulse Ox O2 Delivery O2 Flow Rate FiO2 12/17/16 07:47 94 Room Air 12/17/16 07:20 99.0 94 20 125/55 (78) 99.0 12/16/16 20:00 6.0 Physical Exam PHYSICAL EXAM GENERAL: NAD, Alert HEENT: PERRL, OC/OP NECK: Supple, no JVD, no LN LUNGS: Clear HEART: S1S2, no gallop, no murmur ABD: Soft, NT, no organomegaly, no rebound EXT: No edema, no cyanosis [employer]: Alert, total care SKIN: No rash, sacral decub IV: ok Labs Lab Laboratory Tests Test 12/16/16 15:55 Vitamin B12 Level 1410 pg/mL (247-911) Thyroid Stimulating Hormone (TSH) 9.534 uIU/mL (0.358-3.74) Objective Assessment Septic shock, POA, 12/10 off pressors. Reportedly GPC in 1 of 4 , strep viridans , contaminant CAUTI, POA 12/10. 2 nondominant org. Repeat UC neg - per daughter, had been on Bactrim for UTI couple days prior to admit. Lactic acidosis HCAP A-fib, amiodarone, currently off Debility MRSA, nares positive Sacral pressure wound, POA Plan Plan of Care po augmentin for 7 days Supportive care d/c to home or NH soon d/w overall prognosis poor RYANN JOSHUA MD Dec 17, 2016 08:22
[2016-12-17] MEDS: LEVOTHYROXINE 125 MCG TABLET PEG SCH (08:25)
[2016-12-17] MEDS: ASCORBIC ACID 500 MG TABLET PEG SCH (08:26)
[2016-12-17] MEDS: POLYETHYLENE GLYCOL 3350 17 GM PACKET. PO SCH (08:26)
[2016-12-17] MEDS: AMOXICILLIN/K CLAV 875/125MG TABLET. PO SCH ×2 (08:26→21:12)
[2016-12-17] MEDS: ASPIRIN CHEWABLE 81 MG TABLET. PEG SCH (08:26)
[2016-12-17] MEDS: MULTIVITAMINS,THERAPEUTIC 5 ML ORAL LIQUID. PEG SCH (08:26)
[2016-12-17] MEDS: NYSTATIN 100,000 UNIT/GM TOPICAL OINTMENT 15GM TUBE. TP SCH ×2 (08:26→19:28)
[2016-12-17 10:49] VITALS: BP 126/59
[2016-12-17] MEDS: LINEZOLID 600 MG TABLET PEG SCH ×2 (11:43→21:11)
[2016-12-17] MEDS: ACETAMINOPHEN 650 MG/20.3 ML SOLUTION. PEG PRN (11:43)
--- NOTE | 2016-12-17 12:31 | PDOC ---
PROGRESS NOTES Assessment Assessment Metabolic encephalopathy. Pneumonia Pulmonary effusion. Sepsis. UTI Hypoalbuminemia. Dysphagia. HTN Hypothyroidism confusion events. Decubitus ulcer. Right hip fracture. Elevated TSH RECOMMENDATIONS/PLAN: Treat medical diseases. TSH issues per medical team. OT/PT. Discussed with her daughter at bedside. HCT w/o contrast: negative. Lab: TSH 9.534. Vit D level pending SUBJECTIVE: Awake. OBJECTIVE: Confusion improved. Past Surgical History Total hip replacement Family History Cancer Social History , no tobacco or alcohol ALLERGY: Reviewed. MEDICATIONS: Refer to MAR REVIEW OF SYSTEMS: Constitutional: Cognitive decline. Head: No traumatic brain or head injury. Skin: No edema, or rash. Ear: No infection, tinnitus. Eyes: No vision loss, or diplopia. Nose: No bleeding or purulent discharges. Hearing: Hearing loss. Neck: No injury. Cardiac: HTN Pulmonary: No CPOD. GI: No GI Ulcer, GI bleeding Urinary/genital: UTI. Endocrine: No cousin face, craniofacial dysmorphism, polydactyly. Skeletomuscular: generalized weakness. Neurological: see HP. Psychiatric: Denies drug use/abuse. Otherwise, not [id number] review of systems. PHYSICAL EXAMINATION: General appearance in subacute distress. HEENT: Normocephalic and nontraumatic. Eyes, nose, ears, and throat are unremarkable. Hearing decrease. Neck is supple. No lymphadenopathy. No Crepitus. Cardiovascular: S1, S2, regular rate and rhythm. Pulmonary: Clear to auscultation bilaterally. Abdomen: Bowel sounds are positive. Extremities: No rash, lesions, or edema. No restriction of range of motion NEUROLOGICAL EXAMINATION: Awake. Not fully oriented to time, place but knows her family. PERRL. EOMI. CN: no focal findings. Muscle tone: increased in right UE maybe due to guard for pain in right shoulder. Muscle strength: 4 DTR: 1-2 Plantar reflex: Neutral response bilaterally Gait: Unable to walk. Sensory exam: no abnormal findings. No acute cerebellar signs elicited. F-T-N test not examed due to not follow commands. Objective Objective Vital Signs Date Time Temp Pulse Resp B/P (MAP) Pulse Ox O2 Delivery O2 Flow Rate FiO2 12/17/16 11:01 94 Room Air 12/17/16 10:49 100.2 97 20 126/59 (81) 100.2 12/16/16 20:00 6.0 Intake and Output 12/17/16 06:59 Intake Total 1900 ml Output Total 1500 ml Balance 400 ml Intake Oral 0 ml Tube Feeding 1300 ml Other 600 ml Output Urine Total 1500 ml Gastric Drainage Total 0 ml # Bowel Movements 1 Vitals Signs Vitals VS - Last 72 Hours, by Label Date Time Temp Pulse Resp B/P (MAP) Pulse Ox O2 Delivery O2 Flow Rate FiO2 12/17/16 11:01 94 Room Air 12/17/16 10:49 100.2 97 20 126/59 (81) 95 Room Air 100.2 12/17/16 08:00 Room Air 12/17/16 07:47 94 Room Air 12/17/16 07:20 99.0 94 20 125/55 (78) 95 Room Air 99.0 12/17/16 03:05 98.5 86 20 119/48 (71) 94 Room Air 98.5 12/16/16 23:05 99.1 87 20 137/69 (91) 96 Room Air 99.1 12/16/16 20:35 Room Air 12/16/16 20:00 Room Air 6.0 12/16/16 19:05 98.6 87 18 111/54 (73) 97 Room Air 98.6 12/16/16 15:22 100 Room Air 12/16/16 14:56 99.1 80 20 143/74 (97) 98 Room Air 99.1 12/16/16 11:23 99.9 83 20 119/56 (77) 95 Room Air 99.9 12/16/16 11:14 100 Room Air 12/16/16 08:00 Room Air 12/16/16 07:52 98.5 89 20 128/48 (74) 95 Room Air 98.5 12/16/16 07:25 96 Room Air Laboratory Laboratory Laboratory Tests Test 12/16/16 15:55 Vitamin B12 Level 1410 pg/mL (247-911) 25-Hydroxy Vitamin D Total 20.9 ng/mL (30.0-100.0) Thyroid Stimulating Hormone (TSH) 9.534 uIU/mL (0.358-3.74) Microbiology 12/10/16 Blood Culture - Final, Complete NO GROWTH AFTER 5 DAYS 12/16/16 Gram Stain - Final, Complete 12/11/16 Urine Culture - Final, Complete 12/11/16 Urine Culture Result 1 (MISA) - Final, Complete Medication Medications Current Medications Aspirin (Children'S Aspirin) 81 mg DAILYWBKFT PEG Last administered on 08:26; Start 12/16/16 at 15:15 Linezolid (Zyvox) 600 mg BID PEG Last administered on 12/17/16 11:43; Start 12/17/16 at 11:30 Comment Review of Relevant I have reviewed the following items adam (where applicable) has been applied. DANYELL GANT MD Dec 17, 2016 12:31
--- NOTE | 2016-12-17 12:46 | PDOC ---
PROGRESS NOTES Chief Complaint Chief Complaint AMS with Metabolic encephalopathy with sepsis Septic shock HAP/aspiration PNA UTI JULIETA, prob on CKD, vasomotor Hyperkalemia Hyponatremia HTN Hypothyroidism PAfib Dysphagia with PEG Hypoalbuminemia, severe Decubitus ulcers Constipation Plan On tube feeds, DC ProcalAmine continue current antibiotics, on Augmentin. Case discussed with the social science analyst family has been planning for home health. Patient has developed the low-grade temperature around 100.1 and continue to monitor. Appreciate pulmonology recommendations for discharge planning. Continue Wound care labs reviewed, hemoglobin stable need daily PT/OT Neurology following. continue supplemental oxygen as needed Her family at bedside today. fpc prognosis guarded. History of Present Illness History of Present Illness More alert today,denies any acute pain case discussed with the RN patient is on goals with Tube feeding Vitals Vitals Vital Signs Date Time Temp Pulse Resp B/P (MAP) Pulse Ox O2 Delivery O2 Flow Rate FiO2 12/17/16 11:01 94 Room Air 12/17/16 10:49 100.2 97 20 126/59 (81) 100.2 12/16/16 20:00 6.0 Physical Exam General: Alert, No acute distress, Other ( ) Heart: Regular rate, Normal S1, Normal S2 Lungs: Clear, Other (bl coarse bs) Abdomen: Normal bowel sounds, Soft, No tenderness Extremities: No clubbing, No edema Skin: No rashes Labs LABS Laboratory Tests Test 12/16/16 15:55 Vitamin B12 Level 1410 pg/mL (247-911) 25-Hydroxy Vitamin D Total 20.9 ng/mL (30.0-100.0) Thyroid Stimulating Hormone (TSH) 9.534 uIU/mL (0.358-3.74) Assessment and Plan Assessmemt and Plan Problems Medical Problems: (1) Acute renal failure Status: Acute (2) Healthcare-associated pneumonia Status: Acute (3) Microcytic anemia Status: Acute (4) Severe protein-calorie malnutrition Status: Acute (5) Severe sepsis Status: Acute (6) Urinary tract infection Status: Acute Problems: Comment Review of Relevant I have reviewed the following items adam (where applicable) has been applied. Labs Laboratory Tests Test 12/16/16 15:55 Vitamin B12 Level 1410 pg/mL (247-911) 25-Hydroxy Vitamin D Total 20.9 ng/mL (30.0-100.0) Thyroid Stimulating Hormone (TSH) 9.534 uIU/mL (0.358-3.74) Laboratory Tests Test 12/16/16 15:55 Vitamin B12 Level 1410 pg/mL (247-911) 25-Hydroxy Vitamin D Total 20.9 ng/mL (30.0-100.0) Thyroid Stimulating Hormone (TSH) 9.534 uIU/mL (0.358-3.74) Microbiology 12/10/16 Blood Culture - Final, Complete NO GROWTH AFTER 5 DAYS 12/16/16 Gram Stain - Final, Complete 12/11/16 Urine Culture - Final, Complete 12/11/16 Urine Culture Result 1 (MISA) - Final, Complete Medications Current Medications Sodium Chloride 1,000 ml @ 1,120 mls/hr Q54M IV Last administered on 16:54; Start 12/10/16 at 16:00; Stop 12/10/16 at 17:00; Status DC Vancomycin HCl (Vanco Per Pharmacy) 1 each PRN DAILY PRN MC SEE COMMENTS Last administered on 12/12/16 21:51; Start 12/10/16 at 16:15; Stop 12/14/16 at 09:10; Status DC Piperacillin Sod/ Tazobactam Sod (Zosyn Per Pharmacy) 1 each PRN DAILY PRN MC SEE COMMENTS; Start 12/10/16 at 16:15; Status Cancel Levofloxacin/ Dextrose (Levaquin Per Pharmacy) 1 each PRN DAILY PRN MC SEE COMMENTS; Start 12/10/16 at 16:15; Stop 12/11/16 at 11:34; Status DC Levofloxacin/ Dextrose 150 ml @ 150 mls/hr ONCE ONCE IV Last administered on 12/10/16 16:16; Start 12/10/16 at 16:15; Stop 12/10/16 at 17:14; Status DC Vancomycin HCl 1.5 gm/Sodium Chloride 500 ml @ 250 mls/hr 1X ONCE IV Last administered on 12/10/16 18:38; Start 12/10/16 at 16:15; Stop 12/10/16 at 18:14 ; Status DC Piperacillin Sod/ Tazobactam Sod 4.5 gm/Sodium Chloride 100 ml @ 200 mls/hr ONCE ONCE IV Last administered on 12/10/16 17:37; Start 12/10/16 at 16:30; Stop 12/10/16 at 16:59; Status DC Sodium Chloride 1,000 ml @ 150 mls/hr 1X ONCE IV Last administered on 17:15; Start 12/10/16 at 16:15; Stop 12/10/16 at 22:54; Status DC Ondansetron HCl (Zofran) 4 mg PRN Q8HRS PRN IV NAUSEA/VOMITING; Start 12/10/16 at 16:45; Stop 12/11/16 at 16:44; Status DC Sodium Chloride 1,000 ml @ 150 mls/hr Q6H40M IV Last administered on 16:35; Start 12/10/16 at 16:35; Stop 12/11/16 at 16:34; Status DC Acetaminophen (Tylenol) 650 mg PRN Q4HRS PRN PO FEVER; Start 12/10/16 at 16:45 ; Stop 12/11/16 at 16:44; Status DC Albuterol/ Ipratropium (Duoneb) 3 ml RTQID NEB ; Start 12/10/16 at 20:00; Stop 12/10/16 at 20:00; Status DC Acetaminophen (Tylenol) 650 mg PRN Q6HRS PRN PO FEVER Last administered on 13:16; Start 12/10/16 at 17:15 Ondansetron HCl (Zofran) 4 mg PRN Q6HRS PRN IV NAUSEA/VOMITING; Start 12/10/16 at 17:15 Morphine Sulfate 2 mg PRN Q2HR PRN IV PAIN; Start 12/10/16 at 17:15; Stop at 12:18; Status DC Tramadol HCl (Ultram) 50 mg PRN Q6HRS PRN PO PAIN; Start 12/10/16 at 17:15 Hydralazine HCl (Apresoline) 10 mg PRN Q4HRS PRN IVP ELEVATED BP, SEE COMMENTS ; Start 12/10/16 at 17:15 Docusate Sodium (Colace) 100 mg PRN DAILY PRN PO CONSTIPATION; Start 12/10/16 at 17:15 Dextrose/Sodium Chloride 1,000 ml @ 75 mls/hr [id number] IV Last administered on 12/11/16 23:05; Start 12/10/16 at 17:15; Stop 12/12/16 at 13:46; Status DC Heparin Sodium (Porcine) (Heparin Sq) 5,000 unit Q8HRS SQ Last administered on 12/11/16 06:17; Start 12/10/16 at 22:00; Stop 12/11/16 at 17:53; Status DC Albuterol/ Ipratropium (Duoneb) 3 ml RTQID NEB Last administered on 12/17/16 11 :01; Start 12/10/16 at 20:00 Albuterol Sulfate (Ventolin Neb Soln) 2.5 mg PRN Q2HR PRN NEB SHORTNESS OF BREATH; Start 12/10/16 at 17:15 Levofloxacin/ Dextrose 150 ml @ 100 mls/hr Q48H IV ; Start 12/11/16 at 16:00; Stop 12/11/16 at 16:00; Status DC Piperacillin Sod/ Tazobactam Sod 3.375 gm/Sodium Chloride 50 ml @ 100 mls/hr Q6HRS IV Last administered on 12/15/16 05:56; Start 12/11/16 at 00:00; Stop 12/15 at 14:48; Status DC Vancomycin HCl 1 gm/Sodium Chloride 250 ml @ 250 mls/hr Q24H IV Last administered on 12/13/16 20:06; Start 12/11/16 at 18:30; Stop 12/14/16 at 09:06; Status DC Vancomycin HCl 1 each 1X ONCE MC Last administered on 12/12/16 18:00; Start at 18:00; Stop 12/12/16 at 18:01; Status DC Norepinephrine Bitartrate 250 ml @ 0 mls/hr CONT PRN IV SEE I/O RECORD Last administered on 12/11/16 08:53; Start 12/10/16 at 18:45; Stop 12/14/16 at 13:18; Status DC Sodium Chloride 1,000 ml @ 1,000 mls/hr 1X ONCE IV Last administered on 20:41; Start 12/10/16 at 19:30; Stop 12/10/16 at 20:29; Status DC Sodium Chloride 1,000 ml @ 999 mls/hr 1X ONCE IV Last administered on 12:04; Start 12/11/16 at 10:00; Stop 12/11/16 at 11:00; Status DC Sodium Chloride 1,000 ml @ 999 mls/hr 1X ONCE IV Last administered on 12:03; Start 12/11/16 at 10:00; Stop 12/11/16 at 11:00; Status DC Mineral Oil (Fleet Mineral Oil) 133 ml 1X ONCE [place] Last administered on 11:00; Start 12/11/16 at 11:00; Stop 12/11/16 at 11:02; Status DC Acetaminophen (Tylenol) 650 mg PRN Q6HRS PRN PEG MILD PAIN / TEMP Last administered on 12/17/16 11:43; Start 12/11/16 at 12:45 Olanzapine (ZyPREXA) 15 mg QHS PO Last administered on 12/16/16 22:32; Start at 21:00 Polyethylene Glycol (miraLAX PACKET) 17 gm DAILY PO Last administered on 08:26; Start 12/11/16 at 12:30 Levothyroxine Sodium 100 mcg/ Sodium Chloride 5 ml @ 125 mls/hr DAILY IVP Last administered on 12/14/16 09:20; Start 12/12/16 at 09:00; Stop 12/14/16 at 14:11; Status DC Famotidine (Pepcid) 20 mg QHS IVP Last administered on 12/13/16 21:16; Start at 21:00; Stop 12/14/16 at 14:11; Status DC Nystatin (Mycostatin) 1 nhi BID TP Last administered on 12/15/16 20:56; Start 12/12/16 at 10:00 Lorazepam (Ativan) 0.5 mg PRN Q8HRS PRN PEG ANXIETY / AGITATION Last administered on 12/14/16 02:48; Start 12/12/16 at 13:45 Diphenhydramine HCl (Benadryl Oral Elixir) 25 mg PRN QHS PRN PO sleep Last administered on 12/16/16 22:31; Start 12/12/16 at 13:45 Multivitamins (Thera-Plus) 5 ml DAILY PEG Last administered on 12/17/16 08:26; Start 12/13/16 at 09:00 Ascorbic Acid (Vitamin C) 500 mg DAILY PEG Last administered on 12/17/16 08:26 ; Start 12/13/16 at 09:00 Levothyroxine Sodium (Synthroid) 125 mcg DAILY07 PEG Last administered on 08:25; Start 12/15/16 at 07:00 Famotidine (Pepcid) 20 mg QHS PEG Last administered on 12/16/16 22:32; Start at 21:00 Amino Acids/ Glycerin/ Electrolytes 1,000 ml @ 60 mls/hr [id number] IV Last administered on 12/15/16 01:12; Start 12/15/16 at 00:00; Stop 12/17/16 at 11:16; Status DC Amoxicillin/ Clavulanate Potassium (Augmentin 875/ 125mg) 1 tab BID PO Last administered on 12/17/16 08:26; Start 12/15/16 at 21:00 Aspirin (Children'S Aspirin) 81 mg DAILYWBKFT PEG Last administered on 08:26; Start 12/16/16 at 15:15 Linezolid (Zyvox) 600 mg BID PEG Last administered on 12/17/16 11:43; Start 12/17/16 at 11:30 Active Scripts Active Reported Bactrim Ds Tablet (Sulfamethoxazole/Trimethoprim) 1 Each Tablet 1 Each PEG BID Vitamin C (Ascorbic Acid) 500 Mg/5 Ml Syrup 500 Mg PEG DAILY Vitamin D (Cholecalciferol (Vitamin D3)) 1,000 Unit Capsule 1 Cap PO DAILY Benadryl (Diphenhydramine Hcl) 25 Mg Capsule 25 Mg PO HS Lorazepam 0.5 Mg Tablet 0.5 Mg PO HS Acetaminophen 160 Mg/5 Ml Solution 5 Ml PO Q4HRS Aspir 81 (Aspirin) 81 Mg Tablet.dr 1 Tab PO DAILY Potassium Chloride 20 Meq Tablet.er 20 Meq PO DAILY Amiodarone Hcl 400 Mg Tablet 400 Mg PO BID Lasix (Furosemide) 40 Mg Tablet 40 Mg PO BID Pepcid (Famotidine) 20 Mg Tablet 20 Mg PO BID Levothyroxine Sodium 125 Mcg Tablet 1 Tab PO DAILY Zyprexa (Olanzapine) 15 Mg Tablet 1 Tab PO QHS Lisinopril 10 Mg Tablet 1 Tab PO DAILY Vitals/I & O Vital Sign - Last 24 Hours 12/16/16 12/16/16 12/16/16 12/16/16 14:56 15:22 19:05 20:00 Temp 99.1 98.6 99.1 98.6 Pulse 80 87 Resp 20 18 B/P (MAP) 143/74 (97) 111/54 (73) Pulse Ox 98 100 97 O2 Delivery Room Air Room Air Room Air Room Air O2 Flow Rate 6.0 12/16/16 12/16/16 12/17/16 12/17/16 20:35 23:05 03:05 07:20 Temp 99.1 98.5 99.0 99.1 98.5 99.0 Pulse 87 86 94 Resp 20 20 20 B/P (MAP) 137/69 (91) 119/48 (71) 125/55 (78) Pulse Ox 96 94 95 O2 Delivery Room Air Room Air Room Air Room Air 12/17/16 12/17/16 12/17/16 12/17/16 07:47 08:00 10:49 11:01 Temp 100.2 100.2 Pulse 97 Resp 20 B/P (MAP) 126/59 (81) Pulse Ox 94 95 94 O2 Delivery Room Air Room Air Room Air Room Air Intake and Output 12/16/16 12/16/16 12/17/16 15:00 23:00 07:00 Intake Total 200 ml 200 ml 1500 ml Output Total 0 ml 1500 ml Balance 200 ml 200 ml 0 ml Nutrition Consultation Dietary Evaluation: Recommendations by RD: Increase Calorie Intake, Protein supplementation Comments: Rec. continue with Fibersource HN, goal rate 75 ml/hr start at 25 ml/hr, increase by 25 ml/hr q8h to goal flushes 200 cc q4h Expected Outcomes/Goals: tolerate the TF's at goal rate- met, goal ongoing Interpretation of weight loss: >10% in 6 months Malnutrition Findings: Body Fat Depletion (Non Severe: Mild Depletion Reduced Signal Maintenance Technician Strength: N/A Malnutrition related to morbid: No Weight Status: Appropriate Fluid Accumulation (N/A): N/A JOSIAH CARDENAS MD Dec 17, 2016 12:46
[2016-12-17 15:00] VITALS: BP 111/57
--- NOTE | 2016-12-17 16:12 | PDOC ---
PULMONARY PROGRESS NOTES Subjective PT COTE AWAKE AND ALERT FEVER INCREASE TODAY Vitals Vital Signs Date Time Temp Pulse Resp B/P (MAP) Pulse Ox O2 Delivery O2 Flow Rate FiO2 12/17/16 15:16 Room Air 12/17/16 15:00 98.1 75 18 111/57 (75) 92 98.1 12/16/16 20:00 6.0 ROS: No Nausea, No Chest Pain, No Abdominal Pain General: Alert Lungs: Clear, Other (bl coarse bs) Cardiovascular: S1 Abdomen: Soft Neuro Exam: Alert Extremities: Other (trace edema) Labs Laboratory Tests Test 12/16/16 15:55 Vitamin B12 Level 1410 pg/mL (247-911) 25-Hydroxy Vitamin D Total 20.9 ng/mL (30.0-100.0) Thyroid Stimulating Hormone (TSH) 9.534 uIU/mL (0.358-3.74) Medications Active Scripts Medications Dose Route/Sig Max Daily Dose Days Date Category Bactrim Ds Tablet (Sulfamethoxazole/Trimethoprim) 1 Each Tablet 1 Each PEG BID 12/11/16 Reported Vitamin C (Ascorbic Acid) 500 Mg/5 Ml Syrup 500 Mg PEG DAILY 12/11/16 Reported Vitamin D (Cholecalciferol (Vitamin D3)) 1,000 Unit Capsule 1 Cap PO DAILY 12/11/16 Reported Benadryl (Diphenhydramine Hcl) 25 Mg Capsule 25 Mg PO HS 12/11/16 Reported Lorazepam 0.5 Mg Tablet 0.5 Mg PO HS 12/11/16 Reported Acetaminophen 160 Mg/5 Ml Solution 5 Ml PO Q4HRS 12/11/16 Reported Aspir 81 (Aspirin) 81 Mg Tablet.dr 1 Tab PO DAILY 12/11/16 Reported Potassium Chloride 20 Meq Tablet.er 20 Meq PO DAILY 12/11/16 Reported Amiodarone Hcl 400 Mg Tablet 400 Mg PO BID 12/11/16 Reported Lasix (Furosemide) 40 Mg Tablet 40 Mg PO BID 12/11/16 Reported Pepcid (Famotidine) 20 Mg Tablet 20 Mg PO BID 12/11/16 Reported Levothyroxine Sodium 125 Mcg Tablet 1 Tab PO DAILY 12/11/16 Reported Zyprexa (Olanzapine) 15 Mg Tablet 1 Tab PO QHS 12/11/16 Reported Lisinopril 10 Mg Tablet 1 Tab PO DAILY 12/11/16 Reported Impression . 1. Septic shock due to suspected UTI and RML pneumonia 2. Acute metabolic encephalopathy, improving 3. Abnormal CXR c/w RML pneumonia 4. Chronic [place] 5. No Tobacco hx 6. JULIETA 7. h/o A-Fib, on Amio 8. Recent de-cannulation 9. Gram positive bacteremia,, per ID contamination 10. cxr today 12/14 improved no new infiltrates 11. acute/chronic bronchitis 12. nonhealing stoma Plan . SPOKE WITH MALU JOSHUA WILL D/C CENTRAL LINE AND CULTURE ON ZYVOX prn suction thru stoma anitbx per id spoke with very malnutrition and weak doubt pt will do well in long run SANDOR KHANNA MD Dec 17, 2016 16:11
[2016-12-17 19:05] VITALS: BP 130/63
[2016-12-17] MEDS: LORazepam 0.5 MG TABLET PEG PRN (21:11)
[2016-12-17] MEDS: FAMOTIDINE 20 MG TABLET. PEG SCH (21:12)
[2016-12-17] MEDS: OLANZapine 5 MG TABLET PO SCH (21:12)
[2016-12-17 23:05] VITALS: BP 134/61
[2016-12-18 03:05] VITALS: BP 119/62
[2016-12-18 07:22] VITALS: BP 128/61
[2016-12-18] MEDS: IPRATRPIUM/ALBUTEROL 0.5/2.5MG 3 ML NEBU. NEB SCH ×2 (07:58→11:32)
--- NOTE | 2016-12-18 08:03 | PDOC ---
Infectious Disease Note Subjective Subjective sleepy ROS ROS unable to do Vital Sign Vital Signs Vital Signs Date Time Temp Pulse Resp B/P (MAP) Pulse Ox O2 Delivery O2 Flow Rate FiO2 12/18/16 08:01 97 Room Air 12/18/16 03:05 99.7 92 20 119/62 (81) 99.7 Physical Exam PHYSICAL EXAM GENERAL: NAD, sleepy HEENT: PERRL, OC/OP NECK: Supple, no JVD, no LN LUNGS: Clear HEART: S1S2, no gallop, no murmur ABD: Soft, NT, no organomegaly, no rebound EXT: No edema, no cyanosis SPANISH LANGUAGE LECTURER: sleepy, total care SKIN: No rash IV: ok Objective Assessment Septic shock, POA, 12/10 off pressors. Reportedly GPC in 1 of 4 , strep viridans , contaminant CAUTI, POA 12/10. 2 nondominant org. Repeat UC neg - per daughter, had been on Bactrim for UTI couple days prior to admit. Lactic acidosis HCAP A-fib, amiodarone, currently off Debility MRSA, nares positive Sacral pressure wound, POA Plan Plan of Care po augmentin and zyvox Supportive care d/c to home or NH soon d/w overall prognosis poor RYANN JOSHUA MD Dec 18, 2016 08:03
--- NOTE | 2016-12-18 08:44 | PDOC ---
PROGRESS NOTES Chief Complaint Chief Complaint AMS with Metabolic encephalopathy with sepsis Septic shock HAP/aspiration PNA UTI JULIETA, prob on CKD, vasomotor Hyperkalemia Hyponatremia HTN Hypothyroidism PAfib Dysphagia with PEG Hypoalbuminemia, severe Decubitus ulcers Constipation Plan On tube feeds, continue current antibiotics, on Augmentin and and by mouth Zyvox. Case discussed with the social media project manager family has been planning for home health. Removal of IV axis is recommended, cbc/bmp pending. Appreciate pulmonology recommendations for discharge planning. Anticipated discharge today based on chest x-ray results and a family input. Discussed with infectious disease agree with her discharge Continue Wound care labs reviewed, hemoglobin stable need daily PT/OT Neurology following. continue supplemental oxygen as needed Her family at bedside today. care home prognosis guarded. History of Present Illness History of Present Illness no fever no cute findings family at bed side. Vitals Vitals Vital Signs Date Time Temp Pulse Resp B/P (MAP) Pulse Ox O2 Delivery O2 Flow Rate FiO2 12/18/16 08:01 97 Room Air 12/18/16 07:22 98.3 84 19 128/61 (83) 98.3 Physical Exam General: Alert, No acute distress, Other ( ) Heart: Regular rate, Normal S1, Normal S2 Lungs: Clear, Other (bl coarse bs) Abdomen: Normal bowel sounds, Soft, No tenderness Extremities: No clubbing, No edema Skin: No rashes Assessment and Plan Assessmemt and Plan Problems Medical Problems: (1) Acute renal failure Status: Acute (2) Healthcare-associated pneumonia Status: Acute (3) Microcytic anemia Status: Acute (4) Severe protein-calorie malnutrition Status: Acute (5) Severe sepsis Status: Acute (6) Urinary tract infection Status: Acute Problems: Comment Review of Relevant I have reviewed the following items adam (where applicable) has been applied. Labs Laboratory Tests Test 12/16/16 15:55 Vitamin B12 Level 1410 pg/mL (247-911) 25-Hydroxy Vitamin D Total 20.9 ng/mL (30.0-100.0) Thyroid Stimulating Hormone (TSH) 9.534 uIU/mL (0.358-3.74) Microbiology 12/10/16 Blood Culture - Final, Complete NO GROWTH AFTER 5 DAYS 12/16/16 Gram Stain - Final, Complete 12/11/16 Urine Culture - Final, Complete 12/11/16 Urine Culture Result 1 (MISA) - Final, Complete Medications Current Medications Sodium Chloride 1,000 ml @ 1,120 mls/hr Q54M IV Last administered on 16:54; Start 12/10/16 at 16:00; Stop 12/10/16 at 17:00; Status DC Vancomycin HCl (Vanco Per Pharmacy) 1 each PRN DAILY PRN MC SEE COMMENTS Last administered on 12/12/16 21:51; Start 12/10/16 at 16:15; Stop 12/14/16 at 09:10; Status DC Piperacillin Sod/ Tazobactam Sod (Zosyn Per Pharmacy) 1 each PRN DAILY PRN MC SEE COMMENTS; Start 12/10/16 at 16:15; Status Cancel Levofloxacin/ Dextrose (Levaquin Per Pharmacy) 1 each PRN DAILY PRN MC SEE COMMENTS; Start 12/10/16 at 16:15; Stop 12/11/16 at 11:34; Status DC Levofloxacin/ Dextrose 150 ml @ 150 mls/hr ONCE ONCE IV Last administered on 12/10/16 16:16; Start 12/10/16 at 16:15; Stop 12/10/16 at 17:14; Status DC Vancomycin HCl 1.5 gm/Sodium Chloride 500 ml @ 250 mls/hr 1X ONCE IV Last administered on 12/10/16 18:38; Start 12/10/16 at 16:15; Stop 12/10/16 at 18:14 ; Status DC Piperacillin Sod/ Tazobactam Sod 4.5 gm/Sodium Chloride 100 ml @ 200 mls/hr ONCE ONCE IV Last administered on 12/10/16 17:37; Start 12/10/16 at 16:30; Stop 12/10/16 at 16:59; Status DC Sodium Chloride 1,000 ml @ 150 mls/hr 1X ONCE IV Last administered on 17:15; Start 12/10/16 at 16:15; Stop 12/10/16 at 22:54; Status DC Ondansetron HCl (Zofran) 4 mg PRN Q8HRS PRN IV NAUSEA/VOMITING; Start 12/10/16 at 16:45; Stop 12/11/16 at 16:44; Status DC Sodium Chloride 1,000 ml @ 150 mls/hr Q6H40M IV Last administered on 16:35; Start 12/10/16 at 16:35; Stop 12/11/16 at 16:34; Status DC Acetaminophen (Tylenol) 650 mg PRN Q4HRS PRN PO FEVER; Start 12/10/16 at 16:45 ; Stop 12/11/16 at 16:44; Status DC Albuterol/ Ipratropium (Duoneb) 3 ml RTQID NEB ; Start 12/10/16 at 20:00; Stop 12/10/16 at 20:00; Status DC Acetaminophen (Tylenol) 650 mg PRN Q6HRS PRN PO FEVER Last administered on 13:16; Start 12/10/16 at 17:15 Ondansetron HCl (Zofran) 4 mg PRN Q6HRS PRN IV NAUSEA/VOMITING; Start 12/10/16 at 17:15 Morphine Sulfate 2 mg PRN Q2HR PRN IV PAIN; Start 12/10/16 at 17:15; Stop at 12:18; Status DC Tramadol HCl (Ultram) 50 mg PRN Q6HRS PRN PO PAIN; Start 12/10/16 at 17:15 Hydralazine HCl (Apresoline) 10 mg PRN Q4HRS PRN IVP ELEVATED BP, SEE COMMENTS ; Start 12/10/16 at 17:15 Docusate Sodium (Colace) 100 mg PRN DAILY PRN PO CONSTIPATION; Start 12/10/16 at 17:15 Dextrose/Sodium Chloride 1,000 ml @ 75 mls/hr [id number] IV Last administered on 12/11/16 23:05; Start 12/10/16 at 17:15; Stop 12/12/16 at 13:46; Status DC Heparin Sodium (Porcine) (Heparin Sq) 5,000 unit Q8HRS SQ Last administered on 12/11/16 06:17; Start 12/10/16 at 22:00; Stop 12/11/16 at 17:53; Status DC Albuterol/ Ipratropium (Duoneb) 3 ml RTQID NEB Last administered on 12/18/16 07 :58; Start 12/10/16 at 20:00 Albuterol Sulfate (Ventolin Neb Soln) 2.5 mg PRN Q2HR PRN NEB SHORTNESS OF BREATH; Start 12/10/16 at 17:15 Levofloxacin/ Dextrose 150 ml @ 100 mls/hr Q48H IV ; Start 12/11/16 at 16:00; Stop 12/11/16 at 16:00; Status DC Piperacillin Sod/ Tazobactam Sod 3.375 gm/Sodium Chloride 50 ml @ 100 mls/hr Q6HRS IV Last administered on 12/15/16 05:56; Start 12/11/16 at 00:00; Stop 12/15 at 14:48; Status DC Vancomycin HCl 1 gm/Sodium Chloride 250 ml @ 250 mls/hr Q24H IV Last administered on 12/13/16 20:06; Start 12/11/16 at 18:30; Stop 12/14/16 at 09:06; Status DC Vancomycin HCl 1 each 1X ONCE MC Last administered on 12/12/16 18:00; Start at 18:00; Stop 12/12/16 at 18:01; Status DC Norepinephrine Bitartrate 250 ml @ 0 mls/hr CONT PRN IV SEE I/O RECORD Last administered on 12/11/16 08:53; Start 12/10/16 at 18:45; Stop 12/14/16 at 13:18; Status DC Sodium Chloride 1,000 ml @ 1,000 mls/hr 1X ONCE IV Last administered on 20:41; Start 12/10/16 at 19:30; Stop 12/10/16 at 20:29; Status DC Sodium Chloride 1,000 ml @ 999 mls/hr 1X ONCE IV Last administered on 12:04; Start 12/11/16 at 10:00; Stop 12/11/16 at 11:00; Status DC Sodium Chloride 1,000 ml @ 999 mls/hr 1X ONCE IV Last administered on 12:03; Start 12/11/16 at 10:00; Stop 12/11/16 at 11:00; Status DC Mineral Oil (Fleet Mineral Oil) 133 ml 1X ONCE CO Last administered on 11:00; Start 12/11/16 at 11:00; Stop 12/11/16 at 11:02; Status DC Acetaminophen (Tylenol) 650 mg PRN Q6HRS PRN PEG MILD PAIN / TEMP Last administered on 12/17/16 11:43; Start 12/11/16 at 12:45 Olanzapine (ZyPREXA) 15 mg QHS PO Last administered on 12/17/16 21:12; Start at 21:00 Polyethylene Glycol (miraLAX PACKET) 17 gm DAILY PO Last administered on 08:26; Start 12/11/16 at 12:30 Levothyroxine Sodium 100 mcg/ Sodium Chloride 5 ml @ 125 mls/hr DAILY IVP Last administered on 12/14/16 09:20; Start 12/12/16 at 09:00; Stop 12/14/16 at 14:11; Status DC Famotidine (Pepcid) 20 mg QHS IVP Last administered on 12/13/16 21:16; Start at 21:00; Stop 12/14/16 at 14:11; Status DC Nystatin (Mycostatin) 1 nhi BID TP Last administered on 12/15/16 20:56; Start 12/12/16 at 10:00 Lorazepam (Ativan) 0.5 mg PRN Q8HRS PRN PEG ANXIETY / AGITATION Last administered on 12/17/16 21:11; Start 12/12/16 at 13:45 Diphenhydramine HCl (Benadryl Oral Elixir) 25 mg PRN QHS PRN PO sleep Last administered on 12/16/16 22:31; Start 12/12/16 at 13:45 Multivitamins (Thera-Plus) 5 ml DAILY PEG Last administered on 12/17/16 08:26; Start 12/13/16 at 09:00 Ascorbic Acid (Vitamin C) 500 mg DAILY PEG Last administered on 12/17/16 08:26 ; Start 12/13/16 at 09:00 Levothyroxine Sodium (Synthroid) 125 mcg DAILY07 PEG Last administered on 08:25; Start 12/15/16 at 07:00 Famotidine (Pepcid) 20 mg QHS PEG Last administered on 12/17/16 21:12; Start at 21:00 Amino Acids/ Glycerin/ Electrolytes 1,000 ml @ 60 mls/hr [id number] IV Last administered on 12/15/16 01:12; Start 12/15/16 at 00:00; Stop 12/17/16 at 11:16; Status DC Amoxicillin/ Clavulanate Potassium (Augmentin 875/ 125mg) 1 tab BID PO Last administered on 12/17/16 21:12; Start 12/15/16 at 21:00 Aspirin (Children'S Aspirin) 81 mg [id number] PEG Last administered on 08:26; Start 12/16/16 at 15:15 Linezolid (Zyvox) 600 mg BID PEG Last administered on 12/17/16 21:11; Start 12/17/16 at 11:30 Active Scripts Active Reported Bactrim Ds Tablet (Sulfamethoxazole/Trimethoprim) 1 Each Tablet 1 Each PEG BID Vitamin C (Ascorbic Acid) 500 Mg/5 Ml Syrup 500 Mg PEG DAILY Vitamin D (Cholecalciferol (Vitamin D3)) 1,000 Unit Capsule 1 Cap PO DAILY Benadryl (Diphenhydramine Hcl) 25 Mg Capsule 25 Mg PO HS Lorazepam 0.5 Mg Tablet 0.5 Mg PO HS Acetaminophen 160 Mg/5 Ml Solution 5 Ml PO Q4HRS Aspir 81 (Aspirin) 81 Mg Tablet.dr 1 Tab PO DAILY Potassium Chloride 20 Meq Tablet.er 20 Meq PO DAILY Amiodarone Hcl 400 Mg Tablet 400 Mg PO BID Lasix (Furosemide) 40 Mg Tablet 40 Mg PO BID Pepcid (Famotidine) 20 Mg Tablet 20 Mg PO BID Levothyroxine Sodium 125 Mcg Tablet 1 Tab PO DAILY Zyprexa (Olanzapine) 15 Mg Tablet 1 Tab PO QHS Lisinopril 10 Mg Tablet 1 Tab PO DAILY Vitals/I & O Vital Sign - Last 24 Hours 12/17/16 12/17/16 12/17/16 12/17/16 10:49 11:01 15:00 15:16 Temp 100.2 98.1 100.2 98.1 Pulse 97 75 Resp 20 18 B/P (MAP) 126/59 (81) 111/57 (75) Pulse Ox 95 94 92 O2 Delivery Room Air Room Air Room Air Room Air 12/17/16 12/17/16 12/17/16 12/17/16 19:05 19:34 20:00 23:05 Temp 98.6 99.4 98.6 99.4 Pulse 94 94 Resp 20 20 B/P (MAP) 130/63 (85) 134/61 (85) Pulse Ox 95 94 O2 Delivery Room Air Room Air Room Air Room Air 12/18/16 12/18/16 12/18/16 03:05 07:22 08:01 Temp 99.7 98.3 99.7 98.3 Pulse 92 84 Resp 20 19 B/P (MAP) 119/62 (81) 128/61 (83) Pulse Ox 97 95 97 O2 Delivery Room Air Room Air Room Air Intake and Output 12/17/16 12/17/16 12/18/16 15:00 23:00 07:00 Intake Total 200 ml 200 ml 0 ml Output Total 750 ml 1450 ml Balance 200 ml -550 ml -1450 ml Nutrition Consultation Dietary Evaluation: Recommendations by RD: Increase Calorie Intake, Protein supplementation Comments: Rec. continue with Fibersource HN, goal rate 75 ml/hr start at 25 ml/hr, increase by 25 ml/hr q8h to goal flushes 200 cc q4h Expected Outcomes/Goals: tolerate the TF's at goal rate- met, goal ongoing Interpretation of weight loss: >10% in 6 months Malnutrition Findings: Body Fat Depletion (Non Severe: Mild Depletion Reduced Blood Tester Strength: N/A Malnutrition related to morbid: No Weight Status: Appropriate Fluid Accumulation (N/A): N/A JOSIAH CARDENAS MD Dec 18, 2016 08:44
[2016-12-18] MEDS: NYSTATIN 100,000 UNIT/GM TOPICAL OINTMENT 15GM TUBE. TP SCH (09:00)
[2016-12-18] MEDS: LINEZOLID 600 MG TABLET PEG SCH (09:15)
[2016-12-18] MEDS: LEVOTHYROXINE 125 MCG TABLET PEG SCH (09:15)
[2016-12-18] MEDS: ASPIRIN CHEWABLE 81 MG TABLET. PEG SCH (09:15)
[2016-12-18] MEDS: MULTIVITAMINS,THERAPEUTIC 5 ML ORAL LIQUID. PEG SCH (09:15)
[2016-12-18] MEDS: POLYETHYLENE GLYCOL 3350 17 GM PACKET. PO SCH (09:15)
[2016-12-18] MEDS: ASCORBIC ACID 500 MG TABLET PEG SCH (09:15)
[2016-12-18] MEDS: AMOXICILLIN/K CLAV 875/125MG TABLET. PO SCH (09:15)
[2016-12-18] MEDS: ACETAMINOPHEN 650 MG/20.3 ML SOLUTION. PEG PRN (09:15)
[2016-12-18] MEDS ORDERED: LINE600T PO (10:00)
[2016-12-18] MEDS ORDERED: AMOX1TAB61 PO (10:01)
[2016-12-18 10:23] LABS: BASO % 1 % (0-3); EOS % 2 % (0-3); HEMATOCRIT 24.4 % (36.0-47.0); LYMPH # 1.1 x10^3/uL (1.0-4.8); LYMPH % 24 % (24-48); MEAN CORPUSCULAR HEMOGLOBIN 30 pg (25-35); MEAN CORPUSCULAR HGB CONC 33 g/dL (31-37); MEAN CORPUSCULAR VOLUME 91 fL (79-100); MONO % 16 % (0-9); NEUT % 58 % (31-73); PLATELET COUNT 156 x10^3/uL (140-400); RED BLOOD COUNT 2.68 x10^6/uL (3.50-5.40); RED CELL DISTRIBUTION WIDTH 15.9 % (11.5-14.5); WHITE BLOOD COUNT 4.8 x10^3/uL (4.0-11.0)
[2016-12-18 10:41] LABS: ALBUMIN 1.8 g/dL (3.4-5.0); ALBUMIN/GLOBULIN RATIO 0.5 (1.0-1.7); CALCIUM 7.7 mg/dL (8.5-10.1); CREATININE 0.6 mg/dL (0.6-1.0); GFR 96.9; POTASSIUM 4.3 mmol/L (3.5-5.1); TOTAL BILIRUBIN 0.2 mg/dL (0.2-1.0); TOTAL PROTEIN 5.4 g/dL (6.4-8.2)
[2016-12-18 11:18] VITALS: BP 131/62
[2016-12-18] MEDS ORDERED: ALBU2.5V5 NEB (11:38)
[2016-12-18] MEDS ORDERED: IPRA3AMP NEB (11:40)
[2016-12-18 11:46] LABS: % EOS 3 % (0-5); PLT ESTIMATE ADEQUATE (ADEQUATE)
== END 2016-12-18 13:55 | disposition home health service (06) | DRG 871 ==
LOC: ER 15:25 → EDBD 15:25 → 1 WEST ICU 16:11 → 6 SOUTH 12-13 13:06
PROVIDERS: ADMIT Internal Medicine; ATTEND Internal Medicine
PROC: 02HV33Z Insertion of Infusion Device into Superior Vena Cava, Percutaneous Approach (ICD-10-PCS; principal; 2016-12-10)
DX: A41.9 Sepsis, unspecified organism (principal); E43 Unspecified severe protein-calorie malnutrition; G93.41 Metabolic encephalopathy; N17.0 Acute kidney failure with tubular necrosis; R65.21 Severe sepsis with septic shock; J69.0 Pneumonitis due to inhalation of food and vomit; T83.518A Infection and inflammatory reaction due to other urinary catheter, initial encounter; E87.1 Hypo-osmolality and hyponatremia; N39.0 Urinary tract infection, site not specified; M48.56XA Collapsed vertebra, not elsewhere classified, lumbar region, initial encounter for fracture; D50.9 Iron deficiency anemia, unspecified; E03.9 Hypothyroidism, unspecified; E86.0 Dehydration; E87.5 Hyperkalemia; F20.9 Schizophrenia, unspecified; G40.909 Epilepsy, unspecified, not intractable, without status epilepticus; I12.9 Hypertensive chronic kidney disease with stage 1 through stage 4 chronic kidney disease, or unspecified chronic kidney disease; I48.91 Unspecified atrial fibrillation; K59.00 Constipation, unspecified; K62.3 Rectal prolapse; L89.159 Pressure ulcer of sacral region, unspecified stage; N18.2 Chronic kidney disease, stage 2 (mild); R13.10 Dysphagia, unspecified; F41.9 Anxiety disorder, unspecified; Z96.649 Presence of unspecified artificial hip joint; F03.90 Unspecified dementia, unspecified severity, without behavioral disturbance, psychotic disturbance, mood disturbance, and anxiety; Y84.6 Urinary catheterization as the cause of abnormal reaction of the patient, or of later complication, without mention of misadventure at the time of the procedure; I48.0 Paroxysmal atrial fibrillation; F32.9 Major depressive disorder, single episode, unspecified; Y95 Nosocomial condition; Z79.899 Other long term (current) drug therapy; Z82.49 Family history of ischemic heart disease and other diseases of the circulatory system; Z93.1 Gastrostomy status; Z68.24 Body mass index [BMI] 24.0-24.9, adult; Z87.81 Personal history of (healed) traumatic fracture; Z80.8 Family history of malignant neoplasm of other organs or systems; Z22.322 Carrier or suspected carrier of Methicillin resistant Staphylococcus aureus; Y92.89 Other specified places as the place of occurrence of the external cause
CPT/HCPCS: 31720; 36415; 36600; 70450; 71010; 74022; 74176; 80048; 80053; 80202; 81001; 82306; 82607; 82805; 83605; 83735; 84443; 85007; 85027; 87040; 87070; 87086; 87205; 87641; 93005; 94640; 94760; 96365; 96375; J1956; J2543; J3370; J7030; J7040; J7042; J7050; J7620; S0028; 97110; 97530; 97535; 99291-25